=== PATIENT | female | born 1940 | race Caucasian/White ===

== ENCOUNTER 2017-04-27 10:13 | Inpatient (IN) ==
[2017-04-27] MEDS ORDERED: Ondansetron 4 MG/2 ML VIAL IVP ONE (10:27)
--- NOTE | 2017-04-27 10:28 | Emergency Department Note ---
Disposition Clinical Impression: Chest pain Qualifiers: Chest pain type: unspecified Qualified Code(s): R07.9 - Chest pain, unspecified Disposition: Admitted As Inpatient Condition: Fair General Adult HPI - General Chief complaint: ED Chest Pain Stated complaint: C/P Time Seen by Provider: 04/27/17 10:15 Source: patient, family Limitations: no limitations Nursing Notes Reviewed: Yes Vital Signs Reviewed: Yes - History of Present Illness Pain Scale: 10 - Related Data Home Medications Medication Instructions Recorded Confirmed Amitriptyline HCl [Amitriptyline 75 mg PO DAILY 04/27/17 04/27/17 HCl] Losartan Potassium [Cozaar] 50 mg PO DAILY 04/27/17 04/27/17 Omeprazole [PriLOSEC] 20 mg PO DAILY 04/27/17 04/27/17 Oxazepam [Serax] 10 mg PO QID 04/27/17 04/27/17 Oxycodone HCl/Acetaminophen 1 tab PO TID PRN 04/27/17 04/27/17 [Endocet 5-325 Tablet] Polyethylene Glycol 3350 [MiraLAX 17 gm PO DAILY PRN 04/27/17 04/27/17 bowel prep] Allergies Allergy/AdvReac Type Severity Reaction Status Date / Time Sulfa (Sulfonamide AdvReac Weakness Verified 04/27/17 13:38 Antibiotics) Past Medical History - Past Medical History Medical history: Reports: hyperlipidemia, hypertension, renal disease, other Surgical history: Reports: cholecystectomy, hysterectomy Psychiatric history: Reports: anxiety - Social History Smoking Status: Unknown if ever smoked Alcohol use: Reports: none Drug use: Reports: none Physical Exam - General Limitations: no limitations General appearance: alert, in distress Course Vital Signs Temperature 98 F 04/27/17 10:17 Pulse Rate 113 04/27/17 10:17 Respiratory Rate 20 04/27/17 10:17 Blood Pressure 173/99 04/27/17 10:17 O2 Sat by Pulse Oximetry 99 04/27/17 10:17 Temperature 98 F 04/27/17 10:17 Pulse Rate 92 04/27/17 12:42 Respiratory Rate 18 04/27/17 12:49 Blood Pressure 154/99 04/27/17 12:49 O2 Sat by Pulse Oximetry 98 04/27/17 12:42 Oxygen Delivery Oxygen Delivery Room Air Medical Decision Making - [facility] Narrative Medical decision making narrative: I examined this patient and my medical decision-making was reviewed with the Resident Physician. I agree with the documented findings, disposition and treatment plan as described except to the extent set forth below. Patient seen and evaluated by Dr. Cedillo and myself, I agree with his evaluation and management plan, supervised care the patient's stay. Patient presents today with epigastric and left upper quadrant abdominal pain and this could be chest pain she seems to think it is more abdominal pain. She has had some jaundice or last couple days also. She has a history of myelodysplastic syndrome. Low platelets also certain hold off any aspirin she is to get labs CT her abdomen EKG and reassess. She is in agreement with this plan. As his family. Chest X-Ray 04/27/17 10:17 IMPRESSION: No acute cardiopulmonary disease. D/ / Cladue Collins MD / Claude Collins MD Interpreting Provider: Claude Collins MD Abdomen/Pelvis CT 04/27/17 10:42 IMPRESSION: 1. No acute abnormalities are seen in the abdomen or pelvis. 2. No evidence for appendicitis. 3. No urinary tract stones. D/ / 04/27/2017 11:27:13 Eligio Renae MD / ricci Interpreting Provider: Eligio Renae MD 1144 hrs.: Patient's labs are returning. Her bilirubin is elevated. CT shows no acute abnormalities read by radiology. Waiting on rest her labs come back reassess her then determine whether she needs admission here or transferred. At this time I do not believe that we have gastroenterology coverage. 1205 hours: We do have GI coverage here and they have agreed to keep the patient here will admit the Hospital system counseling. I have also updated that Hem-Onc service so they can consult on the patient if needed. Patient's family is in agreement with her staying here. - Lab Data Result diagrams: 04/27/17 10:39 04/27/17 10:39 Lab Results 04/27/17 04/27/17 04/27/17 Range/Units 10:39 10:39 10:39 WBC (4.3-11.1) K/mcL RBC (3.82-4.97) M/mcL Hgb (11.5-15.4) g/dL Hct (35.3-44.9) % MCV (83.0-100.0) fL MCH (28.0-33.3) pg MCHC (31.6-35.5) g/dL RDW (11.5-14.5) % Plt Count (140-400) K/mcL MPV (9.4-12.4) fL Immature Gran % (0-4) % Seg Neutrophils % % Lymphocytes % % Monocytes % % Eosinophils % % Basophils % % Neutrophils # (1.6-8.9) K/mcL Lymphocytes # (0.6-4.6) K/mcL Monocytes # (0.0-1.3) K/mcL Eosinophils # (0.0-0.6) K/mcL Basophils # (0.0-0.2) K/mcL PT 12.3 H (9.4-12.1) Seconds INR 1.1 APTT 29.7 (26.0-36.0) Seconds Sodium 139 (136-145) mEq/L Potassium 4.0 (3.5-4.5) mEq/L Chloride 105 (98-109) mEq/L Carbon Dioxide 25 (19-29) mEq/L BUN 15 (7-20) mg/dL Creatinine 0.84 (0.57-1.11) mg/dL Est GFR ( Amer) > 60 (> 60) Est GFR (Non-Af Amer) > 60 (> 60) BUN/Creatinine Ratio 18 (6-26) Glucose 165 H (70-99) mg/dL Calculated Osmolality 293 (280-300) Calcium 9.6 (8.6-10.8) mg/dL Total Bilirubin 7.8 H (0.2-1.2) mg/dL Direct Bilirubin 5.7 H (0.0-0.5) mg/dL Indirect Bilirubin 2.1 H (0.0-1.2) mg/dL AST 330 H (5-34) Units/L ALT 359 H (0-55) Units/L Alkaline Phosphatase 1019 H (38-126) Units/L Troponin I (0-0.03) ng/mL B-Natriuretic Peptide 27 (0-100) pg/mL Serum Total Protein 8.5 H (6.0-8.3) g/dL Albumin 3.8 (3.5-5.0) g/dL Globulin 4.7 H (2.4-3.5) g/dL Albumin/Globulin Ratio 0.8 L (1.1-2.2) Lipase 13 (8-78) Units/L Urine Color (Yellow) Urine Clarity (Clear) Urine pH (5.0-8.0) pH Units Ur Specific [place] (1.010-1.025) Urine Protein (Neg-Trace) mg/dL Urine Glucose (UA) (Normal) mg/dL Urine Ketones (Negative) mg/dL Urine Blood (Negative) Urine Nitrite (Negative) Urine Bilirubin (Negative) Urine Urobilinogen (Normal) mg/dL Ur Leukocyte Esterase (Negative) Urine Microscopic RBC (0-3) per hpf Urine Microscopic WBC (0-3) per hpf Ur Squamous Epith Cells (None-Few) per lpf Urine Bacteria (None-Few) per hpf Hyaline Casts (None-Few) per lpf Ur Culture Indicated? (NO) 04/27/17 04/27/17 04/27/17 Range/Units 10:39 10:39 12:10 WBC 3.8 L (4.3-11.1) K/mcL RBC 3.16 L (3.82-4.97) M/mcL Hgb 10.2 L (11.5-15.4) g/dL Hct 33.6 L (35.3-44.9) % MCV 106.3 H (83.0-100.0) fL MCH 32.3 (28.0-33.3) pg MCHC 30.4 L (31.6-35.5) g/dL RDW 16.4 H (11.5-14.5) % Plt Count 71 L (140-400) K/mcL MPV 13.6 H (9.4-12.4) fL Immature Gran % 3.7 (0-4) % Seg Neutrophils % 66.2 % Lymphocytes % 15.8 % Monocytes % 10.8 % Eosinophils % 2.4 % Basophils % 1.1 % Neutrophils # 2.5 (1.6-8.9) K/mcL Lymphocytes # 0.6 (0.6-4.6) K/mcL Monocytes # 0.4 (0.0-1.3) K/mcL Eosinophils # 0.1 (0.0-0.6) K/mcL Basophils # 0.0 (0.0-0.2) K/mcL PT (9.4-12.1) Seconds INR APTT (26.0-36.0) Seconds Sodium (136-145) mEq/L Potassium (3.5-4.5) mEq/L Chloride (98-109) mEq/L Carbon Dioxide (19-29) mEq/L BUN (7-20) mg/dL Creatinine (0.57-1.11) mg/dL Est GFR ( Amer) (> 60) Est GFR (Non-Af Amer) (> 60) BUN/Creatinine Ratio (6-26) Glucose (70-99) mg/dL Calculated Osmolality (280-300) Calcium (8.6-10.8) mg/dL Total Bilirubin (0.2-1.2) mg/dL Direct Bilirubin (0.0-0.5) mg/dL Indirect Bilirubin (0.0-1.2) mg/dL AST (5-34) Units/L ALT (0-55) Units/L Alkaline Phosphatase (38-126) Units/L Troponin I 0.00 (0-0.03) ng/mL B-Natriuretic Peptide (0-100) pg/mL Serum Total Protein (6.0-8.3) g/dL Albumin (3.5-5.0) g/dL Globulin (2.4-3.5) g/dL Albumin/Globulin Ratio (1.1-2.2) Lipase (8-78) Units/L Urine Color Dark Yellow (Yellow) Urine Clarity Slightly Hazy (Clear) Urine pH 6.0 (5.0-8.0) pH Units Ur Specific [place] 1.016 (1.010-1.025) Urine Protein Negative (Neg-Trace) mg/dL Urine Glucose (UA) Normal (Normal) mg/dL Urine Ketones Negative (Negative) mg/dL Urine Blood Negative (Negative) Urine Nitrite Negative (Negative) Urine Bilirubin Moderate H (Negative) Urine Urobilinogen 4.0 H (Normal) mg/dL Ur Leukocyte Esterase Moderate H (Negative) Urine Microscopic RBC 0-3 (0-3) per hpf Urine Microscopic WBC 0-3 (0-3) per hpf Ur Squamous Epith Cells Many H (None-Few) per lpf Urine Bacteria None Seen (None-Few) per hpf Hyaline Casts None Seen (None-Few) per lpf Ur Culture Indicated? YES A (NO)
[2017-04-27] MEDS ORDERED: *HR* HYDROmorphone (PF) 1 MG/ML SYRINGE IVP ONE ×2 (10:29→12:21)
--- NOTE | 2017-04-27 10:32 | Emergency Department Note ---
Disposition Clinical Impression: Elevated liver enzymes, Elevated bilirubin Chest pain Qualifiers: Chest pain type: unspecified Qualified Code(s): R07.9 - Chest pain, unspecified Abdominal pain Qualifiers: Abdominal location: right upper quadrant Qualified Code(s): R10.11 - Right upper quadrant pain Disposition: Admitted As Inpatient Condition: Fair Chest Pain HPI - General Chief Complaint: ED Chest Pain Stated Complaint: C/P Time Seen by Provider: 04/27/17 10:15 Source: patient, family Limitations: no limitations Vital Signs Reviewed: Yes Nursing Notes Reviewed: Yes - History of Present Illness HPI Narrative: Patient here for evaluation of chest pain. Patient has a history of myelodysplastic syndrome and received a shot to increase her blood counts on Sunday. Patient is had chest pain that she describes as a epigastric substernal pain that radiates around her sides and into her back. Patient states that the pain came on last night where she initially refused to come to the hospital for evaluation but has had continued symptoms without relief. Patient has had similar episodes in the past that have self resolved. Patient states she was seen and told her heart enzymes were elevated but never had a previous cardiac workup. Patient states that she has got no heart problems and no lung problems. No history of diabetes. Patient does have a history of stage III kidney disease but has not required dialysis in the past. Patient had a cyst evaluated on her left side approximately [address] Moya. Patient states that she has got left upper and lower quadrant tenderness time. Patient's had a 40 pound weight loss over the last 6 months. Severity scale (1-10): 10 - Related Data Home Medications Medication Instructions Recorded Confirmed Amitriptyline HCl [Amitriptyline 75 mg PO DAILY 04/27/17 04/27/17 HCl] Losartan Potassium [Cozaar] 50 mg PO DAILY 04/27/17 04/27/17 Omeprazole [PriLOSEC] 20 mg PO DAILY 04/27/17 04/27/17 Oxazepam [Serax] 10 mg PO QID 04/27/17 04/27/17 Oxycodone HCl/Acetaminophen 1 tab PO TID PRN 04/27/17 04/27/17 [Endocet 5-325 Tablet] Polyethylene Glycol 3350 [MiraLAX 17 gm PO DAILY PRN 04/27/17 04/27/17 bowel prep] Allergies Allergy/AdvReac Type Severity Reaction Status Date / Time Sulfa (Sulfonamide AdvReac Weakness Verified 04/27/17 13:38 Antibiotics) Review of Systems: CONSTITUTIONAL: Weight loss 40 pounds over the last 6 months, weakness, fatigue. No fever, chills. HEENT: Eyes: No visual changes. Ears, Nose, Throat: No hearing loss, difficulty talking or unable to swallow. SKIN: No rash or itching. CARDIOVASCULAR: Chest pain . No palpitations or edema. RESPIRATORY: No shortness of breath, cough or sputum. GASTROINTESTINAL: Abdominal pain. No anorexia, nausea, vomiting or diarrhea. No abdominal pain or blood. GENITOURINARY: No burning on urination or hematuria. NEUROLOGICAL: No headache, dizziness, syncope, paralysis, ataxia, numbness or tingling in the extremities. No change in bowel or bladder control. MUSCULOSKELETAL: No muscle pain, back pain, joint pain or stiffness. Chest Pain PMH - Past Medical History Medical history: Reports: hyperlipidemia, hypertension, renal disease, other Surgical history: Reports: cholecystectomy, hysterectomy Psychiatric history: Reports: anxiety - Social History Smoking Status: Unknown if ever smoked Alcohol use: Reports: none Drug use: Reports: none Physical Exam General appearance: NAD, conversant Eyes:moist conjunctivae; PERRL HENT: Atraumatic; oropharynx clear with moist mucous membranes and no mucosal ulcerations Neck: Normal inspection; Trachea midline; FROM, supple Lungs: CTA, with normal respiratory effort and no intercostal retractions CV: RRR, no MRGs Abdomen: Soft, mild tenderness with rebound in the left upper lower quadrant. psoas negative Extremities: No peripheral edema or extremity lymphadenopathy Skin: Mild jaundice noted skin Normal temperature; no rash, ulcers or lesions Psych: Appropriate mood and affect Neuro: alert and oriented to person, place and time - General Limitations: no limitations General appearance: alert, in distress Course Course Narrative: Chest pain with no significant EKG changes in the setting of low platelets and abdominal pain- Aspirin was not given - Consultations Consultation #1: Discussed with [facility] to let them know about the patient being in the hospital. Consultation #2: Discussed with Dr. Lazar, gastroenterology, who recommends admission to this hospital for MRI/MRCP to rule out mass and common bile duct stricture. Patient may need an ERCP which he would be able to perform on Sunday if necessary. Consultation #3: Discussed with Hospitalist, pt accepted. Vital Signs Temperature 98 F 04/27/17 10:17 Pulse Rate 113 04/27/17 10:17 Respiratory Rate 20 04/27/17 10:17 Blood Pressure 173/99 04/27/17 10:17 O2 Sat by Pulse Oximetry 99 04/27/17 10:17 Temperature 98.5 F 04/27/17 14:42 Pulse Rate 100 04/27/17 14:42 Respiratory Rate 16 04/27/17 14:42 Blood Pressure 145/84 04/27/17 14:42 O2 Sat by Pulse Oximetry 98 04/27/17 14:42 Oxygen Delivery Oxygen Delivery Room Air Chest Pain - Medical Records Medical records reviewed: Yes I reviewed the patient's medical records. - Lab Data Lab results reviewed: Yes I reviewed the patient's lab results. Result diagrams: 04/27/17 10:39 04/27/17 10:39 Lab Results 04/27/17 04/27/17 04/27/17 Range/Units 10:39 10:39 10:39 WBC (4.3-11.1) K/mcL RBC (3.82-4.97) M/mcL Hgb (11.5-15.4) g/dL Hct (35.3-44.9) % MCV (83.0-100.0) fL MCH (28.0-33.3) pg MCHC (31.6-35.5) g/dL RDW (11.5-14.5) % Plt Count (140-400) K/mcL MPV (9.4-12.4) fL Immature Gran % (0-4) % Seg Neutrophils % % Lymphocytes % % Monocytes % % Eosinophils % % Basophils % % Neutrophils # (1.6-8.9) K/mcL Lymphocytes # (0.6-4.6) K/mcL Monocytes # (0.0-1.3) K/mcL Eosinophils # (0.0-0.6) K/mcL Basophils # (0.0-0.2) K/mcL PT 12.3 H (9.4-12.1) Seconds INR 1.1 APTT 29.7 (26.0-36.0) Seconds Sodium 139 (136-145) mEq/L Potassium 4.0 (3.5-4.5) mEq/L Chloride 105 (98-109) mEq/L Carbon Dioxide 25 (19-29) mEq/L BUN 15 (7-20) mg/dL Creatinine 0.84 (0.57-1.11) mg/dL Est GFR ( Amer) > 60 (> 60) Est GFR (Non-Af Amer) > 60 (> 60) BUN/Creatinine Ratio 18 (6-26) Glucose 165 H (70-99) mg/dL Calculated Osmolality 293 (280-300) Calcium 9.6 (8.6-10.8) mg/dL Total Bilirubin 7.8 H (0.2-1.2) mg/dL Direct Bilirubin 5.7 H (0.0-0.5) mg/dL Indirect Bilirubin 2.1 H (0.0-1.2) mg/dL AST 330 H (5-34) Units/L ALT 359 H (0-55) Units/L Alkaline Phosphatase 1019 H (38-126) Units/L Troponin I (0-0.03) ng/mL B-Natriuretic Peptide 27 (0-100) pg/mL Serum Total Protein 8.5 H (6.0-8.3) g/dL Albumin 3.8 (3.5-5.0) g/dL Globulin 4.7 H (2.4-3.5) g/dL Albumin/Globulin Ratio 0.8 L (1.1-2.2) Lipase 13 (8-78) Units/L Urine Color (Yellow) Urine Clarity (Clear) Urine pH (5.0-8.0) pH Units Ur Specific [place] (1.010-1.025) Urine Protein (Neg-Trace) mg/dL Urine Glucose (UA) (Normal) mg/dL Urine Ketones (Negative) mg/dL Urine Blood (Negative) Urine Nitrite (Negative) Urine Bilirubin (Negative) Urine Urobilinogen (Normal) mg/dL Ur Leukocyte Esterase (Negative) Urine Microscopic RBC (0-3) per hpf Urine Microscopic WBC (0-3) per hpf Ur Squamous Epith Cells (None-Few) per lpf Urine Bacteria (None-Few) per hpf Hyaline Casts (None-Few) per lpf Ur Culture Indicated? (NO) 04/27/17 04/27/17 04/27/17 Range/Units 10:39 10:39 12:10 WBC 3.8 L (4.3-11.1) K/mcL RBC 3.16 L (3.82-4.97) M/mcL Hgb 10.2 L (11.5-15.4) g/dL Hct 33.6 L (35.3-44.9) % MCV 106.3 H (83.0-100.0) fL MCH 32.3 (28.0-33.3) pg MCHC 30.4 L (31.6-35.5) g/dL RDW 16.4 H (11.5-14.5) % Plt Count 71 L (140-400) K/mcL MPV 13.6 H (9.4-12.4) fL Immature Gran % 3.7 (0-4) % Seg Neutrophils % 66.2 % Lymphocytes % 15.8 % Monocytes % 10.8 % Eosinophils % 2.4 % Basophils % 1.1 % Neutrophils # 2.5 (1.6-8.9) K/mcL Lymphocytes # 0.6 (0.6-4.6) K/mcL Monocytes # 0.4 (0.0-1.3) K/mcL Eosinophils # 0.1 (0.0-0.6) K/mcL Basophils # 0.0 (0.0-0.2) K/mcL PT (9.4-12.1) Seconds INR APTT (26.0-36.0) Seconds Sodium (136-145) mEq/L Potassium (3.5-4.5) mEq/L Chloride (98-109) mEq/L Carbon Dioxide (19-29) mEq/L BUN (7-20) mg/dL Creatinine (0.57-1.11) mg/dL Est GFR ( Amer) (> 60) Est GFR (Non-Af Amer) (> 60) BUN/Creatinine Ratio (6-26) Glucose (70-99) mg/dL Calculated Osmolality (280-300) Calcium (8.6-10.8) mg/dL Total Bilirubin (0.2-1.2) mg/dL Direct Bilirubin (0.0-0.5) mg/dL Indirect Bilirubin (0.0-1.2) mg/dL AST (5-34) Units/L ALT (0-55) Units/L Alkaline Phosphatase (38-126) Units/L Troponin I 0.00 (0-0.03) ng/mL B-Natriuretic Peptide (0-100) pg/mL Serum Total Protein (6.0-8.3) g/dL Albumin (3.5-5.0) g/dL Globulin (2.4-3.5) g/dL Albumin/Globulin Ratio (1.1-2.2) Lipase (8-78) Units/L Urine Color Dark Yellow (Yellow) Urine Clarity Slightly Hazy (Clear) Urine pH 6.0 (5.0-8.0) pH Units Ur Specific [place] 1.016 (1.010-1.025) Urine Protein Negative (Neg-Trace) mg/dL Urine Glucose (UA) Normal (Normal) mg/dL Urine Ketones Negative (Negative) mg/dL Urine Blood Negative (Negative) Urine Nitrite Negative (Negative) Urine Bilirubin Moderate H (Negative) Urine Urobilinogen 4.0 H (Normal) mg/dL Ur Leukocyte Esterase Moderate H (Negative) Urine Microscopic RBC 0-3 (0-3) per hpf Urine Microscopic WBC 0-3 (0-3) per hpf Ur Squamous Epith Cells Many H (None-Few) per lpf Urine Bacteria None Seen (None-Few) per hpf Hyaline Casts None Seen (None-Few) per lpf Ur Culture Indicated? YES A (NO) - Radiology Data Radiology results reviewed: Yes I reviewed the patient's radiology results. - EKG Data EKG attestation: Yes I reviewed and interpreted this EKG. EKG results narrative: EKG shows sinus rhythm with ventricular rate of 109. NM 167. QRS 98. QTC 392. Patient has no significant ST elevations or depressions. Patient has nonspecific T-wave changes to the inferior leads that are mildly flatter than previous EKG of 01/26/13.
[2017-04-27 10:51] LABS: Basophils % 1.1 %; Eosinophils # 0.1 K/mcL (0.0-0.6); Eosinophils % 2.4 %; Hematocrit 33.6 % (35.3-44.9); Hemoglobin 10.2 g/dL (11.5-15.4); Immature Granulocytes % 3.7 % (0-4); Lymphocytes # 0.6 K/mcL (0.6-4.6); Lymphocytes % 15.8 %; Mean Corpuscular HGB Conc 30.4 g/dL (31.6-35.5); Mean Corpuscular Hemoglobin 32.3 pg (28.0-33.3); Mean Corpuscular Volume 106.3 fL (83.0-100.0); Mean Platelet Volume 13.6 fL (9.4-12.4); Monocytes # 0.4 K/mcL (0.0-1.3); Monocytes % 10.8 %; Neutrophils # 2.5 K/mcL (1.6-8.9); Red Blood Count 3.16 M/mcL (3.82-4.97); Red Cell Distribution Width 16.4 % (11.5-14.5); Segmented Neutrophils % 66.2 %
[2017-04-27 10:52] LABS: Platelet Count 71 K/mcL (140-400)
[2017-04-27 10:56] LABS: INR 1.1; Prothrombin Time 12.3 Seconds (9.4-12.1)
[2017-04-27 10:58] LABS: Activated Partial Thrombo Time 29.7 Seconds (26.0-36.0)
[2017-04-27 11:09] LABS: Alanine Aminotransferase 359 Units/L (0-55); Albumin 3.8 g/dL (3.5-5.0); Albumin/Globulin Ratio 0.8 (1.1-2.2); Alkaline Phosphatase 1019 Units/L (38-126); Aspartate Amino Transferase 330 Units/L (5-34); BUN/Creatinine Ratio 18 (6-26); Bilirubin,Direct 5.7 mg/dL (0.0-0.5); Bilirubin,Indirect 2.1 mg/dL (0.0-1.2); Bilirubin,Total 7.8 mg/dL (0.2-1.2); Blood Urea Nitrogen 15 mg/dL (7-20); Calcium 9.6 mg/dL (8.6-10.8); Carbon Dioxide 25 mEq/L (19-29); Chloride 105 mEq/L (98-109); Globulin 4.7 g/dL (2.4-3.5); Glucose 165 mg/dL (70-99); Lipase 13 Units/L (8-78); Osmolality,Calculated 293 (280-300); Total Protein 8.5 g/dL (6.0-8.3); eGFR For African Americans > 60 (> 60); eGFR For Non-African Americans > 60 (> 60)
[2017-04-27 11:12] LABS: Sodium 139 mEq/L (136-145)
[2017-04-27 12:32] LABS: Bilirubin,Urine Moderate (Negative); Blood,Urine Negative (Negative); Color,Urine Dark Yellow (Yellow); Glucose,Urine (UA) Normal (Normal); Ketones,Urine Negative (Negative); Leukocyte Esterase,Urine Moderate (Negative); Nitrite,Urine Negative (Negative); Protein,Urine Negative (Neg-Trace); Specific Gravity,Urine 1.016 (1.010-1.025)
[2017-04-27 12:34] LABS: Bacteria,Urine None Seen per hpf (None-Few); Hyaline Casts,Urine None Seen per lpf (None-Few); RBC,Urine 0-3 per hpf (0-3); Squamous Epithelial Cell,Urine Many per lpf (None-Few); WBC,Urine 0-3 per hpf (0-3)
[2017-04-27 12:36] LABS: Clarity,Urine Slightly Hazy (Clear)
[2017-04-27] MEDS ORDERED: Naloxone 0.4 MG/ML INJ IVP PRN (13:09)
[2017-04-27] MEDS ORDERED: Ondansetron 4 MG/2 ML VIAL IVP PRN (13:10)
--- NOTE | 2017-04-27 13:42 | Internal Med History&Physical ---
<Gissel Warren - Last Filed: 04/27/17 14:07> Date of Encounter: 04/27/17 Time of Encounter: 13:00 Assessment and Plan (1) Obstructive jaundice Current visit: Yes Status: Acute 1 concern for cholangiocarcinoma - patient has been experiencing epigastric pain radiating to back- 40 lb weight loss in 6 mos and jaundice . Lab work AST 330 ALT [address] of ABD negative, will obtain MRCP 2 GI consulted - may perform ERCP Sunday depending on results of MRCP 3 will give IVF 4 dilaudid for pain / zofran for nausea 5 clear liquids advance as tolerated (2) Hypertension Current visit: No Status: Chronic stable- will continue with home medications Qualifiers: Hypertension type: essential hypertension Qualified Code(s): I10 - Essential (primary) hypertension (3) Myelodysplastic syndrome Current visit: No Status: Chronic 1 patient is being followed by Oncology- receiving Arnesp every 3 weeks as outpatient 2 Hemonc has been consulted (4) Pancytopenia Current visit: No Status: Chronic this appears to be chronic- - from MDS we will monitor CBC and s/sx of bleeding - transfuse as needed Hemoncology consulted (5) DVT prophylaxis Current visit: Yes Status: Acute SCD- platelets are low Internal Medicine - H&P: HPI Chief complaint: CP Admitted From: Emergency Dept Plans for Post Hospital Care: Home History of present illness: Ms. Brady is a 77 year old female past medical history of CK D stage III, DJD hypertension pancytopenia low-grade myelodysplastic syndrome. She receives Aranesp injections every 3 weeks she did receive one on Sunday. Last night the patient did experience chest pain originating in epigastric area radiating to her bilateral sides into her back there were no aggravating factors the pain was constant she states it was relieved somewhat with her Percocet. The pain continued until today and she was encouraged by family to come to the hospital for evaluation. She denies any past cardiac problems or workup. She denies any fevers chills nausea vomiting diarrhea however she has had anorexia and has lost approximately 40 pounds over the past 6 months. She also has noted that she has become jaundice over the past week. Denies any changes in stool frequency or color no hematemesis, hematochezia or melena. According to ER records lab work did reveal PSA. WBC 3.8U Maya and 10 platelets were 71 PT was 12.3 INR 1.1 PTT 29.7. Total bili 7.8 AST was 3:30 ALT was 359 alkaline phosphatase 1019 troponin was [address] of abdomen was negative chest x-ray with no acute processes. ER physician did consult GI doctor Mary who will see patient requesting MRCP. Oncology has also been consulted. She has been admitted for further workup evaluation. Presently patient does not appear to be in any respiratory distress she appears very frail and weak. She does have 8 out of 10 epigastric pain which she states is easing since she received pain medication. Her lung sounds are clear heart sounds are regular S1 -S2 with no rubs clicks gallops murmurs noted abdomen slightly distended soft nontender to palpation no pedal edema patient is jaundiced. Sclera anicteric. She is hemodynamically stable at this time Reveiwed case with Dr Grimes who agrees with plan Past Med Surg Social Fam HX - Past Medical History Medical history: hyperlipidemia, hypertension, renal disease, other Psychiatric history: anxiety - Past Surgical History Surgical History: cholecystectomy, hysterectomy - Social History Smoking Status: Unknown if ever smoked Alcohol use: none Drug use: none - Family History Mother Living Status: Cause of : Cancer Internal Medicine - H&P: Meds Amitriptyline HCl [Amitriptyline HCl] 75 mg PO DAILY 04/27/17 [History] Losartan Potassium [Cozaar] 50 mg PO DAILY 04/27/17 [History] Omeprazole [PriLOSEC] 20 mg PO DAILY 04/27/17 [History] Oxazepam [Serax] 10 mg PO QID 04/27/17 [History] Oxycodone HCl/Acetaminophen [Endocet 5-325 Tablet] 1 tab PO TID PRN 04/27/17 [ History] Polyethylene Glycol 3350 [MiraLAX bowel prep] 17 gm PO DAILY PRN 04/27/17 [ History] Allergies Sulfa (Sulfonamide Antibiotics) Adverse Reaction (Verified 04/27/17 13:38) Weakness All Systems PM: A 10-system review of systems was performed and is negative for pertinent findings except as documented above in the HPI. - Constitutional Constitutional: anorexia, fatigue, weakness, weight loss - EENT Eyes: no change in vision, no discharge, no pain, no photophobia Nose, mouth and throat: no dysphagia, no nasal discharge, no neck pain, no sore throat - Cardiovascular Cardiovascular ROS IM: chest pain - Respiratory Respiratory: no cough, no dyspnea, no wheezing, no excessive phlegm production - Gastrointestinal Gastrointestinal: bloating, nausea - Genitourinary Genitourinary: no change in urinary stream, no dysuria, no flank pain, no hematuria - Musculoskeletal Musculoskeletal ROS IM: no numbness, no tingling - Integumentary Integumentary IM: unusual bruising, jaundice - Neurological Neurological ROS: no confusion, no convulsions, no focal weakness, no numbness, no tingling, no tremor(s) - Hematologic/Lymphatic Hematologic/Lymphatic: easy bruising - Constitutional Vitals: Temp Pulse Resp BP Pulse Ox 98 F 92 18 154/99 98 04/27/17 10:17 04/27/17 12:42 04/27/17 12:49 04/27/17 12:49 04/27/17 12:42 General appearance: Present: A&O X 3, underweight, answers questions appropriately - Head Head exam: Present: atraumatic, normocephalic - Eye Eye exam: Present: PERRL, conjuntiva pink, sclera anicteric Pupils: Present: PERRL - Neck Neck exam general surgery: Present: supple, trachea midline. Absent: lymphadenopathy - Respiratory Respiratory exam: Present: CTAB. Absent: accessory muscle use, rales, rhonchi, wheezes - Cardiovascular Cardiovascular exam: Present: RRR, +S1, +S2. Absent: diastolic murmur, gallop, rubs, systolic murmur - GI/Abdominal GI/Abdominal exam: Present: distended, normal bowel sounds, soft, no peritoneal signs. Absent: tenderness - Extremities Exam Extremities exam: Present: warm, radial pulses palpable and symetrical. Absent : calf tenderness, cyanotic, pedal edema - Neurological Exam Neurological exam: Present: CN II-XII intact, oriented X3, no focal deficits. Absent: pronater drift, facial droop, speech deficit - Skin Skin exam: Present: dry, intact Internal Med - H&P Results - Labs CBC & Chem 7: 04/27/17 10:39 04/27/17 10:39 - EKG Data EKG shows normal: sinus rhythm Rate: tachycardia - EKG Data Prior EKG available for review: yes When compared to previous EKG: there is no significant change - Diagnostic Studies Other Images Additional comments: Chest X-Ray 04/27/17 10:17 IMPRESSION: No acute cardiopulmonary disease. D/ / Claude Collins MD / Claude Collins MD Interpreting Provider: Claude Collins MD Abdomen/Pelvis CT 04/27/17 10:42 IMPRESSION: 1. No acute abnormalities are seen in the abdomen or pelvis. 2. No evidence for appendicitis. 3. No urinary tract stones. D/ / 04/27/2017 11:27:13 Eligio Renae MD / ricci Interpreting Provider: Eligio Renae MD <Ritesh Grimes - Last Filed: 04/28/17 08:18> Date of Encounter: 04/28/17 Internal Medicine - H&P: HPI History of present illness: Ms. Brady is a 77 year old female All Systems PM: A 10-system review of systems was performed and is negative for pertinent findings except as documented above in the HPI. - Constitutional Vitals: Temp Pulse Resp BP Pulse Ox 98.2 F 95 16 159/82 95 04/28/17 07:24 04/28/17 07:24 04/28/17 07:24 04/28/17 07:24 04/28/17 07:24 Internal Med - H&P Results - Labs CBC & Chem 7: 04/28/17 03:15 04/28/17 03:15 Labs: Short CBC 04/28/17 Range/Units 03:15 WBC 4.2 L (4.3-11.1) K/mcL Hgb 10.6 L (11.5-15.4) g/dL Hct 34.3 L (35.3-44.9) % Plt Count 92 L (140-400) K/mcL Neutrophils # 3.1 (1.6-8.9) K/mcL BMP 04/28/17 03:15 Sodium 138 Potassium 3.9 Chloride 104 Carbon Dioxide 26 BUN 11 Creatinine 0.88 Glucose 144 H Calcium 9.1 Cardiac Enzymes 04/27/17 04/27/17 Range/Units 16:42 22:33 Troponin I 0.00 0.00 (0-0.03) ng/mL - Attending Attestation I have personally performed a face to face evaluation on this patient and I discussed the assessment and plan with the nurse practitioner. I have reviewed and agree with the documented care plan. History and Exam by me shows: Ms. Brady is a 77 year old female past medical history of CK D stage III, DJD hypertension pancytopenia low-grade myelodysplastic syndrome. She receives Aranesp injections every 3 weeks she did receive one on Sunday. Last night the patient did experience chest pain originating in epigastric area radiating to her bilateral sides into her back there were no aggravating factors the pain was constant she states it was relieved somewhat with her Percocet. Patient had a father work up in the emergency room which showed total bili 7.8 AST was 3 :30 ALT was 359 alkaline phosphatase 1019 troponin was [address] of abdomen was negative chest x-ray with no acute processes. Gen: A, A, O x3 Skin: Icteric and pale ABd: mildly distended, mild tender in epigatsric region, no guarding / rigidity a/p 1. Acute obstructive Jaundice 2. Acute pancreatic head mass Reviewed pt's labs and CT of abd results Reviewed MRCP results too Talked to pt's family at bed side and explained to them about MRCP results waiting on GI and Heme Onc eval cont symptomatic and supportive care
[2017-04-27] MEDS: 0.9 % Sodium Chloride 1,000 ML IVC SCH (15:35)
[2017-04-27] MEDS: *HR* HYDROmorphone (PF) 1 MG/ML SYRINGE IVP PRN ×2 (16:31→19:42)
[2017-04-28] MEDS: *HR* HYDROmorphone (PF) 1 MG/ML SYRINGE IVP PRN ×3 (00:32→13:28)
[2017-04-28 03:23] LABS: Hematocrit 34.3 % (35.3-44.9); Hemoglobin 10.6 g/dL (11.5-15.4); Immature Platelets 26.8 % (1.1-6.1); Mean Corpuscular HGB Conc 30.9 g/dL (31.6-35.5); Mean Corpuscular Hemoglobin 32.9 pg (28.0-33.3); Mean Corpuscular Volume 106.5 fL (83.0-100.0); Mean Platelet Volume 12.9 fL (9.4-12.4); Monocytes # 0.3 K/mcL (0.0-1.3); Neutrophils # 3.1 K/mcL (1.6-8.9); Red Blood Count 3.22 M/mcL (3.82-4.97); Red Cell Distribution Width 17.2 % (11.5-14.5)
[2017-04-28 03:26] LABS: Platelet Count 92 K/mcL (140-400)
[2017-04-28 03:38] LABS: BUN/Creatinine Ratio 13 (6-26); Blood Urea Nitrogen 11 mg/dL (7-20); Calcium 9.1 mg/dL (8.6-10.8); Carbon Dioxide 26 mEq/L (19-29); Chloride 104 mEq/L (98-109); Glucose 144 mg/dL (70-99); Osmolality,Calculated 288 (280-300); Potassium 3.9 mEq/L (3.5-4.5); Sodium 138 mEq/L (136-145); eGFR For African Americans > 60 (> 60); eGFR For Non-African Americans > 60 (> 60)
[2017-04-28 04:03] LABS: Anisocytosis 1+ (Not Present); Eosinophils # 0.1 K/mcL (0.0-0.6); Hypochromasia Present (Not Present); Large Platelets Present (Not Present); Lymphocytes # 0.8 K/mcL (0.6-4.6); Platelet Estimate Decreased (Normal)
[2017-04-28 04:04] LABS: Burr Cells 3+ (Not Present)
[2017-04-28] MEDS: 0.9 % Sodium Chloride 1,000 ML IVC SCH (04:36)
--- NOTE | 2017-04-28 06:45 | Oncology Inp Consult Note ---
Date of Encounter: 04/28/17 Time of Encounter: 06:43 - Data of Consult Patient: known to practice within the last 3 years Consult date: 04/28/17 Requesting Physician: Mariposa Patterson Primary Care Provider: Sukumar Wilkins Jr, MD - Consult Narrative Reason for consult: Obstructive jaundice, pancreatic mass. History of present illness: Ms. Brady is a 77 year old woman who is established with la over at the cancer center for ongoing management of ow-grade MDS. I have summarized patient's heme/onc background below based on most recent office report from 04/19/17. Oncology history: She initially presented with progressive pancytopenia which was first noted in January 2011 and was referred to hematology for further evaluation. 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 Cytogenetics was that of a normal female karyotype. She was started on treatment with hypomethylating agent (Vidaza) but have to be stopped due to severe allergic reaction. She was transitioned to decitabine intravenously but had to stop up to 1 cycle due to treatment related cytopenia resulting in hospitalization for infectious complication including C. difficile associated diarrhea and encephalopathy. Due to intolerance of low intensity therapy, decision was made regarding supportive on the management and she has been followed for the last several years and managed supportively. She has maintained relatively stable counts with noncritical thrombocytopenia over last several years but more recently has been noted with declining counts with her CBC from 07/04/16 showing a WBC of 4.2, hemoglobin 9.6, platelet count 51,000 indicating worsening of her underlying anemia and interval development of neutropenia. Fortunately, she has not had any associated symptoms or recent transfusion requirement. Upon establishing with la, we decided to reevaluate the status of her bone marrow abnormality given declining counts and completed on extensive workup on including: Repeat CBC showing persistent pancytopenia with WBC 4.2, hemoglobin 8.7, platelet count 67,000. Reticulocyte was elevated indicating bone marrow response to her cytopenias. Metabolic panel did not show any significant liver, kidney, thyroid abnormality. No hematinic deficiency. Epo level elevated (56) likely reacted to be his anemia. SPEP negative for monoclonal paraproteinemia but showed a polyclonal increase in gamma region. Rheumatoid panel negative. No antinuclear antibodies. Abdominal ultrasound negative for hepatomegaly to suggest underlying primary hematologic disorder. Spleen was not evaluated for whatever reason given that we requested liver spleen ultrasound. Bone marrow biopsy 01/12/17 showed a hypercellular marrow with more than 90% cellularity with left shifted erythroid predominance and megakaryocytic hyperplasia with dyspoietic features. There is some mild myelofibrosis but not severe enough to suggest pathologic bone marrow. No evidence of iron deficiency. Cytogenetics was normal female karyotype. She likely has a low-grade MDS based on cytopenias with a hypercellular bone marrow. Treatment summary: 12/02-02/10: Subcu azacitidine. Stopped due to allergic injection site reaction. 12/09-: Decitabine IV. Steps due to intolerance with profound pancytopenia resulting in prolonged hospitalization and infectious complication. 01/26/17: Started Aranesp every 3 weeks for anemia due to MDS. Ongoing Chronic problems: Chronic kidney disease: Established with nephrology and managed by Dr. Whitfield. DJD: Status post bilateral hip arthroplasty. Hypertension: Controlled on the current management by Dr. Wilkins. Patient is currently hospitalized for acute obstructive jaundice after presenting with several days onset of upper abdominal pain and generalized pruritus associated with skin icterus. Laboratory and admission showed significant jump in her bilirubin to 7.8 from previous of 1.3 and 03/21/17. Direct bilirubin is 5.7 with markedly elevated alkaline phosphatase suggesting a cholestatic liver picture. Abdomen CT on admission was negative for acute abnormalities in the abdomen or pelvis. No evidence of appendicitis. No urinary tract stones. He was a noncontrast study. MRCP same day confirmed a 2.5 cm pancreatic head mass with obstruction of the common bile pancreatic duct sign and moderate intrahepatic biliary dilatation. Concerning for pancreatic neoplasm. Patient's case has been discussed with Dr. Hall GI was recommended an ERCP tentatively planned for 05/31/17. She is being managed supportively in the interim. Oncology is consulted re: her current presentation with obstructive jaundice and pancreatic head mass suspicious for primary pancreatic malignancy as proven otherwise. Patient seen and examined at bedside. Family members present at the time of evaluation. Chart review for details of ongoing care by hospital team which is much appreciated. She reports that her pain is controlled with current measures (Dilaudid and oxycodone.) Pruritus is also controlled somewhat. Understandably, she has some anxiety due to diagnostic considerations are current presentation. Anxiety is control with Elavil and oxazepam. She is not having any acute symptoms at time of my evaluation. Rest of past medical, surgical, family, social history detailed below and verified with patient today. Review of systems: 12 point review of systems performed with patient and positive findings noted in history of present illness. All other systems are negative: Physical exam: Vital Signs Temp 98.4 F 04/28/17 03:40 Pulse 92 04/28/17 03:40 Resp 15 04/28/17 03:40 BP 157/94 04/28/17 03:40 Pulse Ox 95 04/28/17 03:40 Intake & Output 04/27/17 04/28/17 04/28/17 12:59 00:59 12:59 Intake Total 1437 / 1437 Output Total 0 / 0 Balance 1437 / 1437 Weight 55.6 kg 56.359 kg 56.245 kg Intake: IV Fluids 1000 / 1000 0.9 % Sodium Chloride 1, 1000 / 1000 000 ML @ 75 mls/hr IVC . [id number] DEREJE Rx#: [id number] Oral 437 / 437 Output: Urine 0 / 0 Other: Percent of Meal Consumed 0% # Voids 1 GENERAL: Alert and oriented, comfortable appearing. Mental Status: Affect appropriate for circumstances HEENT: Sclerae icteric. No mucositis or thrush. No other oral or pharyngeal lesions or erythema. Skin: No rashes or petechiae. Skin is icteric. No evidence of skin malignancy Lymph nodes: No cervical, supraclavicular, axillary, or inguinal adenopathy. Lungs: Clear to auscultation bilaterally. Clear to percussion bilaterally. Cardiovascular: Regular rate and rhythm. No gallops, murmurs, or rubs. Abdomen: Soft, nontender; No organomegaly or masses palpable. Extremities: No edema. No calf swelling or tenderness. No joint deformity. Neurologic: Alert, normal gait; no focal weakness or sensory abnormalities. Results: Laboratory Last Values WBC 4.2 K/mcL (4.3-11.1) L 04/28/17 03:15 RBC 3.22 M/mcL (3.82-4.97) L 04/28/17 03:15 Hgb 10.6 g/dL (11.5-15.4) L 04/28/17 03:15 Hct 34.3 % (35.3-44.9) L 04/28/17 03:15 MCV 106.5 fL (83.0-100.0) H 04/28/17 03:15 MCH 32.9 pg (28.0-33.3) 04/28/17 03:15 MCHC 30.9 g/dL (31.6-35.5) L 04/28/17 03:15 RDW 17.2 % (11.5-14.5) H 04/28/17 03:15 Plt Count 92 K/mcL (140-400) L 04/28/17 03:15 MPV 12.9 fL (9.4-12.4) H 04/28/17 03:15 Immature Gran % 3.7 % (0-4) 04/27/17 10:39 Seg Neutrophils % 74.0 % 04/28/17 03:15 Lymphocytes % 18.0 % 04/28/17 03:15 Monocytes % 6.0 % 04/28/17 03:15 Eosinophils % 2.0 % 04/28/17 03:15 Basophils % 1.1 % 04/27/17 10:39 Neutrophils # 3.1 K/mcL (1.6-8.9) 04/28/17 03:15 Lymphocytes # 0.8 K/mcL (0.6-4.6) 04/28/17 03:15 Monocytes # 0.3 K/mcL (0.0-1.3) 04/28/17 03:15 Eosinophils # 0.1 K/mcL (0.0-0.6) 04/28/17 03:15 Basophils # 0.0 K/mcL (0.0-0.2) 04/27/17 10:39 Platelet Estimate Decreased (Normal) L 04/28/17 03:15 Large Platelets Present (Not Present) A 04/28/17 03:15 Immature Plt Fraction 26.8 % (1.1-6.1) H 04/28/17 03:15 Hypochromasia Present (Not Present) A 04/28/17 03:15 Anisocytosis 1+ (Not Present) A 04/28/17 03:15 [employer] Cells 3+ (Not Present) A 04/28/17 03:15 PT 12.3 Seconds (9.4-12.1) H 04/27/17 10:39 INR 1.1 04/27/17 10:39 APTT 29.7 Seconds (26.0-36.0) 04/27/17 10:39 Sodium 138 mEq/L (136-145) 04/28/17 03:15 Potassium 3.9 mEq/L (3.5-4.5) 04/28/17 03:15 Chloride 104 mEq/L (98-109) 04/28/17 03:15 Carbon Dioxide 26 mEq/L (19-29) 04/28/17 03:15 BUN 11 mg/dL (7-20) 04/28/17 03:15 Creatinine 0.88 mg/dL (0.57-1.11) 04/28/17 03:15 Est GFR ( Amer) > 60 (> 60) 04/28/17 03:15 Est GFR (Non-Af Amer) > 60 (> 60) 04/28/17 03:15 BUN/Creatinine Ratio 13 (6-26) 04/28/17 03:15 Glucose 144 mg/dL (70-99) H 04/28/17 03:15 Calculated Osmolality 288 (280-300) 04/28/17 03:15 Calcium 9.1 mg/dL (8.6-10.8) 04/28/17 03:15 Total Bilirubin 7.8 mg/dL (0.2-1.2) H 04/27/17 10:39 Direct Bilirubin 5.7 mg/dL (0.0-0.5) H 04/27/17 10:39 Indirect Bilirubin 2.1 mg/dL (0.0-1.2) H 04/27/17 10:39 AST 330 Units/L (5-34) H 04/27/17 10:39 ALT 359 Units/L (0-55) H 04/27/17 10:39 Alkaline Phosphatase 1019 Units/L (38-126) H 04/27/17 10:39 Troponin I 0.00 ng/mL (0-0.03) 04/27/17 22:33 B-Natriuretic Peptide 27 pg/mL (0-100) 04/27/17 10:39 Serum Total Protein 8.5 g/dL (6.0-8.3) H 04/27/17 10:39 Albumin 3.8 g/dL (3.5-5.0) 04/27/17 10:39 Globulin 4.7 g/dL (2.4-3.5) H 04/27/17 10:39 Albumin/Globulin Ratio 0.8 (1.1-2.2) L 04/27/17 10:39 Lipase 13 Units/L (8-78) 04/27/17 10:39 Urine Color Dark Yellow (Yellow) 04/27/17 12:10 Urine Clarity Slightly Hazy (Clear) 04/27/17 12:10 Urine pH 6.0 pH Units (5.0-8.0) 04/27/17 12:10 Ur Specific [place] 1.016 (1.010-1.025) 04/27/17 12:10 Urine Protein Negative mg/dL (Neg-Trace) 04/27/17 12:10 Urine Glucose (UA) Normal mg/dL (Normal) 04/27/17 12:10 Urine Ketones Negative mg/dL (Negative) 04/27/17 12:10 Urine Blood Negative (Negative) 04/27/17 12:10 Urine Nitrite Negative (Negative) 04/27/17 12:10 Urine Bilirubin Moderate (Negative) H 04/27/17 12:10 Urine Urobilinogen 4.0 mg/dL (Normal) H 04/27/17 12:10 Ur Leukocyte Esterase Moderate (Negative) H 04/27/17 12:10 Urine Microscopic RBC 0-3 per hpf (0-3) 04/27/17 12:10 Urine Microscopic WBC 0-3 per hpf (0-3) 04/27/17 12:10 Ur Squamous Epith Cells Many per lpf (None-Few) H 04/27/17 12:10 Urine Bacteria None Seen per hpf (None-Few) 04/27/17 12:10 Hyaline Casts None Seen per lpf (None-Few) 04/27/17 12:10 Ur Culture Indicated? YES (NO) A 04/27/17 12:10 Radiographic studies: I personally reviewed and interpreted patient's most recent imaging studies dated 04/27/17. I discussed the findings with the patient today. Chest X-Ray 04/27/17 10:17 IMPRESSION: No acute cardiopulmonary disease. D/ / Claude Collins MD / Claude Collins MD Interpreting Provider: Claude Collins MD Abdomen/Pelvis CT 04/27/17 10:42 IMPRESSION: 1. No acute abnormalities are seen in the abdomen or pelvis. 2. No evidence for appendicitis. 3. No urinary tract stones. D/ / 04/27/2017 11:27:13 Eligio Renae MD / ricci Interpreting Provider: Eligio Renae MD Abdomen MRI 04/27/17 12:57 IMPRESSION: 2.3 x 1.8 x 2.5 cm mass centered within the pancreatic head obstructing the common bowel duct and pancreatic duct. Moderate intrahepatic biliary dilatation. Findings concerning for pancreatic neoplasm such as adenocarcinoma. Recommend further evaluation with EUS and biopsy. D/ / Purvi Silva MD / Purvi Silva MD Interpreting Provider: Purvi Silva MD Impression/recommendations: New pancreatic head mass: I had a detailed discussion with patient and family members present today regarding diagnostic considerations for her current presentation. Her pancreatic head mass is compatible with primary pancreatic malignancy until proven otherwise. Diagnostic considerations include pancreatic adenocarcinoma versus neuroendocrine tumor each of which has very different prognostic and management implications. It appears that she has a fairly localized lesion and if malignancy is confirmed , she is be an appropriate candidate for potentially curative resection and adjuvant therapy. She understands that additional imaging may be needed for verification pending biopsy. I agree with recommendation for ERCP/EUS which is planned for a 30/10/[address] Hernandez. I look forward to his input. Further recommendations be based on tissue diagnosis. We will review her case in our most of his prior tumor board in the interim. Obstructive jaundice: Pruritus is improving. If pruritus is problematic, antihistamines like Benadryl or bilateral axillary seems like cholestyramine/colestipol may be helpful for symptom control. She appears to be doing fairly well at this time. Upper abdominal pain: Controlled with current measures. Given concern about pancreatic cancer, she may need a more aggressive approach to her pain medication by escalating her opioid regimen if pain becomes an issue. We'll follow the patient peripherally with you during this hospitalization. Please call with interval questions. Thank you for your excellent ongoing care for allowing us to see her while in- house. This report was created using voice recognition software and may contain errors. It was signed but not edited to expedite communication. Corrections will be made in a separate addendum as needed. Past Med Surg Social Fam HX - Past Medical History Medical history: hyperlipidemia, hypertension, renal disease, other Psychiatric history: anxiety - Past Surgical History Surgical History: cholecystectomy, hysterectomy - Social History Smoking Status: Unknown if ever smoked Alcohol use: none Drug use: none - Family History Mother Living Status: Cause of : Cancer Medications and Allergies Amitriptyline HCl [Amitriptyline HCl] 75 mg PO DAILY 04/27/17 [History] Losartan Potassium [Cozaar] 50 mg PO DAILY 04/27/17 [History] Omeprazole [PriLOSEC] 20 mg PO DAILY 04/27/17 [History] Oxazepam [Serax] 10 mg PO QID 04/27/17 [History] Oxycodone HCl/Acetaminophen [Endocet 5-325 Tablet] 1 tab PO TID PRN 04/27/17 [ History] Polyethylene Glycol 3350 [MiraLAX bowel prep] 17 gm PO DAILY PRN 04/27/17 [ History] Allergies Sulfa (Sulfonamide Antibiotics) Adverse Reaction (Verified 04/27/17 13:38) Weakness Oncology - Exam - Constitutional Vitals: Temp Pulse Resp BP Pulse Ox 98.4 F 92 15 157/94 95 04/28/17 03:40 04/28/17 03:40 04/28/17 03:40 04/28/17 03:40 04/28/17 03:40 Oncology - Results - Labs Labs: Short CBC 04/28/17 Range/Units 03:15 WBC 4.2 L (4.3-11.1) K/mcL Hgb 10.6 L (11.5-15.4) g/dL Hct 34.3 L (35.3-44.9) % Plt Count 92 L (140-400) K/mcL Neutrophils # 3.1 (1.6-8.9) K/mcL BMP 04/28/17 03:15 Sodium 138 Potassium 3.9 Chloride 104 Carbon Dioxide 26 BUN 11 Creatinine 0.88 Glucose 144 H Calcium 9.1 Cardiac Enzymes 04/27/17 04/27/17 Range/Units 16:42 22:33 Troponin I 0.00 0.00 (0-0.03) ng/mL Consult Discharge Plan - Plan Referrals: Sukumar Wilkins Jr, MD [Primary Care Provider] -
[2017-04-28] MEDS: *HR* OxyCODONE/APAP 5/325 TABLET PO PRN ×2 (08:40→16:35)
--- NOTE | 2017-04-28 17:47 | Internal Med Progress Note ---
Date of Encounter: 04/28/17 Time of Encounter: 09:30 - Assessment and plan (1) Abdominal pain Current Visit: Yes Status: Acute Assessment and plan: Patient stating her pain is currently controlled and she is endorsing nausea she has been medicated for both. She is tolerating clears. Oncology and GI are on board. Abdominal CT unremarkable. MRCP however revealing pancreatic head mass. Marked transaminase noted. We will continue to address her pain and nausea and await oncology and GI recommendations. Of note, daughter is at the bedside and is requesting a biopsy for Sunday if possible. ITS Impressions Chest X-Ray 04/27/17 10:17 IMPRESSION: No acute cardiopulmonary disease. D/ / Claude Collins MD / Claude Collins MD Interpreting Provider: Claude Collins MD Abdomen/Pelvis CT 04/27/17 10:42 IMPRESSION: 1. No acute abnormalities are seen in the abdomen or pelvis. 2. No evidence for appendicitis. 3. No urinary tract stones. D/ / 04/27/2017 11:27:13 Eligio Renae MD / ricci Interpreting Provider: Eligio Renae MD Abdomen MRI 04/27/17 12:57 IMPRESSION: 2.3 x 1.8 x 2.5 cm mass centered within the pancreatic head obstructing the common bowel duct and pancreatic duct. Moderate intrahepatic biliary dilatation. Findings concerning for pancreatic neoplasm such as adenocarcinoma. Recommend further evaluation with EUS and biopsy. D/ / Purvi Silva MD / Purvi Silva MD Interpreting Provider: Purvi Silva MD (2) Obstructive jaundice Current Visit: Yes Status: Acute (3) Pruritus Current Visit: Yes Status: Acute Assessment and plan: Will initiate antihistamines and if ineffective, we will consider adding cholestyramine at the discretion of oncology. (4) Myelodysplastic syndrome Current Visit: No Status: Chronic Assessment and plan: Oncology on board (5) Abnormal urinalysis Current Visit: Yes Status: Ruled-out Assessment and plan: patient denies dysuria, urine culture negative (6) Hypertension Current Visit: No Status: Chronic Assessment and plan: Uncontrolled. At home, patient is on losartan 50 mg, will increase dose. Hydralazine as needed IV Qualifiers: Hypertension type: essential hypertension Qualified Code(s): I10 - Essential (primary) hypertension (7) Pancytopenia Current Visit: No Status: Chronic Assessment and plan: Chronic, stable, oncology on board (8) Elevated liver enzymes Current Visit: Yes Status: Acute (9) Elevated bilirubin Current Visit: Yes Status: Acute (10) DVT prophylaxis Current Visit: Yes Status: Acute Assessment and plan: IPCs ordered, pharmacological prophylaxis contraindicated secondary to anemia - Subjective Interval history: Patient seen and examined. On examination, patient sitting upright in bed conversing with her and her daughter. Patient complains of nausea but states she was just medicated for pain and nausea and denies need for additional medication at this time. She denies further concerns. She states she is tolerating clears well. - Constitutional Vitals: Temp Pulse Resp BP Pulse Ox 98.5 F 89 18 175/104 96 04/28/17 16:32 04/28/17 16:32 04/28/17 16:32 04/28/17 16:32 04/28/17 16:32 General appearance: Present: A&O X 3, pleasant, no acute distress, underweight, answers questions appropriately - Head Head exam: Present: atraumatic, normocephalic - Eye Eye exam: Present: PERRL, conjuntiva pink, sclera anicteric Pupils: Present: PERRL - Neck Neck exam general surgery: Present: supple, trachea midline. Absent: lymphadenopathy - Respiratory Respiratory exam: Present: CTAB. Absent: accessory muscle use, rales, respiratory distress, rhonchi, wheezes - Cardiovascular Cardiovascular exam: Present: RRR, +S1, +S2. Absent: diastolic murmur, gallop, rubs, systolic murmur - GI/Abdominal GI/Abdominal exam: Present: distended, normal bowel sounds, soft, tenderness, no peritoneal signs - Extremities Exam Extremities exam: Present: warm, radial pulses palpable and symetrical. Absent : calf tenderness, cyanotic, pedal edema - Neurological Exam Neurological exam: Present: alert, CN II-XII intact, oriented X3, no focal deficits, strengths equal and symetr throughout. Absent: pronater drift, facial droop, speech deficit - Skin Skin exam: Present: dry, intact, pallor (jaudiced) Internal Medicine: Result - Labs CBC & Chem 7: 04/28/17 03:15 04/28/17 03:15 Labs: Short CBC 04/28/17 Range/Units 03:15 WBC 4.2 L (4.3-11.1) K/mcL Hgb 10.6 L (11.5-15.4) g/dL Hct 34.3 L (35.3-44.9) % Plt Count 92 L (140-400) K/mcL Neutrophils # 3.1 (1.6-8.9) K/mcL BMP 04/28/17 03:15 Sodium 138 Potassium 3.9 Chloride 104 Carbon Dioxide 26 BUN 11 Creatinine 0.88 Glucose 144 H Calcium 9.1 Cardiac Enzymes 04/27/17 Range/Units 22:33 Troponin I 0.00 (0-0.03) ng/mL - ABG Interpretation ABG results: PT/INR, D-dimer PT 12.3 Seconds (9.4-12.1) H 04/27/17 10:39 - VTE Documentation of Mechanical Device: Venous foot pump, device Consult Discharge Plan - Plan Referrals: Sukumar Wilkins Jr, MD [Primary Care Provider] -
[2017-04-28] MEDS ORDERED: *HR* Promethazine 25 MG/ML VIAL IVP PRN (17:54)
[2017-04-28] MEDS ORDERED: Ondansetron 4 MG/2 ML VIAL IVP PRN (17:56)
[2017-04-28] MEDS: *HR* HYDROcodone/Acet 5/325 mg TABLET PO PRN (20:26)
[2017-04-29] MEDS: *HR* HYDROmorphone (PF) 1 MG/ML SYRINGE IVP PRN ×4 (02:24→18:03)
[2017-04-29] MEDS: *HR* OxyCODONE/APAP 5/325 TABLET PO PRN ×2 (05:17→20:30)
[2017-04-29 05:37] LABS: Basophils % 0.8 %; Eosinophils # 0.1 K/mcL (0.0-0.6); Eosinophils % 1.3 %; Hematocrit 33.8 % (35.3-44.9); Hemoglobin 10.5 g/dL (11.5-15.4); Immature Granulocytes % 4.6 % (0-4); Lymphocytes # 0.5 K/mcL (0.6-4.6); Lymphocytes % 10.1 %; Mean Corpuscular HGB Conc 31.1 g/dL (31.6-35.5); Mean Corpuscular Hemoglobin 32.7 pg (28.0-33.3); Mean Corpuscular Volume 105.3 fL (83.0-100.0); Mean Platelet Volume 14.1 fL (9.4-12.4); Monocytes # 0.5 K/mcL (0.0-1.3); Monocytes % 10.3 %; Neutrophils # 3.8 K/mcL (1.6-8.9); Red Blood Count 3.21 M/mcL (3.82-4.97); Red Cell Distribution Width 17.6 % (11.5-14.5); Segmented Neutrophils % 72.9 %
[2017-04-29 05:39] LABS: Platelet Count 64 K/mcL (140-400)
[2017-04-29 05:53] LABS: Alanine Aminotransferase 344 Units/L (0-55); Albumin 3.3 g/dL (3.5-5.0); Albumin/Globulin Ratio 0.8 (1.1-2.2); Alkaline Phosphatase 1105 Units/L (38-126); Aspartate Amino Transferase 323 Units/L (5-34); BUN/Creatinine Ratio 10 (6-26); Bilirubin,Indirect 3.4 mg/dL (0.0-1.2); Blood Urea Nitrogen 8 mg/dL (7-20); Carbon Dioxide 24 mEq/L (19-29); Chloride 105 mEq/L (98-109); Globulin 4.1 g/dL (2.4-3.5); Glucose 193 mg/dL (70-99); Osmolality,Calculated 286 (280-300); Potassium 3.8 mEq/L (3.5-4.5); Sodium 136 mEq/L (136-145); Total Protein 7.4 g/dL (6.0-8.3); eGFR For African Americans > 60 (> 60); eGFR For Non-African Americans > 60 (> 60)
[2017-04-29 05:54] LABS: Bilirubin,Direct 10.2 mg/dL (0.0-0.5); Bilirubin,Total 13.6 mg/dL (0.2-1.2)
--- NOTE | 2017-04-29 10:53 | Internal Med Progress Note ---
Date of Encounter: 04/29/17 Time of Encounter: 09:15 - Assessment and plan (1) Abdominal pain Current Visit: Yes Status: Acute Assessment and plan: Patient stating her pain is not currently controlled so her Dilaudid has been increased in dose and frequency-we will schedule her daily MiraLAX. She is stating that her nausea is better but not absent. She remains tolerant of clears. Oncology and GI are on board. Abdominal CT unremarkable. MRCP however revealing pancreatic head mass. Marked transaminase noted and is trending up along with bilirubin levels. We will continue to address her pain and nausea and await oncology and GI recommendations. Of note, daughter is at the bedside and is requesting a biopsy for Sunday if possible. Also of note, the patient and her have continually asked why her pancreatic mass was not caught 2 months ago. Patient is under the impression that she had a biopsy of her liver and her spleen 2 months ago. I cannot find this in her chart, I see a bone marrow biopsy but no other procedures. We will defer to oncology regarding explaining to the patient and the this concern that they share. ITS Impressions Chest X-Ray 04/27/17 10:17 IMPRESSION: No acute cardiopulmonary disease. D/ / Claude Collins MD / Claude Collins MD Interpreting Provider: Claude Collins MD Abdomen/Pelvis CT 04/27/17 10:42 IMPRESSION: 1. No acute abnormalities are seen in the abdomen or pelvis. 2. No evidence for appendicitis. 3. No urinary tract stones. D/ / 04/27/2017 11:27:13 Eligio Renae MD / ricci Interpreting Provider: Eligio Renae MD Abdomen MRI 04/27/17 12:57 IMPRESSION: 2.3 x 1.8 x 2.5 cm mass centered within the pancreatic head obstructing the common bowel duct and pancreatic duct. Moderate intrahepatic biliary dilatation. Findings concerning for pancreatic neoplasm such as adenocarcinoma. Recommend further evaluation with EUS and biopsy. D/ / Purvi Silva MD / Purvi Silva MD Interpreting Provider: Purvi Silva MD (2) Obstructive jaundice Current Visit: Yes Status: Acute (3) Pruritus Current Visit: Yes Status: Acute Assessment and plan: Will initiate antihistamines and if ineffective, we will consider adding cholestyramine if indicated (4) Myelodysplastic syndrome Current Visit: No Status: Chronic Assessment and plan: Oncology on board (5) Abnormal urinalysis Current Visit: Yes Status: Ruled-out Assessment and plan: patient denies dysuria, urine culture negative (6) Hypertension Current Visit: No Status: Chronic Assessment and plan: Slightly better controlled today with increase in losartan. Her pain may also be playing a role- pain medication increased. We will continue to trend and adjust medications as indicated. Hydralazine as needed IV Qualifiers: Hypertension type: essential hypertension Qualified Code(s): I10 - Essential (primary) hypertension (7) Pancytopenia Current Visit: No Status: Chronic Assessment and plan: Chronic, stable, oncology on board (8) Elevated liver enzymes Current Visit: Yes Status: Acute Assessment and plan: trending up. GI and Oncology both onboard. (9) Elevated bilirubin Current Visit: Yes Status: Acute Assessment and plan: trending up (10) DVT prophylaxis Current Visit: Yes Status: Acute Assessment and plan: IPCs ordered, pharmacological prophylaxis contraindicated secondary to anemia - Subjective Interval history: Patient seen and examined. On examination, patient sitting upright in bed watching television. Patient stating her pain is not currently controlled and is requesting an increase. Patient stating her last bowel movement was yesterday. Patient stating her nausea is better but still present. As she did yesterday, patient is still very concerned. She states that her cancer doctor took a liver biopsy just 2 months ago and she is continually questioning "why didn't they find it then." - Constitutional Vitals: Temp Pulse Resp BP Pulse Ox 98.6 F 66 16 162/95 97 04/29/17 08:14 04/29/17 08:14 04/29/17 08:14 04/29/17 08:14 04/29/17 08:14 General appearance: Present: A&O X 3, pleasant, no acute distress, underweight, answers questions appropriately - Head Head exam: Present: atraumatic, normocephalic - Eye Eye exam: Present: PERRL, conjuntiva pink, sclera anicteric Pupils: Present: PERRL - Neck Neck exam general surgery: Present: supple, trachea midline. Absent: lymphadenopathy - Respiratory Respiratory exam: Present: decreased breath sounds. Absent: accessory muscle use, rales, respiratory distress, rhonchi, wheezes - Cardiovascular Cardiovascular exam: Present: RRR, +S1, +S2. Absent: diastolic murmur, gallop, rubs, systolic murmur - GI/Abdominal GI/Abdominal exam: Present: distended, hypoactive bowel sounds, soft, tenderness , no peritoneal signs - Extremities Exam Extremities exam: Present: warm, radial pulses palpable and symetrical. Absent : calf tenderness, cyanotic, pedal edema - Neurological Exam Neurological exam: Present: alert, CN II-XII intact, oriented X3, no focal deficits, strengths equal and symetr throughout. Absent: pronater drift, facial droop, speech deficit - Skin Skin exam: Present: dry, intact, pallor (jaundiced), warm Internal Medicine: Result - Labs CBC & Chem 7: 04/29/17 05:13 04/29/17 05:13 Labs: Short CBC 04/29/17 Range/Units 05:13 WBC 5.2 (4.3-11.1) K/mcL Hgb 10.5 L (11.5-15.4) g/dL Hct 33.8 L (35.3-44.9) % Plt Count 64 L (140-400) K/mcL Neutrophils # 3.8 (1.6-8.9) K/mcL BMP 04/29/17 05:13 Sodium 136 Potassium 3.8 Chloride 105 Carbon Dioxide 24 BUN 8 Creatinine 0.79 Glucose 193 H Calcium 9.0 Liver Function 04/29/17 Range/Units 05:13 Total Bilirubin 13.6 H D (0.2-1.2) mg/dL Direct Bilirubin 10.2 H (0.0-0.5) mg/dL AST 323 H (5-34) Units/L ALT 344 H (0-55) Units/L Alkaline Phosphatase 1105 H (38-126) Units/L Albumin 3.3 L (3.5-5.0) g/dL - ABG Interpretation ABG results: PT/INR, D-dimer PT 12.3 Seconds (9.4-12.1) H 04/27/17 10:39 - VTE Documentation of Mechanical Device: Venous foot pump, device Consult Discharge Plan - Plan Referrals: Sukumar Wilkins Jr, MD [Primary Care Provider] -
[2017-04-29] MEDS: Cholestyramine 4 GM POWD.PACK PO SCH ×2 (13:22→17:20)
[2017-04-29] MEDS ORDERED: DiphenhydraMINE CREAM 28.4 GM TUBE TP PRN (15:11)
[2017-04-29] MEDS: *HR* HYDROcodone/Acet 5/325 mg TABLET PO PRN (16:09)
[2017-04-30 01:26] LABS: Eosinophils % 1.5 %; Hematocrit 33.6 % (35.3-44.9); Hemoglobin 10.5 g/dL (11.5-15.4); Immature Granulocytes % 2.5 % (0-4); Lymphocytes % 10.5 %; Mean Corpuscular HGB Conc 31.3 g/dL (31.6-35.5); Mean Corpuscular Hemoglobin 32.1 pg (28.0-33.3); Mean Corpuscular Volume 102.8 fL (83.0-100.0); Mean Platelet Volume 13.2 fL (9.4-12.4); Monocytes % 10.2 %; Red Blood Count 3.27 M/mcL (3.82-4.97); Red Cell Distribution Width 18.2 % (11.5-14.5); Segmented Neutrophils % 74.8 %
[2017-04-30 01:27] LABS: Basophils % 0.5 %; Eosinophils # 0.1 K/mcL (0.0-0.6); Lymphocytes # 0.6 K/mcL (0.6-4.6); Monocytes # 0.6 K/mcL (0.0-1.3); Neutrophils # 4.5 K/mcL (1.6-8.9); Platelet Count 49 K/mcL (140-400)
[2017-04-30 01:48] LABS: Hypochromasia Present (Not Present); Platelet Estimate Decreased (Normal)
[2017-04-30 02:06] LABS: Alanine Aminotransferase 333 Units/L (0-55); Albumin 3.2 g/dL (3.5-5.0); Albumin/Globulin Ratio 0.8 (1.1-2.2); Alkaline Phosphatase 1147 Units/L (38-126); Aspartate Amino Transferase 309 Units/L (5-34); BUN/Creatinine Ratio 9 (6-26); Bilirubin,Indirect 3.8 mg/dL (0.0-1.2); Bilirubin,Total 15.5 mg/dL (0.2-1.2); Blood Urea Nitrogen 7 mg/dL (7-20); Calcium 9.1 mg/dL (8.6-10.8); Carbon Dioxide 27 mEq/L (19-29); Chloride 105 mEq/L (98-109); Glucose 118 mg/dL (70-99); Osmolality,Calculated 285 (280-300); Potassium 3.7 mEq/L (3.5-4.5); Sodium 138 mEq/L (136-145); Total Protein 7.2 g/dL (6.0-8.3); eGFR For African Americans > 60 (> 60); eGFR For Non-African Americans > 60 (> 60)
[2017-04-30 02:08] LABS: Bilirubin,Direct 11.7 mg/dL (0.0-0.5)
[2017-04-30] MEDS: *HR* HYDROmorphone (PF) 1 MG/ML SYRINGE IVP PRN ×3 (04:35→10:48)
--- NOTE | 2017-04-30 06:11 | Electrocardiograph Report ---
[facility] Test Date: 2017-04-27 Pat Name: Aroldo Brady Department: [id number] Room: 3B13 Gender: F [employer] Director: DIRK : 1940 Requested By: Jeovany Cedillo Order Number: [id number] Reading MD: Bharat Barroso DO Measurements Intervals [place] Rate: 109 P: 40 [place]: 167 QRS: -19 QRSD: 98 T: 2 QT: 328 QTc: 392 Interpretive Statements SINUS TACHYCARDIA ABNORMAL RHYTHM ECG Electronically Signed On 04-30-2017 6:09:59 EDT by Bharat Barroso DO
[2017-04-30] MEDS: Cholestyramine 4 GM POWD.PACK PO SCH ×2 (06:34→17:28)
--- NOTE | 2017-04-30 11:15 | Gastroenterology Consult Note ---
<Ama Su - Last Filed: 04/30/17 14:01> Date of Encounter: 04/30/17 Time of Encounter: 12:18 - Assessment and plan (1) Obstructive jaundice Status: Acute Assessment and plan: ERCP today - Time Spent With Patient Total time spent is greater than 50% in coordination of care (as documented) at patient's floor/unit and/or counseling patient: less than 15 minutes GI History of Present Illness - Data of Consult Patient: new to practice Consult date: 04/30/17 Requesting Physician: Mariposa Patterson - Consult Narrative Reason for consult: pancreatic mass, obstructive jaundice History of present illness: Ms. Brady is a 77 year old female past medical history of CK D stage III, DJD hypertension pancytopenia low-grade myelodysplastic syndrome. She receives Aranesp injections every 3 weeks she did receive one on Sunday.The patient experienced chest pain originating in epigastric area radiating to her bilateral sides into her back there were no aggravating factors the pain was constant she states it was relieved somewhat with her Percocet. The pain continued until Sunday prompting her ED evaluation. She denies any fevers chills nausea vomiting diarrhea however she has had anorexia and has lost approximately 40 pounds over the past 6 months. She also has noted that she has become jaundice over the past week. Denies any changes in stool frequency or color no hematemesis, hematochezia or melena. Consult GI for obstructive jaundice, appearance of pancreatic head mass on imaging (MRCP). Oncology has also been consulted. Patient states appetite has been 'off' for several months. BM 1-2 x daily, no blood or black stools. Denies family hx of CC. She noted the jaundice starting about 1 week ago, followed by intense itching over the last 3- 4 days. Last colonoscopy was 'years ago' per the patient and her . Colonoscopy: many years ago per patient EGD: None noted Past Med Surg Social Fam HX - Past Medical History Medical history: hyperlipidemia, hypertension, renal disease, other Psychiatric history: anxiety - Past Surgical History Surgical History: cholecystectomy, hysterectomy - Social History Smoking Status: Unknown if ever smoked Alcohol use: none Drug use: none - Family History Mother Living Status: Cause of : Cancer - Gastrointestinal NSAID use: None noted Anticoagulation Use: None noted Number of BM Per Day: 1-2 Gastrointestinal: Present: abdominal pain - Constitutional Constitutional: anorexia, fatigue, weight loss - EENT Eyes: Yellow Discoloration Ears: Present: as per HPI Nose, mouth and throat: Present: as per HPI - Cardiovascular Cardiovascular ROS: Present: as per HPI - Respiratory Respiratory IM: Present: as per HPI - Neurological ROS Neurological GI: Present: as per HPI - Hematologic/Lymphatic Hematologic/Lymphatic pediatric: Present: as per HPI - Musculoskeletal Musculoskeletal ROS GI: Present: as per HPI - Integumentary Integumentary GI: Present: jaundice - Psychiatric ROS Psychiatric GI: Present: as per HPI - Endocrine Endocrine IM: Present: as per HPI - Constitutional Vitals: Temp Pulse Resp BP Pulse Ox 97.4 F L 94 16 148/79 97 04/30/17 08:02 04/30/17 08:02 04/30/17 08:02 04/30/17 08:02 04/30/17 08:02 General appearance: Present: cooperative, A&O X 3, no acute distress, answers questions appropriately - Head Head exam: Present: atraumatic, normocephalic - Eye Eye exam: Present: scleral icterus - ENT ENT exam: Present: mucous membranes moist - Neck Neck exam general surgery: Present: normal inspection, trachea midline - Respiratory Respiratory exam: Present: CTAB - Cardiovascular Cardiovascular exam: Present: RRR, +S1, +S2 - GI/Abdominal GI/Abdominal exam: Present: normal bowel sounds, soft, no peritoneal signs - Rectal Rectal exam: Present: deferred - Extremities Exam Extremities exam: Present: warm - Neurological Exam Neurological exam: Present: no focal deficits - Psychiatric Psychiatric exam: Present: normal affect, normal mood - Skin Additional comments: jaundice Results - Labs CBC & Chem 7: 04/30/17 01:15 04/30/17 01:42 Labs: Last Result Calcium 9.1 mg/dL (8.6-10.8) 04/30/17 01:42 Troponin I 0.00 ng/mL (0-0.03) 04/27/17 22:33 Entire Visit Hgb 10.5 g/dL (11.5-15.4) L 04/30/17 01:15 Hct 33.6 % (35.3-44.9) L 04/30/17 01:15 PT 12.3 Seconds (9.4-12.1) H 04/27/17 10:39 Total Bilirubin 15.5 mg/dL (0.2-1.2) H 04/30/17 01:42 AST 309 Units/L (5-34) H 04/30/17 01:42 ALT 333 Units/L (0-55) H 04/30/17 01:42 Lipase 13 Units/L (8-78) 04/27/17 10:39 - ABG ABG results: PT/INR, D-dimer PT 12.3 Seconds (9.4-12.1) H 04/27/17 10:39 Consult Discharge Plan - Plan Additional Instructions: f/u with Heme Onc on Sunday Referrals: Iasbel Vázquez CNP [Advanced Practice Nurse] - 05/07/17 10:00 am Josef Estrada MD [Partnered Physician] - 05/04/17 3:00 pm Prescriptions: OxyCODONE Immed Rel [Roxicodone 5 MG] 5 mg PO Q8HR PRN #15 tablet PRN Reason: Pain <Gul,Ge - Last Filed: 05/07/17 11:56> Date of Encounter: 04/30/17 - Time Spent With Patient Total time spent is greater than 50% in coordination of care (as documented) at patient's floor/unit and/or counseling patient: GI History of Present Illness - Data of Consult Requesting Physician: Mariposa Patterson - Consult Narrative History of present illness: Ms. Brady is a 77 year old female - Constitutional Vitals: Temp Pulse Resp BP Pulse Ox 97.9 F 69 15 125/81 98 05/02/17 11:21 05/02/17 11:21 05/02/17 11:21 05/02/17 11:21 05/02/17 11:21 Results - Labs CBC & Chem 7: 05/02/17 02:53 05/02/17 02:53 Labs: Last Result Calcium 8.7 mg/dL (8.6-10.8) 05/02/17 02:53 Troponin I 0.00 ng/mL (0-0.03) 04/27/17 22:33 Entire Visit Hgb 8.6 g/dL (11.5-15.4) L 05/02/17 02:53 Hct 29.1 % (35.3-44.9) L 05/02/17 02:53 PT 12.3 Seconds (9.4-12.1) H 04/27/17 10:39 Total Bilirubin 4.1 mg/dL (0.2-1.2) H 05/02/17 02:53 AST 96 Units/L (5-34) H 05/02/17 02:53 ALT 166 Units/L (0-55) H 05/02/17 02:53 Lipase 13 Units/L (8-78) 04/27/17 10:39 Carcinoembryonic Ag 2.2 ng/mL (0-5.0) 04/30/17 01:42 - ABG ABG results: PT/INR, D-dimer PT 12.3 Seconds (9.4-12.1) H 04/27/17 10:39 - Attending Attestation I examined this patient and my medical decision-making was reviewed with the Resident Physician. I agree with the documented findings, disposition and treatment plan as described except to the extent set forth below.
--- NOTE | 2017-04-30 12:37 | Oncology Inp Progress Note ---
Date of Encounter: 04/30/17 Time of Encounter: 12:35 (1) Obstructive jaundice Current Visit: Yes Status: Acute Assessment and plan: - Imaging reveals pancreatic mass, suggestive of pancreatic malignancy. Awaiting for ERCP to be completed today. -Still with persistent itching. I would expect significant improvement, hopefully after stent is placed with improvement of biliary obstruction. - Patient aware of imaging results and concerns for pancreatic cancer. Daughter and other family members at the bedside during the conversation. - Patient and family aware that it may take at least 3-4 days to obtain the results of pathology. - So far abdominal/pelvic imaging does not show results consistent with metastatic disease, but will need CT chest for staging purposes. - Once diagnosis is confirmed, will need to request inpatient consult with surgical oncology to determine resectability. (2) Myelodysplastic syndrome Current Visit: No Status: Chronic Assessment and plan: - Stable cell counts. - Patient did not tolerate hypomethilating drugs in the past. - Resume aranesp every 3 weeks after discharge. Supportive management with transfusion of blood products if Hemoglobin levels < 7 g/dl, or platelet count less than 30K. - For invasive procedures, keep platelet count above 50K. Oncology: Subj Interval history: Patient reports no significant overnight events. Other than persistent itching, not other complaints. Denies abdominal pain, nausea, vomiting. Awaiting for ERCP to be performed today. - Constitutional Vitals: Vital Signs Temp Pulse Resp BP Pulse Ox 04/30/17 11:28 97.2 F L 97 17 133/85 95 04/30/17 08:02 97.4 F L 94 16 148/79 97 04/30/17 06:59 98.4 F 99 17 135/80 95 04/30/17 05:00 98.5 F 101 14 134/88 04/30/17 04:45 98.2 F 107 14 165/91 97 04/30/17 04:28 98.2 F 107 14 165/91 96 04/29/17 23:04 98.9 F 109 16 130/87 95 04/29/17 18:24 99.3 F 100 15 128/79 94 04/29/17 14:54 99.1 F 101 17 167/103 90 Intake and Output 04/29/17 04/30/17 04/30/17 23:59 07:59 15:59 Intake Total 0 / 0 450 / 450 Balance 0 / 0 450 / 450 Intake: Blood Product 0 / 0 450 / 450 Platelet Pheresis Lp Irr 0 / 0 450 / 450 1st Unit [id number] Other: # Voids 2 Weight 56.501 kg Patient Weight 04/30/17 23:59 Weight 56.501 kg General appearance: no acute distress - Head Head exam: Present: normal inspection - ENT ENT exam: Present: normal exam - Neck Neck exam: Present: normal inspection - Respiratory Respiratory exam: Present: CTAB - Cardiovascular Cardiovascular exam: Present: RRR - GI/Abdominal GI/Abdominal exam: Present: normal bowel sounds - Extremities Exam Extremities exam: Present: normal inspection - Neurological Exam Neurological exam: Present: oriented X3 - Psychiatric Psychiatric exam: Present: normal affect Oncology: Obj Data - Labs CBC & Chem 7: 04/30/17 01:15 04/30/17 01:42 Labs: Laboratory Results - last 24 hr 04/30/17 04/30/17 04/30/17 01:15 01:15 01:42 WBC 6.0 RBC 3.27 L Hgb 10.5 L Hct 33.6 L MCV 102.8 H MCH 32.1 MCHC 31.3 L RDW 18.2 H Plt Count 49 L MPV 13.2 H Immature Gran % 2.5 Seg Neutrophils % 74.8 Lymphocytes % 10.5 Monocytes % 10.2 Eosinophils % 1.5 Basophils % 0.5 Neutrophils # 4.5 Lymphocytes # 0.6 Monocytes # 0.6 Eosinophils # 0.1 Basophils # 0.0 Platelet Estimate Decreased L Hypochromasia Present A Sodium 138 Potassium 3.7 Chloride 105 Carbon Dioxide 27 BUN 7 Creatinine 0.80 Est GFR ( Amer) > 60 Est GFR (Non-Af Amer) > 60 BUN/Creatinine Ratio 9 Glucose 118 H Calculated Osmolality 285 Calcium 9.1 Total Bilirubin 15.5 H Direct Bilirubin 11.7 H D Indirect Bilirubin 3.8 H AST 309 H ALT 333 H Alkaline Phosphatase 1147 H Serum Total Protein 7.2 Albumin 3.2 L Globulin 4.0 H Albumin/Globulin Ratio 0.8 L Blood Type O POSITIVE Antibody Screen NEGATIVE - ABG Interpretation ABG results: PT/INR, D-dimer PT 12.3 Seconds (9.4-12.1) H 04/27/17 10:39 Consult Discharge Plan - Plan Referrals: Sukumar Wilkins Jr, MD [Primary Care Provider] -
[2017-04-30] MEDS ORDERED: *HR* FentaNYL (PF) 100 MCG/2 ML VIAL ONE (13:06)
[2017-04-30] MEDS ORDERED: Indomethacin 50 MG SUPP.RECT RC ONE (13:07)
--- NOTE | 2017-04-30 13:08 | Anesthesia Evaluation PreOp ---
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 HX Other Medical History: Hepatic (elevated LFT's due to obstructive biliary process), Other (obstructive jaundice - pos cholangiocarcinoma, myelodysplastic syndrome, thrombocytopenia (plt 49 this AM - received platelets this AM), pancytopenia) Anesthesia History: No Prior Anesthetic Complications, Past Anesthesia ( cholecystectomy, hysterectomy) Alcohol Use: none Drug use: none Medications and Allergies Amitriptyline HCl [Amitriptyline HCl] 75 mg PO DAILY 04/27/17 [History] Losartan Potassium [Cozaar] 50 mg PO DAILY 04/27/17 [History] Omeprazole [PriLOSEC] 20 mg PO DAILY 04/27/17 [History] Oxazepam [Serax] 10 mg PO QID 04/27/17 [History] Oxycodone HCl/Acetaminophen [Endocet 5-325 Tablet] 1 tab PO TID PRN 04/27/17 [ History] Polyethylene Glycol 3350 [MiraLAX bowel prep] 17 gm PO DAILY PRN 04/27/17 [ History] Allergies Sulfa (Sulfonamide Antibiotics) Adverse Reaction (Verified 04/27/17 13:38) Weakness - Meds/Allergy Pre-op Review Medications Reviewed: Yes Allergies Reviewed: Yes Beta Blockers on Current Med List: No Anesthesia Results - Labs 04/30/17 01:15 04/30/17 01:42 - Imaging EKG: report reviewed, image reviewed (SINUS TACHYCARDIA ABNORMAL RHYTHM ECG) Anesthesia Exam Last Vital Signs Temp 97.2 F L 04/30/17 12:56 Pulse 97 04/30/17 12:56 Resp 17 04/30/17 12:56 BP 133/85 04/30/17 12:56 Pulse Ox 95 04/30/17 12:56 Weight: 57 kg NPO (# of Hours): >> 8 hrs - HEENT Pupil (Motor): Pupils equal, EOMI Mallampati: III Teeth: Edentulous Oral Opening: Greater than 3 - SLITTER AND REWINDER MACHINE OPERATOR LOC: Oriented SLITTER AND REWINDER MACHINE OPERATOR Motor: Normal RUE, Normal LUE, Normal RLE, Normal LLE, Normal Face - Cardiac Rhythm: Regular Murmur: None - Pulmonary Breath Sounds: bilateral Clear Respiratory Effort: Symmetrical Anesthesia Assess/Plan ASA Score: 3 Modified [place] Scale for Level of Consciousness: Cooperative, oriented, and tranquil Anesthetic Plan: General Monitoring Plan: Standard Monitors Recovery Plan: PACU
[2017-04-30] MEDS: Ringers Solution, Lactated 1,000 ML IVC SCH (13:13)
--- NOTE | 2017-04-30 15:36 | Anesthesia Evaluation Post Op ---
Date of Encounter: 04/30/17 Time of Encounter: 15:30 - Vital Signs Vital Signs: Vital Signs/O2 Sat/Glucose, Most Current Temp Pulse Resp BP Pulse Ox 04/30/17 15:30 97.8 F 94 16 143/92 98 04/30/17 15:20 96 16 146/82 98 04/30/17 15:10 93 16 143/71 96 04/30/17 15:00 97.1 F L 98 14 127/68 100 04/30/17 12:56 97.2 F L 97 17 133/85 95 - Lungs Lungs: Clear Ascult./Percussion - Airway Airway: Non-obstructed - Cardiovascular Regular Rate - Mental Status Mental Status: Alert & Oriented, Answers Appropriately - Pain Pain Scale: 0 - Nausea Vomiting Nausea Vomiting: Not Present - Hydration Hydration: Tolerates oral liquids - Discharge PostOp Status: Transfer Patient to floor
--- NOTE | 2017-04-30 18:15 | Internal Med Progress Note ---
Date of Encounter: 04/30/17 Time of Encounter: 17:30 - Assessment and plan (1) Abdominal pain Current Visit: Yes Status: Acute Assessment and plan: Patient seen and examined after her procedure. She currently denies abdominal pain and is tolerating liquids well. Official report unavailable but per oral report, patient's ERCP consisted of a biopsy, sphincterotomy, and a biliary stent. Plan is for a PET scan ideally this week. Patient has been placed on clear liquid diet. We will trend. Her itching is currently controlled. Oncology and GI both on board. 04/29/17 Patient stating her pain is not currently controlled so her Dilaudid has been increased in dose and frequency-we will schedule her daily MiraLAX. She is stating that her nausea is better but not absent. She remains tolerant of clears. Oncology and GI are on board. Abdominal CT unremarkable. MRCP however revealing pancreatic head mass. Marked transaminase noted and is trending up along with bilirubin levels. We will continue to address her pain and nausea and await oncology and GI recommendations. Of note, daughter is at the bedside and is requesting a biopsy for Sunday if possible. Also of note, the patient and her have continually asked why her pancreatic mass was not caught 2 months ago. Patient is under the impression that she had a biopsy of her liver and her spleen 2 months ago. I cannot find this in her chart, I see a bone marrow biopsy but no other procedures. We will defer to oncology regarding explaining to the patient and the this concern that they share. ITS Impressions Chest X-Ray 04/27/17 10:17 IMPRESSION: No acute cardiopulmonary disease. D/ / Claude Collins MD / Claude Collins MD Interpreting Provider: Claude Collins MD Abdomen/Pelvis CT 04/27/17 10:42 IMPRESSION: 1. No acute abnormalities are seen in the abdomen or pelvis. 2. No evidence for appendicitis. 3. No urinary tract stones. D/ / 04/27/2017 11:27:13 Eligio Renae MD / ricci Interpreting Provider: Eligio Renae MD Abdomen MRI 04/27/17 12:57 IMPRESSION: 2.3 x 1.8 x 2.5 cm mass centered within the pancreatic head obstructing the common bowel duct and pancreatic duct. Moderate intrahepatic biliary dilatation. Findings concerning for pancreatic neoplasm such as adenocarcinoma. Recommend further evaluation with EUS and biopsy. D/ / Purvi Silva MD / Purvi Silva MD Interpreting Provider: Purvi Silva MD (2) Obstructive jaundice Current Visit: Yes Status: Acute (3) Pruritus Current Visit: Yes Status: Acute Assessment and plan: Currently controlled; continue antihistamine IV and topically as well as cholestyramine (4) Myelodysplastic syndrome Current Visit: No Status: Chronic Assessment and plan: Oncology on board-plan is to continue Aranesp every 3 weeks after discharge. Oncology recommends hemoglobin levels greater than 7, platelet greater than 30K and platelet levels above 50K for invasive procedures. (5) Abnormal urinalysis Current Visit: Yes Status: Ruled-out Assessment and plan: patient denies dysuria, urine culture negative (6) Hypertension Current Visit: No Status: Chronic Assessment and plan: Better controlled today. Losartan dosage has been increased and her pain is now controlled. We will continue to trend and adjust medications as indicated. Hydralazine as needed IV Qualifiers: Hypertension type: essential hypertension Qualified Code(s): I10 - Essential (primary) hypertension (7) Pancytopenia Current Visit: No Status: Chronic Assessment and plan: Chronic, stable, oncology on board (8) Elevated liver enzymes Current Visit: Yes Status: Acute Assessment and plan: trending up-we will continue to trend now that biliary stent is in place. GI and Oncology both onboard. (9) Elevated bilirubin Current Visit: Yes Status: Acute Assessment and plan: trending up-we will trend his now that biliary stent is in place (10) DVT prophylaxis Current Visit: Yes Status: Acute Assessment and plan: IPCs ordered, pharmacological prophylaxis contraindicated secondary to anemia - Subjective Interval history: Patient seen and examined. On examination, patient sitting upright in eating an icee. She currently denies pain. She states that her itching is controlled. - Constitutional Vitals: Temp Pulse Resp BP Pulse Ox 97.6 F 71 16 158/80 92 04/30/17 17:15 04/30/17 17:15 04/30/17 17:15 04/30/17 17:15 04/30/17 17:15 General appearance: Present: A&O X 3, pleasant, no acute distress, underweight, answers questions appropriately - Head Head exam: Present: atraumatic, normocephalic - Eye Eye exam: Present: PERRL, conjuntiva pink, sclera anicteric Pupils: Present: PERRL - Neck Neck exam general surgery: Present: supple, trachea midline. Absent: lymphadenopathy - Respiratory Respiratory exam: Present: decreased breath sounds. Absent: accessory muscle use, rales, respiratory distress, rhonchi, wheezes - Cardiovascular Cardiovascular exam: Present: RRR, +S1, +S2. Absent: diastolic murmur, gallop, rubs, systolic murmur - GI/Abdominal GI/Abdominal exam: Present: distended, hypoactive bowel sounds, soft, tenderness , no peritoneal signs - Extremities Exam Extremities exam: Present: warm, radial pulses palpable and symetrical. Absent : calf tenderness, cyanotic, pedal edema - Neurological Exam Neurological exam: Present: alert, CN II-XII intact, oriented X3, no focal deficits, strengths equal and symetr throughout. Absent: pronater drift, facial droop, speech deficit - Skin Skin exam: Present: dry, intact, pallor (jaundiced), warm Internal Medicine: Result - Labs CBC & Chem 7: 04/30/17 01:15 04/30/17 01:42 Labs: Short CBC 04/30/17 Range/Units 01:15 WBC 6.0 (4.3-11.1) K/mcL Hgb 10.5 L (11.5-15.4) g/dL Hct 33.6 L (35.3-44.9) % Plt Count 49 L (140-400) K/mcL Neutrophils # 4.5 (1.6-8.9) K/mcL BMP 04/30/17 01:42 Sodium 138 Potassium 3.7 Chloride 105 Carbon Dioxide 27 BUN 7 Creatinine 0.80 Glucose 118 H Calcium 9.1 Liver Function 04/30/17 Range/Units 01:42 Total Bilirubin 15.5 H (0.2-1.2) mg/dL Direct Bilirubin 11.7 H D (0.0-0.5) mg/dL AST 309 H (5-34) Units/L ALT 333 H (0-55) Units/L Alkaline Phosphatase 1147 H (38-126) Units/L Albumin 3.2 L (3.5-5.0) g/dL - ABG Interpretation ABG results: PT/INR, D-dimer PT 12.3 Seconds (9.4-12.1) H 04/27/17 10:39 - Impressions Impressions Cath/Invasive Procedure 04/30/17 14:17 IMPRESSION: Dilated common bile duct and intrahepatic biliary ductal system. Please refer to the procedure report for further details. D/ / Ebenezer Johnson / Ebenezer Johnson Interpreting Provider: Ebenezer Johnson - VTE Documentation of Mechanical Device: Venous foot pump, device Consult Discharge Plan - Plan Referrals: Sukumar Wilkins Jr, MD [Primary Care Provider] -
[2017-05-01 04:26] LABS: Basophils % 0.5 %; Immature Granulocytes % 1.1 % (0-4)
[2017-05-01 04:28] LABS: Eosinophils # 0.1 K/mcL (0.0-0.6); Eosinophils % 1.3 %; Hematocrit 29.5 % (35.3-44.9); Immature Platelets 20.1 % (1.1-6.1); Lymphocytes # 0.5 K/mcL (0.6-4.6); Lymphocytes % 14.2 %; Mean Corpuscular HGB Conc 30.5 g/dL (31.6-35.5); Mean Corpuscular Hemoglobin 31.5 pg (28.0-33.3); Mean Corpuscular Volume 103.1 fL (83.0-100.0); Mean Platelet Volume 11.6 fL (9.4-12.4); Monocytes # 0.5 K/mcL (0.0-1.3); Neutrophils # 2.6 K/mcL (1.6-8.9); Red Blood Count 2.86 M/mcL (3.82-4.97); Segmented Neutrophils % 68.9 %
[2017-05-01 04:34] LABS: Platelet Count 59 K/mcL (140-400)
[2017-05-01 04:42] LABS: Alanine Aminotransferase 227 Units/L (0-55); Albumin 2.9 g/dL (3.5-5.0); Albumin/Globulin Ratio 0.7 (1.1-2.2); Alkaline Phosphatase 921 Units/L (38-126); BUN/Creatinine Ratio 12 (6-26); Bilirubin,Indirect 2.6 mg/dL (0.0-1.2); Blood Urea Nitrogen 10 mg/dL (7-20); Calcium 8.8 mg/dL (8.6-10.8); Carbon Dioxide 24 mEq/L (19-29); Chloride 109 mEq/L (98-109); Glucose 113 mg/dL (70-99); Osmolality,Calculated 290 (280-300); Sodium 140 mEq/L (136-145); Total Protein 6.9 g/dL (6.0-8.3); eGFR For African Americans > 60 (> 60); eGFR For Non-African Americans > 60 (> 60)
[2017-05-01 04:46] LABS: Aspartate Amino Transferase 181 Units/L (5-34); Bilirubin,Direct 4.1 mg/dL (0.0-0.5)
[2017-05-01 04:47] LABS: Bilirubin,Total 6.7 mg/dL (0.2-1.2); Potassium 4.6 mEq/L (3.5-4.5)
[2017-05-01] MEDS: Cholestyramine 4 GM POWD.PACK PO SCH ×2 (06:37→16:57)
[2017-05-01] MEDS: Ringers Solution, Lactated 1,000 ML IVC SCH (07:48)
--- NOTE | 2017-05-01 10:37 | Oncology Inp Progress Note ---
Date of Encounter: 05/01/17 Time of Encounter: 10:28 (1) Obstructive jaundice Current Visit: Yes Status: Acute Assessment and plan: -She underwent ERCP yesterday, biopsy sample taken. Pathology results pending. Stent placed. - Her pruritus has resolved. Serum bilirrubin dropping as expected. - Awaiting for pathology results. Will discuss the results and further management at the bedside once available. - Please order CT chest for staging purposes. - Once diagnosis of pancreatic cancer is confirmed, will need to request inpatient consult with surgical oncology to determine resectability. (2) Myelodysplastic syndrome Current Visit: No Status: Chronic Assessment and plan: - Blood cell counts remain sable. - Patient did not tolerate hypomethilating drugs in the past. - Resume aranesp every 3 weeks after discharge. Supportive management with transfusion of blood products if Hemoglobin levels < 7 g/dl, or platelet count less than 30K. - For invasive procedures, keep platelet count above 50K. Oncology: Subj Interval history: Aroldo underwent ERCP yesterday, well tolerated. She feels much better today, feels that itching has resolved. - Constitutional Vitals: Vital Signs Temp Pulse Resp BP Pulse Ox 05/01/17 07:28 98.1 F 79 16 130/79 96 05/01/17 02:59 97.6 F 82 16 112/68 96 04/30/17 22:46 98.2 F 101 12 126/78 94 04/30/17 18:56 98.0 F 70 16 117/63 97 04/30/17 18:37 97.6 F 82 16 138/78 92 04/30/17 17:45 97.6 F 92 16 145/78 94 04/30/17 17:15 97.6 F 71 16 158/80 92 04/30/17 16:45 97.8 F 92 16 124/78 88 04/30/17 16:30 97.8 F 93 16 132/76 94 04/30/17 16:15 97.9 F 95 16 155/75 97 04/30/17 15:56 97.6 F 92 16 121/78 91 04/30/17 15:30 97.8 F 94 16 143/92 98 04/30/17 15:20 96 16 146/82 98 04/30/17 15:10 93 16 143/71 96 04/30/17 15:00 97.1 F L 98 14 127/68 100 04/30/17 12:56 97.2 F L 97 17 133/85 95 04/30/17 11:28 97.2 F L 97 17 133/85 95 Intake and Output 04/30/17 05/01/17 05/01/17 23:59 07:59 15:59 Intake Total 400 / 400 120 / 120 Balance 400 / 400 120 / 120 Intake: Oral 400 / 400 120 / 120 Other: Meal Breakfast Percent of Meal Consumed 100% # Voids 1 Weight 57.379 kg Patient Weight 05/01/17 23:59 Weight 57.379 kg - Head Head exam: Present: normal inspection - Neck Neck exam: Present: normal inspection - Respiratory Respiratory exam: Present: CTAB - Cardiovascular Cardiovascular exam: Present: RRR - GI/Abdominal GI/Abdominal exam: Present: normal bowel sounds - Neurological Exam Neurological exam: Present: oriented X3 Oncology: Obj Data - Labs CBC & Chem 7: 05/01/17 04:05 05/01/17 04:05 Labs: Laboratory Results - last 24 hr 04/30/17 05/01/17 05/01/17 01:42 04:05 04:05 WBC 3.8 L RBC 2.86 L Hgb 9.0 L D Hct 29.5 L MCV 103.1 H MCH 31.5 MCHC 30.5 L RDW 18.0 H Plt Count 59 L MPV 11.6 Immature Gran % 1.1 Seg Neutrophils % 68.9 Lymphocytes % 14.2 Monocytes % 14.0 Eosinophils % 1.3 Basophils % 0.5 Neutrophils # 2.6 Lymphocytes # 0.5 L Monocytes # 0.5 Eosinophils # 0.1 Basophils # 0.0 Immature Plt Fraction 20.1 H Sodium 140 Potassium 4.6 H Chloride 109 Carbon Dioxide 24 BUN 10 Creatinine 0.85 Est GFR ( Amer) > 60 Est GFR (Non-Af Amer) > 60 BUN/Creatinine Ratio 12 Glucose 113 H Calculated Osmolality 290 Calcium 8.8 Total Bilirubin 6.7 H D Direct Bilirubin 4.1 H Indirect Bilirubin 2.6 H AST 181 H ALT 227 H Alkaline Phosphatase 921 H Serum Total Protein 6.9 Albumin 2.9 L Globulin 4.0 H Albumin/Globulin Ratio 0.7 L Carcinoembryonic Ag 2.2 - Impressions Impressions Cath/Invasive Procedure 04/30/17 14:17 IMPRESSION: Dilated common bile duct and intrahepatic biliary ductal system. Please refer to the procedure report for further details. D/ / Ebenezer Johnson / Ebenezer Johnson Interpreting Provider: Ebenezer Johnson - ABG Interpretation ABG results: PT/INR, D-dimer PT 12.3 Seconds (9.4-12.1) H 04/27/17 10:39 Consult Discharge Plan - Plan Referrals: Sukumar Wilkins Jr, MD [Primary Care Provider] -
[2017-05-01] MEDS: *HR* OxyCODONE/APAP 5/325 TABLET PO PRN ×2 (12:17→19:55)
--- NOTE | 2017-05-01 15:38 | Internal Med Progress Note ---
Date of Encounter: 05/01/17 Time of Encounter: 12:00 - Assessment and plan (1) Obstructive jaundice Current Visit: Yes Status: Acute Assessment and plan: Due to pancreatic head tumor s/p ERCP with biopsy, sphincterotomy, and a biliary stent Her LFT 's started trending down cont close monitoring Path report still pending GI / Heme onc on board (2) Pancreatic tumor Current Visit: Yes Status: Acute Assessment and plan: s/p ERCP with biopsy, sphincterotomy, and a biliary stent will f/u on Path results (3) Myelodysplastic syndrome Current Visit: No Status: Chronic Assessment and plan: Oncology on board-plan is to continue Aranesp every 3 weeks after discharge. Oncology recommends hemoglobin levels greater than 7, platelet greater than 30K and platelet levels above 50K for invasive procedures. (4) Hypertension Current Visit: No Status: Chronic Assessment and plan: Stable and well controlled with current med Losartan d/c hydralazine Qualifiers: Hypertension type: essential hypertension Qualified Code(s): I10 - Essential (primary) hypertension (5) Pancytopenia Current Visit: No Status: Chronic Assessment and plan: Due to Myelodysplastic syndrome Chronic, stable, oncology on board no need of neupogen (6) DVT prophylaxis Current Visit: Yes Status: Acute Assessment and plan: on SCD's pharmacological prophylaxis contraindicated secondary to anemia - Subjective Interval history: Ms. Brady is a 77 year old female past medical history of CK D stage III, DJD hypertension pancytopenia low-grade myelodysplastic syndrome. She receives Aranesp injections every 3 weeks she did receive one on Sunday. She was admitted in the hospital with obstructive jaundice. MRCP showed Pancreatic head tumor. Pt did go for ERCP y/d. Now she is resting comfortably. Denied any abdominal pain, Tolerating PO intake well.. - Constitutional Vitals: Temp Pulse Resp BP Pulse Ox 98.1 F 85 17 119/76 96 05/01/17 15:29 05/01/17 15:29 05/01/17 15:29 05/01/17 15:29 05/01/17 15:29 General appearance: Present: A&O X 3, pleasant, no acute distress, underweight, answers questions appropriately - Head Head exam: Present: atraumatic, normal inspection - Eye Eye exam: Present: scleral icterus - Neck Neck exam general surgery: Present: supple. Absent: lymphadenopathy - Respiratory Respiratory exam: Present: decreased breath sounds. Absent: respiratory distress, rhonchi, stridor, wheezes - Cardiovascular Cardiovascular exam: Present: RRR, +S1, +S2. Absent: systolic murmur - GI/Abdominal GI/Abdominal exam: Present: distended, normal bowel sounds, soft. Absent: rebound, rigid - Extremities Exam Extremities exam: Absent: calf tenderness, pedal edema, tenderness - Neurological Exam Neurological exam: Present: alert, oriented X3 - Psychiatric Psychiatric exam: Present: normal affect, normal mood - Skin Skin exam: Present: intact Additional comments: icteric Internal Medicine: Result - Labs CBC & Chem 7: 05/01/17 04:05 05/01/17 04:05 Labs: Short CBC 05/01/17 Range/Units 04:05 WBC 3.8 L (4.3-11.1) K/mcL Hgb 9.0 L D (11.5-15.4) g/dL Hct 29.5 L (35.3-44.9) % Plt Count 59 L (140-400) K/mcL Neutrophils # 2.6 (1.6-8.9) K/mcL BMP 05/01/17 04:05 Sodium 140 Potassium 4.6 H Chloride 109 Carbon Dioxide 24 BUN 10 Creatinine 0.85 Glucose 113 H Calcium 8.8 Liver Function 05/01/17 Range/Units 04:05 Total Bilirubin 6.7 H D (0.2-1.2) mg/dL Direct Bilirubin 4.1 H (0.0-0.5) mg/dL AST 181 H (5-34) Units/L ALT 227 H (0-55) Units/L Alkaline Phosphatase 921 H (38-126) Units/L Albumin 2.9 L (3.5-5.0) g/dL - ABG Interpretation ABG results: PT/INR, D-dimer PT 12.3 Seconds (9.4-12.1) H 04/27/17 10:39 - Impressions Impressions Cath/Invasive Procedure 04/30/17 14:17 IMPRESSION: Dilated common bile duct and intrahepatic biliary ductal system. Please refer to the procedure report for further details. D/ / Ebenezer Johnson / Ebenezer Johnson Interpreting Provider: Ebenezer Johnson - VTE Documentation of Mechanical Device: Venous foot pump, device Consult Discharge Plan - Plan Referrals: Sukumar Wilkins Jr, MD [Primary Care Provider] - Isabel Vázquez CNP [Advanced Practice Nurse] - 05/07/17 10:00 am
[2017-05-02 04:22] LABS: Basophils % 0.8 %
[2017-05-02 04:24] LABS: Eosinophils # 0.1 K/mcL (0.0-0.6); Eosinophils % 3.2 %; Hematocrit 29.1 % (35.3-44.9); Hemoglobin 8.6 g/dL (11.5-15.4); Immature Granulocytes % 0.8 % (0-4); Immature Platelets 24.7 % (1.1-6.1); Lymphocytes # 0.8 K/mcL (0.6-4.6); Lymphocytes % 30.2 %; Mean Corpuscular HGB Conc 29.6 g/dL (31.6-35.5); Mean Corpuscular Hemoglobin 30.8 pg (28.0-33.3); Mean Corpuscular Volume 104.3 fL (83.0-100.0); Mean Platelet Volume 12.3 fL (9.4-12.4); Monocytes # 0.4 K/mcL (0.0-1.3); Monocytes % 15.1 %; Neutrophils # 1.3 K/mcL (1.6-8.9); Red Blood Count 2.79 M/mcL (3.82-4.97); Red Cell Distribution Width 17.8 % (11.5-14.5); Segmented Neutrophils % 49.9 %
[2017-05-02 04:29] LABS: Platelet Count 54 K/mcL (140-400)
[2017-05-02 04:36] LABS: Alanine Aminotransferase 166 Units/L (0-55); Albumin 2.8 g/dL (3.5-5.0); Albumin/Globulin Ratio 0.7 (1.1-2.2); Alkaline Phosphatase 794 Units/L (38-126); Aspartate Amino Transferase 96 Units/L (5-34); BUN/Creatinine Ratio 18 (6-26); Blood Urea Nitrogen 14 mg/dL (7-20); Calcium 8.7 mg/dL (8.6-10.8); Carbon Dioxide 25 mEq/L (19-29); Chloride 111 mEq/L (98-109); Globulin 3.8 g/dL (2.4-3.5); Glucose 99 mg/dL (70-99); Magnesium 1.7 mg/dL (1.6-2.6); Osmolality,Calculated 293 (280-300); Potassium 3.8 mEq/L (3.5-4.5); Sodium 141 mEq/L (136-145); Total Protein 6.6 g/dL (6.0-8.3); eGFR For African Americans > 60 (> 60); eGFR For Non-African Americans > 60 (> 60)
[2017-05-02 04:37] LABS: Bilirubin,Total 4.1 mg/dL (0.2-1.2)
[2017-05-02 04:55] LABS: Platelet Estimate Decreased (Normal)
[2017-05-02] MEDS: Ringers Solution, Lactated 1,000 ML IVC SCH (05:50)
[2017-05-02] MEDS: Cholestyramine 4 GM POWD.PACK PO SCH (06:18)
[2017-05-02] MEDS: *HR* OxyCODONE/APAP 5/325 TABLET PO PRN (06:23)
--- NOTE | 2017-05-02 08:30 | Internal Med Progress Note ---
Date of Encounter: 05/02/17 Time of Encounter: 08:27 - Assessment and plan (1) Obstructive jaundice Current Visit: Yes Status: Acute Assessment and plan: Due to pancreatic head tumor s/p ERCP with biopsy, sphincterotomy, and a biliary stent Her LFT 's started trending down- today @ 4.1 TB cont close monitoring Path report still pending GI / Heme onc on board (2) Pancreatic tumor Current Visit: Yes Status: Acute Assessment and plan: s/p ERCP with biopsy, sphincterotomy, and a biliary stent will f/u on Path results Heme Onc requested for CT of chest for staging.. (3) Myelodysplastic syndrome Current Visit: No Status: Chronic Assessment and plan: Oncology on board-plan is to continue Aranesp every 3 weeks after discharge. Oncology recommends hemoglobin levels greater than 7, platelet greater than 30K and platelet levels above 50K for invasive procedures so fat stable HB-8.6 and Platelets - 55 cont close monitoring (4) Hypertension Current Visit: No Status: Chronic Assessment and plan: Stable and well controlled with current med Losartan Qualifiers: Hypertension type: essential hypertension Qualified Code(s): I10 - Essential (primary) hypertension (5) Pancytopenia Current Visit: No Status: Chronic Assessment and plan: Due to Myelodysplastic syndrome Chronic, stable, oncology on board no need of neupogen (6) DVT prophylaxis Current Visit: Yes Status: Acute Assessment and plan: on SCD's pharmacological prophylaxis contraindicated secondary to anemia - Subjective Interval history: Ms. Brady is a 77 year old female past medical history of CK D stage III, DJD hypertension pancytopenia low-grade myelodysplastic syndrome. She receives Aranesp injections every 3 weeks she did receive one on last Sunday. She was admitted in the hospital with obstructive jaundice. MRCP showed Pancreatic head tumor. Pt did go for ERCP on 04/30/2017. Now she is resting comfortably. Denied any abdominal pain, Tolerating PO intake well. Did c/o sore throat - Constitutional Vitals: Temp Pulse Resp BP Pulse Ox 97.8 F 79 15 145/87 96 05/02/17 06:48 05/02/17 06:48 05/02/17 06:48 05/02/17 06:48 05/02/17 06:48 General appearance: Present: A&O X 3, pleasant, no acute distress, underweight, answers questions appropriately - Head Head exam: Present: atraumatic, normal inspection - Eye Eye exam: Present: scleral icterus - Neck Neck exam general surgery: Present: supple. Absent: lymphadenopathy, thyromegaly - Respiratory Respiratory exam: Present: CTAB. Absent: accessory muscle use, rales, rhonchi, wheezes - Cardiovascular Cardiovascular exam: Present: RRR, +S1, +S2. Absent: diastolic murmur, gallop, rubs, systolic murmur - GI/Abdominal GI/Abdominal exam: Present: distended (mildly), soft. Absent: firm, rebound, rigid, tenderness - Extremities Exam Extremities exam: Absent: calf tenderness, pedal edema, tenderness - Neurological Exam Neurological exam: Present: alert, oriented X3 - Psychiatric Psychiatric exam: Present: normal affect, normal mood Internal Medicine: Result - Labs CBC & Chem 7: 05/02/17 02:53 05/02/17 02:53 Labs: Short CBC 05/02/17 Range/Units 02:53 WBC 2.5 L (4.3-11.1) K/mcL Hgb 8.6 L (11.5-15.4) g/dL Hct 29.1 L (35.3-44.9) % Plt Count 54 L (140-400) K/mcL Neutrophils # 1.3 L (1.6-8.9) K/mcL BMP 05/02/17 02:53 Sodium 141 Potassium 3.8 Chloride 111 H Carbon Dioxide 25 BUN 14 Creatinine 0.80 Glucose 99 Calcium 8.7 Liver Function 05/02/17 Range/Units 02:53 Total Bilirubin 4.1 H (0.2-1.2) mg/dL AST 96 H (5-34) Units/L ALT 166 H (0-55) Units/L Alkaline Phosphatase 794 H (38-126) Units/L Albumin 2.8 L (3.5-5.0) g/dL - ABG Interpretation ABG results: PT/INR, D-dimer PT 12.3 Seconds (9.4-12.1) H 04/27/17 10:39 - VTE Documentation of Mechanical Device: Venous foot pump, device Consult Discharge Plan - Plan Referrals: Sukumar Wilkins Jr, MD [Primary Care Provider] - Isabel Vázquez CNP [Advanced Practice Nurse] - 05/07/17 10:00 am
--- NOTE | 2017-05-02 10:12 | Oncology Inp Progress Note ---
Date of Encounter: 05/02/17 Time of Encounter: 10:09 (1) Obstructive jaundice Current Visit: Yes Status: Acute Assessment and plan: -Bilirrubin levels coming down to 4 mg /dl post ERCP, stent placement. - From the oncology point of view, she can be discharged home today. Follow up with medical oncology Dr. Estrada on Sunday or early this coming week to review path results and discuss options of management. Planning to review her case on Sunday's tumor board. - Plan for outpatient PET scan. (2) Myelodysplastic syndrome Current Visit: No Status: Chronic Assessment and plan: - Stable cell counts. - Resume aranesp every 3 weeks after discharge. Oncology: Subj Interval history: Patient not present in her room during the visit. Chart reviewed, bilirrubin levels coming down to 4 mg/dl post ERCP. No significant overnight events documented. - Constitutional Vitals: Vital Signs Temp Pulse Resp BP Pulse Ox 05/02/17 06:48 97.8 F 79 15 145/87 96 05/02/17 02:57 97.7 F 79 18 130/80 96 05/01/17 22:43 97.8 F 88 16 118/73 94 05/01/17 18:55 98.6 F 90 18 145/82 98 05/01/17 15:29 98.1 F 85 17 119/76 96 05/01/17 11:15 98.5 F 77 16 122/76 96 Intake and Output 05/01/17 05/02/17 05/02/17 23:59 07:59 15:59 Intake Total 100 / 100 480 / 480 Balance 100 / 100 480 / 480 Intake: Oral 100 / 100 480 / 480 Other: Meal Breakfast Percent of Meal Consumed 100% # Voids 1 Weight 56.79 kg Patient Weight 05/02/17 23:59 Weight 56.79 kg Oncology: Obj Data - Labs CBC & Chem 7: 05/02/17 02:53 05/02/17 02:53 Labs: Laboratory Results - last 24 hr 05/02/17 05/02/17 02:53 02:53 WBC 2.5 L RBC 2.79 L Hgb 8.6 L Hct 29.1 L MCV 104.3 H MCH 30.8 MCHC 29.6 L RDW 17.8 H Plt Count 54 L MPV 12.3 Immature Gran % 0.8 Seg Neutrophils % 49.9 Lymphocytes % 30.2 Monocytes % 15.1 Eosinophils % 3.2 Basophils % 0.8 Neutrophils # 1.3 L Lymphocytes # 0.8 Monocytes # 0.4 Eosinophils # 0.1 Basophils # 0.0 Platelet Estimate Decreased L Immature Plt Fraction 24.7 H Sodium 141 Potassium 3.8 Chloride 111 H Carbon Dioxide 25 BUN 14 Creatinine 0.80 Est GFR ( Amer) > 60 Est GFR (Non-Af Amer) > 60 BUN/Creatinine Ratio 18 Glucose 99 Calculated Osmolality 293 Calcium 8.7 Magnesium 1.7 Total Bilirubin 4.1 H AST 96 H ALT 166 H Alkaline Phosphatase 794 H Serum Total Protein 6.6 Albumin 2.8 L Globulin 3.8 H Albumin/Globulin Ratio 0.7 L - ABG Interpretation ABG results: PT/INR, D-dimer PT 12.3 Seconds (9.4-12.1) H 04/27/17 10:39 Consult Discharge Plan - Plan Referrals: Sukumar Wilkins Jr, MD [Primary Care Provider] - Isabel Vázquez CNP [Advanced Practice Nurse] - 05/07/17 10:00 am
[2017-05-02 11:22] VITALS: BP 125/81
--- NOTE | 2017-05-02 13:02 | Discharge Summary ---
Date of Encounter: 05/02/17 Time of Encounter: 12:57 - Discharge Diagnosis (1) Obstructive jaundice Priority: Primary Status: Acute (2) Pancreatic tumor Priority: Primary Status: Acute (3) Myelodysplastic syndrome Priority: Secondary Status: Chronic (4) Hypertension Priority: Secondary Status: Chronic Qualifiers: Hypertension type: essential hypertension Qualified Code(s): I10 - Essential (primary) hypertension (5) Pancytopenia Priority: Secondary Status: Chronic - Discharge Medications Prescriptions: OxyCODONE Immed Rel [Roxicodone 5 MG] 5 mg PO Q8HR PRN #15 tablet PRN Reason: Pain Home Medications: Amitriptyline HCl [Amitriptyline HCl] 75 mg PO DAILY 04/27/17 [History] Losartan Potassium [Cozaar] 50 mg PO DAILY 04/27/17 [History] Omeprazole [PriLOSEC] 20 mg PO DAILY 04/27/17 [History] Oxazepam [Serax] 10 mg PO QID 04/27/17 [History] Polyethylene Glycol 3350 [MiraLAX bowel prep] 17 gm PO DAILY PRN 04/27/17 [ History] OxyCODONE Immed Rel [Roxicodone 5 MG] 5 mg PO Q8HR PRN #15 tablet 05/02/17 [Rx] Allergies/Adverse Reactions: Allergies Sulfa (Sulfonamide Antibiotics) Adverse Reaction (Verified 04/27/17 13:38) Weakness Procedures/tests Complete & Pending: Procedures Performed prior 72 hours Category Date Time Status CT chest w con [CT] Routine Cat Scan 05/02/17 09:30 Completed Date of admission: 04/27/17 13:17 Primary care physician: Sukumar Wilkins Jr, MD - Patient Status Disposition: Home, Self-Care Condition: Fair - Discharge Instructions Follow Up With: Isabel Vázquez CNP [Advanced Practice Nurse] - 05/07/17 10:00 am Additional Instructions: f/u with Heme Onc on Sunday - Diet and Activity Activity: increase activity as tolerated Diet: advance to your usual diet Hospital course: Ms. Brady is a 77 year old female past medical history of CK D stage III, DJD hypertension pancytopenia low-grade myelodysplastic syndrome. She receives Aranesp injections every 3 weeks she did receive one on last Sunday. She was admitted in the hospital with obstructive jaundice.Pt was admitted in the hospital and started her symptomatic and supportive care. GI and Heme Onc consulted. Her MRCP showed Pancreatic head tumor. Pt did go for ERCP on 2016 with biopsy, sphincterotomy, and a biliary stent placed. Since then her LFT 's started trending down. Now she is resting comfortably. Denied any abdominal pain, Tolerating PO intake well. We did CT of chest for staging, which did not show any lesions. Her biopsy results are still pending. At this Heme Onc recommend to d/c her home today and f/u with them on Sunday as an out pt for possible PET scan and discuss biopsy results. Pt and her family agree with above care plan. So will d/c her home today in stable condition. For physical examination findings please review my progress notes from today - Time Spent with Patient Total time spent providing and/or coordinating discharge services: - Constitutional Vitals: Temp Pulse Resp BP Pulse Ox 97.9 F 69 15 125/81 98 05/02/17 11:21 05/02/17 11:21 05/02/17 11:21 05/02/17 11:21 05/02/17 11:21 General appearance: Present: A&O X 3, pleasant, no acute distress, underweight, answers questions appropriately - VTE Documentation of Mechanical Device: Venous foot pump, device
[2017-05-02] MEDS ORDERED: Ondansetron 4 MG/2 ML VIAL IVP ONE (13:20)
[2017-05-02] MEDS ORDERED: *HR* Propofol 200 MG/20 ML VIAL IVP ONE (13:20)
[2017-05-02] MEDS ORDERED: *HR* Succinylcholine 200 MG/10 ML VIAL IVP ONE (13:20)
[2017-05-02] MEDS ORDERED: Lidocaine -MPF 4% 5 ML AMPUL INFILT ONE (13:20)
[2017-05-02] MEDS ORDERED: Lidocaine -MPF 2% 5 ML VIAL INFILT ONE (13:20)
== END 2017-05-02 13:21 | disposition home or self-care (01) | DRG 435 ==
LOC: EMEROO 10:13 → 3BNU 10:13
PROVIDERS: ADMIT Family Medicine; ATTEND Nurse Practitioner Family

== ENCOUNTER 2018-04-29 13:18 | Inpatient (IN) ==
[2018-04-29 14:02] LABS: Basophils % 0.5 %; Eosinophils % 0.2 %; Hematocrit 20.4 % (35.3-44.9); Immature Granulocytes % 2.3 % (0-4); Lymphocytes # 0.7 K/mcL (0.6-4.6); Lymphocytes % 15.8 %; Mean Corpuscular HGB Conc 29.4 g/dL (31.6-35.5); Mean Corpuscular Hemoglobin 33.3 pg (28.0-33.3); Mean Corpuscular Volume 113.3 fL (83.0-100.0); Mean Platelet Volume 12.8 fL (9.4-12.4); Monocytes # 0.6 K/mcL (0.0-1.3); Monocytes % 13.3 %; Nucleated Red Blood Cells 0.7 /100 WBC (0); Platelet Count 134 K/mcL (140-400); Red Cell Distribution Width 19.9 % (11.5-14.5); Segmented Neutrophils % 67.9 %
[2018-04-29 14:10] LABS: INR 1.1; Prothrombin Time 12.9 Seconds (9.4-12.1)
[2018-04-29 14:13] LABS: Activated Partial Thrombo Time 26.9 Seconds (26.0-36.0)
[2018-04-29 14:26] LABS: Troponin I < 0.03 ng/mL (< 0.04)
[2018-04-29] MEDS ORDERED: Isovue-370 500 ML INFUS..BTL IV ONE (14:29)
[2018-04-29] MEDS ORDERED: Pantoprazole 40 MG VIAL IVP ONE (14:31)
[2018-04-29] MEDS ORDERED: Ondansetron 4 MG/2 ML VIAL IVP ONE (14:31)
[2018-04-29 14:40] LABS: Alanine Aminotransferase 13 Units/L (7-52); Albumin 3.1 g/dL (3.5-5.7); Alkaline Phosphatase 116 Units/L (34-104); Aspartate Amino Transferase 21 Units/L (13-39); BUN/Creatinine Ratio 18 (6-26); Bilirubin,Direct 0.2 mg/dL (0.0-0.2); Bilirubin,Indirect 0.6 mg/dL (0.0-1.2); Bilirubin,Total 0.8 mg/dL (0.3-1.0); Blood Urea Nitrogen 14 mg/dL (8-23); Calcium 8.5 mg/dL (8.6-10.3); Carbon Dioxide 18 mEq/L (23-29); Chloride 113 mEq/L (98-107); Globulin 3.2 g/dL (2.4-3.5); Glucose 148 mg/dL (70-105); Osmolality,Calculated 291 (280-300); Potassium 4.2 mEq/L (3.5-5.1); Sodium 139 mEq/L (136-145); Total Protein 6.3 g/dL (6.4-8.9); eGFR For Non-African Americans > 60 (> 60)
[2018-04-29] MEDS ORDERED: 0.9 % Sodium Chloride 1,000 ML ONE (15:05)
[2018-04-29 15:07] LABS: Anisocytosis 1+ (Not Present); Large Platelets Present (Not Present); Macrocytosis Present (Not Present); Platelet Estimate Normal (Normal); Polychromasia 1+ (Not Present)
--- NOTE | 2018-04-29 15:29 | Emergency Department Note ---
Disposition Clinical Impression: Anemia Qualifiers: Anemia type: unspecified type Qualified Code(s): D64.9 - Anemia, unspecified Disposition: Admitted As Inpatient Referrals: Sukumar Wilkins Jr, MD [Primary Care Provider] - General Adult HPI - General Chief complaint: ED Shortness of Breath/Dyspnea Stated complaint: SOB/Dizziness Time Seen by Provider: 04/29/18 13:52 Source: patient Limitations: no limitations - History of Present Illness Pain Scale: 0 - Related Data Home Medications Medication Instructions Recorded Confirmed Oxazepam [Serax] 10 mg PO QID 04/27/17 04/29/18 Oxycodone HCl/Acetaminophen 1 tab PO Q8H PRN 05/22/17 04/29/18 [Endocet 5-325 Tablet] Amitriptyline HCl 75 mg PO DAILY 06/07/17 04/29/18 Lipase/Protease/Amylase [Creon Dr 1 cap PO QID 04/29/18 04/29/18 12,000 Units Capsule] Previous Rx's Medication Instructions Recorded Ondansetron ODT [Zofran ODT] 4 mg PO Q4H PRN #120 tab.rapdis 07/13/17 Prochlorperazine Maleate 10 mg PO Q6HR PRN #120 tablet 07/13/17 [Compazine] Lidocaine/Prilocaine [Emla] 1 appl TP AD PRN #30 gm 08/03/17 Cholecalciferol (Vitamin D3) 400 unit PO DAILY #30 capsule 02/14/18 [Vitamin D] Docusate [Colace] 100 mg PO BID #60 capsule 03/27/18 Allergies Allergy/AdvReac Type Severity Reaction Status Date / Time lorazepam [From Ativan] AdvReac Intermediate Confusion Verified 02/14/18 14:45 Sulfa (Sulfonamide AdvReac Mild Weakness Verified 02/14/18 14:45 Antibiotics) Zolpidem [From Ambien] AdvReac Confusion Verified 04/29/18 14:44 Past Medical History - Past Medical History Medical history: Reports: cancer, hyperlipidemia, hypertension, renal disease, other Surgical history: Reports: cholecystectomy, hip replacement, hysterectomy, other (Whipple procedure, biliary stent) Psychiatric history: Reports: anxiety - Social History Smoking Status: Former smoker Smokeless Tobacco Status: No Alcohol use: Reports: none Drug use: Reports: none Physical Exam - General Limitations: no limitations General appearance: alert, in no apparent distress Course Vital Signs Temperature 98.2 F 04/29/18 13:29 Pulse Rate 122 04/29/18 13:29 Respiratory Rate 22 04/29/18 13:29 Blood Pressure 127/83 04/29/18 13:29 O2 Sat by Pulse Oximetry 98 04/29/18 13:29 Temperature 98.7 F 04/29/18 15:12 Pulse Rate 111 04/29/18 15:12 Respiratory Rate 14 04/29/18 15:12 Blood Pressure 121/72 04/29/18 15:12 O2 Sat by Pulse Oximetry 97 04/29/18 14:29 Oxygen Delivery Oxygen Delivery Room Air Medical Decision Making - Lab Data Result diagrams: 04/29/18 13:48 04/29/18 13:48 Lab Results 04/29/18 04/29/18 04/29/18 Range/Units 13:48 13:48 13:48 WBC 4.4 D (4.3-11.1) K/mcL RBC 1.80 L (3.82-4.97) M/mcL Hgb 6.0 L* D (11.5-15.4) g/dL Hct 20.4 L (35.3-44.9) % MCV 113.3 H D (83.0-100.0) fL MCH 33.3 (28.0-33.3) pg MCHC 29.4 L (31.6-35.5) g/dL RDW 19.9 H (11.5-14.5) % Plt Count 134 L D (140-400) K/mcL MPV 12.8 H (9.4-12.4) fL Immature Gran % 2.3 (0-4) % Seg Neutrophils % 67.9 % Lymphocytes % 15.8 % Monocytes % 13.3 % Eosinophils % 0.2 % Basophils % 0.5 % Neutrophils # 3.0 (1.6-8.9) K/mcL Lymphocytes # 0.7 (0.6-4.6) K/mcL Monocytes # 0.6 (0.0-1.3) K/mcL Eosinophils # 0.0 (0.0-0.6) K/mcL Basophils # 0.0 (0.0-0.2) K/mcL Nucleated RBCs/100 WBC 0.7 H (0) /100 WBC Platelet Estimate Normal (Normal) Large Platelets Present A (Not Present) Polychromasia 1+ A (Not Present) Anisocytosis 1+ A (Not Present) Macrocytosis Present A (Not Present) PT 12.9 H (9.4-12.1) Seconds INR 1.1 APTT 26.9 (26.0-36.0) Seconds Sodium (136-145) mEq/L Potassium (3.5-5.1) mEq/L Chloride (98-107) mEq/L Carbon Dioxide (23-29) mEq/L BUN (8-23) mg/dL Creatinine (0.60-1.20) mg/dL Est GFR ( Amer) (> 60) Est GFR (Non-Af Amer) (> 60) BUN/Creatinine Ratio (6-26) Glucose (70-105) mg/dL Calculated Osmolality (280-300) Lactic Acid (0.5-2.2) mmol/L Calcium (8.6-10.3) mg/dL Total Bilirubin (0.3-1.0) mg/dL Direct Bilirubin (0.0-0.2) mg/dL Indirect Bilirubin (0.0-1.2) mg/dL AST (13-39) Units/L ALT (7-52) Units/L Alkaline Phosphatase (34-104) Units/L Troponin I (< 0.04) ng/mL B-Natriuretic Peptide (Less than 100) pg/mL Serum Total Protein (6.4-8.9) g/dL Albumin (3.5-5.7) g/dL Globulin (2.4-3.5) g/dL Albumin/Globulin Ratio (1.1-2.2) Blood Type O POSITIVE Antibody Screen NEGATIVE Crossmatch See Detail 04/29/18 04/29/18 04/29/18 Range/Units 13:48 13:48 13:48 WBC (4.3-11.1) K/mcL RBC (3.82-4.97) M/mcL Hgb (11.5-15.4) g/dL Hct (35.3-44.9) % MCV (83.0-100.0) fL MCH (28.0-33.3) pg MCHC (31.6-35.5) g/dL RDW (11.5-14.5) % Plt Count (140-400) K/mcL MPV (9.4-12.4) fL Immature Gran % (0-4) % Seg Neutrophils % % Lymphocytes % % Monocytes % % Eosinophils % % Basophils % % Neutrophils # (1.6-8.9) K/mcL Lymphocytes # (0.6-4.6) K/mcL Monocytes # (0.0-1.3) K/mcL Eosinophils # (0.0-0.6) K/mcL Basophils # (0.0-0.2) K/mcL Nucleated RBCs/100 WBC (0) /100 WBC Platelet Estimate (Normal) Large Platelets (Not Present) Polychromasia (Not Present) Anisocytosis (Not Present) Macrocytosis (Not Present) PT (9.4-12.1) Seconds INR APTT (26.0-36.0) Seconds Sodium 139 (136-145) mEq/L Potassium 4.2 (3.5-5.1) mEq/L Chloride 113 H (98-107) mEq/L Carbon Dioxide 18 L (23-29) mEq/L BUN 14 (8-23) mg/dL Creatinine 0.80 (0.60-1.20) mg/dL Est GFR ( Amer) > 60 (> 60) Est GFR (Non-Af Amer) > 60 (> 60) BUN/Creatinine Ratio 18 (6-26) Glucose 148 H (70-105) mg/dL Calculated Osmolality 291 (280-300) Lactic Acid 2.6 H (0.5-2.2) mmol/L Calcium 8.5 L (8.6-10.3) mg/dL Total Bilirubin 0.8 (0.3-1.0) mg/dL Direct Bilirubin 0.2 (0.0-0.2) mg/dL Indirect Bilirubin 0.6 (0.0-1.2) mg/dL AST 21 (13-39) Units/L ALT 13 (7-52) Units/L Alkaline Phosphatase 116 H (34-104) Units/L Troponin I < 0.03 (< 0.04) ng/mL B-Natriuretic Peptide 24 (Less than 100) pg/mL Serum Total Protein 6.3 L (6.4-8.9) g/dL Albumin 3.1 L (3.5-5.7) g/dL Globulin 3.2 (2.4-3.5) g/dL Albumin/Globulin Ratio 1.0 L (1.1-2.2) Blood Type Antibody Screen Crossmatch Attestation Statement - Attestation Attestation: I examined this patient and my medical decision-making was reviewed with the Resident Physician. I agree with the documented findings, disposition and treatment plan as described except to the extent set forth below. 78 tomer old female presents to the ED with complaints of weakness and dizziness and states that she has needed trasnfusionsin the past and this the first time she has noticed black sstools. Jeremy states that she follows with Dr. Torrez and that she has had a whipple procedure in the past and since hen has been requiring transfusions Today her hgb is 6.0 which a few days go was 8. We will tarsnfuse jeremy and then admit ot medicne for GI bleed workup.
--- NOTE | 2018-04-29 15:32 | Emergency Department Note ---
Disposition Clinical Impression: Acute blood loss anemia Anemia Qualifiers: Anemia type: unspecified type Qualified Code(s): D64.9 - Anemia, unspecified GI bleed Qualifiers: GI bleed type/associated pathology: melena Qualified Code(s): K92.1 - Melena Disposition: Admitted As Inpatient Condition: Fair Referrals: Sukumar Wilkins Jr, MD [Primary Care Provider] - Forms: ED Satisfaction Letter Time of Disposition: 19:36 General Adult HPI - General Chief complaint: ED Shortness of Breath/Dyspnea Stated complaint: SOB/Dizziness Time Seen by Provider: 04/29/18 13:52 Source: patient Limitations: no limitations - History of Present Illness HPI Narrative: 78 y/o female with PMH of pancreatic head cancer s/p whipple who follows with the [facility] presents to the ED with complaints of worsening SOB, abdominal distention, abd pain and dark tarry stool. She states that she has had 3 units of blood transfused in the last 3 weeks at the [facility] for low hgb. She states that yesterday she felt more weak, sob with sp on ambulation. She noticed dark black stool yesterday and today. She had a whipple procedure last fall for pancreatic head cancer and has been undergoing chemo and radiation at the cancer center, her last radiation was in March. She became pancytopenic after chemo and it was stopped. She states that she has been getting a shot that makes her not bleed. She has a port in place in right anterior chest, denies any signs of erythema or infection. Pain Scale: 0 - Related Data Home Medications Medication Instructions Recorded Confirmed Oxazepam [Serax] 10 mg PO QID 04/27/17 04/29/18 Oxycodone HCl/Acetaminophen 1 tab PO Q8H PRN 05/22/17 04/29/18 [Endocet 5-325 Tablet] Amitriptyline HCl 75 mg PO DAILY 06/07/17 04/29/18 Lipase/Protease/Amylase [Celena Dr 1 cap PO QID 04/29/18 04/29/18 12,000 Units Capsule] Previous Rx's Medication Instructions Recorded Ondansetron ODT [Zofran ODT] 4 mg PO Q4H PRN #120 tab.rapdis 07/13/17 Prochlorperazine Maleate 10 mg PO Q6HR PRN #120 tablet 07/13/17 [Compazine] Lidocaine/Prilocaine [Emla] 1 appl TP AD PRN #30 gm 08/03/17 Cholecalciferol (Vitamin D3) 400 unit PO DAILY #30 capsule 02/14/18 [Vitamin D] Docusate [Colace] 100 mg PO BID #60 capsule 03/27/18 Allergies Allergy/AdvReac Type Severity Reaction Status Date / Time lorazepam [From Ativan] AdvReac Intermediate Confusion Verified 02/14/18 14:45 Sulfa (Sulfonamide AdvReac Mild Weakness Verified 02/14/18 14:45 Antibiotics) Zolpidem [From Ambien] AdvReac Confusion Verified 04/29/18 14:44 All systems ED: reviewed and negative except as stated. Past Medical History - Past Medical History Attestation: Yes The following information was validated with the patient. Source: patient Medical history: Reports: cancer, hyperlipidemia, hypertension, renal disease, other Surgical history: Reports: cholecystectomy, hip replacement, hysterectomy, other (Whipple procedure, biliary stent) Psychiatric history: Reports: anxiety LMP comments: post menopausal - Social History Smoking Status: Former smoker Smokeless Tobacco Status: No Alcohol use: Reports: none Drug use: Reports: none Physical Exam - General Limitations: no limitations General appearance: alert, in no apparent distress, lethargic (appears pale) - Head Head exam: atraumatic, normocephalic, normal inspection - Eye Eye exam: Present: PERRL, EOMI, other (pale conjunctiva) - ENT ENT exam: mucous membranes dry, other (pale mucous membranes) - Neck Neck exam: Present: normal inspection, full ROM, trachea midline - Chest Chest inspection: Present: other (port in place right chest, c/d/i) - Respiratory Respiratory exam: Present: normal lung sounds bilaterally, wheezes (inspiratory , diffuse). Absent: respiratory distress, stridor, accessory muscle use - Cardiovascular Cardiovascular exam: Present: normal rhythm, tachycardia, +S1, +S2 - Abdominal Exam Abdominal exam: Present: soft, tenderness, distention, normal bowel sounds, scar. Absent: guarding, rebound, rigidity, ascites Abdominal tenderness: Present: RUQ, epigastrium - Rectal Exam Photogrammetric Technician present during exam: Yes Rectal exam: Present: normal inspection, normal rectal tone, heme (+) stool, black stool. Absent: hemorrhoids - Extremities Exam Extremities exam: Present: normal inspection, full ROM. Absent: tenderness, pedal edema - Back Exam Back exam: Present: normal inspection, full ROM. Absent: tenderness - Neurological Exam Neurological exam: Present: alert - Psychiatric Psychiatric exam: Present: normal affect, normal mood - Skin Skin exam: Present: warm, dry, intact, pallor Course - Consultations Consultation #1: Discussed the case with Dr. Tomas with Hospitalist Service who has accepted the patient for admission. Time: 19:37 Vital Signs Temperature 98.2 F 04/29/18 13:29 Pulse Rate 122 04/29/18 13:29 Respiratory Rate 22 04/29/18 13:29 Blood Pressure 127/83 04/29/18 13:29 O2 Sat by Pulse Oximetry 98 04/29/18 13:29 Temperature 98.4 F 04/29/18 18:52 Pulse Rate 106 04/29/18 18:52 Respiratory Rate 16 04/29/18 18:52 Blood Pressure 144/86 04/29/18 18:52 O2 Sat by Pulse Oximetry 99 04/29/18 18:51 Oxygen Delivery Oxygen Delivery Room Air Medical Decision Making - [facility] Narrative Medical decision making narrative: 78 y/o female presents with weakness, fatigue, sob. Pt has hx of pancytopenia after chemo/radiation for pancreatic head cancer. Pt s/p whipple last fall. Pt had EGD at that time. Pt has not had colonoscopy. Pt has been anemic, receiving 3 units of blood in the last 2 weeks. Pt has not had colonoscopy to evaluate. Pt has worsening sx of sob, fatigue, weakness. Yesterday she had an episode of black, tarry stool. She normally has white colored stool. She had another episode this morning Hgb 6. FOB +. Patient tachycardic, but VS otherwise stable. Pt transfused 2 units PRBC, given protonix IV. CT abdomen negative. Will admit for further workup/evaluation of acute GI bleed. Discussed case with hospitalist who has accepted the pt for admission. - Medical Records Medical records reviewed: Yes I reviewed the patient's medical records. - Lab Data Lab results reviewed: Yes I reviewed the patient's lab results. Result diagrams: 04/29/18 13:48 04/29/18 13:48 Lab Results 07/30/18 07/30/18 07/30/18 Range/Units 13:48 13:48 13:48 WBC 4.4 D (4.3-11.1) K/mcL RBC 1.80 L (3.82-4.97) M/mcL Hgb 6.0 L* D (11.5-15.4) g/dL Hct 20.4 L (35.3-44.9) % MCV 113.3 H D (83.0-100.0) fL MCH 33.3 (28.0-33.3) pg MCHC 29.4 L (31.6-35.5) g/dL RDW 19.9 H (11.5-14.5) % Plt Count 134 L D (140-400) K/mcL MPV 12.8 H (9.4-12.4) fL Immature Gran % 2.3 (0-4) % Seg Neutrophils % 67.9 % Lymphocytes % 15.8 % Monocytes % 13.3 % Eosinophils % 0.2 % Basophils % 0.5 % Neutrophils # 3.0 (1.6-8.9) K/mcL Lymphocytes # 0.7 (0.6-4.6) K/mcL Monocytes # 0.6 (0.0-1.3) K/mcL Eosinophils # 0.0 (0.0-0.6) K/mcL Basophils # 0.0 (0.0-0.2) K/mcL Nucleated RBCs/100 WBC 0.7 H (0) /100 WBC Platelet Estimate Normal (Normal) Large Platelets Present A (Not Present) Polychromasia 1+ A (Not Present) Anisocytosis 1+ A (Not Present) Macrocytosis Present A (Not Present) PT 12.9 H (9.4-12.1) Seconds INR 1.1 APTT 26.9 (26.0-36.0) Seconds Sodium (136-145) mEq/L Potassium (3.5-5.1) mEq/L Chloride (98-107) mEq/L Carbon Dioxide (23-29) mEq/L BUN (8-23) mg/dL Creatinine (0.60-1.20) mg/dL Est GFR ( Amer) (> 60) Est GFR (Non-Af Amer) (> 60) BUN/Creatinine Ratio (6-26) Glucose (70-105) mg/dL Calculated Osmolality (280-300) Lactic Acid (0.5-2.2) mmol/L Calcium (8.6-10.3) mg/dL Total Bilirubin (0.3-1.0) mg/dL Direct Bilirubin (0.0-0.2) mg/dL Indirect Bilirubin (0.0-1.2) mg/dL AST (13-39) Units/L ALT (7-52) Units/L Alkaline Phosphatase (34-104) Units/L Troponin I (< 0.04) ng/mL B-Natriuretic Peptide (Less than 100) pg/mL Serum Total Protein (6.4-8.9) g/dL Albumin (3.5-5.7) g/dL Globulin (2.4-3.5) g/dL Albumin/Globulin Ratio (1.1-2.2) Stool Occult Bld Scrn (Negative) Blood Type O POSITIVE Antibody Screen NEGATIVE Crossmatch See Detail 04/29/18 04/29/18 04/29/18 Range/Units 13:48 13:48 13:48 WBC (4.3-11.1) K/mcL RBC (3.82-4.97) M/mcL Hgb (11.5-15.4) g/dL Hct (35.3-44.9) % MCV (83.0-100.0) fL MCH (28.0-33.3) pg MCHC (31.6-35.5) g/dL RDW (11.5-14.5) % Plt Count (140-400) K/mcL MPV (9.4-12.4) fL Immature Gran % (0-4) % Seg Neutrophils % % Lymphocytes % % Monocytes % % Eosinophils % % Basophils % % Neutrophils # (1.6-8.9) K/mcL Lymphocytes # (0.6-4.6) K/mcL Monocytes # (0.0-1.3) K/mcL Eosinophils # (0.0-0.6) K/mcL Basophils # (0.0-0.2) K/mcL Nucleated RBCs/100 WBC (0) /100 WBC Platelet Estimate (Normal) Large Platelets (Not Present) Polychromasia (Not Present) Anisocytosis (Not Present) Macrocytosis (Not Present) PT (9.4-12.1) Seconds INR APTT (26.0-36.0) Seconds Sodium 139 (136-145) mEq/L Potassium 4.2 (3.5-5.1) mEq/L Chloride 113 H (98-107) mEq/L Carbon Dioxide 18 L (23-29) mEq/L BUN 14 (8-23) mg/dL Creatinine 0.80 (0.60-1.20) mg/dL Est GFR ( Amer) > 60 (> 60) Est GFR (Non-Af Amer) > 60 (> 60) BUN/Creatinine Ratio 18 (6-26) Glucose 148 H (70-105) mg/dL Calculated Osmolality 291 (280-300) Lactic Acid 2.6 H (0.5-2.2) mmol/L Calcium 8.5 L (8.6-10.3) mg/dL Total Bilirubin 0.8 (0.3-1.0) mg/dL Direct Bilirubin 0.2 (0.0-0.2) mg/dL Indirect Bilirubin 0.6 (0.0-1.2) mg/dL AST 21 (13-39) Units/L ALT 13 (7-52) Units/L Alkaline Phosphatase 116 H (34-104) Units/L Troponin I < 0.03 (< 0.04) ng/mL B-Natriuretic Peptide 24 (Less than 100) pg/mL Serum Total Protein 6.3 L (6.4-8.9) g/dL Albumin 3.1 L (3.5-5.7) g/dL Globulin 3.2 (2.4-3.5) g/dL Albumin/Globulin Ratio 1.0 L (1.1-2.2) Stool Occult Bld Scrn (Negative) Blood Type Antibody Screen Crossmatch 04/29/18 04/29/18 Range/Units 15:03 15:55 WBC (4.3-11.1) K/mcL RBC (3.82-4.97) M/mcL Hgb (11.5-15.4) g/dL Hct (35.3-44.9) % MCV (83.0-100.0) fL MCH (28.0-33.3) pg MCHC (31.6-35.5) g/dL RDW (11.5-14.5) % Plt Count (140-400) K/mcL MPV (9.4-12.4) fL Immature Gran % (0-4) % Seg Neutrophils % % Lymphocytes % % Monocytes % % Eosinophils % % Basophils % % Neutrophils # (1.6-8.9) K/mcL Lymphocytes # (0.6-4.6) K/mcL Monocytes # (0.0-1.3) K/mcL Eosinophils # (0.0-0.6) K/mcL Basophils # (0.0-0.2) K/mcL Nucleated RBCs/100 WBC (0) /100 WBC Platelet Estimate (Normal) Large Platelets (Not Present) Polychromasia (Not Present) Anisocytosis (Not Present) Macrocytosis (Not Present) PT (9.4-12.1) Seconds INR APTT (26.0-36.0) Seconds Sodium (136-145) mEq/L Potassium (3.5-5.1) mEq/L Chloride (98-107) mEq/L Carbon Dioxide (23-29) mEq/L BUN (8-23) mg/dL Creatinine (0.60-1.20) mg/dL Est GFR ( Amer) (> 60) Est GFR (Non-Af Amer) (> 60) BUN/Creatinine Ratio (6-26) Glucose (70-105) mg/dL Calculated Osmolality (280-300) Lactic Acid 1.6 (0.5-2.2) mmol/L Calcium (8.6-10.3) mg/dL Total Bilirubin (0.3-1.0) mg/dL Direct Bilirubin (0.0-0.2) mg/dL Indirect Bilirubin (0.0-1.2) mg/dL AST (13-39) Units/L ALT (7-52) Units/L Alkaline Phosphatase (34-104) Units/L Troponin I (< 0.04) ng/mL B-Natriuretic Peptide (Less than 100) pg/mL Serum Total Protein (6.4-8.9) g/dL Albumin (3.5-5.7) g/dL Globulin (2.4-3.5) g/dL Albumin/Globulin Ratio (1.1-2.2) Stool Occult Bld Scrn Positive A (Negative) Blood Type Antibody Screen Crossmatch - Radiology Data Radiology results reviewed: Yes I reviewed the patient's radiology results. Chest X-Ray 04/29/18 13:33 IMPRESSION: No acute abnormality. D/ / 04/29/2018 14:52:59 Dheeraj Reardon MD / blas Interpreting Provider: Dheeraj Reardon MD Abdomen/Pelvis CT 04/29/18 14:29 IMPRESSION: 1. No acute process identified. 2. Postsurgical changes from prior Whipple procedure. The appearance is similar to the prior exam. D/ / 04/29/2018 17:07:36 Jeovany Cha MD / blas Interpreting Provider: Jeovany Cha MD
[2018-04-29] MEDS ORDERED: Sucralfate 1 GM TABLET PO SCH (20:52)
[2018-04-29] MEDS ORDERED: *HR* OxyCODONE/APAP 5/325 TABLET PO PRN (21:02)
[2018-04-29] MEDS ORDERED: *HR* HYDROcodone/Acet 5/325 mg TABLET PO PRN (21:06)
[2018-04-29] MEDS ORDERED: OXYCODONE Oral CONC 10 MG/0.5 ML ORAL.SYG SL PRN (21:06)
[2018-04-29] MEDS ORDERED: Naloxone 0.4 MG/ML INJ IVP PRN (21:06)
[2018-04-29] MEDS ORDERED: Acetaminophen 325 MG TABLET PO PRN (21:06)
--- NOTE | 2018-04-29 21:18 | Internal Med History&Physical ---
Date of Encounter: 04/29/18 Time of Encounter: 21:18 Internal Medicine - H&P: HPI Chief complaint: "Black stool and low blood count" Admitted From: Emergency Dept Plans for Post Hospital Care: Home History of present illness: Ms. Brady is a 78 year old female with PMH of pancreatic cancer s/p whipple and chronic pancytopenia who presented to ED at the request of her oncologist Dr. Duque. She states that she was at oncology appointment today when physician told her to come to ED for anemia. She states that she has had multiple transfusions for her anemia since her whipple procedure 1 year ago, and has required an increased amount of transfusions over the last 3-4 weeks. She is not currently undergoing any chemotherapy. She had some weakness and dizziness today that is improved after getting 1+ units of PRBC in the ED. She had a single episodes of chest tightness last night that has since resolved. She has had dark, tarry stool since yesterday. She has some generalized abdominal pain , but states that this is not uncommon since her whipple procedure. In the ED, hemoglobin was 6.0, WBC was 4.4, and platelets were 134. Stool hemoccult was positive. Troponin was WNL. Lactic acid was initially elevated at 2.6, but came down to 1.6. CXR and CT abdomen/pelvis showed no acute abnormalities. She received 2 units PRBC, IV protonix, and IV zofran in the ED. At the time of my examination, patient denies fever, chills, chest pain, SOB, nausea, vomiting, changes in bladder, or changes in bowels. She is in no acute distress and resting comfortably in bed. She states that she feels "much better " after getting some blood. She has no other complaints at this time. Past Med Surg Social Fam HX - Past Medical History Attestation: Yes The following information was validated with the patient. Source: patient Medical history: cancer (Pancreatic), hyperlipidemia, hypertension, renal disease, other Additional medical history: pancreatic cancer Psychiatric history: anxiety - Past Surgical History Surgical History: cholecystectomy, hip replacement, hysterectomy, other ( Whipple procedure, biliary stent) Additional surgical history: Whipple surgery 05/2017 - Social History Smoking Status: Former smoker Smokeless Tobacco Status: No Alcohol use: none Drug use: none - Family History Mother Adopted: No Living Status: Hx Family Cardiac Disorders: Yes Hx Family Respiratory Disorders: No Hx Family Cancer: Yes Hx Family GI Disorders: No Hx Family Endocrine Disorder: No Hx Family Neuromuscular Disorders: No Hx Family Neurologic Disorders: No Hx Family HEENT Disorders: No Hx Family Autoimmune Disorders: No - Additional Family History Additional family history: Family history verified with patient. Internal Medicine - H&P: Meds Oxazepam [Serax] 10 mg PO QID 04/27/17 [History] Oxycodone HCl/Acetaminophen [Endocet 5-325 Tablet] 1 tab PO Q8H PRN 05/22/17 [ History] Amitriptyline HCl 75 mg PO DAILY 06/07/17 [History] Ondansetron ODT [Zofran ODT] 4 mg PO Q4H PRN #120 tab.rapdis 07/13/17 [Rx] Prochlorperazine Maleate [Compazine] 10 mg PO Q6HR PRN #120 tablet 07/13/17 [Rx] Lidocaine/Prilocaine [Emla] 1 appl TP AD PRN #30 gm 08/03/17 [Rx] Cholecalciferol (Vitamin D3) [Vitamin D] 400 unit PO DAILY #30 capsule 02/14/18 [Rx] Docusate [Colace] 100 mg PO BID #60 capsule 03/27/18 [Rx] Lipase/Protease/Amylase [Creon Dr 12,000 Units Capsule] 1 cap PO QID 04/29/18 [ History] 3 Allergy/AdvReac Type Severity Reaction Status Date / Time lorazepam [From Ativan] AdvReac Intermediate Confusion Verified 02/14/18 14:45 Sulfa (Sulfonamide AdvReac Mild Weakness Verified 02/14/18 14:45 Antibiotics) Zolpidem [From Ambien] AdvReac Confusion Verified 04/29/18 14:44 All Systems PM: A 10-system review of systems was performed and is negative for pertinent findings except as documented above in the HPI. - Constitutional Vitals: Temp Pulse Resp BP Pulse Ox 98.4 F 102 16 142/92 97 04/29/18 18:52 04/29/18 20:56 04/29/18 20:56 04/29/18 20:56 04/29/18 20:56 General appearance: Present: cooperative, A&O X 3, pleasant, no acute distress, underweight, answers questions appropriately - Head Head exam: Present: atraumatic, normocephalic - Eye Eye exam: Present: EOMI, PERRL. Absent: conjunctival injection, nystagmus, scleral icterus - ENT ENT exam: Present: mucous membranes moist, normal external ear exam, normal oropharynx - Neck Neck exam general surgery: Present: supple, trachea midline. Absent: lymphadenopathy, tenderness, thyromegaly - Respiratory Respiratory exam: Present: CTAB. Absent: accessory muscle use, rales, rhonchi, wheezes Additional comments: Normal WOB - Cardiovascular Cardiovascular exam: Present: RRR, +S1, +S2. Absent: diastolic murmur, gallop, rubs, systolic murmur Additional comments: No BLE edema - GI/Abdominal GI/Abdominal exam: Present: normal bowel sounds, soft, tenderness (Generalized TTP diffusely across abdomen). Absent: distended, guarding, hepatomegaly, mass , rebound, splenomegaly - Neurological Exam Neurological exam: Present: alert, CN II-XII intact, oriented X3, no focal deficits, strengths equal and symetr throughout. Absent: motor sensory deficit , facial droop, speech deficit - Psychiatric Psychiatric exam: Present: normal affect, normal mood. Absent: agitated, anxious, depressed - Skin Skin exam: Present: dry, intact, pallor, warm. Absent: cyanosis, rash Internal Med - H&P Results - Labs CBC & Chem 7: 04/29/18 13:48 04/29/18 13:48 - VTE Reasons for not Prescribing Prophylaxis: Medical contraindication (Acute GI Bleed, Anemia Requiring Transfusions) Documentation of Mechanical Device: Intermittent pneumatic compression device - Assessment and plan (1) GI bleed Current Visit: Yes Status: Acute Assessment and plan: Received 2 units PRBC in ED. Admit inpatient with telemetry. Obtain 2-hour post-transfusion H/H, then Q6H H/H x 3. Obtain CBC in AM. NPO. IV NS at 75 ml /hr. Consult GI in AM. Start protonix IV BID and carafate PO QID. Start zofran IV PRN nausea/vomiting. Obtain repeat labwork in AM. Qualifiers: GI bleed type/associated pathology: melena Qualified Code(s): K92.1 - Melena (2) Acute blood loss anemia Current Visit: Yes Status: Acute Assessment and plan: Acute on chronic anemia. Management as per above. (3) Pancytopenia Current Visit: Yes Status: Chronic Assessment and plan: This has been a chronic issue that her oncologist Dr. Duque is working up. Management of acute anemia as per above. Will consult heme/onc in AM. Recheck CBC in AM and monitor. (4) Pancreatic cancer Current Visit: Yes Status: Chronic Assessment and plan: S/P whipple in remission. Continue home medications. Will consult heme/onc in AM. Qualifiers: Pancreatic malignancy location: head of pancreas Qualified Code(s): C25.0 - Malignant neoplasm of head of pancreas (5) Hypertension Current Visit: Yes Status: Chronic Assessment and plan: Continue home medications. Qualifiers: Hypertension type: essential hypertension Qualified Code(s): I10 - Essential (primary) hypertension (6) DVT prophylaxis Current Visit: Yes Status: Acute Assessment and plan: Start SCDs. Will defer anticoagulation due to acute GI bleed. - Time Spent With Patient Total time spent is greater than 50% in coordination of care (as documented) at patient's floor/unit and/or counseling patient: less than 15 minutes
--- NOTE | 2018-04-29 22:06 | Electrocardiograph Report ---
[employer] [facility] Test Date: 2018-04-29 Pat Name: Aroldo Brady Department: 104 Room: 3A31 Gender: F Tavern Operator: TENZIN : 1940 Requested By: Aime Medina Order Number: [id number] Reading MD: Carlos Manuel Montaño Measurements Intervals [place] Rate: 125 P: 56 CA: 157 QRS: -12 QRSD: 81 T: 54 QT: 409 QTc: 483 Interpretive Statements SINUS TACHYCARDIA NONSPECIFIC T-WAVE ABNORMALITY ABNORMAL RHYTHM ECG Electronically Signed On 04-29-2018 22:04:40 EDT by Carlos Manuel Montaño
[2018-04-29] MEDS: Sucralfate 1 GM TABLET PO SCH (22:08)
[2018-04-29] MEDS: 0.9 % Sodium Chloride 1,000 ML IVC SCH (22:10)
[2018-04-30 03:27] LABS: INR 1.2; Prothrombin Time 13.5 Seconds (9.4-12.1)
[2018-04-30 03:34] LABS: Alanine Aminotransferase 11 Units/L (7-52); Albumin 2.5 g/dL (3.5-5.7); Alkaline Phosphatase 94 Units/L (34-104); Aspartate Amino Transferase 17 Units/L (13-39); BUN/Creatinine Ratio 18 (6-26); Blood Urea Nitrogen 13 mg/dL (8-23); Calcium 7.4 mg/dL (8.6-10.3); Carbon Dioxide 19 mEq/L (23-29); Chloride 113 mEq/L (98-107); Globulin 2.5 g/dL (2.4-3.5); Glucose 99 mg/dL (70-105); Magnesium 1.6 mg/dL (1.6-2.6); Osmolality,Calculated 290 (280-300); Phosphorous 3.2 mg/dL (2.7-4.5); Potassium 3.3 mEq/L (3.5-5.1); Sodium 140 mEq/L (136-145); eGFR For Non-African Americans > 60 (> 60)
[2018-04-30 04:04] LABS: Basophils % 0.8 %; Eosinophils % 0.8 %; Hematocrit 25.8 % (35.3-44.9); Hemoglobin 8.2 g/dL (11.5-15.4); Immature Granulocytes % 2.1 % (0-4); Immature Platelets 13.9 % (1.1-6.1); Lymphocytes # 0.9 K/mcL (0.6-4.6); Mean Corpuscular HGB Conc 31.8 g/dL (31.6-35.5); Mean Corpuscular Hemoglobin 31.8 pg (28.0-33.3); Mean Platelet Volume 12.6 fL (9.4-12.4); Monocytes # 0.5 K/mcL (0.0-1.3); Monocytes % 14.1 %; Neutrophils # 2.2 K/mcL (1.6-8.9); Platelet Count 108 K/mcL (140-400); Red Blood Count 2.58 M/mcL (3.82-4.97); Red Cell Distribution Width 21.2 % (11.5-14.5); Segmented Neutrophils % 58.2 %
[2018-04-30] MEDS: Pantoprazole 40 MG VIAL IVP SCH ×2 (06:32→16:09)
[2018-04-30] MEDS: Sucralfate 1 GM TABLET PO SCH ×4 (06:33→21:06)
--- NOTE | 2018-04-30 08:49 | Gastroenterology Consult Note ---
<Maddi Lane - Last Filed: 04/30/18 08:44> Date of Encounter: 04/30/18 Time of Encounter: 08:10 - Assessment and plan (1) Anemia Current Visit: Yes Status: Chronic Assessment and plan: 78 year old female with pmhx of pancreatic cancer s/p whipple procedure. She presents with increased weakness, anemia and black stools. She has been transfused and is feeling better. She will need EGD, likely colonoscopy, will discuss with Dr Hernandez. Continue PPI, monitor H&H. Qualifiers: Anemia type: unspecified type Qualified Code(s): D64.9 - Anemia, unspecified - Time Spent With Patient Total time spent is greater than 50% in coordination of care (as documented) at patient's floor/unit and/or counseling patient: GI History of Present Illness - Data of Consult Patient: known to practice within the last 3 years Consult date: 04/30/18 Requesting Physician: Celia Martinez MD - Consult Narrative Reason for consult: anemia/melena History of present illness: Ms. Brady is a 78 year old female with PMH of pancreatic cancer s/p whipple and chronic pancytopenia who presented to ED at the request of her oncologist Dr. Duque. She states that she was at oncology appointment today when physician told her to come to ED for anemia. She states that she has had multiple transfusions for her anemia since her whipple procedure 1 year ago, and has had 5 transfusions in the past 3-4 weeks. She finished radiation 2-3 months ago and chemotherapy before that. She admits to one episode of black stools 2 days ago. She also reports near-syncope, weakness, dizziness, and an episode of chest tightness last night that has since resolved. She has had dark, tarry stool since yesterday. She has some generalized abdominal pain, but states that this is not uncommon since her whipple procedure. In the ED, hemoglobin was 6.0, WBC was 4.4, and platelets were 134. Stool hemoccult was positive. Troponin was WNL. Lactic acid was initially elevated at 2.6, but came down to 1.6. CXR and CT abdomen/pelvis showed no acute abnormalities. She received 2 units PRBC, IV protonix, and IV zofran in the ED. She has unchanged abdominal tenderness, denies nausea/vomiting or diarrhea. She has been afebrile. She states that she feels "much better" after getting some blood. She has no other complaints at this time. NSAIDS: toradol ERCP 04/16 pancreatic mass, stent placed colonoscopy: denies Past Med Surg Social Fam HX - Past Medical History Medical history: cancer, hyperlipidemia, hypertension, renal disease, other Additional medical history: pancreatic cancer Psychiatric history: anxiety - Past Surgical History Surgical History: cholecystectomy, hip replacement, hysterectomy, other Additional surgical history: Whipple surgery 05/2017 - Social History Smoking Status: Former smoker Smokeless Tobacco Status: No Alcohol use: none Drug use: none - Family History Mother Adopted: No Living Status: Hx Family Cardiac Disorders: Yes Hx Family Respiratory Disorders: No Hx Family Cancer: Yes Hx Family GI Disorders: No Hx Family Endocrine Disorder: No Hx Family Neuromuscular Disorders: No Hx Family Neurologic Disorders: No Hx Family HEENT Disorders: No Hx Family Autoimmune Disorders: No Review of Systems: GI: as per [place] GENERAL: denies fever, or chills EYES: denies yellow discoloration ENT: denies pain with swallowing or difficulty swallowing CARDIO: see HPI RESP: Shortness of breath with exertion : denies change in color of urine NEURO: weakness HEME: Denies any bruising MS: denies joint pain, joint swelling or back pain. DERM: denies rash or itching PSYCH: Denies history of anxiety or depression - Constitutional Vitals: Temp Pulse Resp BP Pulse Ox 97.9 F 96 18 113/75 98 04/30/18 07:34 04/30/18 07:34 04/30/18 07:34 04/30/18 07:34 04/30/18 07:34 Exam: CONSTITUTIONAL:~alert, no acute distress.~HEAD:~normocephalic.~EYES:~no jaundice.~NECK:~no obvious swelling.~HEART:~regular rate and rhythm, no murmurs. ~LUNGS:~bilateral good air entry.~ABDOMEN:~softly distended, diffusely tender, no masses palpable, no organomegaly.~RECTAL EXAM:~Deferred.~EXTREMITIES:~no clubbing, cyanosis or edema.~SKIN:~pallor noted, no stigmata of chronic liver disease.~NEUROLOGIC:~no obvious focal defect.~~~~ Results - Labs CBC & Chem 7: 04/30/18 04:01 04/30/18 03:05 Labs: Last Result Calcium 7.4 mg/dL (8.6-10.3) L 04/30/18 03:05 Troponin I < 0.03 ng/mL (< 0.04) 04/29/18 13:48 Entire Visit Hgb 8.2 g/dL (11.5-15.4) L D 04/30/18 04:01 Hct 25.8 % (35.3-44.9) L 04/30/18 04:01 PT 13.5 Seconds (9.4-12.1) H 04/30/18 03:05 Total Bilirubin 1.0 mg/dL (0.3-1.0) 04/30/18 03:05 AST 17 Units/L (13-39) 04/30/18 03:05 ALT 11 Units/L (7-52) 04/30/18 03:05 - ABG ABG results: PT/INR, D-dimer PT 13.5 Seconds (9.4-12.1) H 04/30/18 03:05 Consult Discharge Plan - Plan Referrals: Sukumar Wilkins Jr, MD [Primary Care Provider] - <MaryJordenGe - Last Filed: 04/30/18 14:46> Date of Encounter: 04/30/18 Time of Encounter: 14:00 - Time Spent With Patient Total time spent is greater than 50% in coordination of care (as documented) at patient's floor/unit and/or counseling patient: GI History of Present Illness - Data of Consult Requesting Physician: Celia Martinez MD - Consult Narrative History of present illness: Ms. Brady is a 78 year old female - Constitutional Vitals: Temp Pulse Resp BP Pulse Ox 98.3 F 99 15 113/74 98 04/30/18 10:20 04/30/18 10:20 04/30/18 10:20 04/30/18 10:20 04/30/18 10:20 Results - Labs CBC & Chem 7: 04/30/18 04:01 04/30/18 03:05 Labs: Last Result Calcium 7.4 mg/dL (8.6-10.3) L 04/30/18 03:05 Troponin I < 0.03 ng/mL (< 0.04) 04/29/18 13:48 Entire Visit Hgb 8.2 g/dL (11.5-15.4) L D 04/30/18 04:01 Hct 25.8 % (35.3-44.9) L 04/30/18 04:01 PT 13.5 Seconds (9.4-12.1) H 04/30/18 03:05 Total Bilirubin 1.0 mg/dL (0.3-1.0) 04/30/18 03:05 AST 17 Units/L (13-39) 04/30/18 03:05 ALT 11 Units/L (7-52) 04/30/18 03:05 - ABG ABG results: PT/INR, D-dimer PT 13.5 Seconds (9.4-12.1) H 04/30/18 03:05 - Attending Attestation I have personally performed a face to face evaluation on this patient. I have reviewed and agree with the care plan. History and Exam by me shows: Patient seen denies any abdominal pain. Denies any black stool. Patient with underlying history of pancreatic cancer status post Whipple. In remission. On examination abdomen is mildly distended but benign. Assessment: Patient with anemia rule out GI causes Recommendation: EGD and colonoscopy in the morning
[2018-04-30] MEDS: Cholecalciferol (D-3) 1,000 UNIT TABLET PO SCH (09:13)
--- NOTE | 2018-04-30 11:40 | Oncology Inp Consult Note ---
<Milton Baeza - Last Filed: 04/30/18 13:47> Date of Encounter: 04/30/18 Time of Encounter: 11:36 Assessment and Plan (1) Anemia Status: Chronic Assessment and plan: patients etiology of anemia is multifactorial she has hx of MDS and recently started having black bowel movements she has required 5 PBRC transfusions outpatient She received 2 units PBRC since admission GI on board and plan on EGD/Colonoscopy transfuse patient as needed Patients platelets are elevated compared to previous likely reaction to GI bleed. Qualifiers: Anemia type: iron deficiency Iron deficiency anemia type: chronic blood loss Qualified Code(s): D50.0 - Iron deficiency anemia secondary to blood loss (chronic) (2) GI bleed Status: Acute Assessment and plan: plan as above Qualifiers: GI bleed type/associated pathology: melena Qualified Code(s): K92.1 - Melena (3) Myelodysplastic syndrome Status: Chronic Assessment and plan: plan as above follow up with Oncology outpatient. - Data of Consult Patient: known to practice within the last 3 years Consult date: 04/30/18 Requesting Physician: Celia Martinez MD Primary Care Provider: Sukumar Wilkins Jr, MD - Consult Narrative Reason for consult: Anemia History of present illness: Ms. Brady is a 78 year old female with history of pancreatic adenocarcinoma and MDS presented which chief complaint of anemia. Patient was sent by Dr. dowling , oncology after being found to have a hemoglobin of 6.0. Patient reports she has been having black bowel movements for the past 2 days along with dizziness, weakness, fatigue, and near syncopal episodes. In the emergency department she received 2 units of packed red blood cells and thereafter reported that she felt much better. In the past 3-4 weeks patient has required multiple blood transfusions. Patient had a bone marrow biopsy on 01/12/17 when she was diagnosed with MDS and thereafter she was treated with Vidaza and decitabine however she developed adverse reactions to these treatments and they were stopped. Furthermore on patient presented to the hospital with abdominal pain and was found to have pancreatic head tumor and underwent Whipple's procedure on May 17. Thereafter she was started on chemotherapy. Since then patient has been following up for repeated CT imaging which has showed no recurrence of the cancer. Past Med Surg Social Fam HX - Past Medical History Medical history: cancer, hyperlipidemia, hypertension, renal disease, other Additional medical history: pancreatic cancer Psychiatric history: anxiety - Past Surgical History Surgical History: cholecystectomy, hip replacement, hysterectomy, other Additional surgical history: Whipple surgery 05/2017 - Social History Smoking Status: Former smoker Smokeless Tobacco Status: No Alcohol use: none Drug use: none - Family History Mother Adopted: No Living Status: Hx Family Cardiac Disorders: Yes Hx Family Respiratory Disorders: No Hx Family Cancer: Yes Hx Family GI Disorders: No Hx Family Endocrine Disorder: No Hx Family Neuromuscular Disorders: No Hx Family Neurologic Disorders: No Hx Family HEENT Disorders: No Hx Family Autoimmune Disorders: No Medications and Allergies Oxazepam [Serax] 10 mg PO QID 04/27/17 [History] Oxycodone HCl/Acetaminophen [Endocet 5-325 Tablet] 1 tab PO Q8H PRN 05/22/17 [ History] Amitriptyline HCl 75 mg PO DAILY 06/07/17 [History] Ondansetron ODT [Zofran ODT] 4 mg PO Q4H PRN #120 tab.rapdis 07/13/17 [Rx] Prochlorperazine Maleate [Compazine] 10 mg PO Q6HR PRN #120 tablet 07/13/17 [Rx] Lidocaine/Prilocaine [Emla] 1 appl TP AD PRN #30 gm 08/03/17 [Rx] Cholecalciferol (Vitamin D3) [Vitamin D] 400 unit PO DAILY #30 capsule 02/14/18 [Rx] Docusate [Colace] 100 mg PO BID #60 capsule 03/27/18 [Rx] Lipase/Protease/Amylase [Creon Dr 12,000 Units Capsule] 1 cap PO QID 04/29/18 [ History] 3 Allergy/AdvReac Type Severity Reaction Status Date / Time lorazepam [From Ativan] AdvReac Intermediate Confusion Verified 02/14/18 14:45 Sulfa (Sulfonamide AdvReac Mild Weakness Verified 02/14/18 14:45 Antibiotics) Zolpidem [From Ambien] AdvReac Confusion Verified 04/29/18 14:44 Review of systems: Constitutional: Denies fever, chills. Reports fatigue HEENT: Denies headache, vision changes, neck pain, sore throat, rhinorrhea Heart: Denies chest pain palpitations Lungs: Denies shortness of breath cough Abdomen: Denies abdominal pain nausea vomiting diarrhea. Reports black stools Back: Denies back pain Kidney: Denies dysuria, hematuria Skin: Denies rash, lesions Extremities: Denies swelling, pain Neuro: Denies numbness and tingling. Reports dizziness, presyncopal episode Oncology - Exam - Constitutional Vitals: Temp Pulse Resp BP Pulse Ox 98.3 F 99 15 113/74 98 04/30/18 10:20 04/30/18 10:20 04/30/18 10:20 04/30/18 10:20 04/30/18 10:20 - Additional findings Additional findings: General: Pleasant without distress, thin HEENT: Head atraumatic, normocephalic, EOMI, PERRL, neck nontender to palpation , absent lymphadenopathy, Moist Mucous Membranes, Heart: Regular rate and rhythm with no murmur Lungs: Clear to auscultation bilaterally Abdomen: Soft nontender, nondistended positive bowel sounds Skin: warm and dry, absent rash Extremities: Absent pedal edema, Neuro: Cranial nerves II through XII intact, UE and LE sensation equal bilaterally, UE and LEstrength 5/5, alert oriented 3, Vascular: Pedal and radial pulses 2 out of 4 Oncology - Results Labs: 3 04/30/18 04/30/18 04/30/18 05:35 04:01 03:32 WBC 3.8 L RBC 2.58 L Hgb 8.2 L D Hct 25.8 L MCV 100.0 D MCH 31.8 MCHC 31.8 RDW 21.2 H Plt Count 108 L MPV 12.6 H Immature Gran % 2.1 Seg Neutrophils % 58.2 Lymphocytes % 24.0 Monocytes % 14.1 Eosinophils % 0.8 Basophils % 0.8 Neutrophils # 2.2 Lymphocytes # 0.9 Monocytes # 0.5 Eosinophils # 0.0 Basophils # 0.0 Nucleated RBCs/100 WBC 1.0 H Immature Plt Fraction 13.9 H PT INR Sodium Potassium Chloride Carbon Dioxide BUN Creatinine Est GFR ( Amer) Est GFR (Non-Af Amer) BUN/Creatinine Ratio Glucose POC Glucose 101 H Calculated Osmolality Calcium Phosphorus Magnesium Total Bilirubin AST ALT Alkaline Phosphatase Serum Total Protein Albumin Globulin Albumin/Globulin Ratio Specimen Rejected MCV Delta 3 04/30/18 04/30/18 04/30/18 03:05 03:05 03:05 WBC RBC Hgb Hct MCV MCH MCHC RDW Plt Count MPV Immature Gran % Seg Neutrophils % Lymphocytes % Monocytes % Eosinophils % Basophils % Neutrophils # Lymphocytes # Monocytes # Eosinophils # Basophils # Nucleated RBCs/100 WBC Immature Plt Fraction PT 13.5 H INR 1.2 Sodium 140 Potassium 3.3 L Chloride 113 H Carbon Dioxide 19 L BUN 13 Creatinine 0.72 Est GFR ( Amer) > 60 Est GFR (Non-Af Amer) > 60 BUN/Creatinine Ratio 18 Glucose 99 POC Glucose Calculated Osmolality 290 Calcium 7.4 L Phosphorus 3.2 Magnesium 1.6 Total Bilirubin 1.0 AST 17 ALT 11 Alkaline Phosphatase 94 Serum Total Protein 5.0 L Albumin 2.5 L Globulin 2.5 Albumin/Globulin Ratio 1.0 L Specimen Rejected 3 04/29/18 23:54 WBC RBC Hgb Hct MCV MCH MCHC RDW Plt Count MPV Immature Gran % Seg Neutrophils % Lymphocytes % Monocytes % Eosinophils % Basophils % Neutrophils # Lymphocytes # Monocytes # Eosinophils # Basophils # Nucleated RBCs/100 WBC Immature Plt Fraction PT INR Sodium Potassium Chloride Carbon Dioxide BUN Creatinine Est GFR ( Amer) Est GFR (Non-Af Amer) BUN/Creatinine Ratio Glucose POC Glucose 118 H Calculated Osmolality Calcium Phosphorus Magnesium Total Bilirubin AST ALT Alkaline Phosphatase Serum Total Protein Albumin Globulin Albumin/Globulin Ratio Specimen Rejected Consult Discharge Plan - Plan Referrals: Sukumar Wilkins Jr, MD [Primary Care Provider] - <[email or web address] - Last Filed: 05/01/18 08:54> Date of Encounter: 05/01/18 - Data of Consult Requesting Physician: Celia Martinez MD Primary Care Provider: Sukumar Wilkins Jr, MD - Consult Narrative History of present illness: Ms. Brady is a 78 year old female hospitalized with the worsening anemia, history of myelodysplastic syndrome, with dark stools and dizziness. She is being scheduled for colonoscopy procedure and endoscopy to rule out GI bleeding. If bleeding is ruled out, we will pursue a bone marrow aspiration biopsy, due to history of MDS. Patient has already had bone marrow biopsies times twice. Ferritin seems to be adequate 04/22/18, will repeat. She is s/p aranesp. I examined this patient and my medical decision-making was reviewed with Dr Aryan, [facility] Pankajkuma. I agree with the documented findings, disposition and treatment plan as described except to the extent set forth below. Oncology - Exam - Constitutional Vitals: Temp Pulse Resp BP Pulse Ox 97.4 F L 94 14 110/65 98 05/01/18 07:40 05/01/18 07:40 05/01/18 07:40 05/01/18 07:40 05/01/18 07:40 Oncology - Results Labs: 3 05/01/18 05/01/18 05/01/18 05:29 05:29 00:30 WBC 2.6 L 3.2 L RBC 2.49 L 2.54 L Hgb 8.0 L 8.1 L Hct 25.5 L 25.8 L MCV 102.4 H 101.6 H MCH 32.1 31.9 MCHC 31.4 L 31.4 L RDW 22.0 H 21.9 H Plt Count 97 L 95 L MPV 12.5 H 12.3 Immature Gran % 4.2 H 3.1 Seg Neutrophils % 62.3 58.6 Lymphocytes % 16.5 20.9 Monocytes % 15.0 15.9 Eosinophils % 1.2 0.9 Basophils % 0.8 0.6 Neutrophils # 1.6 1.9 Lymphocytes # 0.4 L 0.7 Monocytes # 0.4 0.5 Eosinophils # 0.0 0.0 Basophils # 0.0 0.0 Nucleated RBCs/100 WBC 0.8 H 1.2 H Immature Plt Fraction 14.1 H 14.2 H PT INR Sodium 140 Potassium 3.5 Chloride 118 H Carbon Dioxide 19 L BUN 7 L Creatinine 0.61 Est GFR ( Amer) > 60 Est GFR (Non-Af Amer) > 60 BUN/Creatinine Ratio 11 Glucose 100 POC Glucose Calculated Osmolality 288 Calcium 7.2 L Phosphorus Magnesium Total Bilirubin 1.0 AST 18 ALT 10 Alkaline Phosphatase 94 Serum Total Protein 4.8 L Albumin 2.4 L Globulin 2.4 Albumin/Globulin Ratio 1.0 L Specimen Rejected 3 04/30/18 04/30/18 04/30/18 21:19 12:43 05:35 WBC 3.8 L RBC 2.94 L Hgb 9.1 L Hct 29.8 L MCV 101.4 H MCH 31.0 MCHC 30.5 L RDW 22.3 H Plt Count 116 L MPV 12.7 H Immature Gran % 2.4 Seg Neutrophils % 60.7 Lymphocytes % 21.2 Monocytes % 13.8 Eosinophils % 0.8 Basophils % 1.1 Neutrophils # 2.3 Lymphocytes # 0.8 Monocytes # 0.5 Eosinophils # 0.0 Basophils # 0.0 Nucleated RBCs/100 WBC 1.6 H Immature Plt Fraction PT INR Sodium Potassium Chloride Carbon Dioxide BUN Creatinine Est GFR ( Amer) Est GFR (Non-Af Amer) BUN/Creatinine Ratio Glucose POC Glucose 113 H 101 H Calculated Osmolality Calcium Phosphorus Magnesium Total Bilirubin AST ALT Alkaline Phosphatase Serum Total Protein Albumin Globulin Albumin/Globulin Ratio Specimen Rejected 3 04/30/18 04/30/18 04/30/18 04:01 03:32 03:05 WBC 3.8 L RBC 2.58 L Hgb 8.2 L D Hct 25.8 L MCV 100.0 D MCH 31.8 MCHC 31.8 RDW 21.2 H Plt Count 108 L MPV 12.6 H Immature Gran % 2.1 Seg Neutrophils % 58.2 Lymphocytes % 24.0 Monocytes % 14.1 Eosinophils % 0.8 Basophils % 0.8 Neutrophils # 2.2 Lymphocytes # 0.9 Monocytes # 0.5 Eosinophils # 0.0 Basophils # 0.0 Nucleated RBCs/100 WBC 1.0 H Immature Plt Fraction 13.9 H PT INR Sodium Potassium Chloride Carbon Dioxide BUN Creatinine Est GFR ( Amer) Est GFR (Non-Af Amer) BUN/Creatinine Ratio Glucose POC Glucose Calculated Osmolality Calcium Phosphorus 3.2 Magnesium 1.6 Total Bilirubin AST ALT Alkaline Phosphatase Serum Total Protein Albumin Globulin Albumin/Globulin Ratio Specimen Rejected MCV Delta 3 04/30/18 04/30/18 04/29/18 03:05 03:05 23:54 WBC RBC Hgb Hct MCV MCH MCHC RDW Plt Count MPV Immature Gran % Seg Neutrophils % Lymphocytes % Monocytes % Eosinophils % Basophils % Neutrophils # Lymphocytes # Monocytes # Eosinophils # Basophils # Nucleated RBCs/100 WBC Immature Plt Fraction PT 13.5 H INR 1.2 Sodium 140 Potassium 3.3 L Chloride 113 H Carbon Dioxide 19 L BUN 13 Creatinine 0.72 Est GFR ( Amer) > 60 Est GFR (Non-Af Amer) > 60 BUN/Creatinine Ratio 18 Glucose 99 POC Glucose 118 H Calculated Osmolality 290 Calcium 7.4 L Phosphorus Magnesium Total Bilirubin 1.0 AST 17 ALT 11 Alkaline Phosphatase 94 Serum Total Protein 5.0 L Albumin 2.5 L Globulin 2.5 Albumin/Globulin Ratio 1.0 L Specimen Rejected
[2018-04-30] MEDS ORDERED: Polyethylene Glycol 3350 255 GM POWDER PO ONE (16:00)
--- NOTE | 2018-04-30 18:05 | Internal Med Progress Note ---
Hospitalist Progress Note - Encounter Date of Encounter: 04/30/18 Time of Encounter: 11:00 - Subjective Interval History: Ms. Brady is a 78 year old female with history of pancreatic adenocarcinoma and MDS requiring multiple transfusions with in the past 1 month presented which chief complaint of anemia. Patient was sent by Dr. Duque, oncology after being found to have a hemoglobin of 6.0. Patient reports she has been having black bowel movements for the past 2 days along with dizziness, weakness, fatigue, and near syncopal episodes. In the emergency department she received 2 units of packed red blood cells and thereafter reported that she felt much better. currently denies any abdominal pain, denies black stools since admission. No nasuea , vomiting or diarrhea. sh reports her dizziness has improved. denies chest pain, SOB, palpitations. dysuria, hematuria, abdominal pain. - Exam Vitals: Temp Pulse Resp BP Pulse Ox 98.5 F 101 15 131/79 94 04/30/18 15:02 04/30/18 15:02 04/30/18 15:02 04/30/18 15:02 04/30/18 15:02 Exam: General: Pleasant without distress, thin HEENT: Head atraumatic, normocephalic, EOMI, PERRL,bsent lymphadenopathy, Moist Mucous Membranes, Heart: Regular rate and rhythm with no murmur Lungs: Clear to auscultation bilaterally Abdomen: Soft nontender, nondistended, BS +ve Skin: warm and dry, absent rash Extremities: moving all extremities. - Assessment and Plan (1) GI bleed Current Visit: Yes Status: Acute Assessment and Plan: Denies any black stool since admission Received 2 units PRBC in ED. Gi onboard for EGD and colonoscopy will continue IV protonix NPO for procedure (2) Myelodysplastic syndrome Current Visit: No Status: Chronic Assessment and Plan: bone marrow biopsy on 01/12/17 when she was diagnosed with MDS and thereafter she was treated with Vidaza and decitabine however she developed adverse reactions to these treatments and they were stopped. oncology on board S/P 2 PRBC on admission continue to monitor H/H and transfuse patient as needed (3) Anemia Current Visit: Yes Status: Chronic Assessment and Plan: patients etiology of anemia is multifactorial she has hx of MDS and recently started having black bowel movements she has required 5 PBRC transfusions outpatient She received 2 units PBRC since admission GI on board and plan on EGD/Colonoscopy transfuse patient as needed (4) Pancreatic cancer Current Visit: Yes Status: Chronic Assessment and Plan: 04/16 patient presented to the hospital with abdominal pain and was found to have pancreatic head tumor and underwent Whipple's procedure on May 17. Thereafter she was started on chemotherapy. Since then patient has been following up for repeated CT imaging which has showed no recurrence of the cancer will hold pancreatic lipase as she is NPO . DVT Prophylaxis: SCDs in light of GIB - Time Spent with Patient Total time spent is greater than 50% in coordination of care (as documented) at patient's floor/unit and/or counseling patient: Plan of Care Discussed with: nurse Internal Medicine: Result - Labs CBC & Chem 7: 04/30/18 04:01 04/30/18 03:05 Labs: Short CBC 04/30/18 Range/Units 04:01 WBC 3.8 L (4.3-11.1) K/mcL Hgb 8.2 L D (11.5-15.4) g/dL Hct 25.8 L (35.3-44.9) % Plt Count 108 L (140-400) K/mcL Neutrophils # 2.2 (1.6-8.9) K/mcL BMP 04/30/18 03:05 Sodium 140 Potassium 3.3 L Chloride 113 H Carbon Dioxide 19 L BUN 13 Creatinine 0.72 Glucose 99 Calcium 7.4 L Liver Function 04/30/18 Range/Units 03:05 Total Bilirubin 1.0 (0.3-1.0) mg/dL AST 17 (13-39) Units/L ALT 11 (7-52) Units/L Alkaline Phosphatase 94 (34-104) Units/L Albumin 2.5 L (3.5-5.7) g/dL - ABG Interpretation ABG results: PT/INR, D-dimer PT 13.5 Seconds (9.4-12.1) H 04/30/18 03:05 - VTE Reasons for not Prescribing Prophylaxis: Medical contraindication (Acute GI Bleed, Anemia Requiring Transfusions) Documentation of Mechanical Device: Intermittent pneumatic compression device Consult Discharge Plan - Plan Referrals: Sukumar Wilkins Jr, MD [Primary Care Provider] - (1) GI bleed Qualifiers: GI bleed type/associated pathology: melena Qualified Code(s): K92.1 - Melena (3) Anemia Qualifiers: Anemia type: iron deficiency Iron deficiency anemia type: chronic blood loss Qualified Code(s): D50.0 - Iron deficiency anemia secondary to blood loss ( chronic) (4) Pancreatic cancer Qualifiers: Pancreatic malignancy location: head of pancreas Qualified Code(s): C25.0 - Malignant neoplasm of head of pancreas
[2018-04-30] MEDS: 0.9 % Sodium Chloride 1,000 ML IVC SCH (18:30)
[2018-04-30 22:22] LABS: Basophils % 1.1 %; Eosinophils % 0.8 %; Hematocrit 29.8 % (35.3-44.9); Hemoglobin 9.1 g/dL (11.5-15.4); Immature Granulocytes % 2.4 % (0-4); Lymphocytes # 0.8 K/mcL (0.6-4.6); Lymphocytes % 21.2 %; Mean Corpuscular HGB Conc 30.5 g/dL (31.6-35.5); Mean Corpuscular Volume 101.4 fL (83.0-100.0); Mean Platelet Volume 12.7 fL (9.4-12.4); Monocytes # 0.5 K/mcL (0.0-1.3); Monocytes % 13.8 %; Neutrophils # 2.3 K/mcL (1.6-8.9); Nucleated Red Blood Cells 1.6 /100 WBC (0); Platelet Count 116 K/mcL (140-400); Red Blood Count 2.94 M/mcL (3.82-4.97); Red Cell Distribution Width 22.3 % (11.5-14.5); Segmented Neutrophils % 60.7 %
[2018-05-01 00:43] LABS: Basophils % 0.6 %; Eosinophils % 0.9 %; Mean Corpuscular HGB Conc 31.4 g/dL (31.6-35.5); Mean Corpuscular Hemoglobin 31.9 pg (28.0-33.3); Mean Corpuscular Volume 101.6 fL (83.0-100.0)
[2018-05-01 00:45] LABS: Hematocrit 25.8 % (35.3-44.9); Hemoglobin 8.1 g/dL (11.5-15.4); Immature Granulocytes % 3.1 % (0-4); Immature Platelets 14.2 % (1.1-6.1); Lymphocytes # 0.7 K/mcL (0.6-4.6); Lymphocytes % 20.9 %; Mean Platelet Volume 12.3 fL (9.4-12.4); Monocytes # 0.5 K/mcL (0.0-1.3); Monocytes % 15.9 %; Neutrophils # 1.9 K/mcL (1.6-8.9); Nucleated Red Blood Cells 1.2 /100 WBC (0); Red Blood Count 2.54 M/mcL (3.82-4.97); Red Cell Distribution Width 21.9 % (11.5-14.5); Segmented Neutrophils % 58.6 %
[2018-05-01 00:48] LABS: Platelet Count 95 K/mcL (140-400)
[2018-05-01] MEDS: Pantoprazole 40 MG VIAL IVP SCH ×2 (05:22→17:39)
[2018-05-01 05:49] LABS: Basophils % 0.8 %
[2018-05-01 05:51] LABS: Eosinophils % 1.2 %; Hematocrit 25.5 % (35.3-44.9); Immature Granulocytes % 4.2 % (0-4); Immature Platelets 14.1 % (1.1-6.1); Lymphocytes # 0.4 K/mcL (0.6-4.6); Lymphocytes % 16.5 %; Mean Corpuscular HGB Conc 31.4 g/dL (31.6-35.5); Mean Corpuscular Hemoglobin 32.1 pg (28.0-33.3); Mean Corpuscular Volume 102.4 fL (83.0-100.0); Mean Platelet Volume 12.5 fL (9.4-12.4); Monocytes # 0.4 K/mcL (0.0-1.3); Neutrophils # 1.6 K/mcL (1.6-8.9); Nucleated Red Blood Cells 0.8 /100 WBC (0); Red Blood Count 2.49 M/mcL (3.82-4.97); Segmented Neutrophils % 62.3 %
[2018-05-01 06:05] LABS: Alanine Aminotransferase 10 Units/L (7-52); Albumin 2.4 g/dL (3.5-5.7); Alkaline Phosphatase 94 Units/L (34-104); Aspartate Amino Transferase 18 Units/L (13-39); BUN/Creatinine Ratio 11 (6-26); Blood Urea Nitrogen 7 mg/dL (8-23); Calcium 7.2 mg/dL (8.6-10.3); Carbon Dioxide 19 mEq/L (23-29); Chloride 118 mEq/L (98-107); Globulin 2.4 g/dL (2.4-3.5); Glucose 100 mg/dL (70-105); Osmolality,Calculated 288 (280-300); Potassium 3.5 mEq/L (3.5-5.1); Sodium 140 mEq/L (136-145); Total Protein 4.8 g/dL (6.4-8.9); eGFR For Non-African Americans > 60 (> 60)
[2018-05-01 06:54] LABS: Platelet Count 97 K/mcL (140-400)
[2018-05-01] MEDS: 0.9 % Sodium Chloride 1,000 ML IVC SCH (08:38)
[2018-05-01] MEDS: Cholecalciferol (D-3) 1,000 UNIT TABLET PO SCH (08:39)
[2018-05-01] MEDS: Sucralfate 1 GM TABLET PO SCH ×4 (08:39→20:41)
[2018-05-01] MEDS ORDERED: Propofol 500 MG/50 ML INFUS..BTL ONE (11:46)
[2018-05-01] MEDS ORDERED: *HR* Succinylcholine 200 MG/10 ML VIAL IVP ONE (11:52)
--- NOTE | 2018-05-01 13:03 | Anesthesia Evaluation PreOp ---
Date of Encounter: 05/01/18 Time of Encounter: 13:04 - Past History Planned Operation: EGD/Colon Cardiac History: HTN, Hyperlipidemia Pulmonary History: Former smoker (quit in 1959) ONLINE MERCHANT History: Denies Any Significant HX Other Medical History: Renal (CRI), Other (Pancreatic Ca s/p whipple 2017. Chronic pancytopenia) Anesthesia History: No Prior Anesthetic Complications, Past Anesthesia (Whipple , Yue, Hip replacmeent, Hyster, Whipple/biliary stent) Alcohol Use: none Drug use: none Medications and Allergies Oxazepam [Serax] 10 mg PO QID 04/27/17 [History] Oxycodone HCl/Acetaminophen [Endocet 5-325 Tablet] 1 tab PO Q8H PRN 05/22/17 [ History] Amitriptyline HCl 75 mg PO DAILY 06/07/17 [History] Ondansetron ODT [Zofran ODT] 4 mg PO Q4H PRN #120 tab.rapdis 07/13/17 [Rx] Prochlorperazine Maleate [Compazine] 10 mg PO Q6HR PRN #120 tablet 07/13/17 [Rx] Lidocaine/Prilocaine [Emla] 1 appl TP AD PRN #30 gm 08/03/17 [Rx] Cholecalciferol (Vitamin D3) [Vitamin D] 400 unit PO DAILY #30 capsule 02/14/18 [Rx] Docusate [Colace] 100 mg PO BID #60 capsule 03/27/18 [Rx] Lipase/Protease/Amylase [Creon Dr 12,000 Units Capsule] 1 cap PO QID 04/29/18 [ History] 3 Allergy/AdvReac Type Severity Reaction Status Date / Time lorazepam [From Ativan] AdvReac Intermediate Confusion Verified 02/14/18 14:45 Sulfa (Sulfonamide AdvReac Mild Weakness Verified 02/14/18 14:45 Antibiotics) Zolpidem [From Ambien] AdvReac Confusion Verified 04/29/18 14:44 - Meds/Allergy Pre-op Review Medications Reviewed: Yes Allergies Reviewed: Yes Beta Blockers on Current Med List: No Anesthesia Results - Labs 05/01/18 05:29 05/01/18 05:29 Laboratory Tests 11/28/17 04/29/18 04/29/18 07:56 13:48 15:55 Hgb Hct Plt Count PT INR APTT 26.9 Sodium Potassium Chloride Carbon Dioxide BUN Creatinine Whole Bld Creatinine 0.6 Est GFR (Non-Af Amer) Glucose Calcium Stool Occult Bld Scrn Positive A 04/30/18 05/01/18 05/01/18 03:05 05:29 05:29 Hgb 8.0 L Hct 25.5 L Plt Count 97 L PT 13.5 H INR 1.2 APTT Sodium 140 Potassium 3.5 Chloride 118 H Carbon Dioxide 19 L BUN 7 L Creatinine 0.61 Whole Bld Creatinine Est GFR (Non-Af Amer) > 60 Glucose 100 Calcium 7.2 L Stool Occult Bld Scrn Anesthesia Exam O2 Sat O2 Sat by Pulse Oximetry 96 O2 Sat by Pulse Oximetry 99 O2 Sat by Pulse Oximetry 98 O2 Sat by Pulse Oximetry 95 O2 Sat by Pulse Oximetry 94 O2 Sat by Pulse Oximetry 94 Vital Signs Temp Pulse Resp BP Pulse Ox 98.2 F 122 22 127/83 98 04/29/18 13:29 04/29/18 13:29 04/29/18 13:29 04/29/18 13:29 04/29/18 13:29 Height: 5'2" Weight: 114# BMI = 21 NPO (# of Hours): MNoc Pain Scale Used: Numeric (1 - 10) - HEENT Pupil (Motor): Pupils equal, EOMI Mallampati: II Teeth: Edentulous Oral Opening: Greater than 3 - ONLINE MERCHANT LOC: Oriented ONLINE MERCHANT Motor: Normal RUE, Normal LUE, Normal RLE, Normal LLE, Normal Face ONLINE MERCHANT Sensory: Normal: RUE, LUE, RLE, LLE, Face - Cardiac Rhythm: Regular Murmur: None - Pulmonary Breath Sounds: bilateral Clear Respiratory Effort: Symmetrical Anesthesia Assess/Plan ASA Score: 4 (Metatstatic Pancreatic Ca, Pancytopenia, GIB/Anemia) Anesthetic Plan: MAC Monitoring Plan: Standard Monitors Recovery Plan: PACU Anes Supervising Prov Stmt: Pt seen/evaluated, R&B Discussed, questions answered and consent obtained. Garrick Morin MD
--- NOTE | 2018-05-01 13:27 | Oncology Inp Progress Note ---
Date of Encounter: 05/01/18 Time of Encounter: 13:25 (1) Anemia Current Visit: Yes Status: Chronic Assessment and plan: patients etiology of anemia is multifactorial she has hx of MDS and recently started having black bowel movements she has required 5 PBRC transfusions outpatient She received 2 units PBRC since admission and hemoglobin is 8 currently Patient will have EGD colonoscopy today Qualifiers: Anemia type: iron deficiency Iron deficiency anemia type: chronic blood loss Qualified Code(s): D50.0 - Iron deficiency anemia secondary to blood loss (chronic) (2) GI bleed Current Visit: Yes Status: Acute Assessment and plan: plan as above Qualifiers: GI bleed type/associated pathology: melena Qualified Code(s): K92.1 - Melena (3) Myelodysplastic syndrome Current Visit: Yes Status: Chronic Assessment and plan: plan as above follow up with Oncology outpatient. Oncology: Subj Interval history: No acute events overnight. Patient denies headache, blurry vision, chest pain, shortness of breath, abdominal pain, nausea, vomiting, lower extremity pain. - Constitutional Vitals: Vital Signs Temp Pulse Resp BP Pulse Ox 05/01/18 12:43 98.0 F 90 16 137/75 96 05/01/18 10:51 97.6 F 94 15 110/72 99 05/01/18 07:40 97.4 F L 94 14 110/65 98 04/30/18 20:00 98.2 F 74 16 109/80 95 04/30/18 19:30 94 04/30/18 15:02 98.5 F 101 15 131/79 94 Intake and Output 04/30/18 05/01/18 05/01/18 23:59 07:59 15:59 Intake Total 240 / 240 1000 / 1000 0 / 0 Output Total 0 / 0 0 / 0 Balance 240 / 240 1000 / 1000 0 / 0 Intake: IV Fluids 1000 / 1000 0.9 % Sodium Chloride 1,000 ML 1000 / 1000 @ 75 mls/hr IVC .[id number] [id number] Rx #:[id number] Oral 240 / 240 0 / 0 0 / 0 Output: Urine 0 / 0 0 / 0 Other: Meal Clears NPO Percent of Meal Consumed 0% Stool Size Moderate Small Stool Consistency liquid loose liquid Stool Color Brown Dark Red Blood # Bowel Movements 3 1 Blood Glucose* 85 - Additional findings Additional findings: General: Pleasant without distress Heart: Regular rate and rhythm with no murmur Lungs: Clear to auscultation bilaterally Abdomen: Soft nontender, nondistended positive bowel sounds Skin: warm and dry, absent rash Extremities: Absent pedal edema, Neuro: Alert oriented 3 Vascular: Pedal and radial pulses 2 out of 4 Oncology: Obj Data - Labs CBC & Chem 7: 05/01/18 05:29 05/01/18 05:29 Labs: Laboratory Results - last 24 hr 04/30/18 05/01/18 05/01/18 21:19 00:30 05:29 WBC 3.8 L 3.2 L RBC 2.94 L 2.54 L Hgb 9.1 L 8.1 L Hct 29.8 L 25.8 L MCV 101.4 H 101.6 H MCH 31.0 31.9 MCHC 30.5 L 31.4 L RDW 22.3 H 21.9 H Plt Count 116 L 95 L MPV 12.7 H 12.3 Immature Gran % 2.4 3.1 Seg Neutrophils % 60.7 58.6 Lymphocytes % 21.2 20.9 Monocytes % 13.8 15.9 Eosinophils % 0.8 0.9 Basophils % 1.1 0.6 Neutrophils # 2.3 1.9 Lymphocytes # 0.8 0.7 Monocytes # 0.5 0.5 Eosinophils # 0.0 0.0 Basophils # 0.0 0.0 Nucleated RBCs/100 WBC 1.6 H 1.2 H Immature Plt Fraction 14.2 H Sodium 140 Potassium 3.5 Chloride 118 H Carbon Dioxide 19 L BUN 7 L Creatinine 0.61 Est GFR ( Amer) > 60 Est GFR (Non-Af Amer) > 60 BUN/Creatinine Ratio 11 Glucose 100 POC Glucose Calculated Osmolality 288 Calcium 7.2 L Total Bilirubin 1.0 AST 18 ALT 10 Alkaline Phosphatase 94 Serum Total Protein 4.8 L Albumin 2.4 L Globulin 2.4 Albumin/Globulin Ratio 1.0 L 05/01/18 05/01/18 05:29 11:35 WBC 2.6 L RBC 2.49 L Hgb 8.0 L Hct 25.5 L MCV 102.4 H MCH 32.1 MCHC 31.4 L RDW 22.0 H Plt Count 97 L MPV 12.5 H Immature Gran % 4.2 H Seg Neutrophils % 62.3 Lymphocytes % 16.5 Monocytes % 15.0 Eosinophils % 1.2 Basophils % 0.8 Neutrophils # 1.6 Lymphocytes # 0.4 L Monocytes # 0.4 Eosinophils # 0.0 Basophils # 0.0 Nucleated RBCs/100 WBC 0.8 H Immature Plt Fraction 14.1 H Sodium Potassium Chloride Carbon Dioxide BUN Creatinine Est GFR ( Amer) Est GFR (Non-Af Amer) BUN/Creatinine Ratio Glucose POC Glucose 85 Calculated Osmolality Calcium Total Bilirubin AST ALT Alkaline Phosphatase Serum Total Protein Albumin Globulin Albumin/Globulin Ratio - ABG Interpretation ABG results: PT/INR, D-dimer PT 13.5 Seconds (9.4-12.1) H 04/30/18 03:05 Consult Discharge Plan - Plan Referrals: Sukumar Wilkins Jr, MD [Primary Care Provider] -
[2018-05-01] MEDS ORDERED: Ondansetron 4 MG/2 ML VIAL ONE (13:36)
--- NOTE | 2018-05-01 16:03 | Internal Med Progress Note ---
Hospitalist Progress Note - Encounter Date of Encounter: 05/01/18 Time of Encounter: 13:00 - Subjective Interval History: currently denies any abdominal pain, denies black stools since admission. No nasuea , vomiting or diarrhea. she reports her dizziness has resolved denies chest pain, SOB, palpitations. dysuria, hematuria, abdominal pain. she is NPO for endoscopy and colonoscopy and is hoping to have diet after she is done with procedure. she deniesfever, chills, abdominal pain, headache, SOB, hematochezia, melena, hematemesis. - Exam Vitals: Temp Pulse Resp BP Pulse Ox 97.4 F L 98 16 142/96 98 05/01/18 15:13 05/01/18 15:13 05/01/18 15:13 05/01/18 15:13 05/01/18 15:13 - Assessment and Plan (1) GI bleed Current Visit: Yes Status: Acute Assessment and Plan: Denies any black stool since admission Received 2 units PRBC in ED. Gi onboard for EGD and colonoscopy on 05/01/18- multiple small questionable bleeding angioectasias were found in the gastric body. Status post hemostasis Multiple small and large mouth diverticula were found in the sigmoid colon, there was blood in the entire examined colon. will continue IV protonix leny tor daily H/H - transfuse as needed clear liquid diet. (2) Myelodysplastic syndrome Current Visit: Yes Status: Chronic Assessment and Plan: bone marrow biopsy on 01/12/17 when she was diagnosed with MDS and thereafter she was treated with Vidaza and decitabine however she developed adverse reactions to these treatments and they were stopped. oncology on board S/P 2 PRBC on admission continue to monitor H/H and transfuse patient as needed (3) Anemia Current Visit: Yes Status: Chronic Assessment and Plan: patients etiology of anemia is multifactorial she has hx of MDS and recently started having black bowel movements she has required 5 PBRC transfusions outpatient She received 2 units PBRC since admission GI on board S/P EGD/Colonoscopy transfuse patient as needed (4) Pancreatic cancer Current Visit: Yes Status: Chronic Assessment and Plan: 04/16 patient presented to the hospital with abdominal pain and was found to have pancreatic head tumor and underwent Whipple's procedure on May 17. Thereafter she was started on chemotherapy. Since then patient has been following up for repeated CT imaging which has showed no recurrence of the cancer will restart pancreatic lipases as she is on clear liquid diet DVT Prophylaxis: SCDS - Time Spent with Patient Total time spent is greater than 50% in coordination of care (as documented) at patient's floor/unit and/or counseling patient: Plan of Care Discussed with: patient Internal Medicine: Result - Labs CBC & Chem 7: 05/01/18 05:29 05/01/18 05:29 Labs: Short CBC 04/30/18 05/01/18 05/01/18 Range/Units 21:19 00:30 05:29 WBC 3.8 L 3.2 L 2.6 L (4.3-11.1) K/mcL Hgb 9.1 L 8.1 L 8.0 L (11.5-15.4) g/dL Hct 29.8 L 25.8 L 25.5 L (35.3-44.9) % Plt Count 116 L 95 L 97 L (140-400) K/mcL Neutrophils # 2.3 1.9 1.6 (1.6-8.9) K/mcL BMP 05/01/18 05:29 Sodium 140 Potassium 3.5 Chloride 118 H Carbon Dioxide 19 L BUN 7 L Creatinine 0.61 Glucose 100 Calcium 7.2 L Liver Function 05/01/18 Range/Units 05:29 Total Bilirubin 1.0 (0.3-1.0) mg/dL AST 18 (13-39) Units/L ALT 10 (7-52) Units/L Alkaline Phosphatase 94 (34-104) Units/L Albumin 2.4 L (3.5-5.7) g/dL - ABG Interpretation ABG results: PT/INR, D-dimer PT 13.5 Seconds (9.4-12.1) H 04/30/18 03:05 - VTE Reasons for not Prescribing Prophylaxis: Medical contraindication (Acute GI Bleed, Anemia Requiring Transfusions) Documentation of Mechanical Device: Intermittent pneumatic compression device Consult Discharge Plan - Plan Referrals: Sukumar Wilkins Jr, MD [Primary Care Provider] - (1) GI bleed Qualifiers: GI bleed type/associated pathology: melena Qualified Code(s): K92.1 - Melena (3) Anemia Qualifiers: Anemia type: iron deficiency Iron deficiency anemia type: chronic blood loss Qualified Code(s): D50.0 - Iron deficiency anemia secondary to blood loss ( chronic) (4) Pancreatic cancer Qualifiers: Pancreatic malignancy location: head of pancreas Qualified Code(s): C25.0 - Malignant neoplasm of head of pancreas
[2018-05-01] MEDS: Ondansetron 4 MG/2 ML VIAL IVP PRN (20:43)
[2018-05-02 04:17] LABS: Hematocrit 28.8 % (35.3-44.9); Immature Platelets 13.4 % (1.1-6.1); Mean Corpuscular HGB Conc 31.3 g/dL (31.6-35.5); Mean Corpuscular Hemoglobin 31.8 pg (28.0-33.3); Mean Corpuscular Volume 101.8 fL (83.0-100.0); Mean Platelet Volume 12.6 fL (9.4-12.4); Red Blood Count 2.83 M/mcL (3.82-4.97); Red Cell Distribution Width 21.5 % (11.5-14.5)
[2018-05-02] MEDS: Pantoprazole 40 MG VIAL IVP SCH (04:30)
[2018-05-02 04:33] LABS: BUN/Creatinine Ratio 5 (6-26); Blood Urea Nitrogen 3 mg/dL (8-23); Calcium 7.4 mg/dL (8.6-10.3); Carbon Dioxide 20 mEq/L (23-29); Chloride 114 mEq/L (98-107); Glucose 115 mg/dL (70-105); Osmolality,Calculated 289 (280-300); Potassium 3.2 mEq/L (3.5-5.1); Sodium 141 mEq/L (136-145); eGFR For Non-African Americans > 60 (> 60)
[2018-05-02] MEDS: Sucralfate 1 GM TABLET PO SCH ×2 (07:24→11:27)
[2018-05-02] MEDS: Cholecalciferol (D-3) 1,000 UNIT TABLET PO SCH (07:25)
[2018-05-02] MEDS ORDERED: Cyanocobalamin (B-12) 1,000 MCG TABLET PO SCH (09:00)
[2018-05-02] MEDS ORDERED: Folic Acid 1 MG TABLET PO SCH (09:00)
[2018-05-02 10:32] VITALS: BP 141/84
--- NOTE | 2018-05-02 11:10 | Discharge Summary ---
- NOTES TO OUTPATIENT PROVIDER Notes to Outpatient Provider: monitor H/H. monitor bmp was hypokalemic whic was replaced. needs to follow up with oncology and GI Orders not resulted at time of discharge: Pending orders 04/30/18 12:26 Complete Blood Count [HEME] Q6H 05/03/18 04:00 BMP [Basic Metabolic Panel] AM 0400 CBC no Diff [Complete Blood Count w/o Diff] [HEME] AM 0400 05/04/18 04:00 BMP [Basic Metabolic Panel] AM 0400 CBC no Diff [Complete Blood Count w/o Diff] [HEME] AM 0400 Date of Encounter: 05/02/18 Time of Encounter: 11:10 - Discharge Diagnosis (1) GI bleed Priority: Primary Status: Acute Qualifiers: GI bleed type/associated pathology: melena Qualified Code(s): K92.1 - Melena (2) Myelodysplastic syndrome Priority: Secondary Status: Chronic (3) Anemia Priority: Secondary Status: Chronic Qualifiers: Anemia type: iron deficiency Iron deficiency anemia type: chronic blood loss Qualified Code(s): D50.0 - Iron deficiency anemia secondary to blood loss (chronic) (4) Pancreatic cancer Priority: Secondary Status: Chronic Qualifiers: Pancreatic malignancy location: head of pancreas Qualified Code(s): C25.0 - Malignant neoplasm of head of pancreas Hospital course: Ms. Brady is a 78 year old female with PMH of pancreatic cancer s/p whipple and chronic pancytopenia, MDS who presented to ED at the request of her oncologist Dr. Neto chu after being found to have a hemoglobin of 6.0. On admission she complained of having black bowel movements for 2 days prior to presentation to the emergency department. She also complained of dizziness weakness and fatigue. In the ED she was given 2 units of PRBC and her symptoms improved. She was started on IV fluids, vitals were stable, did not have any black bowel movements while in the hospital. GI was consulted endoscopy and colonoscopy was performed on May 01 which showed multiple small questionable bleeding angioectasias were found in the gastric body. Status post hemostasis. Multiple small and large mouth diverticula were found in the sigmoid colon, there was blood in the entire examined colon. She was started on liquid diet which she tolerated without any difficulties. electrolytes replaced . Oncology was consulted, bone marrow biopsy on 01/12/17 when she was diagnosed with MDS and thereafter she was treated with Vidaza and decitabine however she developed adverse reactions to these treatments and they were stopped. His per oncology she had required multiple transfusions as outpatient. GI and ocology onboard and in agreement with discharge. She is to follow-up with GI and oncology as outpatient for the diagnosis of above.- PIR was notified to provide appointments she is to follow up with her PCP and have repeated labs for electrolyte monitoring was told to refrain from antiplatelets and NSAIDs - Time Spent with Patient Total time spent providing and/or coordinating discharge services: Less than 30 minutes - Discharge Medications Prescriptions: Cyanocobalamin (B-12) [Vitamin B12] 1,000 mcg PO DAILY #15 tablet Folic Acid 1 mg PO DAILY 15 Days #15 tablet Omeprazole [PriLOSEC] 40 mg PO DAILY@0630 30 Days #30 capsule. Sucralfate [Carafate] 1 gm PO BID 30 Days #60 tablet Home Medications: Oxazepam [Serax] 10 mg PO QID 04/27/17 [History] Oxycodone HCl/Acetaminophen [Endocet 5-325 Tablet] 1 tab PO Q8H PRN 05/22/17 [ History] Amitriptyline HCl 75 mg PO DAILY 06/07/17 [History] Ondansetron ODT [Zofran ODT] 4 mg PO Q4H PRN #120 tab.rapdis 07/13/17 [Rx] Prochlorperazine Maleate [Compazine] 10 mg PO Q6HR PRN #120 tablet 07/13/17 [Rx] Lidocaine/Prilocaine [Emla] 1 appl TP AD PRN #30 gm 08/03/17 [Rx] Cholecalciferol (Vitamin D3) [Vitamin D3] 400 unit PO DAILY #30 capsule [Rx] Docusate [Colace] 100 mg PO BID #60 capsule 03/27/18 [Rx] Lipase/Protease/Amylase [Celena Singh 12,000 Units Capsule] 1 cap PO QID 04/29/18 [ History] Cyanocobalamin (B-12) [Vitamin B12] 1,000 mcg PO DAILY #15 tablet 05/02/18 [Rx] Folic Acid 1 mg PO DAILY 15 Days #15 tablet 05/02/18 [Rx] Omeprazole [PriLOSEC] 40 mg PO DAILY@0630 30 Days #30 capsule. 05/02/18 [Rx] Sucralfate [Carafate] 1 gm PO BID 30 Days #60 tablet 05/02/18 [Rx] Allergies/Adverse Reactions: 3 Allergy/AdvReac Type Severity Reaction Status Date / Time lorazepam [From Ativan] AdvReac Intermediate Confusion Verified 02/14/18 14:45 Sulfa (Sulfonamide AdvReac Mild Weakness Verified 02/14/18 14:45 Antibiotics) Zolpidem [From Ambien] AdvReac Confusion Verified 04/29/18 14:44 Date of admission: 04/29/18 21:11 Primary care physician: Sukumar Wilkins Jr, MD Consults: 04/29/18 21:21 Consult to Nutrition [CONS] Routine Comment: Consulting Provider: NUTRITION Reason for Dietary Consult: Diet Education PO Supplementation - Constitutional Vitals: Temp Pulse Resp BP Pulse Ox 98.5 F 110 14 141/84 98 05/02/18 10:31 05/02/18 10:31 05/02/18 10:31 05/02/18 10:31 05/02/18 10:31 General appearance: Present: cooperative, A&O X 3, pleasant, no acute distress, underweight, answers questions appropriately Exam: General: Pleasant without distress, thin HEENT: Head atraumatic, normocephalic, EOMI, PERRL,bsent lymphadenopathy, Moist Mucous Membranes, Heart: Regular rate and rhythm with no murmur Lungs: Clear to auscultation bilaterally Abdomen: Soft nontender, nondistended, BS +ve Skin: warm and dry, absent rash Extremities: moving all extremities., no edema neurological: axox3, not aphasic CN2-12 intact - Patient Status Disposition: Home, Self-Care Condition: Fair Functional capacity at discharge: independent ambulation - Discharge Instructions Instructions: Anemia (GEN) Follow Up With: Sukumar Wilkins Jr, MD [Primary Care Provider] - John Levin MD [Partnered Physician] - Ge Hernandez MD [Partnered Physician] - (Web request entered. Office will call patient with date and time of appointment. Thank you) - Diet and Activity Activity: increase activity as tolerated Diet: advance to your usual diet - VTE Reasons for not Prescribing Prophylaxis: Medical contraindication (Acute GI Bleed, Anemia Requiring Transfusions) Documentation of Mechanical Device: Intermittent pneumatic compression device
[2018-05-02] MEDS: Ondansetron 4 MG/2 ML VIAL IVP PRN (11:29)
== END 2018-05-02 12:58 | disposition home or self-care (01) | DRG 379 ==
LOC: EMEROO 13:18 → 3ANU 13:18 → SUATTDRO 21:11 → 3ANU 21:26
PROVIDERS: ADMIT Family Medicine; ATTEND Internal Medicine

== ENCOUNTER 2018-06-09 11:42 | Observation (INO) ==
--- NOTE | 2018-06-09 12:12 | Emergency Department Note ---
Disposition Clinical Impression: Hip pain, left, Skin tear, Pancytopenia Syncope Qualifiers: Syncope type: unspecified Qualified Code(s): R55 - Syncope and collapse Disposition: Admitted As Inpatient Condition: Fair Referrals: Sukumar Wilkins Jr, MD [Primary Care Provider] - Forms: ED Satisfaction Letter Time of Disposition: 13:37 Syncope HPI - General Chief Complaint: ED Fall Stated Complaint: Fall / Hip Knee Back Pain Time Seen by Provider: 06/09/18 11:59 Source: patient, family Mode of arrival: wheelchair Limitations: no limitations Nursing Notes Reviewed: Yes Vital Signs Reviewed: Yes - History of Present Illness HPI Narrative: Patient fell several times. The first occurred when she was taking out the trash. She felt dizzy and had a syncopal event. She complains of a skin tear to her left elbow and left hip pain. She is chronically anemic and thrombocytopenic due to MDS. She receives Aranesp injections and the daughter subjectively thinks this may be causative. The patient was dyspneic walking through the parking lot just prior to arrival. She denies head injury or neck pain. Her baseline hemoglobin is 8+ Pt Subjective Complaint: loss of consciousness, collapsed Onset (ago): hour(s) Prodromal Symptoms: lightheaded Injuries Sustained Associated with Event: ROCHELLE GRACIA Current Symptoms: back to baseline History: previous syncopal episode Associated trauma secondary to event: Yes - Related Data Home Medications Medication Instructions Recorded Confirmed Oxazepam [Serax] 10 mg PO QID 04/27/17 05/10/18 Oxycodone HCl/Acetaminophen 1 tab PO Q8H PRN 05/22/17 05/10/18 [Endocet 5-325 Tablet] Amitriptyline HCl 75 mg PO DAILY 06/07/17 05/10/18 Lipase/Protease/Amylase [Creon Dr 1 cap PO QID 04/29/18 05/10/18 12,000 Units Capsule] Previous Rx's Medication Instructions Recorded Ondansetron ODT [Zofran ODT] 4 mg PO Q4H PRN #120 tab.rapdis 07/13/17 Prochlorperazine Maleate 10 mg PO Q6HR PRN #120 tablet 07/13/17 [Compazine] Lidocaine/Prilocaine [Emla] 1 appl TP AD PRN #30 gm 08/03/17 Cholecalciferol (Vitamin D3) 400 unit PO DAILY #30 capsule 02/14/18 [Vitamin D3] Docusate [Colace] 100 mg PO BID #60 capsule 03/27/18 Cyanocobalamin (B-12) [Vitamin B12] 1,000 mcg PO DAILY #15 tablet 05/02/18 Folic Acid 1 mg PO DAILY 15 Days #15 tablet 05/02/18 Omeprazole [PriLOSEC] 40 mg PO DAILY@0630 30 Days #30 05/02/18 capsule. Sucralfate [Carafate] 1 gm PO BID 30 Days #60 tablet 05/02/18 Sucralfate [Carafate] 1 gm PO TID #200 oral.susp 05/10/18 Allergies Allergy/AdvReac Type Severity Reaction Status Date / Time lorazepam [From Ativan] AdvReac Intermediate Confusion Verified 05/10/18 10:09 Sulfa (Sulfonamide AdvReac Mild Weakness Verified 05/10/18 10:09 Antibiotics) Zolpidem [From Ambien] AdvReac Confusion Verified 05/10/18 10:09 All systems ED: reviewed and negative except as stated. Constitutional: Reports: weakness Eyes: Reports: as per HPI ENT ED: Reports: as per HPI Cardiovascular: Reports: dyspnea on exertion, syncope Respiratory: Reports: dyspnea Gastrointestinal: Reports: as per HPI Genitourinary: Reports: as per HPI Musculoskeletal: Reports: as per HPI Integumentary: Reports: other (Skin tear left elbow. Increased pallor) Neurological: Reports: weakness Psychiatric: Reports: as per HPI Endocrine: Reports: as per HPI Hematological/Lymphatic: Reports: as per HPI Allergic/Immunologic: Reports: as per HPI Past Medical History - Past Medical History Source: patient Medical history: Reports: cancer, hyperlipidemia, hypertension, renal disease, other Surgical history: Reports: cholecystectomy, hip replacement, hysterectomy, other (Whipple procedure) Psychiatric history: Reports: anxiety - Social History Smoking Status: Former smoker Smokeless Tobacco Status: No Alcohol use: Reports: none Drug use: Reports: none Physical Exam - General Limitations: no limitations General appearance: alert - Head Head exam: atraumatic - Eye Eye exam: Present: PERRL, other (Subconjunctival pallor) - ENT ENT exam: normal exam - Neck Neck exam: Present: normal inspection, full ROM - Chest Chest inspection: Present: normal inspection, symmetric chest wall rise, other ( Right-sided Medi port) - Cardiovascular Cardiovascular exam: Present: tachycardia, normal heart sounds - Rectal Exam Rectal exam: Present: deferred - Extremities Exam Extremities exam: Present: other (Preserved range of motion with flexion and extension at the left elbow. Preserved range of motion at the left hip but with some discomfort. No leg length discrepancies) - Expanded Lower Extremity Exam Hip/Pelvis exam: Present: normal inspection - Neurological Exam Neurological exam: Present: alert, oriented X3, CN II-XII intact - Psychiatric Psychiatric exam: Present: normal affect - Skin Skin exam: Present: pallor, other (Superficial skin tear left elbow) Course Course Narrative: Patient presents to the emergency department after a syncopal episode. She has a history of pancreatic cancer, chronic anemia, thrombocytopenia, MDS. She is tachycardic but appears in no acute distress upon arrival. She has pain involving her left hip with range of motion so an x-ray was ordered. I will also check labs with attention to hemoglobin and compared to previous values. ECG ordered. She was offered analgesics but declined - Reevaluation(s) Reevaluation #1: Case discussed with Dr. Powers, hematology on-call. Lab values discussed. He states if the patient has any acute elevation of her creatinine we could give her IV fluids. Otherwise transfusion not indicated at this time and the patient can follow-up as an outpatient with her primary oncologist This was discussed with the patient and her daughter. The daughter states she is unable to care for the patient because she has to work and she is also dealing with the patient's being on hospice. The patient and daughter requested to be admitted. Shared decision-making was undertaken. - Consultations Consultation #1: call placed to hematology aviation operations specialist Vital Signs Temperature 97.3 F L 06/09/18 11:55 Pulse Rate 128 06/09/18 11:55 Respiratory Rate 18 06/09/18 11:55 Blood Pressure 126/86 06/09/18 11:55 O2 Sat by Pulse Oximetry 100 06/09/18 11:55 Temperature 97.3 F L 06/09/18 13:13 Pulse Rate 128 06/09/18 13:13 Respiratory Rate 18 06/09/18 13:13 Blood Pressure 126/86 06/09/18 13:13 O2 Sat by Pulse Oximetry 100 06/09/18 13:13 Oxygen Delivery Oxygen Delivery Room Air Syncope - Medical Records Medical records reviewed: Yes I reviewed the patient's medical records. - Lab Data Lab results reviewed: Yes I reviewed the patient's lab results. Result diagrams: 06/09/18 12:52 06/09/18 12:52 Lab Results 06/09/18 06/09/18 06/09/18 Range/Units 12:52 12:52 12:52 WBC 1.2 L (4.3-11.1) K/mcL RBC 2.66 L (3.82-4.97) M/mcL Hgb 8.2 L (11.5-15.4) g/dL Hct 29.1 L (35.3-44.9) % MCV 109.4 H (83.0-100.0) fL MCH 30.8 (28.0-33.3) pg MCHC 28.2 L (31.6-35.5) g/dL RDW 18.1 H (11.5-14.5) % Plt Count 59 L (140-400) K/mcL MPV 13.7 H (9.4-12.4) fL Sodium 138 (136-145) mEq/L Potassium 3.4 L (3.5-5.1) mEq/L Chloride 105 (98-107) mEq/L Carbon Dioxide 25 (23-29) mEq/L BUN 15 (8-23) mg/dL Creatinine 0.68 (0.60-1.20) mg/dL Est GFR ( Amer) > 60 (> 60) Est GFR (Non-Af Amer) > 60 (> 60) BUN/Creatinine Ratio 22 (6-26) Glucose 163 H (70-105) mg/dL Calculated Osmolality 290 (280-300) Calcium 8.9 (8.6-10.3) mg/dL Magnesium 1.4 L (1.6-2.6) mg/dL Total Bilirubin 1.6 H (0.3-1.0) mg/dL AST 131 H (13-39) Units/L ALT 92 H (7-52) Units/L Alkaline Phosphatase 353 H (34-104) Units/L Serum Total Protein 7.0 (6.4-8.9) g/dL Albumin 3.0 L (3.5-5.7) g/dL Globulin 4.0 H (2.4-3.5) g/dL Albumin/Globulin Ratio 0.8 L (1.1-2.2) Blood Type O POSITIVE - Radiology Data Radiology results reviewed: Yes I reviewed the patient's radiology results. - EKG Data EKG attestation: Yes I reviewed and interpreted this EKG. EKG results narrative: Sinus tachycardia rate 122 MO 145 QRS 103 QT/QTc is 339/483. Study compared to previous dated 04/29/18
[2018-06-09 13:07] LABS: Mean Platelet Volume 13.7 fL (9.4-12.4)
[2018-06-09 13:08] LABS: Basophils % 1.7 %; Hematocrit 29.1 % (35.3-44.9); Hemoglobin 8.2 g/dL (11.5-15.4); Immature Granulocytes % 0.9 % (0-4); Lymphocytes # 0.3 K/mcL (0.6-4.6); Lymphocytes % 27.8 %; Mean Corpuscular HGB Conc 28.2 g/dL (31.6-35.5); Mean Corpuscular Hemoglobin 30.8 pg (28.0-33.3); Mean Corpuscular Volume 109.4 fL (83.0-100.0); Monocytes # 0.3 K/mcL (0.0-1.3); Monocytes % 24.3 %; Neutrophils # 0.5 K/mcL (1.6-8.9); Red Blood Count 2.66 M/mcL (3.82-4.97); Red Cell Distribution Width 18.1 % (11.5-14.5); Segmented Neutrophils % 45.3 %
[2018-06-09 13:09] LABS: Platelet Count 59 K/mcL (140-400)
[2018-06-09 13:24] LABS: Alanine Aminotransferase 92 Units/L (7-52); Albumin/Globulin Ratio 0.8 (1.1-2.2); Alkaline Phosphatase 353 Units/L (34-104); Aspartate Amino Transferase 131 Units/L (13-39); BUN/Creatinine Ratio 22 (6-26); Bilirubin,Total 1.6 mg/dL (0.3-1.0); Blood Urea Nitrogen 15 mg/dL (8-23); Calcium 8.9 mg/dL (8.6-10.3); Carbon Dioxide 25 mEq/L (23-29); Chloride 105 mEq/L (98-107); Glucose 163 mg/dL (70-105); Magnesium 1.4 mg/dL (1.6-2.6); Osmolality,Calculated 290 (280-300); Potassium 3.4 mEq/L (3.5-5.1); Sodium 138 mEq/L (136-145); eGFR For Non-African Americans > 60 (> 60)
[2018-06-09 13:38] LABS: Anisocytosis 2+ (Not Present); Macrocytosis Present (Not Present); Platelet Estimate Decreased (Normal)
[2018-06-09 14:08] LABS: Troponin I < 0.03 ng/mL (< 0.04)
[2018-06-09] MEDS ORDERED: Naloxone 0.4 MG/ML INJ IVP PRN (14:26)
--- NOTE | 2018-06-09 14:49 | Internal Med History&Physical ---
<Carmen Olivares - Last Filed: 06/09/18 15:36> Date of Encounter: 06/09/18 Time of Encounter: 14:40 Internal Medicine - H&P: HPI Chief complaint: Syncopal event Admitted From: Home Plans for Post Hospital Care: Home History of present illness: Ms. Brady is a 78 year old female with history of HTN, CA, anemia. The patient indicated that she was cancer free and could not recall when her last chemo treatment was. The patient indicated that she has been falling due to dizziness that she has been experiencing for the past 2-3 weeks. She indicated that it has been worse in the past 2-3 days. She fell at home today and in the parking lot on arrival. CT of head is pending. trop was less than 0.03. Echo and bilat carotid duplex ordered. Todays hgb was 8.2, the patient baseline was 8.5-9.0. Will get hgb and hct q 6 hours x 3. Dtr and the patient indicated that she had gastric ulcers in the past caused by radiation treatments, that had to be cauterized by GI. The patient denies any coughing up of blood and none in stools. Will get a hemoccult of her stool. Right mediport to right chest, not accessed. WBC is 1.2 , patient with chronic thrombocytopenia, consider reverse isolation if continues to drop. Past Med Surg Social Fam HX - Past Medical History Medical history: cancer, hyperlipidemia, hypertension, renal disease, other Additional medical history: pancreatic cancer Psychiatric history: anxiety - Past Surgical History Surgical History: cholecystectomy, hip replacement, hysterectomy, other ( Whipple procedure) Additional surgical history: Whipple surgery 05/2017 - Social History Smoking Status: Former smoker Smokeless Tobacco Status: No Alcohol use: none Drug use: none - Family History Mother Adopted: No Living Status: Hx Family Cardiac Disorders: Yes Hx Family Respiratory Disorders: No Hx Family Cancer: Yes Hx Family GI Disorders: No Hx Family Endocrine Disorder: No Hx Family Neuromuscular Disorders: No Hx Family Neurologic Disorders: No Hx Family HEENT Disorders: No Hx Family Autoimmune Disorders: No Internal Medicine - H&P: Meds Oxazepam [Serax] 10 mg PO QID 04/27/17 [History] Oxycodone HCl/Acetaminophen [Endocet 5-325 Tablet] 1 tab PO Q8H PRN 05/22/17 [ History] Amitriptyline HCl 75 mg PO DAILY 06/07/17 [History] Ondansetron ODT [Zofran ODT] 4 mg PO Q4H PRN #120 tab.rapdis 07/13/17 [Rx] Prochlorperazine Maleate [Compazine] 10 mg PO Q6HR PRN #120 tablet 07/13/17 [Rx] Lidocaine/Prilocaine [Emla] 1 appl TP AD PRN #30 gm 08/03/17 [Rx] Cholecalciferol (Vitamin D3) [Vitamin D3] 400 unit PO DAILY #30 capsule [Rx] Docusate [Colace] 100 mg PO BID #60 capsule 03/27/18 [Rx] Lipase/Protease/Amylase [Celena Singh 12,000 Units Capsule] 1 cap PO QID 04/29/18 [ History] Cyanocobalamin (B-12) [Vitamin B12] 1,000 mcg PO DAILY #15 tablet 05/02/18 [Rx] Folic Acid 1 mg PO DAILY 15 Days #15 tablet 05/02/18 [Rx] Omeprazole [PriLOSEC] 40 mg PO DAILY@0630 30 Days #30 capsule. 05/02/18 [Rx] Sucralfate [Carafate] 1 gm PO BID 30 Days #60 tablet 05/02/18 [Rx] Sucralfate [Carafate] 1 gm PO TID #200 oral.susp 05/10/18 [Rx] 3 Allergy/AdvReac Type Severity Reaction Status Date / Time lorazepam [From Ativan] AdvReac Intermediate Confusion Verified 05/10/18 10:09 Sulfa (Sulfonamide AdvReac Mild Weakness Verified 05/10/18 10:09 Antibiotics) Zolpidem [From Ambien] AdvReac Confusion Verified 05/10/18 10:09 All Systems PM: A 10-system review of systems was performed and is negative for pertinent findings except as documented above in the HPI. - Constitutional Constitutional: weakness, no chills, no fever(s), no night sweats - EENT Eyes: no change in vision, no discharge, no pain, no photophobia Ears: no ear discharge, no ear pain, no tinnitus Nose, mouth and throat: no dysphagia, no nasal discharge, no neck pain, no sore throat - Cardiovascular Cardiovascular ROS IM: lightheadedness, syncope, no chest pain, no diaphoresis, no dyspnea, no palpitations - Respiratory Respiratory: dyspnea, no cough, no wheezing, no excessive phlegm production - Gastrointestinal Gastrointestinal: no abdominal pain, no diarrhea, no hematemesis, no hematochezia, no melena, no nausea, no vomiting - Genitourinary Genitourinary: no change in urinary stream, no dysuria, no flank pain, no hematuria - Musculoskeletal Musculoskeletal ROS IM: no numbness, no tingling - Integumentary Integumentary IM: no rash, no unusual bruising - Neurological Neurological ROS: no confusion, no convulsions, no focal weakness, no numbness, no tingling, no tremor(s) - Hematologic/Lymphatic Hematologic/Lymphatic: no easy bruising - Constitutional Vitals: Temp Pulse Resp BP Pulse Ox 97.3 F L 128 18 126/86 100 06/09/18 13:13 06/09/18 13:13 06/09/18 13:13 06/09/18 13:13 06/09/18 13:13 General appearance: Present: A&O X 3 Exam: 10 point exam completed - Head Head exam: Present: atraumatic, normocephalic - Eye Eye exam: Present: PERRL, conjuntiva pink, sclera anicteric Pupils: Present: PERRL - Neck Neck exam general surgery: Present: supple, trachea midline. Absent: lymphadenopathy - Respiratory Respiratory exam: Present: CTAB. Absent: accessory muscle use, rales, rhonchi, wheezes - Cardiovascular Cardiovascular exam: Present: RRR, +S1, +S2, tachycardia. Absent: diastolic murmur, gallop, rubs, systolic murmur - GI/Abdominal GI/Abdominal exam: Present: normal bowel sounds, soft, no peritoneal signs. Absent: distended, tenderness - Extremities Exam Extremities exam: Present: warm, radial pulses palpable and symmetrical. Absent : calf tenderness, cyanotic, pedal edema - Neurological Exam Neurological exam: Present: CN II-XII intact, oriented X3, no focal deficits. Absent: pronater drift, facial droop, speech deficit - Skin Skin exam: Present: dry, intact Internal Med - H&P Results - Labs CBC & Chem 7: 06/09/18 12:52 06/09/18 12:52 - Assessment and plan (1) Syncope Current Visit: Yes Status: Acute Assessment and plan: Patient syncope possibly related to her anemia. The dtr expressed concerns of syncope since she began taking the injections. Cardiac monitoring Orthostatic bp's CT of head pending Echo carotid duplex Qualifiers: Syncope type: unspecified Qualified Code(s): R55 - Syncope and collapse (2) Pancytopenia Current Visit: Yes Status: Chronic Assessment and plan: The patient has history of cancer with radiation and chemotherapy. Monitor daily labs Consider reverse isolation if wbc continues to decline (3) Hip pain, left Current Visit: Yes Status: Acute Assessment and plan: Negative for fracture Continue home oxycodone dosing, will change schedule to every 6hr when necessary PT/OT evaluations requested (4) Hypertension Current Visit: No Status: Chronic Assessment and plan: bp is 126/86-controlled No home anti-hypertensives on home medication list Qualifiers: Hypertension type: essential hypertension Qualified Code(s): I10 - Essential (primary) hypertension - Time Spent With Patient Total time spent is greater than 50% in coordination of care (as documented) at patient's floor/unit and/or counseling patient: 25 - 35 minutes <James Cortez - Last Filed: 06/10/18 07:40> Date of Encounter: 06/10/18 Internal Medicine - H&P: HPI History of present illness: Ms. Brady is a 78 year old female All Systems PM: A 10-system review of systems was performed and is negative for pertinent findings except as documented above in the HPI. - Constitutional Vitals: Temp Pulse Resp BP Pulse Ox 98.5 F 93 18 117/77 98 06/10/18 06:09 06/10/18 06:09 06/10/18 06:09 06/10/18 06:09 06/10/18 06:09 Internal Med - H&P Results - Labs CBC & Chem 7: 06/09/18 18:10 06/09/18 12:52 Labs: Short CBC 06/09/18 Range/Units 18:10 Hgb 7.1 L (11.5-15.4) g/dL Hct 24.1 L (35.3-44.9) % - Time Spent With Patient Total time spent is greater than 50% in coordination of care (as documented) at patient's floor/unit and/or counseling patient: - Attending Attestation Patient was seen in the ER with daughter and AUGUSTO Olivares at the bedside Plan of care is as documented in the [facility]
[2018-06-09] MEDS: 0.9 % Sodium Chloride 1,000 ML IVC SCH (17:23)
[2018-06-09 18:38] LABS: Hematocrit 24.1 % (35.3-44.9); Hemoglobin 7.1 g/dL (11.5-15.4)
[2018-06-09] MEDS ORDERED: Ondansetron ODT 4 MG TAB.RAPDIS PO PRN (18:41)
[2018-06-09] MEDS ORDERED: 0.9 % Sodium Chloride 250 ML ONE (22:39)
[2018-06-10] MEDS ORDERED: 0.9 % Sodium Chloride 250 ML ONE (02:58)
[2018-06-10] MEDS: Cyanocobalamin (B-12) 1,000 MCG TABLET PO SCH (08:17)
[2018-06-10] MEDS: Cholecalciferol (D-3) 1,000 UNIT TABLET PO SCH (08:17)
[2018-06-10] MEDS: Folic Acid 1 MG TABLET PO SCH (08:17)
[2018-06-10 08:53] LABS: Basophils % 1.9 %; Eosinophils % 0.6 %; Hematocrit 33.6 % (35.3-44.9); Hemoglobin 10.5 g/dL (11.5-15.4); Immature Granulocytes % 2.5 % (0-4); Lymphocytes # 0.5 K/mcL (0.6-4.6); Lymphocytes % 29.8 %; Mean Corpuscular HGB Conc 31.3 g/dL (31.6-35.5); Mean Corpuscular Hemoglobin 29.7 pg (28.0-33.3); Mean Corpuscular Volume 95.2 fL (83.0-100.0); Mean Platelet Volume 13.3 fL (9.4-12.4); Monocytes # 0.5 K/mcL (0.0-1.3); Monocytes % 29.8 %; Neutrophils # 0.6 K/mcL (1.6-8.9); Red Blood Count 3.53 M/mcL (3.82-4.97); Red Cell Distribution Width 23.1 % (11.5-14.5); Segmented Neutrophils % 35.4 %
--- NOTE | 2018-06-10 09:01 | Internal Med Progress Note ---
<Anju Mas - Last Filed: 06/10/18 11:55> Hospitalist Progress Note - Encounter Date of Encounter: 06/10/18 - Exam Vitals: Temp Pulse Resp BP Pulse Ox 98.0 F 99 14 125/68 90 06/10/18 10:48 06/10/18 10:48 06/10/18 10:48 06/10/18 10:48 06/10/18 10:48 - Time Spent with Patient Total time spent is greater than 50% in coordination of care (as documented) at patient's floor/unit and/or counseling patient: Internal Medicine: Result - Labs CBC & Chem 7: 06/10/18 08:15 06/10/18 08:15 Labs: Short CBC 06/09/18 06/10/18 Range/Units 18:10 08:15 WBC 1.6 L (4.3-11.1) K/mcL Hgb 7.1 L 10.5 L D (11.5-15.4) g/dL Hct 24.1 L 33.6 L (35.3-44.9) % Plt Count 53 L (140-400) K/mcL Neutrophils # 0.6 L (1.6-8.9) K/mcL BMP 06/10/18 08:15 Sodium 137 Potassium 3.1 L Chloride 108 H Carbon Dioxide 26 BUN 13 Creatinine 0.65 Glucose 127 H Calcium 7.6 L Consult Discharge Plan - Plan Referrals: Sukumar Wilkins Jr, MD [Primary Care Provider] - Ge Hernandez MD [Partnered Physician] - - Attending Attestation I saw evaluated and examined this patient and my medical decision-making was reviewed with the Resident Physician< Geronimo Machado. I agree with the documented findings, disposition and treatment plan as described except to any changes set forth below. We independently had [id number] contact with the patient. Patient with history of MDS, pancreatic cancer, presented to the ER with syncopal episode. Suspected to be due to acute on chronic anemia and dehydration. Continues to report dizziness with standing up. On exam, patient is awake and alert. Pallor is present. Abdomen is soft, nontender. No lower extremity edema. Heart sounds are normal. Breath sounds are normal. Syncope: Most likely related to anemia. Check orthostatics. Received 2 units PRBC and hemoglobin levels have improved. Continue workup with carotid Dopplers and echocardiogram. Anemia: Acute on chronic. Due to underlying MDS. Patient also has positive occult blood in stools. Had upper GI endoscopy and colonoscopy last month which showed recent bleeding angiectasia in the stomach which were treated with APC. She also had multiple small and large mouth diverticula in the sigmoid colon. With no active bleeding in the colon. She has been on Carafate and PPI. Monitor hemoglobin levels. If persistently decreasing, will consult GI again. Pancytopenia: Due to MDS. Will monitor blood counts. Essential hypertension: Well controlled. <Geronimo Machado - Last Filed: 06/10/18 17:13> Hospitalist Progress Note - Encounter Date of Encounter: 06/10/18 Time of Encounter: 09:45 - Subjective Interval History: Interval history: Ms. Brady is a 78 year old female who presented to the ED 06/09 for multiple falls; 1st episode was after taking the trash out that day, she felt a pro- drome of dizziness. Past medical history is significant for Myeodysplastic Syndrome; she follows [facility] and is currently on Aranesp. She recently was seen inpatient for GI bleed, GI performed an EGD/colonoscopy 05/01/18 showing angioectasias treated with argon plasma coag, colonoscopy showed coffee-brown material with no acute bleed. She was discharged with PPI+carafate, with f/u appt with GI for 06/12/18. In the interval since admission, patient has had a negative CT Head, echo/ carotid dopplers are pending, she has had a positive stool guiac, s/p transfusion 7.1 raised to 10.5, (and 10.7 4 hours later). At time of my evaluation, patient feels subjectively less fatigued than on first admission, she states sudden position changes to standing do make her dizzy. She denies chest pain, n/v/d, or abdominal pain, she denies chills, myalgias, or mouth sores. No acute events overnight. - Exam Vitals: Temp Pulse Resp BP Pulse Ox 98.5 F 93 18 117/77 98 06/10/18 06:09 06/10/18 06:09 06/10/18 06:09 06/10/18 06:09 06/10/18 06:09 Exam: Head exam: Present: atraumatic, normocephalic Eye exam: Present: PERRL, conjuntiva pink, sclera anicteric, EOMI Neck exam general surgery: Present: supple, trachea midline. Absent: lymphadenopathy Respiratory exam: Present: CTAB, normal chest wall excursion. Absent: accessory muscle use, rales, rhonchi, wheezes Cardiovascular exam: Present: RRR, +S1, +S2, tachycardia. Absent: diastolic murmur, gallop, rubs, systolic murmur GI/Abdominal exam: Present: normal bowel sounds, soft, no peritoneal signs. Absent: distended, tenderness Extremities exam: Present: warm, radial pulses palpable and symmetrical. Absent : calf tenderness, cyanotic, pedal edema Neurological exam: Present: CN II-XII intact, oriented X3, no focal deficits. Absent: facial droop, speech deficit Skin exam: Present: dry, intact, presence of mediport R chest - Assessment and Plan (1) Syncope Current Visit: Yes Status: Acute Assessment and Plan: CT head negative for bleed Echo shows LVEF of 55-60%; no significant valvular dysfunction. +stool occult blood status-post transfusion overnight; 7.1 to 10.5, 10.7 4 hours later 05/01 EGD showed bleeding angioectasias treated with argon plasma coag; suspect acute blood loss anemia Plan: AM labs, if drop in Hgb will consult GI for possible re-eval Continue PPI, Carafate NPO after midnight (2) Myelodysplastic syndrome Current Visit: No Status: Chronic Assessment and Plan: Last seen by Dr. Duque 05/10 Recent trial Aranesp [id number] This admission: s/p transfusion 2U pRBC overnight; 7.1 ->10.5; rechecked 4h later 10.7 P: Iron studies - show 134 wnl; b12/folate unremarkable Management as above for possible GI bleed (3) Pancytopenia Current Visit: Yes Status: Chronic Assessment and Plan: History of cancer with radiation and chemotherapy Today Wt ct 1.6 (1.2) Pt denies productive cough, abdominal pain, n/v, myalgias, night sweats, or sores. (4) Hip pain, left Current Visit: Yes Status: Acute Assessment and Plan: Negative imaging for fracture Neurovascularly intact on exam DVT Prophylaxis: Pt receiving intermittent pneumatic compression - Time Spent with Patient Total time spent is greater than 50% in coordination of care (as documented) at patient's floor/unit and/or counseling patient: Greater than 35 minutes Plan of Care Discussed with: patient Internal Medicine: Result - Labs CBC & Chem 7: 06/10/18 11:57 06/10/18 08:15 Labs: Short CBC 06/09/18 Range/Units 18:10 Hgb 7.1 L (11.5-15.4) g/dL Hct 24.1 L (35.3-44.9) % - VTE Documentation of Mechanical Device: Intermittent pneumatic compression device <Geronimo Machado - Last Filed: 06/10/18 17:13> (1) Syncope Qualifiers: Syncope type: unspecified Qualified Code(s): R55 - Syncope and collapse
[2018-06-10 09:07] LABS: BUN/Creatinine Ratio 20 (6-26); Blood Urea Nitrogen 13 mg/dL (8-23); Calcium 7.6 mg/dL (8.6-10.3); Carbon Dioxide 26 mEq/L (23-29); Chloride 108 mEq/L (98-107); Chol/HDL Ratio 4.5 (0-4.9); Cholesterol 49 mg/dL (< 200); Glucose 127 mg/dL (70-105); HDL Cholesterol 11 mg/dL (40-59); LDL Cholesterol,Calculated 25 mg/dL (0-99); Osmolality,Calculated 286 (280-300); Potassium 3.1 mEq/L (3.5-5.1); Sodium 137 mEq/L (136-145); Triglycerides 66 mg/dL (< 150); eGFR For Non-African Americans > 60 (> 60)
[2018-06-10 09:09] LABS: Platelet Count 53 K/mcL (140-400)
[2018-06-10 09:45] LABS: Anisocytosis 3+ (Not Present); Platelet Estimate Decreased (Normal); Poikilocytosis 1+ (Not Present)
[2018-06-10 12:16] LABS: Hematocrit 33.9 % (35.3-44.9); Hemoglobin 10.7 g/dL (11.5-15.4)
[2018-06-10 12:47] LABS: % Iron Saturation 67 % (15-50); Iron 137 mcg/dL (50-170); Transferrin 146 mg/dL (203-362)
[2018-06-10 13:01] LABS: Folate 20.6 ng/mL (3.0-16.0)
[2018-06-10 13:10] LABS: Vitamin B12 > 1500 pg/mL (250-1100)
[2018-06-10] MEDS: 0.9 % Sodium Chloride 1,000 ML IVC SCH (14:22)
[2018-06-10] MEDS: *HR* OxyCODONE/APAP 5/325 TABLET PO PRN ×2 (15:34→21:15)
[2018-06-10] MEDS ORDERED: Acetaminophen 325 MG TABLET PO PRN (16:29)
[2018-06-11 03:45] LABS: Red Cell Distribution Width 23.3 % (11.5-14.5)
[2018-06-11 03:46] LABS: Hematocrit 33.2 % (35.3-44.9); Hemoglobin 10.5 g/dL (11.5-15.4); Mean Corpuscular HGB Conc 31.6 g/dL (31.6-35.5); Mean Corpuscular Hemoglobin 30.6 pg (28.0-33.3); Mean Corpuscular Volume 96.8 fL (83.0-100.0); Mean Platelet Volume 12.8 fL (9.4-12.4); Red Blood Count 3.43 M/mcL (3.82-4.97)
[2018-06-11 03:51] LABS: Platelet Count 66 K/mcL (140-400)
[2018-06-11 04:03] LABS: BUN/Creatinine Ratio 20 (6-26); Blood Urea Nitrogen 11 mg/dL (8-23); Calcium 7.4 mg/dL (8.6-10.3); Carbon Dioxide 21 mEq/L (23-29); Chloride 111 mEq/L (98-107); Glucose 143 mg/dL (70-105); Osmolality,Calculated 288 (280-300); Potassium 3.4 mEq/L (3.5-5.1); Sodium 138 mEq/L (136-145); eGFR For Non-African Americans > 60 (> 60)
--- NOTE | 2018-06-11 07:58 | Discharge Summary ---
<Geronimo Machado - Last Filed: 06/11/18 15:09> - NOTES TO OUTPATIENT PROVIDER Notes to Outpatient Provider: folate/b12/iron studies appropriate, stable hgb on discharge 10.5/10.7/10.5, plan for h&h 1 day from discharge prior to appointment with Dr. Hernandez 06/12 for follow-up EGD/Colonoscopy with gastric ulcer cautery/ppi/carafate in May Date of Encounter: 06/11/18 Time of Encounter: 09:50 - Discharge Diagnosis (1) Syncope Priority: Primary Status: Acute Qualifiers: Syncope type: unspecified Qualified Code(s): R55 - Syncope and collapse (2) Myelodysplastic syndrome Priority: Secondary Status: Chronic (3) Pancytopenia Priority: Secondary Status: Chronic (4) Hip pain, left Priority: Secondary Status: Acute Hospital course: Ms. Brady is a 78 year old female who presented to the ED 06/09 for multiple falls; 1st episode was after taking the trash out that day, she felt a pro- drome of dizziness. Past medical history is significant for Myeodysplastic Syndrome; she follows [facility] and is currently on Aranesp. She recently was seen inpatient for GI bleed, GI performed an EGD/colonoscopy 05/01/18 showing angioectasias treated with argon plasma coag, colonoscopy showed coffee-brown material with no acute bleed. She was discharged with PPI+carafate, with f/u appt with GI for 06/12/18. Patient had a negative CT Head, echo/carotid dopplers wnl (EF 55-60%, nonstenotic plaque bilaterally, she did have a positive stool guiac, s/p transfusion 7.1 raised to 10.5, (and 10.7 4 hours later). Repeat H&H in the AM showed Hgb of 10.5. Plan is to discharge the patient today with follow-up with GI as scheduled outpatient on June 12. She was encouraged to obtain ordered labs for an H&H ideally the morning before her appointment. She agrees to continue her carafate, PPI regimen, as well as continue Aranesp injections. Her iron studies were rechecked, showing serum iron of 134 (50-170) and ample stores of folate and B12. - Time Spent with Patient Total time spent providing and/or coordinating discharge services: Greater than 30 minutes - Discharge Medications Home Medications: Oxazepam [Serax] 10 mg PO QID 04/27/17 [History] Oxycodone HCl/Acetaminophen [Endocet 5-325 Tablet] 1 tab PO Q8H PRN 05/22/17 [ History] Amitriptyline HCl 75 mg PO DAILY 06/07/17 [History] Ondansetron ODT [Zofran ODT] 4 mg PO Q4H PRN #120 tab.rapdis 07/13/17 [Rx] Prochlorperazine Maleate [Compazine] 10 mg PO Q6HR PRN #120 tablet 07/13/17 [Rx] Lidocaine/Prilocaine [Emla] 1 appl TP AD PRN #30 gm 08/03/17 [Rx] Cholecalciferol (Vitamin D3) [Vitamin D3] 400 unit PO DAILY #30 capsule [Rx] Docusate [Colace] 100 mg PO BID #60 capsule 03/27/18 [Rx] Lipase/Protease/Amylase [Celena Singh 12,000 Units Capsule] 1 cap PO QID 04/29/18 [ History] Cyanocobalamin (B-12) [Vitamin B12] 1,000 mcg PO DAILY #15 tablet 05/02/18 [Rx] Folic Acid 1 mg PO DAILY 15 Days #15 tablet 05/02/18 [Rx] Omeprazole [PriLOSEC] 40 mg PO DAILY@0630 30 Days #30 capsule.dr 05/02/18 [Rx] Sucralfate [Carafate] 1 gm PO TID #200 oral.susp 05/10/18 [Rx] Allergies/Adverse Reactions: 3 Allergy/AdvReac Type Severity Reaction Status Date / Time lorazepam [From Ativan] AdvReac Intermediate Confusion Verified 05/10/18 10:09 Sulfa (Sulfonamide AdvReac Mild Weakness Verified 05/10/18 10:09 Antibiotics) Zolpidem [From Ambien] AdvReac Confusion Verified 05/10/18 10:09 Date of admission: 06/09/18 14:33 Primary care physician: Sukumar Wilkins Jr, MD Consults: 06/09/18 15:23 PT [Consult to Physical Therapy] [CONS] Routine Comment: Evaluate, develop and implement POC Reason for Consult: Frequent falls with injuries. Patient with weakness Does patient have active BEDREST order?: No Is patient medically & hemodynamically stable?: Yes Patient assessed for mobility or mobilized this visit?: No 06/09/18 15:25 Consult to Occupational Therapy [CONS] Routine Comment: Evaluate, develop and implement POC Reason for Consult: Frequent falls with minor injuires. Weakness Does patient have active BEDREST order?: No Is patient medically & hemodynamically stable?: Yes Patient assessed for mobility or mobilized this visit?: Yes 06/10/18 15:37 Consult to Scrap Sorter [CONS] Routine Reason for SW Consult: POA designation - Constitutional Vitals: Temp Pulse Resp BP Pulse Ox 98.2 F 100 16 147/89 99 06/11/18 05:18 06/11/18 05:18 06/11/18 05:18 06/11/18 05:18 06/11/18 05:18 General appearance: Present: A&O X 3 Exam: Head exam: Present: atraumatic, normocephalic Eye exam: Present: PERRL, conjuntiva pink, sclera anicteric, EOMI Neck exam general surgery: Present: supple, trachea midline. Absent: lymphadenopathy Respiratory exam: Present: CTAB, normal chest wall excursion. Absent: accessory muscle use, rales, rhonchi, wheezes Cardiovascular exam: Present: RRR, +S1, +S2, tachycardia. Absent: diastolic murmur, gallop, rubs, systolic murmur GI/Abdominal exam: Present: normal bowel sounds, soft, no peritoneal signs. Absent: distended, tenderness Extremities exam: Present: bandaged left elbow, no crepitus, no effusion. warm, radial pulses palpable and symmetrical. Absent: calf tenderness, cyanotic, pedal edema Neurological exam: Present: CN II-XII intact, oriented X3, no focal deficits. Absent: facial droop, speech deficit Skin exam: Present: dry, intact, presence of mediport R chest - Patient Status Disposition: Home, Self-Care Condition: Fair Functional capacity at discharge: independent ambulation Overall status at discharge: patient is progressing back to baseline - Discharge Instructions Follow Up With: Isabel Vázquez CNP [Advanced Practice Nurse] - 06/13/18 1:00 pm Ge Hernandez MD [Partnered Physician] - 06/12/18 3:50 pm Additional Instructions: Please obtain blood work (hemoglobin and hematocrit) prior your appointment tomorrow with Dr. Hernandez. - Diet and Activity Activity: increase activity as tolerated Diet: advance to your usual diet - VTE Documentation of Mechanical Device: Intermittent pneumatic compression device <Aidan Lazar - Last Filed: 06/11/18 17:46> Date of Encounter: 06/11/18 - Discharge Diagnosis (1) Anemia Priority: Primary Status: Chronic Qualifiers: Anemia type: iron deficiency Iron deficiency anemia type: chronic blood loss Qualified Code(s): D50.0 - Iron deficiency anemia secondary to blood loss (chronic) (2) Pancreatic cancer Priority: Secondary Status: Chronic Qualifiers: Pancreatic malignancy location: head of pancreas Qualified Code(s): C25.0 - Malignant neoplasm of head of pancreas (3) Myelodysplastic syndrome Status: Chronic (4) Hypertension Priority: Secondary Status: Chronic Qualifiers: Hypertension type: essential hypertension Qualified Code(s): I10 - Essential (primary) hypertension (5) Hypokalemia Priority: Secondary Status: Resolved Hospital course: Ms. Brady is a 78 year old female - Time Spent with Patient Total time spent providing and/or coordinating discharge services: Date of admission: 06/09/18 14:33 Primary care physician: Sukumar Wilkins Jr, MD Consults: 06/09/18 15:25 Consult to Occupational Therapy [CONS] Routine Comment: Evaluate, develop and implement POC Reason for Consult: Frequent falls with minor injuires. Weakness Does patient have active BEDREST order?: No Is patient medically & hemodynamically stable?: Yes Patient assessed for mobility or mobilized this visit?: Yes 06/10/18 15:37 Consult to Scrap Sorter [CONS] Routine Reason for SW Consult: POA designation - Constitutional Vitals: Temp Pulse Resp BP Pulse Ox 98.2 F 107 16 141/90 94 06/11/18 11:05 06/11/18 11:05 06/11/18 11:05 06/11/18 11:05 06/11/18 11:05 - Attending Attestation I examined this patient and my medical decision-making was reviewed with the Resident Physician on 06/11/18. I agree with the documented findings, disposition and treatment plan as described except to the extent set forth below. Ms Brady has been in observation for anemia and prior GI bleed. She also has hx of MDS. She has been transfused and H/H stable this AM. She is now afebrile and ready for discharge home. Exam alert Comfortable Mucus membranes dry Heart reg No wheeze Abd soft No edema Plan D/C today H/H tomorrow prior to appt with Dr. Hernandez in afternoon.
[2018-06-11] MEDS: Cholecalciferol (D-3) 1,000 UNIT TABLET PO SCH (09:02)
[2018-06-11] MEDS: Cyanocobalamin (B-12) 1,000 MCG TABLET PO SCH (09:02)
[2018-06-11] MEDS: Folic Acid 1 MG TABLET PO SCH (09:02)
[2018-06-11 11:06] VITALS: BP 141/90
--- NOTE | 2018-06-13 17:40 | Electrocardiograph Report ---
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
== END 2018-06-11 12:08 | disposition home or self-care (01) ==
LOC: 3ANU 11:42 → EMEROOARM 11:42 → SUATTDRO 14:33 → 3ANU 15:43
PROVIDERS: ADMIT Internal Medicine; ATTEND Internal Medicine

== ENCOUNTER 2018-07-01 22:30 | Observation (INO) ==
[2018-07-01] MEDS ORDERED: 0.9 % Sodium Chloride 1,000 ML IVC ONE (23:02)
[2018-07-01] MEDS ORDERED: Isovue-370 500 ML INFUS..BTL IV ONE (23:02)
--- NOTE | 2018-07-01 23:07 | Emergency Department Note ---
Disposition Clinical Impression: Acute blood loss anemia, GI bleed, Pancytopenia Disposition: Admitted As Inpatient Condition: Serious Referrals: Sukumar Wilkins Jr, MD [Primary Care Provider] - Forms: ED Satisfaction Letter Time of Disposition: 00:42 General Adult HPI - General Chief complaint: ED Syncope Stated complaint: Syncope Time Seen by Provider: 07/01/18 22:50 Source: patient Limitations: no limitations Nursing Notes Reviewed: Yes Vital Signs Reviewed: Yes - History of Present Illness HPI Narrative: Patient presents to the ED with syncope. Patient had an episode of syncope last night. She has had several over the past week. She was seen for the same thing and admitted recently. She is now pale. Her feet are swelling. She has dyspnea on exertion. Patient has a history of a Whipple procedure about 1 year ago. Patient states she is nauseated. She cannot eat and when she does she vomits. Pain Scale: 0 - Related Data Home Medications Medication Instructions Recorded Confirmed Oxazepam [Serax] 10 mg PO QID 04/27/17 06/10/18 Oxycodone HCl/Acetaminophen 1 tab PO Q8H PRN 05/22/17 06/10/18 [Endocet 5-325 Tablet] Amitriptyline HCl 75 mg PO DAILY 06/07/17 06/10/18 Lipase/Protease/Amylase [Celena Singh 1 cap PO QID 04/29/18 06/10/18 12,000 Units Capsule] Previous Rx's Medication Instructions Recorded Prochlorperazine Maleate 10 mg PO Q6HR PRN #120 tablet 07/13/17 [Compazine] Lidocaine/Prilocaine [Emla] 1 appl TP AD PRN #30 gm 08/03/17 Cholecalciferol (Vitamin D3) 400 unit PO DAILY #30 capsule 02/14/18 [Vitamin D3] Docusate [Colace] 100 mg PO BID #60 capsule 03/27/18 Cyanocobalamin (B-12) [Vitamin B12] 1,000 mcg PO DAILY #15 tablet 05/02/18 Folic Acid 1 mg PO DAILY 15 Days #15 tablet 05/02/18 Omeprazole [PriLOSEC] 40 mg PO DAILY@0630 30 Days #30 05/02/18 capsule. Sucralfate [Carafate] 1 gm PO TID #200 oral.susp 05/10/18 Ondansetron ODT [Zofran ODT] 4 mg PO Q4H PRN #120 tab.rapdis 06/18/18 Metoclopramide [Reglan] 10 mg PO TID PRN #90 tablet 06/21/18 Allergies Allergy/AdvReac Type Severity Reaction Status Date / Time lorazepam [From Ativan] AdvReac Intermediate Confusion Verified 05/10/18 10:09 Sulfa (Sulfonamide AdvReac Mild Weakness Verified 05/10/18 10:09 Antibiotics) Zolpidem [From Ambien] AdvReac Confusion Verified 05/10/18 10:09 All systems ED: reviewed and negative except as stated. Constitutional: Denies: fever Respiratory: Reports: dyspnea Gastrointestinal: Reports: abdominal pain, nausea, vomiting, melena. Denies: diarrhea, hematemesis, hematochezia Genitourinary: Denies: urgency Musculoskeletal: Denies: back pain Past Medical History - Past Medical History Attestation: Yes The following information was validated with the patient. Source: patient, obtained from family Medical history: Reports: cancer, hyperlipidemia, hypertension, renal disease, other Surgical history: Reports: cholecystectomy, hip replacement, hysterectomy, other Psychiatric history: Reports: anxiety - Social History Smoking Status: Former smoker Smokeless Tobacco Status: No Alcohol use: Reports: none Drug use: Reports: none Physical Exam Patient pale. Conjunctiva pale. Diffuse abdominal tenderness. 2-3+ pitting edema bilateral lower extremities. - General Limitations: no limitations General appearance: alert, in no apparent distress - Head Head exam: atraumatic, normocephalic - Eye Eye exam: Present: other (Conjunctiva pale) - ENT ENT exam: normal exam - Neck Neck exam: Present: normal inspection - Chest Chest inspection: Present: normal inspection - Respiratory Respiratory exam: Present: normal lung sounds bilaterally - Cardiovascular Cardiovascular exam: Present: normal rhythm, tachycardia - Abdominal Exam Abdominal exam: Present: soft, tenderness (Moderate diffuse without guarding) - Rectal Exam Barrel Endshake Adjuster present during exam: Yes (Dark brown stool) - Neurological Exam Neurological exam: Present: alert, oriented X3, CN II-XII intact - Psychiatric Psychiatric exam: Present: normal affect, normal mood - Skin Skin exam: Present: warm, dry Course - Reevaluation(s) Reevaluation #1: Patient pale with syncope. Appears anemic. We will send type and cross. EKG sinus tach. We will check CT abdomen pelvis as well. Time: 23:51 Reevaluation #2: Patient signed out to Dr. Boone pending CT abdomen and admission. Potassium magnesium been replaced. She has received a dose of IV Protonix. Transfusion ordered. Patient is agreeable to blood transfusion. Time: 00:41 Vital Signs Temperature 100.1 F H 07/01/18 22:35 Pulse Rate 125 07/01/18 22:35 Respiratory Rate 18 07/01/18 22:35 Blood Pressure 116/76 07/01/18 22:35 O2 Sat by Pulse Oximetry 99 07/01/18 22:35 Temperature 100.1 F H 07/01/18 22:44 Pulse Rate 108 07/01/18 23:52 Respiratory Rate 16 07/01/18 23:52 Blood Pressure 128/76 07/01/18 23:52 O2 Sat by Pulse Oximetry 100 07/01/18 23:52 Oxygen Delivery Oxygen Delivery Room Air Medical Decision Making - Medical Records Medical records reviewed: Yes I reviewed the patient's medical records. - Lab Data Lab results reviewed: Yes I reviewed the patient's lab results. Result diagrams: 07/01/18 23:17 07/01/18 23:17 Lab Results 07/01/18 07/01/18 07/01/18 Range/Units 23:10 23:17 23:17 WBC 1.7 L (4.3-11.1) K/mcL RBC 2.05 L (3.82-4.97) M/mcL Hgb 6.4 L (11.5-15.4) g/dL Hct 21.6 L (35.3-44.9) % MCV 105.4 H (83.0-100.0) fL MCH 31.2 (28.0-33.3) pg MCHC 29.6 L (31.6-35.5) g/dL RDW 22.3 H (11.5-14.5) % Plt Count 63 L (140-400) K/mcL MPV EQUITIES TRADER PT 15.3 H (9.4-12.1) Seconds INR 1.4 APTT 30.3 (26.0-36.0) Seconds Sodium (136-145) mEq/L Potassium (3.5-5.1) mEq/L Chloride (98-107) mEq/L Carbon Dioxide (23-29) mEq/L BUN (8-23) mg/dL Creatinine (0.60-1.20) mg/dL Est GFR ( Amer) (> 60) Est GFR (Non-Af Amer) (> 60) BUN/Creatinine Ratio (6-26) Glucose (70-105) mg/dL Calculated Osmolality (280-300) Lactic Acid (0.5-2.2) mmol/L Calcium (8.6-10.3) mg/dL Magnesium (1.6-2.6) mg/dL Total Bilirubin (0.3-1.0) mg/dL AST (13-39) Units/L ALT (7-52) Units/L Alkaline Phosphatase (34-104) Units/L Troponin I (< 0.04) ng/mL B-Natriuretic Peptide (Less than 100) pg/mL Serum Total Protein (6.4-8.9) g/dL Albumin (3.5-5.7) g/dL Globulin (2.4-3.5) g/dL Albumin/Globulin Ratio (1.1-2.2) Lipase (11-82) Units/L Urine Color (Yellow) Urine Clarity (Clear) Urine pH (5.0-8.0) pH Units Ur Specific Snyder (1.010-1.025) Urine Protein (Neg-Trace) mg/dL Urine Glucose (UA) (Normal) mg/dL Urine Ketones (Negative) mg/dL Urine Blood (Negative) Urine Nitrite (Negative) Urine Bilirubin (Negative) Urine Urobilinogen (Normal) mg/dL Ur Leukocyte Esterase (Negative) Ur Culture Indicated? (NO) Stool Occult Bld Scrn Positive A (Negative) Blood Type Antibody Screen 07/01/18 07/01/18 07/01/18 Range/Units 23:17 23:17 23:17 WBC (4.3-11.1) K/mcL RBC (3.82-4.97) M/mcL Hgb (11.5-15.4) g/dL Hct (35.3-44.9) % MCV (83.0-100.0) fL MCH (28.0-33.3) pg MCHC (31.6-35.5) g/dL RDW (11.5-14.5) % Plt Count (140-400) K/mcL MPV PT (9.4-12.1) Seconds INR APTT (26.0-36.0) Seconds Sodium 138 (136-145) mEq/L Potassium 2.9 L (3.5-5.1) mEq/L Chloride 106 (98-107) mEq/L Carbon Dioxide 23 (23-29) mEq/L BUN 17 (8-23) mg/dL Creatinine 0.71 (0.60-1.20) mg/dL Est GFR ( Amer) > 60 (> 60) Est GFR (Non-Af Amer) > 60 (> 60) BUN/Creatinine Ratio 24 (6-26) Glucose 165 H (70-105) mg/dL Calculated Osmolality 291 (280-300) Lactic Acid 3.1 H (0.5-2.2) mmol/L Calcium 7.7 L (8.6-10.3) mg/dL Magnesium 1.3 L (1.6-2.6) mg/dL Total Bilirubin 1.5 H (0.3-1.0) mg/dL AST 89 H (13-39) Units/L ALT 65 H (7-52) Units/L Alkaline Phosphatase 280 H (34-104) Units/L Troponin I < 0.03 (< 0.04) ng/mL B-Natriuretic Peptide 21 (Less than 100) pg/mL Serum Total Protein 6.5 (6.4-8.9) g/dL Albumin 2.5 L (3.5-5.7) g/dL Globulin 4.0 H (2.4-3.5) g/dL Albumin/Globulin Ratio 0.6 L (1.1-2.2) Lipase 4 L (11-82) Units/L Urine Color (Yellow) Urine Clarity (Clear) Urine pH (5.0-8.0) pH Units Ur Specific Snyder (1.010-1.025) Urine Protein (Neg-Trace) mg/dL Urine Glucose (UA) (Normal) mg/dL Urine Ketones (Negative) mg/dL Urine Blood (Negative) Urine Nitrite (Negative) Urine Bilirubin (Negative) Urine Urobilinogen (Normal) mg/dL Ur Leukocyte Esterase (Negative) Ur Culture Indicated? (NO) Stool Occult Bld Scrn (Negative) Blood Type Antibody Screen 07/01/18 07/01/18 Range/Units 23:17 23:43 WBC (4.3-11.1) K/mcL RBC (3.82-4.97) M/mcL Hgb (11.5-15.4) g/dL Hct (35.3-44.9) % MCV (83.0-100.0) fL MCH (28.0-33.3) pg MCHC (31.6-35.5) g/dL RDW (11.5-14.5) % Plt Count (140-400) K/mcL MPV PT (9.4-12.1) Seconds INR APTT (26.0-36.0) Seconds Sodium (136-145) mEq/L Potassium (3.5-5.1) mEq/L Chloride (98-107) mEq/L Carbon Dioxide (23-29) mEq/L BUN (8-23) mg/dL Creatinine (0.60-1.20) mg/dL Est GFR ( Amer) (> 60) Est GFR (Non-Af Amer) (> 60) BUN/Creatinine Ratio (6-26) Glucose (70-105) mg/dL Calculated Osmolality (280-300) Lactic Acid (0.5-2.2) mmol/L Calcium (8.6-10.3) mg/dL Magnesium (1.6-2.6) mg/dL Total Bilirubin (0.3-1.0) mg/dL AST (13-39) Units/L ALT (7-52) Units/L Alkaline Phosphatase (34-104) Units/L Troponin I (< 0.04) ng/mL B-Natriuretic Peptide (Less than 100) pg/mL Serum Total Protein (6.4-8.9) g/dL Albumin (3.5-5.7) g/dL Globulin (2.4-3.5) g/dL Albumin/Globulin Ratio (1.1-2.2) Lipase (11-82) Units/L Urine Color Yellow (Yellow) Urine Clarity Clear (Clear) Urine pH 6.0 (5.0-8.0) pH Units Ur Specific Snyder 1.020 (1.010-1.025) Urine Protein Trace (Neg-Trace) mg/dL Urine Glucose (UA) Normal (Normal) mg/dL Urine Ketones Negative (Negative) mg/dL Urine Blood Negative (Negative) Urine Nitrite Negative (Negative) Urine Bilirubin Small H (Negative) Urine Urobilinogen 2.0 H (Normal) mg/dL Ur Leukocyte Esterase Negative (Negative) Ur Culture Indicated? NO (NO) Stool Occult Bld Scrn (Negative) Blood Type O POSITIVE Antibody Screen NEGATIVE - EKG Data EKG #1 EKG attestation: Yes I reviewed and interpreted this EKG. EKG results narrative: Sinus tach at 110. Inferior Q waves. Normal ST segments. QT 370 with a QTC 502. Left axis. Critical Care Time Critical Care Time: Yes Total Critical Care Time: 45 Attestation: Critical care performed: Time is exclusive of separately billable procedures. Time includes: direct patient care, patient reassessment, coordination of patient care, interpretation of data (laboratory data, radiology data, and respiratory data), review of patient's medical records, medical consultation and documentation of patient care. Procedures included in critical care time: Procedures excluded from critical care time:
[2018-07-01 23:51] LABS: Bilirubin,Urine Small (Negative); Blood,Urine Negative (Negative); Clarity,Urine Clear (Clear); Color,Urine Yellow (Yellow); Glucose,Urine (UA) Normal (Normal); Ketones,Urine Negative (Negative); Leukocyte Esterase,Urine Negative (Negative); Nitrite,Urine Negative (Negative); Protein,Urine Trace mg/dL (Neg-Trace)
[2018-07-01 23:52] LABS: INR 1.4; Prothrombin Time 15.3 Seconds (9.4-12.1)
[2018-07-01 23:55] LABS: Activated Partial Thrombo Time 30.3 Seconds (26.0-36.0)
[2018-07-02 00:08] LABS: Hematocrit 21.6 % (35.3-44.9); Hemoglobin 6.4 g/dL (11.5-15.4); Mean Corpuscular HGB Conc 29.6 g/dL (31.6-35.5); Mean Corpuscular Hemoglobin 31.2 pg (28.0-33.3); Mean Corpuscular Volume 105.4 fL (83.0-100.0); Monocytes # 0.5 K/mcL (0.0-1.3); Red Blood Count 2.05 M/mcL (3.82-4.97); Red Cell Distribution Width 22.3 % (11.5-14.5)
[2018-07-02 00:09] LABS: Alanine Aminotransferase 65 Units/L (7-52); Albumin 2.5 g/dL (3.5-5.7); Albumin/Globulin Ratio 0.6 (1.1-2.2); Alkaline Phosphatase 280 Units/L (34-104); Aspartate Amino Transferase 89 Units/L (13-39); BUN/Creatinine Ratio 24 (6-26); Bilirubin,Total 1.5 mg/dL (0.3-1.0); Blood Urea Nitrogen 17 mg/dL (8-23); Calcium 7.7 mg/dL (8.6-10.3); Carbon Dioxide 23 mEq/L (23-29); Chloride 106 mEq/L (98-107); Glucose 165 mg/dL (70-105); Lipase 4 Units/L (11-82); Magnesium 1.3 mg/dL (1.6-2.6); Osmolality,Calculated 291 (280-300); Potassium 2.9 mEq/L (3.5-5.1); Sodium 138 mEq/L (136-145); Total Protein 6.5 g/dL (6.4-8.9); eGFR For Non-African Americans > 60 (> 60)
[2018-07-02 00:10] LABS: Troponin I < 0.03 ng/mL (< 0.04)
[2018-07-02] MEDS ORDERED: Magnesium Oxide 400 MG TABLET PO STA (00:17)
[2018-07-02] MEDS ORDERED: Potassium Chloride 40 MEQ, Lidocaine 1% 2 ML in D5% in Water 500 ML IVPB ONE (00:17)
[2018-07-02] MEDS ORDERED: Pantoprazole 40 MG VIAL IVP ONE (00:22)
[2018-07-02 00:27] LABS: Platelet Count 63 K/mcL (140-400)
[2018-07-02 01:08] LABS: Anisocytosis 1+ (Not Present); Hypochromasia Present (Not Present); Lymphocytes # 0.3 K/mcL (0.6-4.6); Neutrophils # 0.9 K/mcL (1.6-8.9); Platelet Estimate Decreased (Normal)
[2018-07-02 01:09] LABS: Polychromasia 1+ (Not Present)
[2018-07-02] MEDS ORDERED: *HR* OxyCODONE/APAP 5/325 TABLET PO PRN (04:45)
[2018-07-02] MEDS ORDERED: Ondansetron 4 MG/2 ML VIAL IVP PRN (04:46)
[2018-07-02] MEDS ORDERED: Metoclopramide 10 MG/2 ML VIAL IVP PRN (04:46)
--- NOTE | 2018-07-02 05:12 | Internal Med History&Physical ---
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 Prior endoscopic evaluation in May 2018 showed multiple small and large mouth diverticula in the sigmoid colon with signs of bleeding, multiple small bleeding angioectasias in the gastric body that required coagulation for hemostasis using argon plasma. She was discharged from here on 06/11 after another episode of symptomatic anemia due to GI bleed manifesting as a syncopal event and was discharged with sucralfate and PPI for GI follow-up. Of note, carotid duplex and head CT were unremarkable as part of her syncopal evaluation. She presents now to the ER with an episode of syncope that occurred last night and also stating that she has had several over the past week. She feels notably more fatigued and has dyspnea on mild exertion. She also appears paler and states that her stool has been black. She is unable to eat adequately and when she does she is nauseated and vomits which appears to be a chronic issue. She was somewhat tachycardic but normotensive. Labs done were remarkable for positive occult blood in stool and a drop in her hemoglobin from 10.5 on 06/11 to 6.4 today. She was started on blood transfusions and is scheduled to get 2 units. Past Med Surg Social Fam HX - Past Medical History Medical history: cancer, hyperlipidemia, hypertension, renal disease, other Additional medical history: pancreatic cancer Psychiatric history: anxiety - Past Surgical History Surgical History: cholecystectomy, hip replacement, hysterectomy, other Additional surgical history: Whipple surgery 05/2017 - Social History Smoking Status: Former smoker Smokeless Tobacco Status: No Alcohol use: none Drug use: none - Family History Mother Adopted: No Living Status: Hx Family Cardiac Disorders: Yes Hx Family Respiratory Disorders: No Hx Family Cancer: Yes Hx Family GI Disorders: No Hx Family Endocrine Disorder: No Hx Family Neuromuscular Disorders: No Hx Family Neurologic Disorders: No Hx Family HEENT Disorders: No Hx Family Autoimmune Disorders: No Internal Medicine - H&P: Meds Oxazepam [Serax] 10 mg PO QID 04/27/17 [History] Oxycodone HCl/Acetaminophen [Endocet 5-325 Tablet] 1 tab PO Q8H PRN 05/22/17 [ History] Amitriptyline HCl 75 mg PO DAILY 06/07/17 [History] Prochlorperazine Maleate [Compazine] 10 mg PO Q6HR PRN #120 tablet 07/13/17 [Rx] Lidocaine/Prilocaine [Emla] 1 appl TP AD PRN #30 gm 08/03/17 [Rx] Cholecalciferol (Vitamin D3) [Vitamin D3] 400 unit PO DAILY #30 capsule [Rx] Docusate [Colace] 100 mg PO BID #60 capsule 03/27/18 [Rx] Lipase/Protease/Amylase [Celena Singh 12,000 Units Capsule] 1 cap PO QID 04/29/18 [ History] Cyanocobalamin (B-12) [Vitamin B12] 1,000 mcg PO DAILY #15 tablet 05/02/18 [Rx] Folic Acid 1 mg PO DAILY 15 Days #15 tablet 05/02/18 [Rx] Omeprazole [PriLOSEC] 40 mg PO DAILY@0630 30 Days #30 capsule. 05/02/18 [Rx] Sucralfate [Carafate] 1 gm PO TID #200 oral.susp 05/10/18 [Rx] Ondansetron ODT [Zofran ODT] 4 mg PO Q4H PRN #120 tab.rapdis 06/18/18 [Rx] Metoclopramide [Reglan] 10 mg PO TID PRN #90 tablet 06/21/18 [Rx] 3 Allergy/AdvReac Type Severity Reaction Status Date / Time lorazepam [From Ativan] AdvReac Intermediate Confusion Verified 05/10/18 10:09 Sulfa (Sulfonamide AdvReac Mild Weakness Verified 05/10/18 10:09 Antibiotics) Zolpidem [From Ambien] AdvReac Confusion Verified 05/10/18 10:09 All Systems PM: A 10-system review of systems was performed and is negative for pertinent findings except as documented above in the HPI. - Constitutional Vitals: Temp Pulse Resp BP Pulse Ox 98.4 F 114 16 128/78 92 07/02/18 04:27 07/02/18 04:27 07/02/18 04:27 07/02/18 04:27 07/02/18 04:27 Exam: Vitals: Reviewed General: Emaciated but pleasant and conversant. Skin: Pale but no lesions. HEENT: Dry mucous membranes. (+) conjunctivae pallor. Neck: No carotid bruits. No palpable thyroid. Chest: Normal thoracic expansion. Normal breath sounds. Clear to auscultation. Heart: Normal S1 & S2; rhythmic. Abdomen: Distended, soft and non-tender to palpation. No peritoneal reaction. Extremities: 1+ LE edema. No calf tenderness. Normal distal pulses. Neurological: Awake, alert and oriented to person, place and time. No focal deficits. Psych: Affect appropriate. Internal Med - H&P Results - Labs CBC & Chem 7: 07/01/18 23:17 07/01/18 23:17 - Impressions ITS Impressions Abdomen/Pelvis CT 07/02/18 23:02 IMPRESSION: 1. Suspected proctitis. 2. Right-sided pyelitis. 3. Status post Whipple procedure. D/ / Pedro Miller MD / Pedro Miller MD Interpreting Provider: Pedro Miller MD - Assessment and plan (1) Acute blood loss anemia Current Visit: Yes Status: Acute Assessment and plan: In the setting of ongoing GI bleed. Transfusing 2 units of blood now and will repeat H/H at 12pm once completed. For now she remains hemodynamically stable. (2) GI bleed Current Visit: Yes Status: Acute Assessment and plan: No overt hematemesis or hematochezia but does notice black stool suggestive of a more upper procedence although we know she has both upper and lower disease.Will keep NPO and reconsult GI. IV PPI BID. Hold sucralfate until seen by GI and deemed not to require scope. 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 Follows with oncology. (4) Abdominal pain Current Visit: Yes Status: Chronic Assessment and plan: Chronic issue. On oxycodone/apap prn. Qualifiers: Abdominal location: lower abdomen, unspecified Qualified Code(s): R10.30 - Lower abdominal pain, unspecified (5) DVT prophylaxis Current Visit: Yes Status: Acute Assessment and plan: AES indicated. - Time Spent With Patient Total time spent is greater than 50% in coordination of care (as documented) at patient's floor/unit and/or counseling patient: Greater than 35 minutes
[2018-07-02] MEDS ORDERED: 0.9 % Sodium Chloride 250 ML ONE (08:43)
[2018-07-02] MEDS: Pantoprazole 40 MG VIAL IVP SCH ×2 (09:01→17:05)
--- NOTE | 2018-07-02 11:20 | Gastroenterology Consult Note ---
<Eligio Ortez - Last Filed: 07/02/18 11:18> Date of Encounter: 07/02/18 Time of Encounter: 10:00 - Assessment and plan (1) Anemia Current Visit: No Status: Chronic Assessment and plan: EGD and colonoscopy completed 05/01/2018 with recently bleeding AVMs treated with APC, and cscope showed diverticulosis and blood in colon. Hgb 6.4 on admission, and 2 units PRBC ordered. Plan for push enteroscopy and flexible sigmoidoscopy tomorrow. Give 2 tap water enemas at 8 AM. Keep patient NPO at midnight. Qualifiers: Anemia type: iron deficiency Iron deficiency anemia type: chronic blood loss Qualified Code(s): D50.0 - Iron deficiency anemia secondary to blood loss (chronic) (2) Proctitis Current Visit: Yes Status: Acute Assessment and plan: Noted on CT. Plan for flexible sigmoidoscopy tomorrow. - Time Spent With Patient Total time spent is greater than 50% in coordination of care (as documented) at patient's floor/unit and/or counseling patient: GI History of Present Illness - Data of Consult Patient: known to practice within the last 3 years Consult date: 07/02/18 Requesting Physician: Madi Nobles MD - Consult Narrative Reason for consult: Recurrent GI bleed, anemia History of present illness: Ms. Brady is a 78 year old female with PMHx of pancreatic cancer s/p Whipple procedure in May 2017 with post-operative chemotherapy therapy and radiation therapy, MDS, HLD, HTN, who presented to the ED with an several episodes of syncope over the past week. She states her stools have been black. EGD and colonoscopy completed 05/01/2018 with recently bleeding AVMs treated with APC, and cscope showed diverticulosis and blood in colon. Hgb on admission was 6.4 and 2 units of PRBC have been ordered. CT A/P shows fatty liver, pneumobilia, and suspected proctitis. She has been hospitalized multiple times due to symptomatic anemia. She was discharged from here on 06/11 after another episode of symptomatic anemia due to GI bleed manifesting as a syncopal event and was discharged with sucralfate and PPI for GI follow-up. Procedures: Colonoscopy 05/01/2018 Dr. Hernandez: Diverticulosis, blood in entire examined colon. EGD 05/01/2018 Dr. Hernandez: Multiple recently bleeding angioectasias in stomach treated with APC. ERCP 04/30/2017 Dr. Hernandez: Localized biliary stricture found, biliary sphincterotomy performed, temporary stent placed in the CBD. EUS 04/30/2017 Dr. Hernandez: 2 cm x 3 cm mass in the head of the pancreas c/w adenocarcinoma, s/p FNA. NSAIDs: None Anticoagulation: None Past Med Surg Social Fam HX - Past Medical History Medical history: cancer, hyperlipidemia, hypertension, renal disease, other Additional medical history: pancreatic cancer Psychiatric history: anxiety - Past Surgical History Surgical History: cholecystectomy, hip replacement, hysterectomy, other Additional surgical history: Whipple surgery 05/2017 - Social History Smoking Status: Former smoker Smokeless Tobacco Status: No Alcohol use: none Drug use: none - Family History Mother Adopted: No Living Status: Hx Family Cardiac Disorders: Yes Hx Family Respiratory Disorders: No Hx Family Cancer: Yes Hx Family GI Disorders: No Hx Family Endocrine Disorder: No Hx Family Neuromuscular Disorders: No Hx Family Neurologic Disorders: No Hx Family HEENT Disorders: No Hx Family Autoimmune Disorders: No - Gastrointestinal Gastrointestinal: Present: as per HPI - Constitutional Constitutional: as per HPI - EENT Eyes: as per HPI Ears: Present: as per HPI Nose, mouth and throat: Present: as per HPI - Cardiovascular Cardiovascular ROS: Present: as per HPI - Respiratory Respiratory IM: Present: as per HPI - Genitourinary Genitourinary: Absent: change in color, Urinary frequency - Neurological ROS Neurological GI: Present: as per HPI - Hematologic/Lymphatic Hematologic/Lymphatic pediatric: Present: as per HPI - Musculoskeletal Musculoskeletal ROS GI: Present: as per HPI - Integumentary Integumentary GI: Present: as per HPI - Psychiatric ROS Psychiatric GI: Present: as per HPI - Endocrine Endocrine IM: Present: as per HPI - Constitutional Vitals: Temp Pulse Resp BP Pulse Ox 98 F 98 20 127/75 100 07/02/18 10:55 07/02/18 10:55 07/02/18 10:55 07/02/18 10:55 07/02/18 10:55 General appearance: Present: cooperative, A&O X 3, no acute distress, thin, answers questions appropriately - Head Head exam: Present: atraumatic, normocephalic - Eye Eye exam: Present: normal appearance, sclera anicteric - ENT ENT exam: Present: mucous membranes dry - Neck Neck exam general surgery: Present: normal inspection, trachea midline - Respiratory Respiratory exam: Present: CTAB - Cardiovascular Cardiovascular exam: Present: RRR, +S1, +S2 - GI/Abdominal GI/Abdominal exam: Present: soft, no peritoneal signs. Absent: distended, firm , guarding, tenderness - Rectal Rectal exam: Present: deferred - Extremities Exam Extremities exam: Present: warm - Neurological Exam Neurological exam: Present: no focal deficits - Psychiatric Psychiatric exam: Present: normal affect, normal mood - Skin Skin exam: Present: dry, intact, normal color, warm Results - Labs CBC & Chem 7: 07/01/18 23:17 07/01/18 23:17 Labs: Last Result Calcium 7.7 mg/dL (8.6-10.3) L 07/01/18 23:17 Troponin I < 0.03 ng/mL (< 0.04) 07/01/18 23:17 Entire Visit Hgb 6.4 g/dL (11.5-15.4) L 07/01/18 23:17 Hct 21.6 % (35.3-44.9) L 07/01/18 23:17 PT 15.3 Seconds (9.4-12.1) H 07/01/18 23:17 Total Bilirubin 1.5 mg/dL (0.3-1.0) H 07/01/18 23:17 AST 89 Units/L (13-39) H 07/01/18 23:17 ALT 65 Units/L (7-52) H 07/01/18 23:17 Lipase 4 Units/L (11-82) L 07/01/18 23:17 - ABG ABG results: PT/INR, D-dimer PT 15.3 Seconds (9.4-12.1) H 07/01/18 23:17 - Impressions Impressions Abdomen/Pelvis CT 07/02/18 23:02 IMPRESSION: 1. Suspected proctitis. 2. Right-sided pyelitis. 3. Status post Whipple procedure. D/ / Pedro Miller MD / Pedro Miller MD Interpreting Provider: Pedro Miller MD Consult Discharge Plan - Plan Referrals: Sukumar Wilkins Jr, MD [Primary Care Provider] - <Ge Hernandez - Last Filed: 07/02/18 22:03> Date of Encounter: 07/02/18 Time of Encounter: 15:20 - Time Spent With Patient Total time spent is greater than 50% in coordination of care (as documented) at patient's floor/unit and/or counseling patient: GI History of Present Illness - Data of Consult Requesting Physician: Madi Nobles MD - Consult Narrative History of present illness: Ms. Brady is a 78 year old female - Constitutional Vitals: Temp Pulse Resp BP Pulse Ox 98.5 F 98 16 135/83 98 07/02/18 19:39 07/02/18 19:39 07/02/18 19:39 07/02/18 19:39 07/02/18 21:09 Results - Labs CBC & Chem 7: 07/02/18 14:15 07/02/18 14:15 Labs: Last Result Calcium 7.3 mg/dL (8.6-10.3) L 07/02/18 14:15 Troponin I < 0.03 ng/mL (< 0.04) 07/01/18 23:17 Entire Visit Hgb 9.6 g/dL (11.5-15.4) L D 07/02/18 14:15 Hct 29.5 % (35.3-44.9) L 07/02/18 14:15 PT 15.3 Seconds (9.4-12.1) H 07/01/18 23:17 Total Bilirubin 1.5 mg/dL (0.3-1.0) H 07/01/18 23:17 AST 89 Units/L (13-39) H 07/01/18 23:17 ALT 65 Units/L (7-52) H 07/01/18 23:17 Lipase 4 Units/L (11-82) L 07/01/18 23:17 - ABG ABG results: PT/INR, D-dimer PT 15.3 Seconds (9.4-12.1) H 07/01/18 23:17 - Impressions Impressions Abdomen/Pelvis CT 07/02/18 23:02 IMPRESSION: 1. Suspected proctitis. 2. Right-sided pyelitis. 3. Status post Whipple procedure. D/ / Pedro Miller MD / Pedro Miller MD Interpreting Provider: Pedro Miller MD - Attending Attestation I have personally performed a face to face evaluation on this patient. I have reviewed and agree with the care plan. History and Exam by me shows: Pt seen. No active complaints. Denies blood in stool. O/E : abd mildly distended but soft A: Pt with MDS now with severe anemia/pancytopenia. Proctitis but most prob due to low albumin Rec: Oncology consult May consider Enteroscopy and sigmoidoscopy but only if Hb cont to drop or over bleeding
--- NOTE | 2018-07-02 11:24 | Event Note ---
Date of Encounter: 07/02/18 Time of Encounter: 11:22 Patient seen and evaluated at bedside. Reports feeling a bit stronger. Denies lightheadedness, chest pain, or shortness of breath. Continue Neutropenic precautions. being transfused 2 PRBCs GI evaluated.
[2018-07-02] MEDS: Folic Acid 1 MG TABLET PO SCH (11:26)
[2018-07-02] MEDS: Cholecalciferol (D-3) 1,000 UNIT TABLET PO SCH (11:26)
[2018-07-02] MEDS: Cyanocobalamin (B-12) 1,000 MCG TABLET PO SCH (11:26)
[2018-07-02 14:42] LABS: Basophils % 1.4 %; Eosinophils % 0.7 %; Hematocrit 29.5 % (35.3-44.9); Immature Granulocytes % 2.8 % (0-4); Lymphocytes # 0.4 K/mcL (0.6-4.6); Lymphocytes % 26.6 %; Mean Corpuscular HGB Conc 32.5 g/dL (31.6-35.5); Mean Corpuscular Hemoglobin 31.6 pg (28.0-33.3); Mean Platelet Volume 13.7 fL (9.4-12.4); Monocytes # 0.5 K/mcL (0.0-1.3); Monocytes % 32.9 %; Neutrophils # 0.5 K/mcL (1.6-8.9); Red Blood Count 3.04 M/mcL (3.82-4.97); Red Cell Distribution Width 20.1 % (11.5-14.5); Segmented Neutrophils % 35.6 %
[2018-07-02 15:05] LABS: BUN/Creatinine Ratio 24 (6-26); Blood Urea Nitrogen 13 mg/dL (8-23); Calcium 7.3 mg/dL (8.6-10.3); Carbon Dioxide 25 mEq/L (23-29); Chloride 110 mEq/L (98-107); Glucose 107 mg/dL (70-105); Osmolality,Calculated 289 (280-300); Potassium 3.1 mEq/L (3.5-5.1); Sodium 139 mEq/L (136-145); eGFR For Non-African Americans > 60 (> 60)
[2018-07-02 15:15] LABS: Platelet Count 56 K/mcL (140-400)
[2018-07-02 15:19] LABS: Hemoglobin 9.6 g/dL (11.5-15.4)
[2018-07-02 15:23] LABS: Large Platelets Present (Not Present)
[2018-07-02 15:24] LABS: Platelet Estimate Decreased (Normal)
[2018-07-02] MEDS ORDERED: Potassium Chloride Elixir 20 MEQ/15 ML UDC PO ONE (15:47)
[2018-07-03 06:00] LABS: Basophils % 0.7 %
[2018-07-03 06:02] LABS: Hematocrit 28.1 % (35.3-44.9); Hemoglobin 9.2 g/dL (11.5-15.4); Lymphocytes # 0.5 K/mcL (0.6-4.6); Lymphocytes % 35.9 %; Mean Corpuscular HGB Conc 32.7 g/dL (31.6-35.5); Mean Corpuscular Hemoglobin 31.8 pg (28.0-33.3); Mean Corpuscular Volume 97.2 fL (83.0-100.0); Mean Platelet Volume 13.8 fL (9.4-12.4); Monocytes # 0.4 K/mcL (0.0-1.3); Neutrophils # 0.5 K/mcL (1.6-8.9); Red Blood Count 2.89 M/mcL (3.82-4.97); Segmented Neutrophils % 34.4 %
[2018-07-03 06:16] LABS: BUN/Creatinine Ratio 22 (6-26); Blood Urea Nitrogen 13 mg/dL (8-23); Calcium 7.5 mg/dL (8.6-10.3); Carbon Dioxide 24 mEq/L (23-29); Chloride 110 mEq/L (98-107); Glucose 99 mg/dL (70-105); Magnesium 1.4 mg/dL (1.6-2.6); Osmolality,Calculated 284 (280-300); Phosphorous 1.7 mg/dL (2.7-4.5); Potassium 3.8 mEq/L (3.5-5.1); Sodium 137 mEq/L (136-145); eGFR For Non-African Americans > 60 (> 60)
[2018-07-03] MEDS: Pantoprazole 40 MG VIAL IVP SCH ×2 (06:35→17:55)
[2018-07-03 06:37] LABS: Platelet Count 49 K/mcL (140-400)
[2018-07-03 06:41] LABS: Large Platelets Present (Not Present); Platelet Estimate Decreased (Normal)
[2018-07-03 06:42] LABS: Anisocytosis 2+ (Not Present); Macrocytosis Present (Not Present); Polychromasia 1+ (Not Present)
[2018-07-03] MEDS ORDERED: Magnesium Oxide 400 MG TABLET PO ONE (07:30)
[2018-07-03] MEDS: Cholecalciferol (D-3) 1,000 UNIT TABLET PO SCH (08:41)
[2018-07-03] MEDS: Folic Acid 1 MG TABLET PO SCH (08:41)
[2018-07-03] MEDS: Cyanocobalamin (B-12) 1,000 MCG TABLET PO SCH (08:41)
--- NOTE | 2018-07-03 09:33 | Internal Med Progress Note ---
Hospitalist Progress Note - Encounter Date of Encounter: 07/03/18 Time of Encounter: 09:29 - Subjective Interval History: Patient seen and evaluated at bedside. Reports feeling better, denies abdominal pain, nausea or vomiting. Denies lightheadedness or dizziness, shortness of breath. - Exam Vitals: Temp Pulse Resp BP Pulse Ox 97.8 F 95 16 131/82 97 07/03/18 07:43 07/03/18 07:43 07/03/18 07:43 07/03/18 07:43 07/03/18 07:43 Exam: General: Alert and oriented x4. In no acute distress Skin:Temporal wasting. HEENT: EOM, pupils equal, round and reactive. Cardiovascular: RRR, Normal S1 & S2, no rubs, murmurs or gallops. No JVD. Lungs: Crackles in the right lower lobe, no wheezes. Abdomen: Soft, non-tender, no rigidity. Extremities: 2+ edema in the lower extr b/l. Neurological:Normal cognition and motor skills. CN II-XII intact. Rest of the physical exam is non contributory - Assessment and Plan (1) Acute blood loss anemia Current Visit: Yes Status: Acute Assessment and Plan: Possible secondary to GI bleed. Patient with a Hx of AVMs treated with APC on 05/02/18. Plan H&H Stable post 2 PRBCs transfused yesterday. Will continue to monitor Patient scheduled push enteroscopy and flexible sigmoidoscopy today as per GI note. NPO Continue PPI BID plus sulcrafate. Patient on pancreatic enzymes due to Hx of Whipple Procedure (2) GI bleed Current Visit: Yes Status: Acute Assessment and Plan: Plan of care as above. (3) Pancytopenia Current Visit: Yes Status: Chronic Assessment and Plan: Due to a Hx of MDS. Continue neutropenic precautions. Oncology called for a consult. (4) Abdominal pain Current Visit: Yes Status: Resolved Assessment and Plan: Possible due to Proctitis. CT Abd/Pelvis: IMPRESSION: 1. Suspected proctitis. 2. Right-sided pyelitis. 3. Status post Whipple procedure. Plan Pain control with percoset Scheduled for flexible sigmoidoscopy as per GI note. (5) DVT prophylaxis Current Visit: Yes Status: Acute Assessment and Plan: Mechanical DVT prophylaxis. No chemical DVT prophylaxis due to GI bleed. (6) Hypophosphatemia Current Visit: Yes Status: Acute Assessment and Plan: Electrolyte replaced. f/u AM BMP (7) Hypomagnesemia Current Visit: Yes Status: Acute Assessment and Plan: Electrolyte replaced. f/u AM BMP - Summary of Assessment and Plan Summary of Assessment and Plan: Patient to remain in the hospital scheduled for push enteroscopy and flexible sigmoidoscopy. - Time Spent with Patient Total time spent is greater than 50% in coordination of care (as documented) at patient's floor/unit and/or counseling patient: 25 - 35 minutes Plan of Care Discussed with: patient (the nurse.) Internal Medicine: Result - Labs CBC & Chem 7: 07/03/18 05:30 07/03/18 05:30 Labs: Short CBC 07/02/18 07/03/18 Range/Units 14:15 05:30 WBC 1.4 L 1.5 L (4.3-11.1) K/mcL Hgb 9.6 L D 9.2 L (11.5-15.4) g/dL Hct 29.5 L 28.1 L (35.3-44.9) % Plt Count 56 L 49 L (140-400) K/mcL Neutrophils # 0.5 L 0.5 L (1.6-8.9) K/mcL BMP 07/02/18 07/03/18 14:15 05:30 Sodium 139 137 Potassium 3.1 L 3.8 Chloride 110 H 110 H Carbon Dioxide 25 24 BUN 13 13 Creatinine 0.54 L 0.59 L Glucose 107 H 99 Calcium 7.3 L 7.5 L - ABG Interpretation ABG results: PT/INR, D-dimer PT 15.3 Seconds (9.4-12.1) H 07/01/18 23:17 Consult Discharge Plan - Plan Referrals: Sukumar Wilkins Jr, MD [Primary Care Provider] - (2) GI bleed Qualifiers: GI bleed type/associated pathology: angiodysplasia of stomach and duodenum Qualified Code(s): K31.811 - Angiodysplasia of stomach and duodenum with bleeding (4) Abdominal pain Qualifiers: Abdominal location: lower abdomen, unspecified Qualified Code(s): R10.30 - Lower abdominal pain, unspecified
[2018-07-03] MEDS: Magnesium Oxide 400 MG TABLET PO SCH ×2 (12:40→15:36)
--- NOTE | 2018-07-03 13:14 | Gastroenterology Progress Note ---
<Roxann Arriola - Last Filed: 07/03/18 13:36> Date of Encounter: 07/03/18 Time of Encounter: 13:13 - Assessment and plan (1) Pancytopenia Current Visit: Yes Status: Chronic Assessment and plan: Patient has known history of myelodysplastic syndrome for which she follows with Dr. Duque at the cancer clinic. She has history of pancreatic adenocarcinoma status post will procedure. Per oncology note she is not on chemotherapy due to myelodysplastic syndrome. -Labs today demonstrate pancytopenia. WBC 1.5 Hgb 9.2 platelets 49 -transfused 2 units PRBC -patient denies melena, hematecheza, hematemesis -no obvious active bleeding. Plan: recommend oncology consultation to evaluate for the pancytopenia (2) Anemia Current Visit: No Status: Chronic Assessment and plan: Anemia in setting of history of myelodysplastic syndrome which is most likely causing the anemia and pancytopenia. EGD and colonoscopy 05/01/2018 with recently bleeding AVMs treated with APC, and cscope showed diverticulosis and blood in colon. -Hgb 9.2 ( 6.4 on admission) baseline 8-9 -transfused 2 units PRBC -patient denies melena, hematecheza, hematemesis -patient follows with Dr. Duque at cancer clinic for aranesp infusions for treatment of anemia Plan: -no EGD at this time. She has pancytopenia with no obvious active bleeding. Recommend consulting oncology. -monitor H&H and for any signs of obvious active bleeding -ordered IV albumin 50 g daily -will reevaluate tomorrow Qualifiers: Anemia type: iron deficiency Iron deficiency anemia type: chronic blood loss Qualified Code(s): D50.0 - Iron deficiency anemia secondary to blood loss (chronic) (3) Proctitis Current Visit: Yes Status: Acute Assessment and plan: Abdominal CT demonstrated suspected proctitis - Time Spent With Patient Total time spent is greater than 50% in coordination of care (as documented) at patient's floor/unit and/or counseling patient: - Subjective Interval history: Patient seen and evaluated at bedside. She is alert and oriented times 3 with family at bedside. Denies abdominal pain, nausea, vomiting, melena, hematechezia. Denies lightheadedness, dizziness, chest pain, shortness of breath. Admits weight loss. Patient's nurse also denies seeing melena, hematechezia. - Constitutional Vitals: Temp Pulse Resp BP Pulse Ox 98.6 F 100 17 131/84 99 07/03/18 11:34 07/03/18 11:34 07/03/18 11:34 07/03/18 11:34 07/03/18 11:34 General appearance: Present: cooperative, A&O X 3, no acute distress, thin, answers questions appropriately Exam: Gen.: Vitals noted. No acute distress. AAOx3 HEENT: oropharynx clear, Normocephalic, atraumatic Cardiac: RRR, no murmur, +S1/S2 Pulmonary: CTA bilaterally, no wheezes, rales or rhonchi, equal chest expansion Abdomen: soft, nontender, Bowel sounds noted, no guarding MSK: ROM intact, no joint swelling noted Extremities: no BLE edema, nontender calf, no cyanosis or clubbing Neuro: A&Ox3, moves all extremities, no focal deficits Psych: Appropriate mood and behavior Results - Labs CBC & Chem 7: 07/03/18 05:30 07/03/18 05:30 Labs: Last Result Calcium 7.5 mg/dL (8.6-10.3) L 07/03/18 05:30 Troponin I < 0.03 ng/mL (< 0.04) 07/01/18 23:17 Entire Visit Hgb 9.2 g/dL (11.5-15.4) L 07/03/18 05:30 Hct 28.1 % (35.3-44.9) L 07/03/18 05:30 PT 15.3 Seconds (9.4-12.1) H 07/01/18 23:17 Total Bilirubin 1.5 mg/dL (0.3-1.0) H 07/01/18 23:17 AST 89 Units/L (13-39) H 07/01/18 23:17 ALT 65 Units/L (7-52) H 07/01/18 23:17 Lipase 4 Units/L (11-82) L 07/01/18 23:17 - ABG ABG results: PT/INR, D-dimer PT 15.3 Seconds (9.4-12.1) H 07/01/18 23:17 Consult Discharge Plan - Plan Referrals: Sukumar Wilkins Jr, MD [Primary Care Provider] - <Ge Hernandez - Last Filed: 07/03/18 15:11> Date of Encounter: 07/03/18 - Time Spent With Patient Total time spent is greater than 50% in coordination of care (as documented) at patient's floor/unit and/or counseling patient: - Constitutional Vitals: Temp Pulse Resp BP Pulse Ox 98.6 F 100 17 131/84 99 07/03/18 11:34 07/03/18 11:34 07/03/18 11:34 07/03/18 11:34 07/03/18 11:34 Results - Labs CBC & Chem 7: 07/03/18 05:30 07/03/18 05:30 Labs: Last Result Calcium 7.5 mg/dL (8.6-10.3) L 07/03/18 05:30 Troponin I < 0.03 ng/mL (< 0.04) 07/01/18 23:17 Entire Visit Hgb 9.2 g/dL (11.5-15.4) L 07/03/18 05:30 Hct 28.1 % (35.3-44.9) L 07/03/18 05:30 PT 15.3 Seconds (9.4-12.1) H 07/01/18 23:17 Total Bilirubin 1.5 mg/dL (0.3-1.0) H 07/01/18 23:17 AST 89 Units/L (13-39) H 07/01/18 23:17 ALT 65 Units/L (7-52) H 07/01/18 23:17 Lipase 4 Units/L (11-82) L 07/01/18 23:17 - ABG ABG results: PT/INR, D-dimer PT 15.3 Seconds (9.4-12.1) H 07/01/18 23:17 - Attending Attestation I have personally performed a face to face evaluation on this patient. I have reviewed and agree with the care plan. History and Exam by me shows: Patient seen denies any overt GI bleeding. Examination alert and awake not in acute distress. Assessment: Patient with pancytopenia due to myelodysplastic syndrome. No overt GI bleeding recommendation: Follow H&H capsule endoscopy as an outpatient. No indication for endoscopy. Oncology input for her [place] dysplastic syndrome management
[2018-07-03] MEDS: Albumin 25% 25gram/100mL 25 GM/100 ML IV.SOLN IVC SCH ×2 (15:35→18:01)
--- NOTE | 2018-07-03 17:51 | Oncology Inp Consult Note ---
<JhoanaRichie - Last Filed: 07/03/18 21:22> Date of Encounter: 07/03/18 - Data of Consult Requesting Physician: Madi Nobles MD Primary Care Provider: Sukumar Wilkins Jr, MD - Consult Narrative History of present illness: Ms. Brady is a 78 year old female Medications and Allergies Oxazepam [Serax] 10 mg PO BID 04/27/17 [History] Oxycodone HCl/Acetaminophen [Endocet 5-325 Tablet] 1 tab PO Q8H PRN 05/22/17 [ History] Amitriptyline HCl 75 mg PO HS 06/07/17 [History] Prochlorperazine Maleate [Compazine] 10 mg PO Q6HR PRN #120 tablet 07/13/17 [Rx] Lidocaine/Prilocaine [Emla] 1 appl TP AD PRN #30 gm 08/03/17 [Rx] Cholecalciferol (Vitamin D3) [Vitamin D3] 400 unit PO DAILY #30 capsule [Rx] Docusate [Colace] 100 mg PO BID #60 capsule 03/27/18 [Rx] Lipase/Protease/Amylase [Celena Singh 12,000 Units Capsule] 1 cap PO TIDWM 04/29/18 [History] Omeprazole [PriLOSEC] 40 mg PO DAILY@0630 30 Days #30 capsule. 05/02/18 [Rx] Sucralfate [Carafate] 1 gm PO TID #200 oral.susp 05/10/18 [Rx] Ondansetron ODT [Zofran ODT] 4 mg PO Q4H PRN #120 tab.rapdis 06/18/18 [Rx] Metoclopramide [Reglan] 10 mg PO TID PRN #90 tablet 06/21/18 [Rx] Furosemide [Lasix] 20 mg PO DAILY 07/02/18 [History] Lipase/Protease/Amylase [Celena Singh 12,000 Units Capsule] 1 each PO AD 07/02/18 [ History] Lipase/Protease/Amylase [Celena Singh 6,000 Units Capsule] 2 each PO AD PRN capsule. 07/04/18 [Rx] 3 Allergy/AdvReac Type Severity Reaction Status Date / Time lorazepam [From Ativan] AdvReac Intermediate Confusion Verified 05/10/18 10:09 Sulfa (Sulfonamide AdvReac Mild Weakness Verified 05/10/18 10:09 Antibiotics) Zolpidem [From Ambien] AdvReac Confusion Verified 05/10/18 10:09 Oncology - Exam - Constitutional Vitals: Temp Pulse Resp BP Pulse Ox 98.7 F 99 15 138/82 98 07/03/18 21:03 07/03/18 21:03 07/03/18 21:03 07/03/18 21:03 07/03/18 21:03 Oncology - Results Labs: 3 07/03/18 07/03/18 07/02/18 05:30 05:30 14:15 WBC 1.5 L RBC 2.89 L Hgb 9.2 L Hct 28.1 L MCV 97.2 MCH 31.8 MCHC 32.7 RDW 20.0 H Plt Count 49 L MPV 13.8 H Immature Gran % 0.0 Seg Neutrophils % 34.4 Lymphocytes % 35.9 Monocytes % 29.0 Eosinophils % 0.0 Basophils % 0.7 Neutrophils # 0.5 L Lymphocytes # 0.5 L Monocytes # 0.4 Eosinophils # 0.0 Basophils # 0.0 Platelet Estimate Decreased L Large Platelets Present A Polychromasia 1+ A Anisocytosis 2+ A Macrocytosis Present A Sodium 137 139 Potassium 3.8 3.1 L Chloride 110 H 110 H Carbon Dioxide 24 25 BUN 13 13 Creatinine 0.59 L 0.54 L Est GFR ( Amer) > 60 > 60 Est GFR (Non-Af Amer) > 60 > 60 BUN/Creatinine Ratio 22 24 Glucose 99 107 H POC Glucose Calculated Osmolality 284 289 Lactic Acid Calcium 7.5 L 7.3 L Phosphorus 1.7 L Magnesium 1.4 L Specimen Rejected 3 07/02/18 07/02/18 07/02/18 14:15 11:08 08:40 WBC 1.4 L RBC 3.04 L Hgb 9.6 L D Hct 29.5 L MCV 97.0 D MCH 31.6 MCHC 32.5 RDW 20.1 H Plt Count 56 L MPV 13.7 H Immature Gran % 2.8 Seg Neutrophils % 35.6 Lymphocytes % 26.6 Monocytes % 32.9 Eosinophils % 0.7 Basophils % 1.4 Neutrophils # 0.5 L Lymphocytes # 0.4 L Monocytes # 0.5 Eosinophils # 0.0 Basophils # 0.0 Platelet Estimate Decreased L Large Platelets Present A Polychromasia Anisocytosis Macrocytosis Sodium Potassium Chloride Carbon Dioxide BUN Creatinine Est GFR ( Amer) Est GFR (Non-Af Amer) BUN/Creatinine Ratio Glucose POC Glucose 108 H Calculated Osmolality Lactic Acid 1.8 Calcium Phosphorus Magnesium Specimen Rejected 3 07/02/18 05:51 WBC RBC Hgb Hct MCV MCH MCHC RDW Plt Count MPV Immature Gran % Seg Neutrophils % Lymphocytes % Monocytes % Eosinophils % Basophils % Neutrophils # Lymphocytes # Monocytes # Eosinophils # Basophils # Platelet Estimate Large Platelets Polychromasia Anisocytosis Macrocytosis Sodium Potassium Chloride Carbon Dioxide BUN Creatinine Est GFR ( Amer) Est GFR (Non-Af Amer) BUN/Creatinine Ratio Glucose POC Glucose Calculated Osmolality Lactic Acid Calcium Phosphorus Magnesium Specimen Rejected Container Consult Discharge Plan - Plan Referrals: Sukumar Wilkins Jr, MD [Primary Care Provider] - (called and left message, [facility] will call back for an appt.) - Attending Attestation I have seen and examined Ms. Brady and agree with Ms. Jacques's assessment. 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 Over the past year, she has had worsening cytopenias. In addition, she has had recent upper GI hemorrhage from gastric hemorrhage and AVMs. Her H/H acutely decreased from mid June to 6.4 at time of admission. She is heme positive. I am concerned she has acute gastrointestinal hemorrhage compounding her anemia. Agree with GI evaluation. Maintain hemoglobin at 8 or above given symptoms. No indication for G-CSF. We will continue to follow. Inpatient Charges Provider: Dr. Odalis Ely Consult - Inpatient Medicare Only: [id number] <Tyra Jacques L - Last Filed: 07/04/18 10:53> Date of Encounter: 07/03/18 Time of Encounter: 16:00 Assessment and Plan (1) Myelodysplastic syndrome Status: Chronic Assessment and plan: Admitted with symptomatic anemia and hgb 6.4 Pancytopenia is secondary to MDS, however, her acute hgb decrease may be secondary to concomitant GI loss given patients history of GIB Her MCV has normalized (typically macrocytic consistent with patients MDS) which may indicate GI loss She did have an occult blood stool sample that was positive on 07/01/2018 EGD and colonoscopy 05/01/2018 with recently bleeding AVMs treated with APC, and colonoscopy showed diverticulosis and blood in colon Plan: Will check iron stores with labs in AM Oncology would agree with endoscopy evaluation per GI's recommendation to evaluate for GIB given history She would benefit from close monitoring as an outpatient to evaluate need for continued transfusional support. Will continue to follow patient during inpatient stay - Data of Consult Patient: known to practice within the last 3 years Consult date: 07/03/18 Requesting Physician: Madi Nobles MD Primary Care Provider: Sukumar Wilkins Jr, MD - Consult Narrative Reason for consult: MDS, H/O pancreatic adenocarcinoma History of present illness: Ms. 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 Cytogenetics was that of a normal female karyotype. She was started on treatment with hypomethylating agent (Vidaza) but have to be stopped due to severe allergic reaction. With decitabine she developed cytopenia and C. difficile associated diarrhea and encephalopathy. Bone marrow biopsy 01/12/17 showed a hypercellular marrow with more than 90% cellularity with left shifted erythroid predominance and megakaryocytic hyperplasia with dyspoietic features. There is some mild myelofibrosis but not severe enough to suggest pathologic bone marrow. Patient was admitted to hospital in 04/16 with abdominal pain, bilirubin level greater than 7. MRCP by Dr. Hernandez was completed for a pancreatic head tumor in CT imaging. The patient's biopsy results on 05/01/17 show pancreatic adenocarcinoma. Further imaging included PET that was neg for any mets/lymphadenopathy. She underwent whipple procedure by Dr Torrez in 05/17--pT3pN1 stage IIB, uncinate margin positive for ca and 10/23 LN positive. Gemcitabine initiated 07/13/17, she had some delays in treatment secondary to febrile neutropenia. Cycle #4 completed 09/07/2017, chemoradiation to the abdomen on 12/10/17. CT imaging has been without sign of recurrence. Past Med Surg Social Fam HX - Past Medical History Medical history: cancer, hyperlipidemia, hypertension, renal disease, other Additional medical history: pancreatic cancer Psychiatric history: anxiety - Past Surgical History Surgical History: cholecystectomy, hip replacement, hysterectomy, other Additional surgical history: Whipple surgery 05/2017 - Social History Smoking Status: Former smoker Smokeless Tobacco Status: No Alcohol use: none Drug use: none - Family History Mother Adopted: No Living Status: Hx Family Cardiac Disorders: Yes Hx Family Respiratory Disorders: No Hx Family Cancer: Yes Hx Family GI Disorders: No Hx Family Endocrine Disorder: No Hx Family Neuromuscular Disorders: No Hx Family Neurologic Disorders: No Hx Family HEENT Disorders: No Hx Family Autoimmune Disorders: No Oncology - Exam - Constitutional Vitals: Temp Pulse Resp BP Pulse Ox 98.2 F 97 16 130/78 99 07/03/18 16:27 07/03/18 16:27 07/03/18 16:27 07/03/18 16:27 07/03/18 16:27 Oncology - Results Labs: 3 07/03/18 07/03/18 07/02/18 05:30 05:30 14:15 WBC 1.5 L RBC 2.89 L Hgb 9.2 L Hct 28.1 L MCV 97.2 MCH 31.8 MCHC 32.7 RDW 20.0 H Plt Count 49 L MPV 13.8 H Immature Gran % 0.0 Seg Neutrophils % 34.4 Lymphocytes % 35.9 Monocytes % 29.0 Eosinophils % 0.0 Basophils % 0.7 Neutrophils # 0.5 L Lymphocytes # 0.5 L Monocytes # 0.4 Eosinophils # 0.0 Basophils # 0.0 Platelet Estimate Decreased L Large Platelets Present A Polychromasia 1+ A Anisocytosis 2+ A Macrocytosis Present A Sodium 137 139 Potassium 3.8 3.1 L Chloride 110 H 110 H Carbon Dioxide 24 25 BUN 13 13 Creatinine 0.59 L 0.54 L Est GFR ( Amer) > 60 > 60 Est GFR (Non-Af Amer) > 60 > 60 BUN/Creatinine Ratio 22 24 Glucose 99 107 H POC Glucose Calculated Osmolality 284 289 Lactic Acid Calcium 7.5 L 7.3 L Phosphorus 1.7 L Magnesium 1.4 L Specimen Rejected 3 07/02/18 07/02/18 07/02/18 14:15 11:08 08:40 WBC 1.4 L RBC 3.04 L Hgb 9.6 L D Hct 29.5 L MCV 97.0 D MCH 31.6 MCHC 32.5 RDW 20.1 H Plt Count 56 L MPV 13.7 H Immature Gran % 2.8 Seg Neutrophils % 35.6 Lymphocytes % 26.6 Monocytes % 32.9 Eosinophils % 0.7 Basophils % 1.4 Neutrophils # 0.5 L Lymphocytes # 0.4 L Monocytes # 0.5 Eosinophils # 0.0 Basophils # 0.0 Platelet Estimate Decreased L Large Platelets Present A Polychromasia Anisocytosis Macrocytosis Sodium Potassium Chloride Carbon Dioxide BUN Creatinine Est GFR ( Amer) Est GFR (Non-Af Amer) BUN/Creatinine Ratio Glucose POC Glucose 108 H Calculated Osmolality Lactic Acid 1.8 Calcium Phosphorus Magnesium Specimen Rejected 3 07/02/18 05:51 WBC RBC Hgb Hct MCV MCH MCHC RDW Plt Count MPV Immature Gran % Seg Neutrophils % Lymphocytes % Monocytes % Eosinophils % Basophils % Neutrophils # Lymphocytes # Monocytes # Eosinophils # Basophils # Platelet Estimate Large Platelets Polychromasia Anisocytosis Macrocytosis Sodium Potassium Chloride Carbon Dioxide BUN Creatinine Est GFR ( Amer) Est GFR (Non-Af Amer) BUN/Creatinine Ratio Glucose POC Glucose Calculated Osmolality Lactic Acid Calcium Phosphorus Magnesium Specimen Rejected Container Inpatient Charges Provider: Dr. Odalis Ely
[2018-07-04 04:49] LABS: % Iron Saturation 26 % (15-50); Iron 48 mcg/dL (50-170); Transferrin 131 mg/dL (203-362)
[2018-07-04 05:05] LABS: Ferritin 207 ng/mL (10-120)
[2018-07-04] MEDS: Pantoprazole 40 MG VIAL IVP SCH (07:14)
[2018-07-04 08:29] LABS: Hemoglobin 9.8 g/dL (11.5-15.4); Mean Corpuscular HGB Conc 31.6 g/dL (31.6-35.5); Mean Corpuscular Hemoglobin 31.1 pg (28.0-33.3); Mean Corpuscular Volume 98.4 fL (83.0-100.0); Mean Platelet Volume 13.3 fL (9.4-12.4); Red Blood Count 3.15 M/mcL (3.82-4.97); Red Cell Distribution Width 19.4 % (11.5-14.5)
[2018-07-04 08:30] LABS: Platelet Count 53 K/mcL (140-400)
[2018-07-04 08:51] LABS: Magnesium 1.5 mg/dL (1.6-2.6); Phosphorous 1.9 mg/dL (2.7-4.5)
[2018-07-04] MEDS: Folic Acid 1 MG TABLET PO SCH (08:54)
[2018-07-04] MEDS: Cyanocobalamin (B-12) 1,000 MCG TABLET PO SCH (08:55)
[2018-07-04] MEDS: Cholecalciferol (D-3) 1,000 UNIT TABLET PO SCH (08:55)
--- NOTE | 2018-07-04 09:00 | Discharge Summary ---
- NOTES TO OUTPATIENT PROVIDER Notes to Outpatient Provider: Follow up with Hem&Onc within a week of hospital discharge. Follow up with GI within 1 or 2 weeks of hospital discharge. Orders not resulted at time of discharge: Pending orders 07/04/18 07:31 BMP [Basic Metabolic Panel] Routine 07/04/18 08:56 XR KUB [XR] Routine Date of Encounter: 07/04/18 Time of Encounter: 08:58 - Discharge Diagnosis (1) Acute blood loss anemia Priority: Primary Status: Acute (2) GI bleed Priority: Secondary Status: Chronic Qualifiers: GI bleed type/associated pathology: angiodysplasia of stomach and duodenum Qualified Code(s): K31.811 - Angiodysplasia of stomach and duodenum with bleeding (3) Pancytopenia Priority: Secondary Status: Chronic (4) Abdominal pain Priority: Secondary Status: Resolved Qualifiers: Abdominal location: lower abdomen, unspecified Qualified Code(s): R10.30 - Lower abdominal pain, unspecified (5) DVT prophylaxis Priority: Secondary Status: Chronic (6) Hypophosphatemia Priority: Secondary Status: Resolved (7) Hypomagnesemia Priority: Secondary Status: Resolved (8) Proctitis Priority: Secondary Status: Acute (9) Myelodysplastic syndrome Priority: Secondary Status: Chronic (10) Pancreatic cancer Priority: Secondary Status: Chronic Assessment and Plan: S/P Whipple's procedures Qualifiers: Pancreatic malignancy location: head of pancreas Qualified Code(s): C25.0 - Malignant neoplasm of head of pancreas Hospital course: Ms. Brady is a 78 year old female past medical history significant for myelodysplastic syndrome, pancytopenia, pancreatic cancer status post Whipple's procedures, hypertension and hyperlipidemia. Patient presented to the emergency room following a syncopal episode, patient also reported fatigue, abdominal pain and dark stool. Patient H&H found to be 6.4&21.6. patient transfused 2 units of PRBCs, after which H&H has remain stable. GI consulted, recommended against EGD due to pancytopenia/leukopenia and recommended Oncology consult. Oncology consulted recommended outpatient follow. CT abd/pelvis done due to Abdominal pain on presentation reported as IMPRESSION : 1. Suspected proctitis. 2. Right-sided pyelitis. 3. Status post Whipple procedure. No hematochezia, or hematemesis seen or reported during this admission. Patient acute symptoms have resolved. Hemodynamically stable to be discharged, recommended to follow up with Hem&Onc and GI within a week of hospital discharge. - Time Spent with Patient Total time spent providing and/or coordinating discharge services: Less than 30 minutes - Discharge Medications Home Medications: Oxazepam [Serax] 10 mg PO BID 04/27/17 [History] Oxycodone HCl/Acetaminophen [Endocet 5-325 Tablet] 1 tab PO Q8H PRN 05/22/17 [ History] Amitriptyline HCl 75 mg PO HS 06/07/17 [History] Prochlorperazine Maleate [Compazine] 10 mg PO Q6HR PRN #120 tablet 07/13/17 [Rx] Lidocaine/Prilocaine [Emla] 1 appl TP AD PRN #30 gm 08/03/17 [Rx] Cholecalciferol (Vitamin D3) [Vitamin D3] 400 unit PO DAILY #30 capsule [Rx] Docusate [Colace] 100 mg PO BID #60 capsule 03/27/18 [Rx] Lipase/Protease/Amylase [Celena Singh 12,000 Units Capsule] 1 cap PO TIDWM 04/29/18 [History] Omeprazole [PriLOSEC] 40 mg PO DAILY@0630 30 Days #30 capsule. 05/02/18 [Rx] Sucralfate [Carafate] 1 gm PO TID #200 oral.susp 05/10/18 [Rx] Ondansetron ODT [Zofran ODT] 4 mg PO Q4H PRN #120 tab.rapdis 06/18/18 [Rx] Metoclopramide [Reglan] 10 mg PO TID PRN #90 tablet 06/21/18 [Rx] Furosemide [Lasix] 20 mg PO DAILY 07/02/18 [History] Lipase/Protease/Amylase [Celena Singh 12,000 Units Capsule] 1 each PO AD 07/02/18 [ History] Lipase/Protease/Amylase [Celena Singh 6,000 Units Capsule] 2 each PO AD PRN capsule. 07/04/18 [Rx] Allergies/Adverse Reactions: 3 Allergy/AdvReac Type Severity Reaction Status Date / Time lorazepam [From Ativan] AdvReac Intermediate Confusion Verified 05/10/18 10:09 Sulfa (Sulfonamide AdvReac Mild Weakness Verified 05/10/18 10:09 Antibiotics) Zolpidem [From Ambien] AdvReac Confusion Verified 05/10/18 10:09 Date of admission: 07/02/18 03:57 Primary care physician: Sukumar Wilkins Jr, MD Consults: 07/02/18 05:07 Consult to Gastroenterology [CONS] Routine Consulting Provider: [facility] Reason for Consult: Patient known to service with recurring GI bleed leading to symptomatic anemia. Call Completed: No 07/03/18 09:39 Consult to Occupational Therapy [CONS] Routine Comment: Evaluate, develop and implement POC Reason for Consult: Generalized weakness Does patient have active BEDREST order?: No Is patient medically & hemodynamically stable?: Yes 07/03/18 13:19 Consult to Oncology [CONS] Routine Consulting Provider: [facility] Reason for Consult: Pancytopenia. Symptomatic anemia. Hx of MDS. Call Completed: Yes - Constitutional Vitals: Temp Pulse Resp BP Pulse Ox 98.0 F 105 17 153/99 99 07/04/18 07:38 07/04/18 07:38 07/04/18 07:38 07/04/18 07:38 07/04/18 07:49 Exam: General: Alert and oriented x4. In no acute distress Skin:Temporal wasting. Cardiovascular: RRR, Normal S1 & S2, no rubs, murmurs or gallops. No JVD. Lungs: CTA bilaterally, no wheezes, rales or crackles. Abdomen: Soft, non-tender, no rigidity. NABS in all 4 quadrants Extremities: 2+ edema in the lower extr b/l. Neurological: Normal cognition. CN II-XII intact. Rest of the physical exam is non contributory - Patient Status Disposition: Home Health Service Condition: Fair Functional capacity at discharge: independent ambulation Overall status at discharge: patient is progressing back to baseline - Discharge Instructions Follow Up With: Sukumar Wilkins Jr, MD [Primary Care Provider] - - Diet and Activity Activity: as per physical therapy Diet: advance to your usual diet
--- NOTE | 2018-07-04 09:14 | Physician Discharge Referral ---
Home Health/Hosp Referral Info Transfer to: Home Health - Diagnosis (1) Acute blood loss anemia Priority: Primary Status: Resolved (2) GI bleed Status: Resolved (3) Pancytopenia Priority: Secondary Status: Chronic (4) Abdominal pain Priority: Secondary Status: Resolved (5) DVT prophylaxis Priority: Secondary Status: Chronic (6) Hypophosphatemia Priority: Secondary Status: Resolved (7) Hypomagnesemia Priority: Secondary Status: Resolved (8) Proctitis Priority: Secondary Status: Acute (9) Myelodysplastic syndrome Priority: Secondary Status: Chronic (10) Pancreatic cancer Priority: Secondary Status: Chronic - Respiratory Orders None Smoking Cessation: Smoking cessation has been advised. For more information, call the [employer] Tobacco Quit Line at 5-145-YCXI-NOW. - Diet/Nutrition Diet/Nutrition Orders: Regular - Activity Activity Orders: Ambulate - Services Needed Following services are medically necessary services: Physical Therapy, Occupational Therapy - Transfer Medications Home Medications: Oxazepam [Serax] 10 mg PO BID 04/27/17 [History] Oxycodone HCl/Acetaminophen [Endocet 5-325 Tablet] 1 tab PO Q8H PRN 05/22/17 [ History] Amitriptyline HCl 75 mg PO HS 06/07/17 [History] Prochlorperazine Maleate [Compazine] 10 mg PO Q6HR PRN #120 tablet 07/13/17 [Rx] Lidocaine/Prilocaine [Emla] 1 appl TP AD PRN #30 gm 08/03/17 [Rx] Cholecalciferol (Vitamin D3) [Vitamin D3] 400 unit PO DAILY #30 capsule [Rx] Docusate [Colace] 100 mg PO BID #60 capsule 03/27/18 [Rx] Lipase/Protease/Amylase [Celena Singh 12,000 Units Capsule] 1 cap PO TIDWM 04/29/18 [History] Omeprazole [PriLOSEC] 40 mg PO DAILY@0630 30 Days #30 capsule. 05/02/18 [Rx] Sucralfate [Carafate] 1 gm PO TID #200 oral.susp 05/10/18 [Rx] Ondansetron ODT [Zofran ODT] 4 mg PO Q4H PRN #120 tab.rapdis 06/18/18 [Rx] Metoclopramide [Reglan] 10 mg PO TID PRN #90 tablet 06/21/18 [Rx] Furosemide [Lasix] 20 mg PO DAILY 07/02/18 [History] Lipase/Protease/Amylase [Celena Singh 12,000 Units Capsule] 1 each PO AD 07/02/18 [ History] Lipase/Protease/Amylase [Celena Singh 6,000 Units Capsule] 2 each PO AD PRN capsule. 07/04/18 [Rx] Allergies/Adverse Reactions: 3 Allergy/AdvReac Type Severity Reaction Status Date / Time lorazepam [From Ativan] AdvReac Intermediate Confusion Verified 05/10/18 10:09 Sulfa (Sulfonamide AdvReac Mild Weakness Verified 05/10/18 10:09 Antibiotics) Zolpidem [From Ambien] AdvReac Confusion Verified 05/10/18 10:09 Certification: Further, I certify that my clinical findings support that this patient is homebound (i.e. absences from home require considerable and taxing effort and are for medical reasons or orthodoxy services or infrequently or short duration when for other reasons) because: Homebound Reason: Patient requires assistance of a person or device to safely leave home Attestation: My signature below is to certify that this patient is under my care and that I, or nurse practitioner, or a physician's health assistant working with me, has a face-to -face encounter with this patient.
[2018-07-04 09:45] LABS: BUN/Creatinine Ratio 18 (6-26); Blood Urea Nitrogen 9 mg/dL (8-23); Carbon Dioxide 24 mEq/L (23-29); Chloride 106 mEq/L (98-107); Glucose 118 mg/dL (70-105); Osmolality,Calculated 284 (280-300); Potassium 3.2 mEq/L (3.5-5.1); Sodium 137 mEq/L (136-145); eGFR For Non-African Americans > 60 (> 60)
--- NOTE | 2018-07-04 11:12 | Electrocardiograph Report ---
[address] [address] Test Date: 2018-07-01 Pat Name: Aroldo Brady Department: EXAM8 Room: 2A71 Gender: F Director Of Materials: : 1940 Requested By: Kristin See Order Number: [id number] Reading MD: Tony Morris Measurements Intervals [place] Rate: 110 P: 25 [place]: 147 QRS: -15 QRSD: 71 T: 18 QT: 331 QTc: 448 Interpretive Statements Sinus tachycardia Abnormal R-wave progression, early transition Borderline T abnormalities, diffuse leads Electronically Signed On 07-04-2018 11:10:50 EDT by Tony Morris
[2018-07-04 11:38] VITALS: BP 149/91
--- NOTE | 2018-07-04 13:59 | Palliative - Consult Note ---
Date of Encounter: 07/04/18 Time of Encounter: 11:00 - Assessment and Plan (1) Goals of care, counseling/discussion Current Visit: Yes Status: Acute Assessment and plan: Met with patient, niece in the room and daughter Nyasia on the phone. Discussed current medical coditions, trajectory of illness, overall poor prognosis, goals of care and treatment options. Patient states she would like to continue seeking treatment for her condition, for as long as it is offered. Her main need at this time was to find a service that can give her blood transfusions at home so she does not have o come to the hospital. Explained to pt that blood transfusions are not ussually done as a home infusion because of the risk of transport and complications. Discused hospice care, pt has a good understanding of hospice services, as her is currently home on hospice. She understands that she is hospice candidate, however she states she is "not yet ready to " and is willing to continue all offered treatment. Discussed advanced care planning, pt wants to be DNRCCA, but would like her daughter to come in this afternoon to sign the form. Daughter to come and meet with palliative care this afternoon at 1530. Palliative-CN HPI - Data of Consult Requesting Physician: Madi Nobles MD Primary Care Provider: Sukumar Wilkins Jr, MD - Consult Narrative Palliative Care/Comfort Measures: Palliative care Reason for consult: GOC and hospice evaluation History of present illness: Ms. Brady is a 78 year old female with h/o pancytopenia and MDS with refractory cytopenia presented to the hospital with complain of dizziness and fainting. At the time of admission her Hb was 6.4, she was transfused 2 PRBC. She did have an occult blood stool sample that was positive on 07/01/2018 EGD and colonoscopy 05/01/2018 with recently bleeding AVMs treated with APC, and colonoscopy showed diverticulosis and blood in colon. GI recommended against invasive procedure due to pancytopenia, and oncology recommended outpt follow up. Palliative care consult for GOC and hospice evaluation. Pt has history of pancreatic adenocarcinoma 05/01/17, s/p whipple procedure on , s/p chemotherapy Cycle #4 completed 09/07/2017, chemoradiation to the abdomen on 12/10/17. CT imaging has been without sign of recurrence. At the time of exam, pt was AAO x 3, in no acute distress. Niece was at the bedside. She stated she is feeling much better today. She complained of reccurrent nausea and bloating if she eats a big meal. otherwise ROS was negative. CC: Madi Nobles MD - Time Spent with Patient Time: Total time spent is greater than 50% face to face with pt, in coordination of care (as documented) at patient's floor/unit and/or counseling patient: greater than 60 minutes Past Med Surg Social Fam HX - Past Medical History Medical history: cancer, hyperlipidemia, hypertension, renal disease, other Additional medical history: pancreatic cancer Psychiatric history: anxiety - Past Surgical History Surgical History: cholecystectomy, hip replacement, hysterectomy, other Additional surgical history: Whipple surgery 05/2017 - Social History Smoking Status: Former smoker Smokeless Tobacco Status: No Alcohol use: none Drug use: none - Family History Mother Adopted: No Living Status: Hx Family Cardiac Disorders: Yes Hx Family Respiratory Disorders: No Hx Family Cancer: Yes Hx Family GI Disorders: No Hx Family Endocrine Disorder: No Hx Family Neuromuscular Disorders: No Hx Family Neurologic Disorders: No Hx Family HEENT Disorders: No Hx Family Autoimmune Disorders: No Medications and Allergies Oxazepam [Serax] 10 mg PO BID 04/27/17 [History] Oxycodone HCl/Acetaminophen [Endocet 5-325 Tablet] 1 tab PO Q8H PRN 05/22/17 [ History] Amitriptyline HCl 75 mg PO HS 06/07/17 [History] Prochlorperazine Maleate [Compazine] 10 mg PO Q6HR PRN #120 tablet 07/13/17 [Rx] Lidocaine/Prilocaine [Emla] 1 appl TP AD PRN #30 gm 08/03/17 [Rx] Cholecalciferol (Vitamin D3) [Vitamin D3] 400 unit PO DAILY #30 capsule [Rx] Docusate [Colace] 100 mg PO BID #60 capsule 03/27/18 [Rx] Lipase/Protease/Amylase [Celena Singh 12,000 Units Capsule] 1 cap PO TIDWM 04/29/18 [History] Omeprazole [PriLOSEC] 40 mg PO DAILY@0630 30 Days #30 05/02/18 [Rx] Sucralfate [Carafate] 1 gm PO TID #200 oral.susp 05/10/18 [Rx] Ondansetron ODT [Zofran ODT] 4 mg PO Q4H PRN #120 tab.rapdis 06/18/18 [Rx] Metoclopramide [Reglan] 10 mg PO TID PRN #90 tablet 06/21/18 [Rx] Furosemide [Lasix] 20 mg PO DAILY 07/02/18 [History] Lipase/Protease/Amylase [Celena Singh 12,000 Units Capsule] 1 each PO AD 07/02/18 [ History] Lipase/Protease/Amylase [Celena Singh 6,000 Units Capsule] 2 each PO AD PRN capsule. 07/04/18 [Rx] 3 Allergy/AdvReac Type Severity Reaction Status Date / Time lorazepam [From Ativan] AdvReac Intermediate Confusion Verified 05/10/18 10:09 Sulfa (Sulfonamide AdvReac Mild Weakness Verified 05/10/18 10:09 Antibiotics) Zolpidem [From Ambien] AdvReac Confusion Verified 05/10/18 10:09 - Constitutional Constitutional ROS PAL: frequent falls, malaise - EENT Eyes: as per HPI - Cardiovascular Cardiovascular ROS: no chest pain - Respiratory Respiratory: no dyspnea - Gastrointestinal Gastrointestinal: abdominal pain, no diarrhea, no loose stools, no melena - Genitourinary Palliative ROS female: no dysuria, no hematuria - Musculoskeletal Musculoskeletal ROS IM: muscle weakness - Integumentary ROS Integumentary: dry skin - Neurological Neurological ROS: as per HPI Palliative Care-Exam - Constitutional Vitals: Temp Pulse Resp BP Pulse Ox 98.2 F 97 16 149/91 99 07/04/18 11:37 07/04/18 11:37 07/04/18 11:37 07/04/18 11:37 07/04/18 11:37 Exam: General: Alert and oriented x4. In no acute distress Skin:Temporal wasting. Cardiovascular: RRR, Normal S1 & S2, no rubs, murmurs or gallops. No JVD. Lungs: CTA bilaterally, no wheezes, rales or crackles. Abdomen: Soft, non-tender, no rigidity. NABS in all 4 quadrants Extremities: 2+ edema in the lower extr b/l. Neurological: Normal cognition. CN II-XII intact. Rest of the physical exam is non contributory Internal Medicine - CN: Reslt - Labs CBC & Chem 7: 07/04/18 08:00 07/04/18 08:00 Labs: Short CBC 07/04/18 Range/Units 08:00 WBC 1.9 L (4.3-11.1) K/mcL Hgb 9.8 L (11.5-15.4) g/dL Hct 31.0 L (35.3-44.9) % Plt Count 53 L (140-400) K/mcL BMP 07/04/18 08:00 Sodium 137 Potassium 3.2 L Chloride 106 Carbon Dioxide 24 BUN 9 Creatinine 0.51 L Glucose 118 H Calcium 8.0 L - ABG Interpretation ABG results: PT/INR, D-dimer PT 15.3 Seconds (9.4-12.1) H 07/01/18 23:17 - Impressions Impressions [facility] X-Ray 07/04/18 08:56 IMPRESSION: Unremarkable appearing abdomen. D/ / 07/04/2018 13:19:20 Eligio Renae MD / chidi Interpreting Provider: Eligio Renae MD Consult Discharge Plan - Plan Referrals: Sukumar Wilkins Jr, MD [Primary Care Provider] - (called and left message, [facility] will call back for an appt.) Palliative Quality Palliative Quality: Screen for Code Status: Yes, Screen for Goals of Care: Yes, Screen for Pain: Yes, If Pain Regimen Started, Initiate Bowel Regimen: NA, Screen for Nausea/Vomitting: Yes Code Status: 07/03/18 09:27 CODE [Resuscitation Status: Active] [RES] Routine Comment: Resuscitation Status: Full Code
--- NOTE | 2018-07-04 14:17 | Oncology Inp Progress Note ---
Date of Encounter: 07/04/18 Time of Encounter: 13:00 (1) Myelodysplastic syndrome Status: Chronic Assessment and plan: Admitted with symptomatic anemia and hgb 6.4 Pancytopenia is secondary to MDS, however, her acute hgb decrease may be secondary to concomitant GI loss given patients history of GIB Her MCV has normalized (typically macrocytic consistent with patients MDS) which may indicate GI loss She did have an occult blood stool sample that was positive on 07/01/2018 EGD and colonoscopy 05/01/2018 with recently bleeding AVMs treated with APC, and colonoscopy showed diverticulosis and blood in colon She receives Aranesp C7othav for MDS Iron stores adequate Plan: Oncology agrees with GI evaluation for endoscopy, however, patient has had a turn of events with the passing of her this morning and planned for discharge [facility] is planning to follow up in 1-2 weeks for outpatient endoscopy She would benefit from close monitoring as an outpatient to evaluate need for continued transfusional support. She was given an appointment for f/u with her next aranesp injection. She was encouraged to call in the meantime for any symptoms associated with anemia or for any other questions or concerns. Oncology: Subj Interval history: I noticed patient clearly distraught upon entering room, patient states that she just foound out that her earlier this morning. Family are at bedside. Nurse at bedside with discharge instructions as patient wishes to be home to be with family during this time. - Constitutional Vitals: Vital Signs Temp Pulse Resp BP Pulse Ox 07/04/18 11:37 98.2 F 97 16 149/91 99 07/04/18 07:49 99 07/04/18 07:38 98.0 F 105 17 153/99 99 07/04/18 05:02 98.8 F 103 16 143/81 98 07/04/18 01:19 98.5 F 102 15 135/81 97 07/03/18 21:03 98.7 F 99 15 138/82 98 07/03/18 20:10 99 07/03/18 16:27 98.2 F 97 16 130/78 99 Intake and Output 07/03/18 07/04/18 07/04/18 23:59 07:59 15:59 Intake Total 100 / 100 393 / 393 Output Total 300 / 300 Balance -200 / -200 393 / 393 Intake: IV Fluids 100 / 100 153 / 153 Flexbumin 25 gm In 100 ml @ 60 100 / 100 mls/hr IVC .[id number] DEREJE Rx#: [id number] Sodium Phosphate 30 MMOL In 0.9 153 / 153 % Sodium Chloride 250 ML @ 55 mls/hr IVPB ONCE ONE Rx#: [id number] Oral 240 / 240 Output: Urine 300 / 300 Other: Meal Breakfast Percent of Meal Consumed 10% Stool Size Small Moderate Stool Consistency formed formed Stool Characteristics Normal for Patient Stool Color Brown Brown # Voids 1 1 # Bowel Movements 1 1 Weight 49.3 kg Patient Weight 07/04/18 23:59 Weight 49.3 kg General appearance: cooperative, no acute distress, no febrile - Head Head exam: Present: atraumatic - Respiratory Respiratory exam: Present: CTAB. Absent: respiratory distress - Cardiovascular Cardiovascular exam: Present: RRR, +S1, +S2 - GI/Abdominal GI/Abdominal exam: Present: normal bowel sounds, soft. Absent: tenderness - Extremities Exam Extremities exam: Absent: calf tenderness - Neurological Exam Neurological exam: Present: alert, oriented X3, no focal deficits, strengths equal and symetr throughout Oncology: Obj Data - Labs CBC & Chem 7: 07/04/18 08:00 07/04/18 08:00 Labs: Laboratory Results - last 24 hr 07/04/18 07/04/18 07/04/18 04:00 08:00 08:00 WBC 1.9 L RBC 3.15 L Hgb 9.8 L Hct 31.0 L MCV 98.4 MCH 31.1 MCHC 31.6 RDW 19.4 H Plt Count 53 L MPV 13.3 H Sodium 137 Potassium 3.2 L Chloride 106 Carbon Dioxide 24 BUN 9 Creatinine 0.51 L Est GFR ( Amer) > 60 Est GFR (Non-Af Amer) > 60 BUN/Creatinine Ratio 18 Glucose 118 H Calculated Osmolality 284 Calcium 8.0 L Phosphorus 1.9 L Magnesium 1.5 L Iron 48 L % Saturation 26 Transferrin 131 L Ferritin 207 H - Impressions Impressions [facility] X-Ray 07/04/18 08:56 IMPRESSION: Unremarkable appearing abdomen. D/ / 07/04/2018 13:19:20 Eligio Renae MD / chidi Interpreting Provider: Eligio Renae MD - ABG Interpretation ABG results: PT/INR, D-dimer PT 15.3 Seconds (9.4-12.1) H 07/01/18 23:17 Consult Discharge Plan - Plan Referrals: Sukumar Wilkins Jr, MD [Primary Care Provider] - (called and left message, [facility] will call back for an appt.) Inpatient Charges Provider: Tyra Jacques CNP Follow up - Inpatient: [id number]
== END 2018-07-04 14:03 | disposition home health service (06) ==
LOC: 2ANU 22:30 → EMEROOARM 22:30 → SUATTDRO 07-02 03:57 → 2ANU 07-02 04:09
PROVIDERS: ADMIT Internal Medicine; ATTEND Internal Medicine

== ENCOUNTER 2018-07-16 18:38 | Inpatient (IN) ==
[2018-07-16 20:05] LABS: Basophils % 1.3 %; Eosinophils % 0.6 %; Hemoglobin 6.8 g/dL (11.5-15.4); Immature Granulocytes % 0.6 % (0-4); Lymphocytes # 0.6 K/mcL (0.6-4.6); Mean Corpuscular HGB Conc 30.9 g/dL (31.6-35.5); Mean Corpuscular Hemoglobin 32.1 pg (28.0-33.3); Mean Corpuscular Volume 103.8 fL (83.0-100.0); Mean Platelet Volume 13.3 fL (9.4-12.4); Monocytes # 0.6 K/mcL (0.0-1.3); Neutrophils # 0.4 K/mcL (1.6-8.9); Red Blood Count 2.12 M/mcL (3.82-4.97); Red Cell Distribution Width 21.4 % (11.5-14.5); Segmented Neutrophils % 27.5 %
[2018-07-16 20:07] LABS: Platelet Count 54 K/mcL (140-400)
[2018-07-16 20:09] LABS: INR 1.4; Prothrombin Time 15.6 Seconds (9.4-12.1)
[2018-07-16 20:11] LABS: Activated Partial Thrombo Time 30.2 Seconds (26.0-36.0)
[2018-07-16] MEDS ORDERED: Pantoprazole 40 MG VIAL IVP ONE (20:12)
[2018-07-16] MEDS ORDERED: 0.9 % Sodium Chloride 500 ML IVC ONE (20:12)
[2018-07-16 20:19] LABS: Troponin I < 0.03 ng/mL (< 0.04)
[2018-07-16 20:25] LABS: Anisocytosis 2+ (Not Present); Large Platelets Present (Not Present); Macrocytosis Present (Not Present); Platelet Estimate Marked Decrease (Normal); Reactive Lymphocytes Present (Not Present); Toxic Granulation Present (Not Present)
[2018-07-16 20:45] LABS: Alanine Aminotransferase 80 Units/L (7-52); Albumin 2.6 g/dL (3.5-5.7); Albumin/Globulin Ratio 0.6 (1.1-2.2); Alkaline Phosphatase 342 Units/L (34-104); Aspartate Amino Transferase 107 Units/L (13-39); BUN/Creatinine Ratio 28 (6-26); Bilirubin,Total 2.8 mg/dL (0.3-1.0); Blood Urea Nitrogen 18 mg/dL (8-23); Calcium 7.9 mg/dL (8.6-10.3); Carbon Dioxide 26 mEq/L (23-29); Chloride 108 mEq/L (98-107); Globulin 4.2 g/dL (2.4-3.5); Glucose 128 mg/dL (70-105); Lipase < 3 Units/L (11-82); Osmolality,Calculated 296 (280-300); Potassium 2.9 mEq/L (3.5-5.1); Sodium 141 mEq/L (136-145); Total Protein 6.8 g/dL (6.4-8.9); eGFR For Non-African Americans > 60 (> 60)
--- NOTE | 2018-07-16 20:54 | Emergency Department Note ---
Disposition Clinical Impression: Pancytopenia, Transaminitis, Elevated bilirubin, Colitis GI bleed Qualifiers: GI bleed type/associated pathology: unspecified gastrointestinal hemorrhage type Qualified Code(s): K92.2 - Gastrointestinal hemorrhage, unspecified Altered mental status Qualifiers: Altered mental status type: unspecified Qualified Code(s): R41.82 - Altered mental status, unspecified Disposition: Admitted As Inpatient Condition: Serious Referrals: Sukumar Wilkins Jr, MD [Primary Care Provider] - Forms: ED Satisfaction Letter, Work/School Release GI Bleed HPI - General Chief complaint: ED Abdominal Pain Stated complaint: ams Time Seen by Provider: 07/16/18 18:53 Source: patient Mode of arrival: private vehicle Limitations: altered mental status Nursing Notes Reviewed: Yes Vital Signs Reviewed: Yes - History of Present Illness HPI Narrative: 78-year-old female presents to the ER with complaint of generalized weakness, frequent falls and black stools. Reports she has been admitted twice within the last month for GI bleed. They were unable to scope her secondary to thrombocytopenia. Her also passed all she was in the hospital so she signed out. She has a history of myelodysplastic syndrome as well as pancreatic cancer with a Whipple performed roughly 1 year ago. She is currently not on chemotherapy. She previously received radiation. Family reports at home she has had nearly 5 falls because she gets very short of breath and has to be caught. We also state over the last few days she has had repetitive questioning. Pt Subjective Complaint: melena Onset (ago): day(s) Consistency: intermittent Improves with: nothing Worsens with: nothing Context: history of GI bleed Associated symptoms: Reports: abdominal pain, nausea, vomiting, shortness of breath Treatments Prior to Arrival: none - Related Data Home Medications Medication Instructions Recorded Confirmed Oxazepam [Serax] 10 mg PO BID 04/27/17 07/02/18 Oxycodone HCl/Acetaminophen 1 tab PO Q8H PRN 05/22/17 07/02/18 [Endocet 5-325 Tablet] Amitriptyline HCl 75 mg PO HS 06/07/17 07/02/18 Lipase/Protease/Amylase [Creon Dr 1 cap PO TIDWM 04/29/18 07/02/18 12,000 Units Capsule] Furosemide [Lasix] 20 mg PO DAILY 07/02/18 07/02/18 Lipase/Protease/Amylase [Celena Singh 1 each PO AD 07/02/18 07/02/18 12,000 Units Capsule] Previous Rx's Medication Instructions Recorded Prochlorperazine Maleate 10 mg PO Q6HR PRN #120 tablet 07/13/17 [Compazine] Lidocaine/Prilocaine [Emla] 1 appl TP AD PRN #30 gm 08/03/17 Cholecalciferol (Vitamin D3) 400 unit PO DAILY #30 capsule 02/14/18 [Vitamin D3] Docusate [Colace] 100 mg PO BID #60 capsule 03/27/18 Omeprazole [PriLOSEC] 40 mg PO DAILY@0630 30 Days #30 05/02/18 capsule. Sucralfate [Carafate] 1 gm PO TID #200 oral.susp 05/10/18 Ondansetron ODT [Zofran ODT] 4 mg PO Q4H PRN #120 tab.rapdis 06/18/18 Metoclopramide [Reglan] 10 mg PO TID PRN #90 tablet 06/21/18 Lipase/Protease/Amylase [Celena Singh 2 each PO AD PRN capsule. 07/04/18 6,000 Units Capsule] Allergies Allergy/AdvReac Type Severity Reaction Status Date / Time lorazepam [From Ativan] AdvReac Intermediate Confusion Verified 05/10/18 10:09 Sulfa (Sulfonamide AdvReac Mild Weakness Verified 05/10/18 10:09 Antibiotics) Zolpidem [From Ambien] AdvReac Confusion Verified 05/10/18 10:09 All systems ED: reviewed and negative except as stated. Constitutional: Denies: fever Cardiovascular: Reports: dyspnea on exertion. Denies: chest pain Respiratory: Reports: dyspnea Gastrointestinal: Reports: abdominal pain, nausea, vomiting, diarrhea Genitourinary: Reports: dysuria. Denies: hematuria Past Medical History - Past Medical History Attestation: Yes The following information was validated with the patient. Source: patient, old records reviewed, obtained from family Medical history: Reports: cancer, hyperlipidemia, hypertension, renal disease, other Surgical history: Reports: cholecystectomy, hip replacement, hysterectomy, other Psychiatric history: Reports: anxiety, depression - Social History Smoking Status: Former smoker Smokeless Tobacco Status: No Alcohol use: Reports: none Drug use: Reports: none Physical Exam - General Limitations: no limitations General appearance: alert, cachectic - Head Head exam: atraumatic, normocephalic, normal inspection - Eye Eye exam: Present: normal appearance - ENT ENT exam: normal exam - Neck Neck exam: Present: normal inspection - Chest Chest inspection: Present: normal inspection, symmetric chest wall rise - Respiratory Respiratory exam: Present: normal lung sounds bilaterally - Cardiovascular Cardiovascular exam: Present: normal rhythm, tachycardia, normal heart sounds - Abdominal Exam Abdominal exam: Present: soft, tenderness (Mild diffuse tenderness.). Absent: distention, guarding, rigidity - Extremities Exam Extremities exam: Present: normal inspection, full ROM - Expanded Upper Extremity Exam Shoulder exam: Present: normal inspection, full ROM Arm exam: Present: normal inspection, full ROM Elbow exam: Present: normal inspection, full ROM Forearm/Wrist exam: Present: normal inspection, full ROM Hand exam: Present: normal inspection, full ROM - Expanded Lower Extremity Exam Hip/Pelvis exam: Present: normal inspection, full ROM Upper leg exam: Present: normal inspection, full ROM Knee exam: Present: normal inspection, full ROM Lower leg exam: Present: normal inspection, full ROM Ankle exam: Present: normal inspection, full ROM Foot/toe exam: Present: normal inspection, full ROM - Neurological Exam Neurological exam: Present: alert, oriented X3, other (No focal deficits. GCS 14.) - Skin Skin exam: Present: warm, dry Course Course Narrative: Patient seen and examined. Vital signs reviewed. She appears very cachectic care and ill. Plan for EKG, chest x-ray, CT scan of her head as well as abdomen. Also we will check labs, type and screen, admission. - Reevaluation(s) Reevaluation #1: Discussed results of imaging labs with the family. Agreeable with plan. Plan to begin transfusion. - Consultations Consultation #1: This case was discussed with the on-call endoscopist Dr. Torrez. Discussed the patient's history as well as recent admissions and labs. She is noted to be anemic today in the setting of pancytopenia. Plan to begin transfusion. They will see the patient in consultation. Vital Signs Temperature 97.6 F 07/16/18 18:44 Pulse Rate 115 07/16/18 18:44 Respiratory Rate 28 07/16/18 18:44 Blood Pressure 119/79 07/16/18 18:44 O2 Sat by Pulse Oximetry 98 10/16/18 18:44 Temperature 97.4 F L 07/16/18 21:31 Pulse Rate 101 07/16/18 21:39 Respiratory Rate 22 07/16/18 21:39 Blood Pressure 142/86 07/16/18 21:39 O2 Sat by Pulse Oximetry 100 07/16/18 21:39 Oxygen Delivery Oxygen Delivery Room Air GI Bleed - MDM Narrative Medical decision making narrative: 78-year-old female presenting to the ER due to generalized weakness, dark stools and altered mental status. She has an underlying history of myelodysplastic syndrome as well as pancreatic cancer status post Whipple one year ago. She is alert and oriented 3-liver demonstrate repetitive questioning. She is hemodynamically stable although a little tachycardic. Labs demonstrate pancytopenia which is actually normal for the patient however she has a 2 g hemoglobin drop over the last week. 2 units of red blood cells ordered for transfusion. She also demonstrates transaminitis and elevated bilirubin. Her CT scan of her abdomen demonstrates acute colitis for which she received Cipro and Flagyl. This case was discussed with the on-call endoscopist who will see the patient in consultation. Will also empirically started the patient on a Protonix drip. Also begin transfusion of fresh frozen plasma and platelets at the request of the hospitalist and the patient will be admitted to the intensive care unit. I had a lengthy discussion at bedside with the patient and family present about goals of care. They state that they want everything done except for intubation. - Lab Data Lab results reviewed: Yes I reviewed the patient's lab results. Result diagrams: 07/16/18 19:31 07/16/18 19:31 Lab Results 07/16/18 07/16/18 07/16/18 Range/Units 19:31 19:31 19:31 WBC 1.6 L (4.3-11.1) K/mcL RBC 2.12 L (3.82-4.97) M/mcL Hgb 6.8 L (11.5-15.4) g/dL Hct 22.0 L (35.3-44.9) % MCV 103.8 H (83.0-100.0) fL MCH 32.1 (28.0-33.3) pg MCHC 30.9 L (31.6-35.5) g/dL RDW 21.4 H (11.5-14.5) % Plt Count 54 L (140-400) K/mcL MPV 13.3 H (9.4-12.4) fL Immature Gran % 0.6 (0-4) % Seg Neutrophils % 27.5 % Lymphocytes % 35.0 % Monocytes % 35.0 % Eosinophils % 0.6 % Basophils % 1.3 % Neutrophils # 0.4 L (1.6-8.9) K/mcL Lymphocytes # 0.6 (0.6-4.6) K/mcL Monocytes # 0.6 (0.0-1.3) K/mcL Eosinophils # 0.0 (0.0-0.6) K/mcL Basophils # 0.0 (0.0-0.2) K/mcL Reactive Lymphocytes Present A (Not Present) Toxic Granulation Present A (Not Present) Platelet Estimate Marked Decrease L (Normal) Large Platelets Present A (Not Present) Anisocytosis 2+ A (Not Present) Macrocytosis Present A (Not Present) PT 15.6 H (9.4-12.1) Seconds INR 1.4 APTT 30.2 (26.0-36.0) Seconds Sodium 141 (136-145) mEq/L Potassium 2.9 L (3.5-5.1) mEq/L Chloride 108 H (98-107) mEq/L Carbon Dioxide 26 (23-29) mEq/L BUN 18 (8-23) mg/dL Creatinine 0.64 (0.60-1.20) mg/dL Est GFR ( Amer) > 60 (> 60) Est GFR (Non-Af Amer) > 60 (> 60) BUN/Creatinine Ratio 28 H (6-26) Glucose 128 H (70-105) mg/dL Calculated Osmolality 296 (280-300) Calcium 7.9 L (8.6-10.3) mg/dL Total Bilirubin 2.8 H (0.3-1.0) mg/dL AST 107 H (13-39) Units/L ALT 80 H (7-52) Units/L Alkaline Phosphatase 342 H (34-104) Units/L Troponin I < 0.03 (< 0.04) ng/mL B-Natriuretic Peptide (Less than 100) pg/mL Serum Total Protein 6.8 (6.4-8.9) g/dL Albumin 2.6 L (3.5-5.7) g/dL Globulin 4.2 H (2.4-3.5) g/dL Albumin/Globulin Ratio 0.6 L (1.1-2.2) Lipase < 3 L (11-82) Units/L Blood Type Antibody Screen Crossmatch 07/16/18 07/16/18 Range/Units 19:32 19:45 WBC (4.3-11.1) K/mcL RBC (3.82-4.97) M/mcL Hgb (11.5-15.4) g/dL Hct (35.3-44.9) % MCV (83.0-100.0) fL MCH (28.0-33.3) pg MCHC (31.6-35.5) g/dL RDW (11.5-14.5) % Plt Count (140-400) K/mcL MPV (9.4-12.4) fL Immature Gran % (0-4) % Seg Neutrophils % % Lymphocytes % % Monocytes % % Eosinophils % % Basophils % % Neutrophils # (1.6-8.9) K/mcL Lymphocytes # (0.6-4.6) K/mcL Monocytes # (0.0-1.3) K/mcL Eosinophils # (0.0-0.6) K/mcL Basophils # (0.0-0.2) K/mcL Reactive Lymphocytes (Not Present) Toxic Granulation (Not Present) Platelet Estimate (Normal) Large Platelets (Not Present) Anisocytosis (Not Present) Macrocytosis (Not Present) PT (9.4-12.1) Seconds INR APTT (26.0-36.0) Seconds Sodium (136-145) mEq/L Potassium (3.5-5.1) mEq/L Chloride (98-107) mEq/L Carbon Dioxide (23-29) mEq/L BUN (8-23) mg/dL Creatinine (0.60-1.20) mg/dL Est GFR ( Amer) (> 60) Est GFR (Non-Af Amer) (> 60) BUN/Creatinine Ratio (6-26) Glucose (70-105) mg/dL Calculated Osmolality (280-300) Calcium (8.6-10.3) mg/dL Total Bilirubin (0.3-1.0) mg/dL AST (13-39) Units/L ALT (7-52) Units/L Alkaline Phosphatase (34-104) Units/L Troponin I (< 0.04) ng/mL B-Natriuretic Peptide 39 (Less than 100) pg/mL Serum Total Protein (6.4-8.9) g/dL Albumin (3.5-5.7) g/dL Globulin (2.4-3.5) g/dL Albumin/Globulin Ratio (1.1-2.2) Lipase (11-82) Units/L Blood Type O POSITIVE Antibody Screen NEGATIVE Crossmatch See Detail - Radiology Data Radiology results reviewed: Yes I reviewed the patient's radiology results. Chest X-Ray 07/16/18 19:32 IMPRESSION: No evidence pneumonia or pleural effusion. D/ / Phillip Niño / Phillip Niño Interpreting Provider: Phillip Niño Abdomen/Pelvis CT 07/16/18 20:08 IMPRESSION: Acute colitis of the hepatic flexure and proximal transverse segments of the colon. This may be of infectious, inflammatory, or ischemic nature. Nonspecific mass in the right hepatic lobe. Metastatic disease is not excluded. D/ / Ezra Palacio MD / Ezra Palacio MD Interpreting Provider: Ezra Palacio MD Head CT 07/16/18 20:08 IMPRESSION: No acute intracranial abnormality. D/ / Ezra Palacio MD / Ezra Palacio MD Interpreting Provider: Ezra Palacio MD - EKG Data EKG attestation: Yes I reviewed and interpreted this EKG. EKG results narrative: EKG demonstrates sinus tachycardia with a rate of 106. Left axis deviation. Normal intervals. Normal R-wave progression. No gross ST elevations or depressions. No acute ischemic findings. No significant changes from previous EKG dated 07/01/18. Critical Care Time Critical Care Time: Yes Total Critical Care Time: 35 Attestation: The high probability of a clinically significant, sudden or life threatening deterioration of the [CV] system(s) required my full and direct attention, intervention and personal management. The aggregate critical care time was [35] minutes. This time is in addition to time spent performing reported procedures but includes the following: [x] Data Review and interpretation [x] Patient assessment and monitoring of vital signs [x] Documentation [x] Medication orders and management S.Piyush - Fahad Situation: Demographics, MOA Background: Presenting Complaint, Relevant PMH, Meds, & Allergies Assessment: Vital Signs, Course and respsone to treatment, Exam Concerns, Patient/Family Expectation, Pertinant Lab Results Recommendation: Barrier(s) to disposition, Recommendation based on pending studies, treatments, or consults S.B.Armand Report Given to: Dr. Odilon Vásquez Repor Time: 21:43 (Requested also give fresh frozen plasma and platelets.) Attestation Statement - Attestation Attestation: I examined this patient and my medical decision-making was reviewed with the Resident Physician, Dr. Cullen. I agree with the documented findings, disposition and treatment plan as described except to the extent set forth below. Patient is a 70-year-old white female frail in appearance who has a history of myelodysplastic disorder and agree to cancer status post Whipple procedure. Patient has been having recurrent GI bleeding and has required multiple transfusions. Patient unable to have endoscopy during her last hospitalization due to low platelets. Patient's recently and she signed out AMA from another admission to attend a . Patient is complaining of recurrent falls due to generalized weakness and ongoing GI bleeding. I agree with patient's physical exam findings as documented, patient is tachycardic on arrival and appears just generally weak but no focal deficits. Patient had complete workup and evaluation including CT abdomen and pelvis which shows anemia she is approximately dropped 2 g from her last evaluation she is mid 6 range and will receive 2 units of packed red blood cells. Patient also received platelets and FFP. Patient's CT shows evidence of colitis likely the source for GI bleeding she received IV Protonix IV antibiotics for the colitis and is receiving patient at this time. Patient will be admitted to the hospitalist service and she has been consulate to see her for the GI bleeding.
[2018-07-16] MEDS ORDERED: MetroNIDAZOLE 500 MG/100 ML 500 MG/100 ML BAG IVPB ONE (21:10)
--- NOTE | 2018-07-16 22:06 | Internal Med History&Physical ---
Date of Encounter: 07/17/18 Time of Encounter: 00:09 Internal Medicine - H&P: HPI Chief complaint: Weakness Admitted From: Home Plans for Post Hospital Care: Home History of present illness: Ms. Brady is a 78 year old female presents to [facility] secondary to weakness. Patient has a history of MDS, pancreatic cancer status post Whipple's procedure in 2016. Patient's family reports that she had her last hemoglobin checked last Sunday and was able 8.6. She receives frequent blood transfusion the last of which was 2 weeks ago where she received 3 units. Since last Sunday she has become more dizzy, with exertional dyspnea. Patient also became progressively weak and was not able to walk on her own. She started having black tarry bowel movements. She had one episode of nausea yesterday throwing up food contents. She did not have bloody vomiting. Patient also has had worsening abdominal pain for the last few days on the right abdomen. Patient was recently admitted at the beginning of July for GI bleed and there is a plan for endoscopy however her and because of that she patient decided to undergo outpatient endoscopy. Family also reports that patient was confused and repeating the same questions over and over again to them. Past Med Surg Social Fam HX - Past Medical History Medical history: cancer, hyperlipidemia, hypertension, renal disease, other Additional medical history: pancreatic cancer Psychiatric history: anxiety, depression - Past Surgical History Surgical History: cholecystectomy, hip replacement, hysterectomy, other Additional surgical history: Whipple surgery 05/2017 - Social History Smoking Status: Former smoker Smokeless Tobacco Status: No Alcohol use: none Drug use: none - Family History Mother Adopted: No Living Status: Hx Family Cardiac Disorders: Yes Hx Family Respiratory Disorders: No Hx Family Cancer: Yes Hx Family GI Disorders: No Hx Family Endocrine Disorder: No Hx Family Neuromuscular Disorders: No Hx Family Neurologic Disorders: No Hx Family HEENT Disorders: No Hx Family Autoimmune Disorders: No Internal Medicine - H&P: Meds Oxazepam [Serax] 10 mg PO BID 04/27/17 [History] Oxycodone HCl/Acetaminophen [Endocet 5-325 Tablet] 1 tab PO Q8H PRN 05/22/17 [ History] Amitriptyline HCl 75 mg PO HS 06/07/17 [History] Prochlorperazine Maleate [Compazine] 10 mg PO Q6HR PRN #120 tablet 07/13/17 [Rx] Lidocaine/Prilocaine [Emla] 1 appl TP AD PRN #30 gm 08/03/17 [Rx] Cholecalciferol (Vitamin D3) [Vitamin D3] 400 unit PO DAILY #30 capsule [Rx] Docusate [Colace] 100 mg PO BID #60 capsule 03/27/18 [Rx] Lipase/Protease/Amylase [Celena Singh 12,000 Units Capsule] 1 cap PO TIDWM 04/29/18 [History] Omeprazole [PriLOSEC] 40 mg PO DAILY@0630 30 Days #30 capsule. 05/02/18 [Rx] Sucralfate [Carafate] 1 gm PO TID #200 oral.susp 05/10/18 [Rx] Ondansetron ODT [Zofran ODT] 4 mg PO Q4H PRN #120 tab.rapdis 06/18/18 [Rx] Metoclopramide [Reglan] 10 mg PO TID PRN #90 tablet 06/21/18 [Rx] Furosemide [Lasix] 20 mg PO DAILY 07/02/18 [History] Lipase/Protease/Amylase [Celena Singh 12,000 Units Capsule] 1 each PO AD 07/02/18 [ History] Lipase/Protease/Amylase [Celena Singh 6,000 Units Capsule] 2 each PO AD PRN capsule. 07/04/18 [Rx] 3 Allergy/AdvReac Type Severity Reaction Status Date / Time lorazepam [From Ativan] AdvReac Intermediate Confusion Verified 05/10/18 10:09 Sulfa (Sulfonamide AdvReac Mild Weakness Verified 05/10/18 10:09 Antibiotics) Zolpidem [From Ambien] AdvReac Confusion Verified 05/10/18 10:09 All Systems PM: A 10-system review of systems was performed and is negative for pertinent findings except as documented above in the HPI. Review of systems: Constitutional: Denies fever, chills. Reports weakness, fatigue HEENT: Denies headache, trauma, blurry vision, eye discharge, ear pain, ear discharge neck pain, sore throat, rhinorrhea Heart: Denies chest pain palpitations, LE edema Lungs: Reports shortness of breath, denies cough Abdomen: Reports abdominal pain, nausea, vomiting, melena. Denies diarrhea MSK: Denies back pain, falls, joint pain Kidney: Denies dysuria, hematuria Skin: Denies rash, ulcers Neuro: Denies numbness and tingling Psych: Ports depression, anxiety - Constitutional Vitals: Temp Pulse Resp BP Pulse Ox 97.4 F L 101 22 142/86 100 07/16/18 21:31 07/16/18 21:39 07/16/18 21:39 07/16/18 21:39 07/16/18 21:39 Exam: General: pleasant, mildly distressed. HEENT: Head atraumatic, normocephalic, EOMI, PERRL, absent ear discharge or trauma, Moist Mucous Membranes, uvula midline Neck: nontender to palpation, absent lymphadenopathy, Cardiovascualr: Sinus tachycardia with no murmur, absent gallops or rubs, bilateral ankle edema, radial pulses 2 out of 4 Lungs: Clear to auscultation bilaterally, not in respiratory distress Abdomen: Soft nontender, nondistended positive bowel sounds, absent hepatomegaly Skin: warm and dry, absent rash, absent open wounds and nodules MSK: absent clubbing, cyanosis, joints without swelling Neuro: Cranial nerves II through XII intact, UE and LE sensation equal bilaterally, UE and LEstrength 3/5, alert oriented 3, Psych: Anxious, depressed Internal Med - H&P Results - Labs CBC & Chem 7: 07/16/18 19:31 07/16/18 19:31 Labs: Short CBC 07/16/18 Range/Units 19:31 WBC 1.6 L (4.3-11.1) K/mcL Hgb 6.8 L (11.5-15.4) g/dL Hct 22.0 L (35.3-44.9) % Plt Count 54 L (140-400) K/mcL Neutrophils # 0.4 L (1.6-8.9) K/mcL BMP 07/16/18 19:31 Sodium 141 Potassium 2.9 L Chloride 108 H Carbon Dioxide 26 BUN 18 Creatinine 0.64 Glucose 128 H Calcium 7.9 L Cardiac Enzymes 07/16/18 Range/Units 19:31 Troponin I < 0.03 (< 0.04) ng/mL Liver Function 07/16/18 Range/Units 19:31 Total Bilirubin 2.8 H (0.3-1.0) mg/dL AST 107 H (13-39) Units/L ALT 80 H (7-52) Units/L Alkaline Phosphatase 342 H (34-104) Units/L Albumin 2.6 L (3.5-5.7) g/dL - Impressions ITS Impressions Chest X-Ray 07/16/18 19:32 IMPRESSION: No evidence pneumonia or pleural effusion. D/ / Phillip Niño / Phillip Niño Interpreting Provider: Phillip Niño Abdomen/Pelvis CT 07/16/18 20:08 IMPRESSION: Acute colitis of the hepatic flexure and proximal transverse segments of the colon. This may be of infectious, inflammatory, or ischemic nature. Nonspecific mass in the right hepatic lobe. Metastatic disease is not excluded. D/ / Ezra Palacio MD / Ezra Palacio MD Interpreting Provider: Ezra Palacio MD Head CT 07/16/18 20:08 IMPRESSION: No acute intracranial abnormality. D/ / Ezra Palacio MD / Ezra Palacio MD Interpreting Provider: Ezra Palacio MD - Assessment and plan (1) GI bleed Current Visit: Yes Status: Acute Assessment and plan: Patient's hemoglobin 6.8 on presentation. Per family patient has had tarry bowel movements. She has a history of MDS and requires recurrent blood transfusions. Her last admission was beginning of July for GI bleed where she was planned to undergo endoscopy however and patient decided to undergo outpatient endoscopy. Patient's last endoscopy was 05/01/2018 which showed bleeding AVMs treated with APC and colonoscopy showed diverticulosis and blood in the colon. Patient will be receiving 2 units total of packed red blood cells, 1 unit of FFP and [address] Torrez was consulted and was see patient tomorrow. Qualifiers: GI bleed type/associated pathology: unspecified gastrointestinal hemorrhage type Qualified Code(s): K92.2 - Gastrointestinal hemorrhage, unspecified (2) Colitis Current Visit: Yes Status: Acute Assessment and plan: CT abdomen pelvis shows acute colitis of the hepatic flexure and proximal transverse segments of the colon. Patient does not have an elevated white count, and is afebrile. Patient denies recent antibiotic use. Patient does not have diarrhea Plan: Blood culture, stool panel, Cipro IV, Flagyl IV. (3) Anemia Current Visit: Yes Status: Chronic Assessment and plan: plan as above. Qualifiers: Anemia type: iron deficiency Iron deficiency anemia type: chronic blood loss Qualified Code(s): D50.0 - Iron deficiency anemia secondary to blood loss (chronic) (4) Transaminitis Current Visit: Yes Status: Acute Assessment and plan: Patient's AST is 104 and ALT is 80 Total bilirubin is 2.8 Lipase is less than 3 CT abdomen pelvis does not show signs of obstruction, shows diffuse fatty infiltration of the liver with calcified granulomas, with focal fatty infiltration around the ori hepatis. Reviewing patient's labs in the past 2-3 months patient has had chronic transaminitis likely related to inflammation of liver from fatty infiltration. (5) Hypokalemia Current Visit: Yes Status: Acute Assessment and plan: Patient's potassium is 2.9 Likely combination of Lasix use, poor oral intake We will replace BMP in the morning. (6) Myelodysplastic syndrome Current Visit: Yes Status: Chronic Assessment and plan: She has a history of MDS She is followed by [facility] She receives frequent blood transfusions for anemia She is not on any chemotherapy or treatment at this point She receives anaresp for her anemia Currently her absolute neutrophil count is 400. We will put her on neutropenic precautions. (7) Liver mass, right lobe Current Visit: Yes Status: Acute Assessment and plan: CT abdomen pelvis shows nonspecific mass in the right hepatic lobe measuring 2.4 cm as well as a nonspecific which a density in the posterior right hepatic lobe measuring 2.4 cm. These were not present during the CT abdomen pelvis on 07/02/18. Patient has a history of pancreatic cancer status post Whipple's procedure We will consult oncology for further recommendations. (8) DVT prophylaxis Current Visit: Yes Status: Chronic Assessment and plan: epcd (9) Anxiety and depression Current Visit: Yes Status: Acute Assessment and plan: Patient had recent loss of her and since that has been very anxious and depressed according to family She is on amitriptyline at home which is held due to her nothing by mouth status. Patient started on when necessary Ativan for anxiety as well. - Time Spent With Patient Total time spent is greater than 50% in coordination of care (as documented) at patient's floor/unit and/or counseling patient:
[2018-07-16] MEDS ORDERED: Naloxone 0.4 MG/ML INJ IVP PRN (22:09)
[2018-07-16] MEDS ORDERED: Potassium Chloride 40 MEQ, Lidocaine 1% 2 ML in D5% in Water 500 ML IVPB ONE (22:30)
[2018-07-16] MEDS: Pantoprazole 40 MG in 0.9 % Sodium Chloride Mini Bag 100 ML IVC SCH (23:53)
[2018-07-17] MEDS ORDERED: Metoclopramide 10 MG/2 ML VIAL IVP PRN (00:27)
[2018-07-17] MEDS ORDERED: *HR* LORazepam 2 MG/ML VIAL IVP PRN (00:27)
[2018-07-17] MEDS: Pantoprazole 40 MG in 0.9 % Sodium Chloride Mini Bag 100 ML IVC SCH ×5 (00:57→20:23)
[2018-07-17 04:05] LABS: Basophils % 1.4 %; Hematocrit 30.8 % (35.3-44.9); Hemoglobin 10.1 g/dL (11.5-15.4); Immature Granulocytes % 2.8 % (0-4); Lymphocytes # 0.3 K/mcL (0.6-4.6); Lymphocytes % 22.5 %; Mean Corpuscular HGB Conc 32.8 g/dL (31.6-35.5); Mean Corpuscular Hemoglobin 30.9 pg (28.0-33.3); Mean Corpuscular Volume 94.2 fL (83.0-100.0); Mean Platelet Volume 12.4 fL (9.4-12.4); Monocytes # 0.5 K/mcL (0.0-1.3); Monocytes % 33.8 %; Neutrophils # 0.6 K/mcL (1.6-8.9); Red Blood Count 3.27 M/mcL (3.82-4.97); Red Cell Distribution Width 20.7 % (11.5-14.5); Segmented Neutrophils % 39.5 %
[2018-07-17 04:23] LABS: Alanine Aminotransferase 63 Units/L (7-52); Albumin 2.7 g/dL (3.5-5.7); Albumin/Globulin Ratio 0.8 (1.1-2.2); Alkaline Phosphatase 274 Units/L (34-104); Aspartate Amino Transferase 87 Units/L (13-39); BUN/Creatinine Ratio 25 (6-26); Bilirubin,Direct 1.7 mg/dL (0.0-0.2); Bilirubin,Indirect 1.6 mg/dL (0.0-1.2); Bilirubin,Total 3.3 mg/dL (0.3-1.0); Blood Urea Nitrogen 13 mg/dL (8-23); Calcium 7.9 mg/dL (8.6-10.3); Carbon Dioxide 22 mEq/L (23-29); Chloride 107 mEq/L (98-107); Globulin 3.4 g/dL (2.4-3.5); Glucose 117 mg/dL (70-105); Osmolality,Calculated 289 (280-300); Potassium 3.5 mEq/L (3.5-5.1); Sodium 139 mEq/L (136-145); Total Protein 6.1 g/dL (6.4-8.9); eGFR For Non-African Americans > 60 (> 60)
[2018-07-17 04:32] LABS: Platelet Count 57 K/mcL (140-400)
[2018-07-17 04:35] LABS: Anisocytosis 2+ (Not Present); Macrocytosis Present (Not Present); Microcytosis Present (Not Present); Platelet Estimate Decreased (Normal)
[2018-07-17] MEDS ORDERED: MetroNIDAZOLE 500 MG/100 ML 500 MG/100 ML BAG IVPB SCH (08:00)
[2018-07-17] MEDS ORDERED: *HR* OxyCODONE/APAP 5/325 TABLET PO PRN (10:24)
[2018-07-17] MEDS ORDERED: Acetaminophen 325 MG TABLET PO PRN ×2 (10:25→15:30)
[2018-07-17] MEDS ORDERED: Naloxone 0.4 MG/ML INJ IVP PRN (15:30)
--- NOTE | 2018-07-17 16:25 | Internal Med Progress Note ---
Hospitalist Progress Note - Encounter Date of Encounter: 07/17/18 Time of Encounter: 16:21 - Subjective Interval History: Pt denies fever, chills, N/V or diarrhea. She denies CP or SOB. - Exam Vitals: Temp Pulse Resp BP Pulse Ox 98.4 F 101 16 132/84 98 07/17/18 16:01 07/17/18 14:00 07/17/18 14:00 07/17/18 14:00 07/17/18 14:00 Exam: General: pleasant, mildly distressed. HEENT: Head atraumatic, normocephalic, EOMI, PERRL, absent ear discharge or trauma, Moist Mucous Membranes, uvula midline Neck: nontender to palpation, absent lymphadenopathy, Cardiovascualr: Sinus tachycardia with no murmur, absent gallops or rubs, bilateral ankle edema, radial pulses 2 out of 4 Lungs: Clear to auscultation bilaterally, not in respiratory distress Abdomen: Soft nontender, nondistended positive bowel sounds, absent hepatomegaly Skin: warm and dry, absent rash, absent open wounds and nodules MSK: absent clubbing, cyanosis, joints without swelling Neuro: Cranial nerves II through XII intact, UE and LE sensation equal bilaterally, UE and LEstrength 3/5, alert oriented 3, Psych: Anxious, depressed - Assessment and Plan (1) GI bleed Current Visit: Yes Status: Acute Assessment and Plan: Patient's hemoglobin 6.8 on presentation. Per family patient has had tarry bowel movements. She has a history of MDS and requires recurrent blood transfusions. Her last admission was beginning of July for GI bleed where she was planned to undergo endoscopy however and patient decided to undergo outpatient endoscopy. Patient's last endoscopy was 05/01/2018 which showed bleeding AVMs treated with APC and colonoscopy showed diverticulosis and blood in the colon. Patient received 2 units total of packed red blood cells, 1 unit of FFP and [address] Torrez was consulted and was see patient. (2) Acute blood loss anemia Current Visit: No Status: Resolved (3) Myelodysplastic syndrome Current Visit: Yes Status: Chronic Assessment and Plan: She has a history of MDS She is followed by [facility] She receives frequent blood transfusions for anemia She is not on any chemotherapy or treatment at this point She receives anaresp for her anemia She was put on neutropenic precautions on admission. (4) Pancreatic cancer Current Visit: No Status: Chronic Assessment and Plan: status post Whipple's procedure in 2017. Pt states she is no longer on chemo. (5) Transaminitis Current Visit: Yes Status: Acute Assessment and Plan: Patient's AST is 104 and ALT is 80 Total bilirubin is 2.8 Lipase is less than 3 CT abdomen pelvis does not show signs of obstruction, shows diffuse fatty infiltration of the liver with calcified granulomas, with focal fatty infiltration around the ori hepatis. Also noted is R hepatic lobe mass Reviewing patient's labs in the past 2-3 months patient has had chronic transaminitis likely related to inflammation of liver from fatty infiltration. CT abdomen and pelvis CT/CT abd pelvis wo no iv no oral IMPRESSION: Acute colitis of the hepatic flexure and proximal transverse segments of the colon. This may be of infectious, inflammatory, or ischemic nature. Nonspecific mass in the right hepatic lobe. Metastatic disease is not excluded. (6) Colitis Current Visit: Yes Status: Acute Assessment and Plan: CT abdomen pelvis shows acute colitis of the hepatic flexure and proximal transverse segments of the colon. Patient does not have an elevated white count, and is afebrile. Patient denies recent antibiotic use. Patient does not have diarrhea Plan: Blood culture pending, stool panel pending. On Cipro IV, Flagyl IV. (7) Liver mass, right lobe Current Visit: Yes Status: Acute Assessment and Plan: Will consult oncology to see. CT abd/pelvis CT/CT abd pelvis wo no iv no oral IMPRESSION: Acute colitis of the hepatic flexure and proximal transverse segments of the colon. This may be of infectious, inflammatory, or ischemic nature. Nonspecific mass in the right hepatic lobe. Metastatic disease is not excluded. DVT Prophylaxis: SCD - Summary of Assessment and Plan Summary of Assessment and Plan: Ms. Brady is a 78 year old female presents to [facility] secondary to weakness. Patient has a history of MDS, pancreatic cancer status post Whipple's procedure in 2017. Patient's family reports that she had her last hemoglobin checked last Sunday and was able 8.6. She receives frequent blood transfusion the last of which was 2 weeks ago where she received 3 units. Since last Sunday she has become more dizzy, with exertional dyspnea. Patient also became progressively weak and was not able to walk on her own. She started having black tarry bowel movements. She had one episode of nausea yesterday throwing up food contents. She did not have bloody vomiting. Patient also has had worsening abdominal pain for the last few days on the right abdomen. Patient was recently admitted at the beginning of July for GI bleed and there is a plan for endoscopy however her and because of that she patient decided to undergo outpatient endoscopy. Family also reports that patient was confused and repeating the same questions over and over again to them. - Time Spent with Patient Total time spent is greater than 50% in coordination of care (as documented) at patient's floor/unit and/or counseling patient: less than 15 minutes Plan of Care Discussed with: patient Internal Medicine: Result - Labs CBC & Chem 7: 07/17/18 03:50 07/17/18 03:50 - ABG Interpretation ABG results: PT/INR, D-dimer PT 15.6 Seconds (9.4-12.1) H 07/16/18 19:31 Consult Discharge Plan - Plan Referrals: Sukumar Wilkins Jr, MD [Primary Care Provider] - (1) GI bleed Qualifiers: GI bleed type/associated pathology: unspecified gastrointestinal hemorrhage type Qualified Code(s): K92.2 - Gastrointestinal hemorrhage, unspecified (4) Pancreatic cancer Qualifiers: Pancreatic malignancy location: head of pancreas Qualified Code(s): C25.0 - Malignant neoplasm of head of pancreas
[2018-07-17] MEDS: MetroNIDAZOLE 500 MG/100 ML 500 MG/100 ML BAG IVPB SCH (16:28)
--- NOTE | 2018-07-17 16:53 | General Surgery Consult Note ---
<Teresa Pozo - Last Filed: 07/17/18 16:51> Date of Encounter: 07/17/18 Time of Encounter: 16:30 Assessment and Plan (1) Colitis Current Visit: Yes Status: Acute Continue with conservative measures including: Bowel rest IV fluids IV antibiotics- Cipro and Flagyl Supportive care Serial abdominal exams Family wishes to hold off on endoscopy at this time No acute surgical intervention indicated at this time Will follow from a distance (2) Nausea & vomiting Current Visit: No Status: Acute NPO IV fluids Supportive care Antiemetics prn Will hold off on endoscopy at this time per patient and families wishes (last EGD/Colonoscopy completed approximately [address] Hernandez) Will follow from a distance Qualifiers: Vomiting type: unspecified Vomiting Intractability: unspecified Qualified Code(s): R11.2 - Nausea with vomiting, unspecified (3) Acute blood loss anemia Current Visit: No Status: Resolved Hgb- 6.8>10.1 2 units of PRBC transfused last evening (4) Thrombocytopenia Current Visit: No Status: Chronic Platelet count- 57 (5) Liver mass, right lobe Current Visit: Yes Status: Acute Oncology following and will discuss with patient and family this evening History of Present Illness Consult date: 07/16/18 Reason for consult: other (nausea/vomiting; acute blood loss aneamia; colitis) Requesting physician: Matthieu Cullen History of present illness: Aroldo Brady is a 78 year old female who is well known to the surgery practice . She has a history of pancreatic cancer and is s/p a Whipple procedure in May of [address] Torrez. The patient's daughter is present at the bedside and provides the information for the HPI. The patient reported to the ED due to ongoing diarrhea, tarry stools along with nausea/vomiting. The patient is s/p EGD/Colonoscopy 05/01/[address] Hernandez with gastroenterology. No source of GI bleeding was identified. The daughter reports that her mother has had ongoing diarrhea for the past 4 days and that she did have dark tarry stools for a couple of days prior to admission. She was noted to have a Hgb of 6.8 on admission with platelet count of 54. She has experienced multiple episodes of nausea and vomiting without hematemesis of coffee ground emesis. She has had a soft/formed brown bowel movement since admission with no obvious signs of bleeding. Her weight has steadily declined and she currently weighs 99lb. Denies any specific fevers/chills. Denies any abdominal pain. Admits to progressively worsening abdominal bloating over the past year. CT scan was complete and shows concerns for colitis and right hepatic lobe mass. We have been asked to see and evaluate for recommendations. Past Med Surg Social Fam HX - Past Medical History Medical history: cancer (pancreatic), hyperlipidemia, hypertension, renal disease, other (anemia) Additional medical history: pancreatic cancer Psychiatric history: anxiety, depression - Past Surgical History Surgical History: cholecystectomy, hip replacement (bilateral), hysterectomy, other (EGD/Colonoscopy 05/01/[address] Hernandez) Additional surgical history: Whipple surgery 05/2017 - Social History Smoking Status: Former smoker Smokeless Tobacco Status: No Alcohol use: none Drug use: none Current living situation: Home, With Family - Family History Mother Adopted: No Living Status: Hx Family Cardiac Disorders: Yes Hx Family Respiratory Disorders: No Hx Family Cancer: Yes Hx Family GI Disorders: No Hx Family Endocrine Disorder: No Hx Family Neuromuscular Disorders: No Hx Family Neurologic Disorders: No Hx Family HEENT Disorders: No Hx Family Autoimmune Disorders: No Medications and Allergies RX: Oxazepam [Serax] 10 mg PO BID 04/27/17 [History] RX: Oxycodone HCl/Acetaminophen [Endocet 5-325 Tablet] 1 tab PO Q8H PRN 05/22/17 [History] RX: Amitriptyline HCl 75 mg PO HS 06/07/17 [History] RX: Prochlorperazine Maleate [Compazine] 10 mg PO Q6HR PRN #120 tablet 07/13/17 [Rx] RX: Lidocaine/Prilocaine [Emla] 1 appl TP AD PRN #30 gm 08/03/17 [Rx] RX: Cholecalciferol (Vitamin D3) [Vitamin D3] 400 unit PO DAILY #30 capsule 02/14/18 [Rx] RX: Docusate [Colace] 100 mg PO BID #60 capsule 03/27/18 [Rx] RX: Lipase/Protease/Amylase [Celena Singh 12,000 Units Capsule] 1 cap PO TIDWM 04/29/18 [History] RX: Omeprazole [PriLOSEC] 40 mg PO DAILY@0630 30 Days #30 capsule. 05/02/18 [Rx] RX: Ondansetron ODT [Zofran ODT] 4 mg PO Q4H PRN #120 tab.rapdis 06/18/18 [Rx] RX: Metoclopramide [Reglan] 10 mg PO TID PRN #90 tablet 06/21/18 [Rx] RX: Furosemide [Lasix] 20 mg PO DAILY 07/02/18 [History] RX: Lipase/Protease/Amylase [Celena Singh 12,000 Units Capsule] 1 each PO AD 07/02/18 [History] RX: Sucralfate [Carafate] 1 gm PO BID 07/17/18 [History] Allergy/AdvReac Type Severity Reaction Status Date / Time lorazepam [From Ativan] AdvReac Intermediate Confusion Verified 05/10/18 10:09 Sulfa (Sulfonamide AdvReac Mild Weakness Verified 05/10/18 10:09 Antibiotics) Zolpidem [From Ambien] AdvReac Confusion Verified 05/10/18 10:09 Review of Systems All systems PM: reviewed and no additional remarkable complaints except as stated (in the HPI) All systems PM: The remainder of the systems were reviewed and are negative General Surgery Exam Initial Vital Signs Temp Pulse Resp BP Pulse Ox 97.6 F 115 28 119/79 98 07/16/18 18:44 07/16/18 18:44 07/16/18 18:44 07/16/18 18:44 07/16/18 18:44 - General physical appearance no distress, no pain, cachectic, chronically ill - Eyes PERRL, normal ocular movement - ENT normal mucosa, atraumatic, normocephalic - Neck trachea midline - Respiratory normal respiratory effort, clear to auscultation - Cardiovascular Cardiovascular exam: Present: tachycardia - Abdomen Abdomen general surgery: Present: bowel sounds present, soft, distended - Integumentary Integumentary general surgery: Present: warm and dry - Neurologic Present: CN 2-12 grossly intact - Musculoskeletal Present: other (deconditioning noted) - Psychiatric Psychiatric general surgery: Present: appropriate, oriented to person, oriented to place, oriented to time, speech is normal, memory intact Exam Initial Vital Signs Temp Pulse Resp BP Pulse Ox 97.6 F 115 28 119/79 98 07/16/18 18:44 07/16/18 18:44 07/16/18 18:44 07/16/18 18:44 07/16/18 18:44 Results - Labs 07/17/18 03:50 07/17/18 03:50 Abnormal lab results WBC 1.4 K/mcL (4.3-11.1) L 07/17/18 03:50 RBC 3.27 M/mcL (3.82-4.97) L 07/17/18 03:50 Hgb 10.1 g/dL (11.5-15.4) L D 07/17/18 03:50 Hct 30.8 % (35.3-44.9) L 07/17/18 03:50 RDW 20.7 % (11.5-14.5) H 07/17/18 03:50 Plt Count 57 K/mcL (140-400) L 07/17/18 03:50 Neutrophils # 0.6 K/mcL (1.6-8.9) L 07/17/18 03:50 Lymphocytes # 0.3 K/mcL (0.6-4.6) L 07/17/18 03:50 Reactive Lymphocytes Present (Not Present) A 07/16/18 19:31 Toxic Granulation Present (Not Present) A 07/16/18 19:31 Platelet Estimate Decreased (Normal) L 07/17/18 03:50 Large Platelets Present (Not Present) A 07/16/18 19:31 Anisocytosis 2+ (Not Present) A 07/17/18 03:50 Microcytosis Present (Not Present) A 07/17/18 03:50 Macrocytosis Present (Not Present) A 07/17/18 03:50 PT 15.6 Seconds (9.4-12.1) H 07/16/18 19:31 Carbon Dioxide 22 mEq/L (23-29) L 07/17/18 03:50 Creatinine 0.53 mg/dL (0.60-1.20) L 07/17/18 03:50 Glucose 117 mg/dL (70-105) H 07/17/18 03:50 Lactic Acid 2.4 mmol/L (0.5-2.2) H 07/17/18 03:50 Calcium 7.9 mg/dL (8.6-10.3) L 07/17/18 03:50 Total Bilirubin 3.3 mg/dL (0.3-1.0) H 07/17/18 03:50 Direct Bilirubin 1.7 mg/dL (0.0-0.2) H 07/17/18 03:50 Indirect Bilirubin 1.6 mg/dL (0.0-1.2) H 07/17/18 03:50 AST 87 Units/L (13-39) H 07/17/18 03:50 ALT 63 Units/L (7-52) H 07/17/18 03:50 Alkaline Phosphatase 274 Units/L (34-104) H 07/17/18 03:50 Serum Total Protein 6.1 g/dL (6.4-8.9) L 07/17/18 03:50 Albumin 2.7 g/dL (3.5-5.7) L 07/17/18 03:50 Albumin/Globulin Ratio 0.8 (1.1-2.2) L 07/17/18 03:50 Lipase < 3 Units/L (11-82) L 07/16/18 19:31 All other labs normal. - Imaging CT scan - abdomen: report reviewed CT scan - pelvis: report reviewed Additional studies: Chest X-Ray 07/16/18 19:32 IMPRESSION: No evidence pneumonia or pleural effusion. D/ / Phillip Niño / Phillip Niño Interpreting Provider: Phillip Niño Abdomen/Pelvis CT 07/16/18 20:08 IMPRESSION: Acute colitis of the hepatic flexure and proximal transverse segments of the colon. This may be of infectious, inflammatory, or ischemic nature. Nonspecific mass in the right hepatic lobe. Metastatic disease is not excluded. D/ / Ezra Palacio MD / Ezra Palacio MD Interpreting Provider: Ezra Palacio MD Head CT 07/16/18 20:08 IMPRESSION: No acute intracranial abnormality. D/ / Ezra Palacio MD / Ezra Palacio MD Interpreting Provider: Ezra Palacio MD Consult Discharge Plan - Plan Referrals: Sukumar Wilkins Jr, MD [Primary Care Provider] - - Attending Attestation For this encounter, I have reviewed the APPOINTMENT SETTER or PA documentation, treatment plan, and medical decision making; and I have had face to face time with this patient. <Adalberto Torrez T - Last Filed: 07/18/18 16:50> Assessment and Plan (1) Thrombocytopenia Current Visit: No Status: Chronic (2) Nausea & vomiting Current Visit: No Status: Acute Qualifiers: Vomiting type: unspecified Vomiting Intractability: unspecified Qualified Code(s): R11.2 - Nausea with vomiting, unspecified (3) Acute blood loss anemia Current Visit: No Status: Resolved (4) Colitis Current Visit: Yes Status: Acute (5) Liver mass, right lobe Current Visit: Yes Status: Acute Review of Systems All systems PM: The remainder of the systems were reviewed and are negative General Surgery Exam Initial Vital Signs Temp Pulse Resp BP Pulse Ox 97.6 F 115 28 119/79 98 07/16/18 18:44 07/16/18 18:44 07/16/18 18:44 07/16/18 18:44 07/16/18 18:44 Exam Initial Vital Signs Temp Pulse Resp BP Pulse Ox 97.6 F 115 28 119/79 98 07/16/18 18:44 07/16/18 18:44 07/16/18 18:44 07/16/18 18:44 07/16/18 18:44 Results - Labs 07/17/18 03:50 07/17/18 03:50 Abnormal lab results WBC 1.4 K/mcL (4.3-11.1) L 07/17/18 03:50 RBC 3.27 M/mcL (3.82-4.97) L 07/17/18 03:50 Hgb 10.1 g/dL (11.5-15.4) L D 07/17/18 03:50 Hct 30.8 % (35.3-44.9) L 07/17/18 03:50 RDW 20.7 % (11.5-14.5) H 07/17/18 03:50 Plt Count 57 K/mcL (140-400) L 07/17/18 03:50 Neutrophils # 0.6 K/mcL (1.6-8.9) L 07/17/18 03:50 Lymphocytes # 0.3 K/mcL (0.6-4.6) L 07/17/18 03:50 Reactive Lymphocytes Present (Not Present) A 07/16/18 19:31 Toxic Granulation Present (Not Present) A 07/16/18 19:31 Platelet Estimate Decreased (Normal) L 07/17/18 03:50 Large Platelets Present (Not Present) A 07/16/18 19:31 Anisocytosis 2+ (Not Present) A 07/17/18 03:50 Microcytosis Present (Not Present) A 07/17/18 03:50 Macrocytosis Present (Not Present) A 07/17/18 03:50 PT 15.6 Seconds (9.4-12.1) H 07/16/18 19:31 Carbon Dioxide 22 mEq/L (23-29) L 07/17/18 03:50 Creatinine 0.53 mg/dL (0.60-1.20) L 07/17/18 03:50 Glucose 117 mg/dL (70-105) H 07/17/18 03:50 POC Glucose 102 mg/dL (70-99) H 07/18/18 11:49 Lactic Acid 2.4 mmol/L (0.5-2.2) H 07/17/18 03:50 Calcium 7.9 mg/dL (8.6-10.3) L 07/17/18 03:50 Total Bilirubin 3.3 mg/dL (0.3-1.0) H 07/17/18 03:50 Direct Bilirubin 1.7 mg/dL (0.0-0.2) H 07/17/18 03:50 Indirect Bilirubin 1.6 mg/dL (0.0-1.2) H 07/17/18 03:50 AST 87 Units/L (13-39) H 07/17/18 03:50 ALT 63 Units/L (7-52) H 07/17/18 03:50 Alkaline Phosphatase 274 Units/L (34-104) H 07/17/18 03:50 Serum Total Protein 6.1 g/dL (6.4-8.9) L 07/17/18 03:50 Albumin 2.7 g/dL (3.5-5.7) L 07/17/18 03:50 Albumin/Globulin Ratio 0.8 (1.1-2.2) L 07/17/18 03:50 Lipase < 3 Units/L (11-82) L 07/16/18 19:31 All other labs normal. - Attending Attestation The patient is seen and evaluated with the clinical nurse practitioner. She had Whipple operation last year. She appears to have several liver nodules at this point and persistent anemia. Surgical intervention is likely not necessary. We will follow along with you. Adalberto Torrez MD FACS
--- NOTE | 2018-07-17 17:38 | Oncology Inp Consult Note ---
<Tyra Jacques L - Last Filed: 07/18/18 12:43> Date of Encounter: 07/17/18 Time of Encounter: 17:36 Assessment and Plan (1) Myelodysplastic syndrome Status: Chronic Assessment and plan: Pancytopenia with history of recurrent GIB She presented with symptomatic anemia hgb 6.8 with report of melena EGD and colonoscopy 05/01/2018 with recently bleeding AVMs treated with APC, and colonoscopy showed diverticulosis and blood in colon She receives Aranesp [id number] for MDS B12/folate/TSH normal Ferritin slightly elevated Plan: Surgery has been consulted-family wishes to hold off on endoscopy at this time Repeat SPEP and SFLC Continue monitoring and supportive management May consider use of Sandostatin given her h/o AVM/GIB, decision will ultimately be up to patients treating oncologist Dr. Duque (2) Elevated liver enzymes Status: Acute Assessment and plan: Mildly elevated liver enzymes in the last 2-3 months. ALT AST and the 60 range. Chronically elevated alkaline phosphatase around 250. We will do viral hepatitis panel which was negative in the past (3) Liver mass, right lobe Status: Acute Assessment and plan: She has extensive fatty liver worse in the last 3-4 months and hepatomegaly. Etiology unclear. CAT scan during this admission on 07/16/2018 showed new areas of density about 2.5 cm. These were visible on 06/20/2018. Could be areas of fat sparing. We will evaluate this with MRI abdomen with liver protocol (4) Primary adenocarcinoma of head of pancreas Status: Chronic Assessment and plan: History of pancreatic cancer post Whipple surgery on May 2017 followed by adjuvant chemotherapy and chemoradiation we will repeat CA 19-9 (5) Colitis Status: Acute Assessment and plan: Noted on CT abdomen/pelvis Continue with conservative measures (bowel rest, IVF, Cipro/Flagyl) GI panel stool culture order placed Again, patient/family declining endoscopy at this time - Data of Consult Patient: known to practice within the last 3 years Consult date: 07/17/18 Requesting Physician: Maxwell Donald MD Primary Care Provider: Sukumar Wilkins Jr, MD - Consult Narrative Reason for consult: MDS and pancreatic adenocarcinoma History of present illness: Ms. Brady is a 78 year old female with h/o pancytopenia and MDS and pancreatic adenocarcinoma. 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 Cytogenetics was that of a normal female karyotype. She was started on treatment with hypomethylating agent (Vidaza) but have to be stopped due to severe allergic reaction. With decitabine she developed cytopenia and C. difficile associated diarrhea and encephalopathy. Bone marrow biopsy 01/12/17 showed a hypercellular marrow with more than 90% cellularity with left shifted erythroid predominance and megakaryocytic hyperplasia with dyspoietic features. There is some mild myelofibrosis but not severe enough to suggest pathologic bone marrow. Patient was admitted to hospital in 04/16 with abdominal pain, bilirubin level greater than 7. MRCP by Dr. Hernandez was completed for a pancreatic head tumor in CT imaging. The patient's biopsy results on 05/01/17 show pancreatic adenocarcinoma. Further imaging included PET that was neg for any mets/lymphadenopathy. She underwent whipple procedure by Dr Torrez in 05/17--pT3pN1 stage IIB, uncinate margin positive for ca and 10/23 LN positive. Gemcitabine initiated 07/13/17, she had some delays in treatment secondary to febrile neutropenia. Cycle #4 completed 09/07/2017, chemoradiation to the abdomen on 12/10/17. CT imaging has been without sign of recurrence. EGD and colonoscopy 05/01/2018 with recently bleeding AVMs treated with APC, and colonoscopy showed diverticulosis and blood in colon She receives Aranesp [id number] for MDS. She was admitted with symptomatic anemia in June,however, she was discharged prior to endoscopy secondary to the passing of her while she was in the hospital. Ms. Brady presented to [facility] ED for report of dizziness, exertional dyspnea, increased weakness, abdominal pain, melena and vomiting without hematemesis. Pancyopenic with hgb 6.9 on admission. She had a CT of the abdomen/pelvis which revealed colitis and nonspecific mass of the right hepatic lobe. Past Med Surg Social Fam HX - Past Medical History Medical history: cancer (pancreatic), hyperlipidemia, hypertension, renal disease, other (anemia) Additional medical history: pancreatic cancer Psychiatric history: anxiety, depression - Past Surgical History Surgical History: cholecystectomy, hip replacement (bilateral), hysterectomy, other (EGD/Colonoscopy 05/01/[address] Hernandez) Additional surgical history: Whipple surgery 05/2017 - Social History Smoking Status: Former smoker Smokeless Tobacco Status: No Alcohol use: none Drug use: none - Family History Mother Adopted: No Living Status: Hx Family Cardiac Disorders: Yes Hx Family Respiratory Disorders: No Hx Family Cancer: Yes Hx Family GI Disorders: No Hx Family Endocrine Disorder: No Hx Family Neuromuscular Disorders: No Hx Family Neurologic Disorders: No Hx Family HEENT Disorders: No Hx Family Autoimmune Disorders: No Medications and Allergies Oxazepam [Serax] 10 mg PO BID 04/27/17 [History] Oxycodone HCl/Acetaminophen [Endocet 5-325 Tablet] 1 tab PO Q8H PRN 05/22/17 [History] Amitriptyline HCl 75 mg PO HS 06/07/17 [History] Prochlorperazine Maleate [Compazine] 10 mg PO Q6HR PRN #120 tablet 07/13/17 [Rx] Lidocaine/Prilocaine [Emla] 1 appl TP AD PRN #30 gm 08/03/17 [Rx] Cholecalciferol (Vitamin D3) [Vitamin D3] 400 unit PO DAILY #30 capsule 02/14/18 [Rx] Docusate [Colace] 100 mg PO BID #60 capsule 03/27/18 [Rx] Lipase/Protease/Amylase [Celena Singh 12,000 Units Capsule] 1 cap PO TIDWM 04/29/18 [History] Omeprazole [PriLOSEC] 40 mg PO DAILY@0630 30 Days #30 capsule. 05/02/18 [Rx] Ondansetron ODT [Zofran ODT] 4 mg PO Q4H PRN #120 tab.rapdis 06/18/18 [Rx] Metoclopramide [Reglan] 10 mg PO TID PRN #90 tablet 06/21/18 [Rx] Furosemide [Lasix] 20 mg PO DAILY 07/02/18 [History] Lipase/Protease/Amylase [Celena Singh 12,000 Units Capsule] 1 each PO AD 07/02/18 [History] Sucralfate [Carafate] 1 gm PO BID 07/17/18 [History] Allergy/AdvReac Type Severity Reaction Status Date / Time lorazepam [From Ativan] AdvReac Intermediate Confusion Verified 05/10/18 10:09 Sulfa (Sulfonamide AdvReac Mild Weakness Verified 05/10/18 10:09 Antibiotics) Zolpidem [From Ambien] AdvReac Confusion Verified 05/10/18 10:09 Constitutional: Present: anorexia, fatigue, weakness, weight loss. Absent: chills, fever(s) Eyes: Absent: change in vision Nose, mouth and throat: Absent: dysphagia Cardiovascular: Absent: chest pain, palpitations Respiratory: Present: cough, dyspnea Gastrointestinal: Present: abdominal pain, change in bowel habits, melena, nausea, vomiting. Absent: hematemesis, hematochezia Genitourinary: Absent: dysuria Musculoskeletal: Present: muscle weakness Integumentary: Absent: wounds Neurological: Present: dizziness. Absent: focal weakness Psychiatric: Present: anxiety, depression Hematologic/Lymphatic: Present: as per HPI Oncology - Exam - Constitutional Vitals: Temp Pulse Resp BP Pulse Ox 98.4 F 109 16 132/88 98 07/17/18 16:01 07/17/18 16:00 07/17/18 16:00 07/17/18 16:00 07/17/18 16:00 Provider Comments:: chronically ill appearing General appearance: cooperative, no acute distress, thin, no febrile - ENT ENT exam: Present: mucous membranes moist - Respiratory Respiratory exam: Present: CTAB. Absent: respiratory distress - Cardiovascular Cardiovascular exam: Present: RRR, +S1, +S2 - GI/Abdominal GI/Abdominal exam: Present: normal bowel sounds, soft. Absent: guarding, rebound, tenderness - Extremities Exam Extremities exam: Absent: calf tenderness - Neurological Exam Neurological exam: Present: alert, oriented X3, no focal deficits, strengths equal and symetr throughout - Psychiatric Psychiatric exam: Present: depressed Additional comments: tearful at times, talked about the recent passing of her - Skin Skin exam: Present: dry, intact, pallor, warm Oncology - Results Labs: 07/17/18 07/17/18 07/17/18 15:32 11:25 07:26 POC Glucose 98 114 H 102 H Consult Discharge Plan - Plan Referrals: Sukumar Wilkins Jr, MD [Primary Care Provider] - <Dylan Domínguez - Last Filed: 07/18/18 13:54> - Data of Consult Requesting Physician: Maxwell Donald MD Primary Care Provider: Sukumar Wilkins Jr, MD - Consult Narrative History of present illness: Ms. Brady is a 78 year old female Oncology - Exam - Constitutional Vitals: Temp Pulse Resp BP Pulse Ox 98.4 F 109 16 132/88 98 07/17/18 16:01 07/17/18 16:00 07/17/18 16:00 07/17/18 16:00 07/17/18 16:00 Oncology - Results Labs: 07/17/18 07/17/18 07/17/18 15:32 11:25 07:26 POC Glucose 98 114 H 102 H - Attending Attestation 1. History of pancreatic cancer post Whipple surgery on May 2017 followed by adjuvant chemotherapy and chemoradiation 2. He has extensive fatty liver worse in the last 3-4 months and hepatomegaly. CAT scan during this admission on 07/16/2018 showed new areas of density about 2.5 cm. I compared previous pictures and these were visible on 06/20/2018. Cou ld be normal liver with fat sparing. We will evaluate this with MRI. 3. Anemia with recurrent admissions. She had frequent blood transfusions. We will repeat anemia profile. B12 folate normal. TSH normal. Ferritin mildly elevated at 270 which is an acute phase reactant We will also repeat serum protein electrophoresis which was normal in the past and light chains. She had several EGD and colonoscopy. She had some AV malformation She may benefit from Sandostatin 20 mg LAR IM minimize the bleeding from the AVM 4. Mildly elevated liver enzymes in the last 2-3 months. ALT AST and the 60 range. Chronically elevated alkaline phosphatase around 250. We will do viral hepatitis panel which was negative in the past 5. Chronic pancytopenia from her underlying MDS fairly stable I had a long discussion with the patient and the family about the CAT scan findings. I am not sure about the etiology of her extensive fatty liver. Given the history of pancreatic cancer we want to make sure there is no metastasis as well Inpatient Charges Provider: Dr. Mary Ann Domínguez Consult - Inpatient Medicare Only: [id number]
[2018-07-17] MEDS ORDERED: Gadolinium Contrast Agent (WT Based) IV PRN (19:26)
[2018-07-18] MEDS: MetroNIDAZOLE 500 MG/100 ML 500 MG/100 ML BAG IVPB SCH ×4 (01:34→23:51)
[2018-07-18] MEDS: Pantoprazole 40 MG in 0.9 % Sodium Chloride Mini Bag 100 ML IVC SCH ×3 (12:02→12:44)
[2018-07-18] MEDS ORDERED: MetroNIDAZOLE 500 MG/100 ML BAG IVPB ONE (12:14)
[2018-07-18] MEDS ORDERED: Pantoprazole 40 MG VIAL IVC ONE (12:14)
[2018-07-18] MEDS ORDERED: Ciprofloxacin 400 MG/200 ML BAG IVPB ONE (12:14)
[2018-07-18] MEDS ORDERED: 0.9 % Sodium Chloride (Mini-Bag +) 100 ML IVBAG IVC ONE (12:14)
--- NOTE | 2018-07-18 12:25 | Internal Med Progress Note ---
Hospitalist Progress Note - Encounter Date of Encounter: 07/18/18 Time of Encounter: 11:26 - Subjective Interval History: Patient seen and examined this morning. No acute overnight events. Dizziness improved. Feeling better. Family at bedside. Denies any diarrhea, fever, chills. Denies abdominal pain, cp or sob. - Exam Vitals: Temp Pulse Resp BP Pulse Ox 98 F 104 16 138/87 100 07/18/18 11:56 07/18/18 11:56 07/18/18 11:56 07/18/18 11:56 07/18/18 11:56 Exam: General: pleasant, In no distressed. HEENT: moist Mucous Membranes, mild pale conjunctiva CVS: RRR, no MRG. S1,S2 normal. RS: AEBE, no adventitious lung sound Abdomen: Soft nontender, nondistended positive bowel sounds, absent hepatomegaly Skin: warm and dry, absent rash, absent open wounds and nodules MSK: absent clubbing, cyanosis, joints without swelling. Neuro: No focal deficits, alert oriented 3, - Assessment and Plan (1) Myelodysplastic syndrome Current Visit: Yes Status: Chronic (2) Pancreatic cancer Current Visit: No Status: Chronic (3) Acute blood loss anemia Current Visit: No Status: Resolved (4) GI bleed Current Visit: Yes Status: Acute (5) Transaminitis Current Visit: Yes Status: Acute (6) Colitis Current Visit: Yes Status: Acute (7) Liver mass, right lobe Current Visit: Yes Status: Acute - Summary of Assessment and Plan Summary of Assessment and Plan: GI bleed - Patient's hemoglobin 6.8 on presentation. 10.1 yesterday after 2 prbc 1 unit of FFP and 1 unit of platelets. - Report of tarry bowel movements. She has a history of MDS and requires recurrent blood transfusions. - endoscopy was 05/01/2018 which showed bleeding AVMs treated with APC and colonoscopy showed diverticulosis and blood in the colon. - pending labs today - No interventions per sugtaylor based on patient and family requests Myelodysplastic syndrome - Receives frequent blood transfusions for anemia - Oncology recommendation appreciated Primary adenocarcinoma of head of pancreas - s/p Whipple surgery on May 2017 followed by adjuvant chemotherapy and chemoradiation - f/u CA 19-9. Onc following. Transaminitis - Patient's AST is 104 and ALT is 80 - CT abdomen pelvis does not show signs of obstruction, diffuse fatty infiltration of the liver with calcified granulomas, with focal fatty infiltration around the ori hepatis. - Is chronic likely related to fatty infiltration. - f/u heatitis panel Colitis - CT abdomen pelvis shows acute colitis of the hepatic flexure and proximal transverse segments of the colon. - Started on Cipro and flagyl - f/u cultures - No diarrhea currently. Will finish short course of antibiotics. Liver mass, right lobe - f/u MRI abdomen. - Oncology recommendation appreciated DVT Prophylaxis: - SCD - Time Spent with Patient Total time spent is greater than 50% in coordination of care (as documented) at patient's floor/unit and/or counseling patient: Internal Medicine: Result - Labs CBC & Chem 7: 07/17/18 03:50 07/17/18 03:50 - ABG Interpretation ABG results: PT/INR, D-dimer PT 15.6 Seconds (9.4-12.1) H 07/16/18 19:31 Consult Discharge Plan - Plan Referrals: Sukumar Wilkins Jr, MD [Primary Care Provider] - (2) Pancreatic cancer Qualifiers: Pancreatic malignancy location: head of pancreas Qualified Code(s): C25.0 - Malignant neoplasm of head of pancreas (4) GI bleed Qualifiers: GI bleed type/associated pathology: unspecified gastrointestinal hemorrhage type Qualified Code(s): K92.2 - Gastrointestinal hemorrhage, unspecified
--- NOTE | 2018-07-18 14:00 | Electrocardiograph Report ---
[address] [address] Test Date: 2018-07-16 Pat Name: Aroldo Brady Department: [id number] Room: 3A21 Gender: F Supervisor [employer]: : 1940 Requested By: Matthieu Cullen Order Number: [id number] Reading MD: Polina Man Measurements Intervals [place] Rate: 106 P: 50 MD: 152 QRS: -15 QRSD: 96 T: 13 QT: 371 QTc: 493 Interpretive Statements Sinus tachycardia Borderline left axis deviation Abnormal R-wave progression, early transition Borderline T abnormalities, anterior leads Electronically Signed On 07-18-2018 13:59:08 EDT by Polina Man
[2018-07-18] MEDS ORDERED: GADOXETATE DISODIUM 2.5 MMOL/10 ML VIAL IV ONE (15:52)
[2018-07-18] MEDS: Pantoprazole 40 MG VIAL IVP SCH (17:26)
--- NOTE | 2018-07-18 18:23 | Oncology Inp Progress Note ---
<Montez Seals - Last Filed: 07/18/18 18:21> Date of Encounter: 07/18/18 Time of Encounter: 09:30 (1) Myelodysplastic syndrome Current Visit: Yes Status: Chronic Assessment and plan: Pancytopenia with history of recurrent GIB She presented with symptomatic anemia hgb 6.8 with report of melena EGD and colonoscopy 05/01/2018 with recently bleeding AVMs treated with APC, and colonoscopy showed diverticulosis and blood in colon She receives Aranesp [id number] for MDS B12/folate/TSH normal Ferritin slightly elevated Plan: Surgery consulted-family wishes to hold off on endoscopy at this time Repeat SPEP and SFLC Continue monitoring and supportive management May consider use of Sandostatin given her h/o AVM/GIB, decision will ultimately be up to patient's treating oncologist Dr. Duque (2) Elevated liver enzymes Current Visit: No Status: Acute Assessment and plan: Mildly elevated liver enzymes in the last 2-3 months with ALT&AST in the 60s. Chronically elevated alkaline phosphatase around 250. We will do viral hepatitis panel which was negative in the past-still pending (3) Liver mass, right lobe Current Visit: Yes Status: Acute Assessment and plan: She has extensive fatty liver worse in the last 3-4 months and hepatomegaly. Etiology unclear. CT scan during this admission on 07/16/2018 showed new areas of density about 2.5 cm. These were visible on 06/20/2018. Could be areas of fat sparing. Pending MRI abdomen with liver protocol- to be completed this afternoon. (4) Primary adenocarcinoma of head of pancreas Current Visit: No Status: Chronic Assessment and plan: History of pancreatic cancer post Whipple surgery on May 2017 followed by adjuvant chemotherapy and chemoradiation we will repeat CA 19-9 --pending. (5) Colitis Current Visit: Yes Status: Acute Assessment and plan: Noted on CT abdomen/pelvis Continue with conservative measures (IVF, Cipro/Flagyl) GI panel stool culture order placed- rejected as stool formed. Diet advance to regular. Oncology: Subj Interval history: Patient seen and evaluated lying in bed, states she is feeling well today, however she has stayed in bed this morning as she cannot manage to cover her backside without a robe. She denies any acute pain or discomfort currently, denies chest pain, shortness of breath. Does wonder what time she will have the MRI of her liver. - Constitutional Vitals: Vital Signs Temp Pulse Resp BP Pulse Ox 07/18/18 11:56 98 F 104 16 138/87 100 07/18/18 10:18 100 07/18/18 00:12 97.8 F 107 15 135/91 95 Intake and Output 07/18/18 07/18/18 07/18/18 07:59 15:59 23:59 Intake Total 1300 / 1300 120 / 120 Output Total 850 / 850 Balance 450 / 450 120 / 120 Intake: IV Fluids 1300 / 1300 Protonix 40 MG In 0.9 % Sodium 100 / 100 Chloride (Mini-Bag +) 100 ML @ 20 mls/hr IVC .Q5H DEREJE Rx#: [id number] Cipro Premix 400 MG/200 ML 400 200 / 200 mg In 200 ml @ 200 mls/hr IVPB Q12H DEREJE Rx#:[id number] Flagyl Premix 500 MG/100 ML 500 100 / 100 mg In 100 ml @ 100 mls/hr IVPB Q8HR DEREJE Rx#:[id number] Oral 0 / 0 120 / 120 Output: Urine 0 / 0 Catheter 850 / 850 Other: Meal Dinner Percent of Meal Consumed 25% Weight 51 kg Blood Glucose* 102 102 Patient Weight 07/18/18 23:59 Weight 51 kg Exam: General: pleasant, In no distressed, chronically ill appearing/thin. HEENT: moist Mucous Membranes, pale conjunctiva CVS: RRR, no murmurs/rub/gallops. S1,S2 normal. RS: CTAB Abdomen: Soft nontender, nondistended, positive bowel sounds Skin: warm and dry, intact MSK: absent clubbing, cyanosis, joints without swelling. Neuro: No focal deficits, alert oriented 3, Oncology: Obj Data - Labs CBC & Chem 7: 07/17/18 03:50 07/17/18 03:50 Labs: Laboratory Results - last 24 hr 07/18/18 07/18/18 07/18/18 00:05 05:23 11:49 POC Glucose 102 H 93 102 H Specimen Rejected 07/18/18 12:27 POC Glucose Specimen Rejected Not Liquid - ABG Interpretation ABG results: PT/INR, D-dimer PT 15.6 Seconds (9.4-12.1) H 10/16/18 19:31 Consult Discharge Plan - Plan Referrals: Sukumar Wilkins Jr, MD [Primary Care Provider] - 07/29/18 3:00 pm <Dylan Domínguez S - Last Filed: 07/19/18 17:30> (1) Liver mass, right lobe Current Visit: Yes Status: Acute - Constitutional Vitals: Vital Signs Temp Pulse Resp BP Pulse Ox 07/19/18 16:59 97.7 F 108 16 145/87 98 07/19/18 10:21 98.1 F 109 15 126/81 99 07/19/18 09:15 99 07/19/18 06:51 97.9 F 115 16 150/95 99 07/19/18 04:37 98.1 F 99 14 126/55 99 07/18/18 19:45 97.4 F L 106 16 145/94 95 Intake and Output 07/19/18 07/19/18 07/19/18 07:59 15:59 23:59 Intake Total 300 / 300 420 / 420 300 / 300 Output Total 250 / 250 0 / 0 Balance 50 / 50 420 / 420 300 / 300 Intake: IV Fluids 300 / 300 300 / 300 Cipro Premix 400 MG/200 ML 400 200 / 200 200 / 200 mg In 200 ml @ 200 mls/hr IVPB Q12H DEREJE Rx#:[id number] Flagyl Premix 500 MG/100 ML 500 100 / 100 100 / 100 mg In 100 ml @ 100 mls/hr IVPB Q8HR DEREJE Rx#:[id number] Oral 120 / 120 300 / 300 Output: Urine 250 / 250 0 / 0 Other: Meal Lunch Dinner Percent of Meal Consumed 5% 100% Stool Size Large Moderate Stool Consistency formed loose liquid Stool Characteristics Tarry Stool Color Brown Brown Dark Red Blood # Voids 1 # Bowel Movements 1 Weight 51.2 kg Patient Weight 07/19/18 23:59 Weight 51.2 kg Oncology: Obj Data - Labs CBC & Chem 7: 07/19/18 16:00 07/19/18 04:45 Labs: Laboratory Results - last 24 hr 07/18/18 07/18/18 07/19/18 05:02 11:00 04:45 WBC 1.1 L RBC 3.06 L Hgb 9.7 L Hct 29.4 L MCV 96.1 MCH 31.7 MCHC 33.0 RDW 20.5 H Plt Count 45 L MPV 13.2 H Immature Gran % 0.0 Seg Neutrophils % 28.2 Lymphocytes % 30.9 Monocytes % 38.2 Eosinophils % 0.9 Basophils % 1.8 Neutrophils # 0.3 L Lymphocytes # 0.3 L Monocytes # 0.4 Eosinophils # 0.0 Basophils # 0.0 Smudge Cells Present A Platelet Estimate Marked Decrease L Large Platelets Present A Polychromasia 2+ A Anisocytosis 2+ A Microcytosis Present A Macrocytosis Present A Sodium Potassium Chloride Carbon Dioxide BUN Creatinine Est GFR ( Amer) Est GFR (Non-Af Amer) BUN/Creatinine Ratio Glucose Calculated Osmolality Calcium Total Bilirubin AST ALT Alkaline Phosphatase Serum Total Protein Albumin Globulin Albumin/Globulin Ratio Stool Occult Blood Positive A Hepatitis A IgM Ab Nonreactive Hep Bs Antigen Nonreactive Hep B Core IgM Ab Nonreactive Hepatitis C Ab Screen Reactive H 07/19/18 07/19/18 04:45 16:00 WBC 1.0 L* RBC 2.91 L Hgb 9.0 L Hct 27.8 L MCV 95.5 MCH 30.9 MCHC 32.4 RDW 20.3 H Plt Count 33 L MPV 12.4 Immature Gran % 0.0 Seg Neutrophils % 28.3 Lymphocytes % 27.4 Monocytes % 43.2 Eosinophils % 0.0 Basophils % 1.1 Neutrophils # 0.3 L Lymphocytes # 0.3 L Monocytes # 0.4 Eosinophils # 0.0 Basophils # 0.0 Smudge Cells Platelet Estimate Large Platelets Polychromasia Anisocytosis Microcytosis Macrocytosis Sodium 137 Potassium 3.3 L Chloride 108 H Carbon Dioxide 24 BUN 8 Creatinine 0.56 L Est GFR ( Amer) > 60 Est GFR (Non-Af Amer) > 60 BUN/Creatinine Ratio 14 Glucose 129 H Calculated Osmolality 284 Calcium 7.8 L Total Bilirubin 3.8 H AST 93 H ALT 56 H Alkaline Phosphatase 290 H Serum Total Protein 5.9 L Albumin 2.4 L Globulin 3.5 Albumin/Globulin Ratio 0.7 L Stool Occult Blood Hepatitis A IgM Ab Hep Bs Antigen Hep B Core IgM Ab Hepatitis C Ab Screen - Impressions Impressions Abdomen MRI 07/18/18 08:00 IMPRESSION: There are 4 areas of enhancement seen within the liver, new when compared to prior, suspicious for metastatic foci until proven otherwise. D/ / Zackery Sterling MD / Zackery Sterling MD Interpreting Provider: Zackery Sterling MD - ABG Interpretation ABG results: PT/INR, D-dimer PT 15.6 Seconds (9.4-12.1) H 07/16/18 19:31 Inpatient Charges Provider: Dr. Mary Ann Domínguez Follow up - Inpatient: [id number] - Attending Attestation I examined this patient and my medical decision-making was reviewed with the Advanced Practice Nurse. I agree with the documented findings, disposition and treatment plan as described except to the extent set forth below. 1. Pancytopenia from MDS 2. Pancreatic cancer post Whipple surgery Awaiting MRI of the liver to evaluate new lesions shown up in the CT scan 3. Significant hepatomegaly with fatty liver. Hepatitis C positive 4. Recurrent anemia GI bleed 5. Colitis on Flagyl Overall prognosis poor
[2018-07-19 01:43] LABS: Hepatitis A Antibody IgM Nonreactive (Nonreactive); Hepatitis B Core IgM Nonreactive (Nonreactive); Hepatitis B Surface Antigen Nonreactive (Nonreactive)
[2018-07-19 01:50] LABS: Hepatitis C Virus Antibody Reactive (Nonreactive)
[2018-07-19 05:01] LABS: Eosinophils % 0.9 %
[2018-07-19 05:03] LABS: Basophils % 1.8 %; Hematocrit 29.4 % (35.3-44.9); Hemoglobin 9.7 g/dL (11.5-15.4); Lymphocytes # 0.3 K/mcL (0.6-4.6); Lymphocytes % 30.9 %; Mean Corpuscular Hemoglobin 31.7 pg (28.0-33.3); Mean Corpuscular Volume 96.1 fL (83.0-100.0); Mean Platelet Volume 13.2 fL (9.4-12.4); Monocytes # 0.4 K/mcL (0.0-1.3); Monocytes % 38.2 %; Neutrophils # 0.3 K/mcL (1.6-8.9); Red Blood Count 3.06 M/mcL (3.82-4.97); Red Cell Distribution Width 20.5 % (11.5-14.5); Segmented Neutrophils % 28.2 %
[2018-07-19 05:15] LABS: Platelet Count 45 K/mcL (140-400)
[2018-07-19 05:22] LABS: Alanine Aminotransferase 56 Units/L (7-52); Albumin 2.4 g/dL (3.5-5.7); Albumin/Globulin Ratio 0.7 (1.1-2.2); Alkaline Phosphatase 290 Units/L (34-104); Aspartate Amino Transferase 93 Units/L (13-39); BUN/Creatinine Ratio 14 (6-26); Bilirubin,Total 3.8 mg/dL (0.3-1.0); Blood Urea Nitrogen 8 mg/dL (8-23); Calcium 7.8 mg/dL (8.6-10.3); Carbon Dioxide 24 mEq/L (23-29); Chloride 108 mEq/L (98-107); Globulin 3.5 g/dL (2.4-3.5); Glucose 129 mg/dL (70-105); Osmolality,Calculated 284 (280-300); Potassium 3.3 mEq/L (3.5-5.1); Sodium 137 mEq/L (136-145); Total Protein 5.9 g/dL (6.4-8.9); eGFR For Non-African Americans > 60 (> 60)
[2018-07-19] MEDS: Pantoprazole 40 MG VIAL IVP SCH ×2 (05:58→17:06)
[2018-07-19 06:23] LABS: Anisocytosis 2+ (Not Present); Large Platelets Present (Not Present); Macrocytosis Present (Not Present); Microcytosis Present (Not Present); Platelet Estimate Marked Decrease (Normal); Polychromasia 2+ (Not Present); Smudge Cells Present (Not Present)
[2018-07-19] MEDS: MetroNIDAZOLE 500 MG/100 ML 500 MG/100 ML BAG IVPB SCH ×2 (09:13→16:42)
[2018-07-19] MEDS: Metoclopramide 10 MG/2 ML VIAL IVP PRN ×2 (10:20→17:07)
--- NOTE | 2018-07-19 12:22 | Event Note ---
Date of Encounter: 07/19/18 Time of Encounter: 12:21 As patient's family does not prefer EGD and colonoscopy this admission, surgery will sign off at this time. Please call us with any questions.
--- NOTE | 2018-07-19 13:21 | Internal Med Progress Note ---
Hospitalist Progress Note - Encounter Date of Encounter: 07/19/18 Time of Encounter: 13:19 - Subjective Interval History: Patient seen and examined this morning. No acute overnight events. Family at bedside. Had episode of vomiting this morning and few blood clots noted by nurse. Also had black BM per family. Denies any diarrhea, fever, chills. Denies abdominal pain, cp or sob. - Exam Vitals: Temp Pulse Resp BP Pulse Ox 98.1 F 109 15 126/81 99 07/19/18 10:21 07/19/18 10:21 07/19/18 10:21 07/19/18 10:21 07/19/18 10:21 Exam: General: pleasant, In no distressed. HEENT: moist Mucous Membranes, mild pale conjunctiva CVS: RRR, no MRG. S1,S2 normal. RS: AEBE, no adventitious lung sound Abdomen: Soft nontender, nondistended positive bowel sounds, absent hepatomegaly Skin: warm and dry, absent rash, absent open wounds and nodules MSK: absent clubbing, cyanosis, joints without swelling. Neuro: No focal deficits, alert oriented 3, - Assessment and Plan (1) Myelodysplastic syndrome Current Visit: Yes Status: Chronic (2) Pancreatic cancer Current Visit: No Status: Chronic (3) Acute blood loss anemia Current Visit: No Status: Resolved (4) GI bleed Current Visit: Yes Status: Acute (5) Transaminitis Current Visit: Yes Status: Acute (6) Colitis Current Visit: Yes Status: Acute (7) Liver mass, right lobe Current Visit: Yes Status: Acute - Summary of Assessment and Plan Summary of Assessment and Plan: GI bleed - Patient's hemoglobin 6.8 on presentation. s/p 2 prbc 1 unit of FFP and 1 unit of platelets with appropriate response. - Report of tarry bowel movements. She has a history of MDS and requires recurrent blood transfusions. - endoscopy was 05/01/2018 which showed bleeding AVMs treated with APC and colonoscopy showed diverticulosis and blood in the colon. - No interventions per surgery based on patient and family requests. - Had some blood clots in vomits this morning and tarry stool. Hb relatively stable this morning. Slightly lower platelets. - Will monitor for now. f/u H&H at 4pm. Myelodysplastic syndrome - Receives frequent blood transfusions for anemia. - Oncology recommendation appreciated. Primary adenocarcinoma of head of pancreas - s/p Whipple surgery on May 2017 followed by adjuvant chemotherapy and chemoradiation - f/u CA 19-9. Onc following. Transaminitis - Patient's AST is 104 and ALT is 80 - CT abdomen pelvis does not show signs of obstruction, diffuse fatty infiltration of the liver with calcified granulomas, with focal fatty infiltration around the ori hepatis. - Is chronic possibly related to fatty infiltration vs metastasis. - hepatitis panel with HCB ab positive. Will obtain HCV RNA. Colitis - CT abdomen pelvis shows acute colitis of the hepatic flexure and proximal transverse segments of the colon. - c/w Cipro and flagyl - f/u cultures - No diarrhea currently. Will finish short 5 day course of antibiotics. Liver mass, right lobe - MRI abdomen with 4 enhancing lesion suspicious of metastatis. - Oncology recommendation appreciated DVT Prophylaxis: - SCD - Time Spent with Patient Total time spent is greater than 50% in coordination of care (as documented) at patient's floor/unit and/or counseling patient: Internal Medicine: Result - Labs CBC & Chem 7: 07/19/18 04:45 07/19/18 04:45 Labs: Short CBC 07/19/18 Range/Units 04:45 WBC 1.1 L (4.3-11.1) K/mcL Hgb 9.7 L (11.5-15.4) g/dL Hct 29.4 L (35.3-44.9) % Plt Count 45 L (140-400) K/mcL Neutrophils # 0.3 L (1.6-8.9) K/mcL BMP 07/19/18 04:45 Sodium 137 Potassium 3.3 L Chloride 108 H Carbon Dioxide 24 BUN 8 Creatinine 0.56 L Glucose 129 H Calcium 7.8 L Liver Function 07/19/18 Range/Units 04:45 Total Bilirubin 3.8 H (0.3-1.0) mg/dL AST 93 H (13-39) Units/L ALT 56 H (7-52) Units/L Alkaline Phosphatase 290 H (34-104) Units/L Albumin 2.4 L (3.5-5.7) g/dL - ABG Interpretation ABG results: PT/INR, D-dimer PT 15.6 Seconds (9.4-12.1) H 07/16/18 19:31 - Impressions Impressions Abdomen MRI 07/18/18 08:00 IMPRESSION: There are 4 areas of enhancement seen within the liver, new when compared to prior, suspicious for metastatic foci until proven otherwise. D/ / Zackery Sterling MD / Zackery Sterling MD Interpreting Provider: Zackery Sterling MD Consult Discharge Plan - Plan Referrals: Sukumar Wilkins Jr, MD [Primary Care Provider] - 07/29/18 3:00 pm (2) Pancreatic cancer Qualifiers: Pancreatic malignancy location: head of pancreas Qualified Code(s): C25.0 - Malignant neoplasm of head of pancreas (4) GI bleed Qualifiers: GI bleed type/associated pathology: unspecified gastrointestinal hemorrhage type Qualified Code(s): K92.2 - Gastrointestinal hemorrhage, unspecified
[2018-07-19 16:26] LABS: Basophils % 1.1 %; Hematocrit 27.8 % (35.3-44.9); Lymphocytes # 0.3 K/mcL (0.6-4.6); Lymphocytes % 27.4 %; Mean Corpuscular HGB Conc 32.4 g/dL (31.6-35.5); Mean Corpuscular Hemoglobin 30.9 pg (28.0-33.3); Mean Corpuscular Volume 95.5 fL (83.0-100.0); Mean Platelet Volume 12.4 fL (9.4-12.4); Monocytes # 0.4 K/mcL (0.0-1.3); Monocytes % 43.2 %; Neutrophils # 0.3 K/mcL (1.6-8.9); Red Blood Count 2.91 M/mcL (3.82-4.97); Red Cell Distribution Width 20.3 % (11.5-14.5); Segmented Neutrophils % 28.3 %
--- NOTE | 2018-07-19 16:26 | Oncology Inp Progress Note ---
Date of Encounter: 07/19/18 Time of Encounter: 16:24 (1) Liver mass, right lobe Current Visit: Yes Status: Acute Assessment and plan: Pancreatic cancer post Whipple surgery. She could not tolerate adjuvant chemotherapy because of underlying pancytopenia. She had chemoradiation MRI abdomen with and without contrast 07/17/2018 showed 4 areas of enhancement new compared to previous exam. Last MRI March 2017. Right hepatic lobe 2 x 2.3 cm. Left hepatic lobe 1.2 x 1.1 cm. Peripheral right hepatic lobe 2.5 x 2.4 cm. And the smaller one is 8 x 11 mm. Also evidence of colitis. These suggests possible metastasis from pancreatic cancer. Patient and family not interested in biopsy which is reasonable. If they want can repeat MRI in 2 months to assess the progression 2. MDS with underlying pancytopenia neutrophil counts currently 300 on 07/19/2018 hemoglobin 9.7 platelets 45,000 3. GI bleed. She is been passing clots through rectum and vomiting blood clots. If the hemoglobin drops she may need further packed RBC transfusion 4. Enlarged liver with fatty changes. She does have hepatitis C antibody positive. Hepatitis C viral load negative ALT 56 AST 96 AFP remains low at 2 on July 2018. alpha-fetoprotein also low at 2 on July 2018 5. Sandostatin 20 mg IM 1 dose to help with GI bleeding. It may control the bleeding in the setting of the AVM 6. Discussed about long-term goals. She has multiple problems including MDS GI bleed and pancreatic cancer. Patient and family decided on hospice which is very reasonable. Discussed with Dr. Pritchett hospitalist and will arrange for hospice At home. Overall prognosis poor. Currently she is not in pain. Oncology: Subj Interval history: Activity level is improving. She has passed clots per rectum and also vomiting with some clots. More alert and oriented - Constitutional Vitals: Vital Signs Temp Pulse Resp BP Pulse Ox 07/19/18 10:21 98.1 F 109 15 126/81 99 07/19/18 09:15 99 07/19/18 06:51 97.9 F 115 16 150/95 99 07/19/18 04:37 98.1 F 99 14 126/55 99 07/18/18 19:45 97.4 F L 106 16 145/94 95 Intake and Output 07/19/18 07/19/18 07/19/18 07:59 15:59 23:59 Intake Total 300 / 300 420 / 420 Output Total 250 / 250 Balance 50 / 50 420 / 420 Intake: IV Fluids 300 / 300 300 / 300 Cipro Premix 400 MG/200 ML 400 200 / 200 200 / 200 mg In 200 ml @ 200 mls/hr IVPB Q12H DEREJE Rx#:[id number] Flagyl Premix 500 MG/100 ML 500 100 / 100 100 / 100 mg In 100 ml @ 100 mls/hr IVPB Q8HR DEREJE Rx#:[id number] Oral 120 / 120 Output: Urine 250 / 250 Other: Meal Lunch Percent of Meal Consumed 5% Stool Size Large Moderate Stool Consistency formed loose liquid Stool Characteristics Tarry Stool Color Brown Brown Dark Red Blood # Voids 1 # Bowel Movements 1 Weight 51.2 kg Patient Weight 07/19/18 23:59 Weight 51.2 kg Exam: GENERAL: Alert and oriented, well appearing. Mental Status: Affect appropriate for circumstances HEENT: Sclerae anicteric. No mucositis or thrush. No other oral or pharyngeal lesions or erythema. Skin: No rashes or petechiae. No evidence of skin malignancy Lymph nodes: No cervical, supraclavicular, axillary, or inguinal adenopathy. Lungs: Air entry normal with normal breath sounds. No rhonchi or wheezing Cardiovascular: Regular rate and rhythm. No skipped beats Abdomen: Soft, nontender; mild distention Extremities: No edema. No calf swelling or tenderness. No joint deformity. Neurologic: Alert, cranial nerves II-XII intact; normal gait; no focal weakness or sensory abnormalities Generalized deconditioning Oncology: Obj Data - Labs CBC & Chem 7: 07/22/18 04:10 07/21/18 04:20 Labs: Laboratory Results - last 24 hr 07/18/18 07/18/18 07/19/18 05:02 11:00 04:45 WBC 1.1 L RBC 3.06 L Hgb 9.7 L Hct 29.4 L MCV 96.1 MCH 31.7 MCHC 33.0 RDW 20.5 H Plt Count 45 L MPV 13.2 H Immature Gran % 0.0 Seg Neutrophils % 28.2 Lymphocytes % 30.9 Monocytes % 38.2 Eosinophils % 0.9 Basophils % 1.8 Neutrophils # 0.3 L Lymphocytes # 0.3 L Monocytes # 0.4 Eosinophils # 0.0 Basophils # 0.0 Smudge Cells Present A Platelet Estimate Marked Decrease L Large Platelets Present A Polychromasia 2+ A Anisocytosis 2+ A Microcytosis Present A Macrocytosis Present A Sodium Potassium Chloride Carbon Dioxide BUN Creatinine Est GFR ( Amer) Est GFR (Non-Af Amer) BUN/Creatinine Ratio Glucose Calculated Osmolality Calcium Total Bilirubin AST ALT Alkaline Phosphatase Serum Total Protein Albumin Globulin Albumin/Globulin Ratio Stool Occult Blood Positive A Hepatitis A IgM Ab Nonreactive Hep Bs Antigen Nonreactive Hep B Core IgM Ab Nonreactive Hepatitis C Ab Screen Reactive H 07/19/18 04:45 WBC RBC Hgb Hct MCV MCH MCHC RDW Plt Count MPV Immature Gran % Seg Neutrophils % Lymphocytes % Monocytes % Eosinophils % Basophils % Neutrophils # Lymphocytes # Monocytes # Eosinophils # Basophils # Smudge Cells Platelet Estimate Large Platelets Polychromasia Anisocytosis Microcytosis Macrocytosis Sodium 137 Potassium 3.3 L Chloride 108 H Carbon Dioxide 24 BUN 8 Creatinine 0.56 L Est GFR ( Amer) > 60 Est GFR (Non-Af Amer) > 60 BUN/Creatinine Ratio 14 Glucose 129 H Calculated Osmolality 284 Calcium 7.8 L Total Bilirubin 3.8 H AST 93 H ALT 56 H Alkaline Phosphatase 290 H Serum Total Protein 5.9 L Albumin 2.4 L Globulin 3.5 Albumin/Globulin Ratio 0.7 L Stool Occult Blood Hepatitis A IgM Ab Hep Bs Antigen Hep B Core IgM Ab Hepatitis C Ab Screen - Impressions Impressions Abdomen MRI 07/18/18 08:00 IMPRESSION: There are 4 areas of enhancement seen within the liver, new when compared to prior, suspicious for metastatic foci until proven otherwise. D/ / Zackery Sterling MD / Zackery Sterling MD Interpreting Provider: Zackery Sterling MD - ABG Interpretation ABG results: PT/INR, D-dimer PT 15.6 Seconds (9.4-12.1) H 07/16/18 19:31 Consult Discharge Plan - Plan Referrals: Sukumar Wilkins Jr, MD [Primary Care Provider] - 07/29/18 3:00 pm Inpatient Charges Provider: Dr. Mary Ann Domínguez Follow up - Inpatient: [id number]
[2018-07-19 16:34] LABS: Platelet Count 33 K/mcL (140-400)
[2018-07-20] MEDS: MetroNIDAZOLE 500 MG/100 ML 500 MG/100 ML BAG IVPB SCH ×4 (01:52→23:43)
[2018-07-20 04:45] LABS: Eosinophils % 0.9 %; Mean Corpuscular Hemoglobin 31.3 pg (28.0-33.3)
[2018-07-20 04:47] LABS: Basophils % 0.9 %; Hematocrit 25.1 % (35.3-44.9); Hemoglobin 8.2 g/dL (11.5-15.4); Lymphocytes # 0.4 K/mcL (0.6-4.6); Lymphocytes % 33.6 %; Mean Corpuscular HGB Conc 32.7 g/dL (31.6-35.5); Mean Corpuscular Volume 95.8 fL (83.0-100.0); Mean Platelet Volume 13.2 fL (9.4-12.4); Monocytes # 0.5 K/mcL (0.0-1.3); Monocytes % 43.9 %; Neutrophils # 0.2 K/mcL (1.6-8.9); Red Blood Count 2.62 M/mcL (3.82-4.97); Red Cell Distribution Width 20.8 % (11.5-14.5); Segmented Neutrophils % 20.7 %
[2018-07-20 04:55] LABS: Platelet Count 30 K/mcL (140-400)
[2018-07-20 05:07] LABS: BUN/Creatinine Ratio 19 (6-26); Blood Urea Nitrogen 10 mg/dL (8-23); Calcium 7.6 mg/dL (8.6-10.3); Carbon Dioxide 23 mEq/L (23-29); Chloride 109 mEq/L (98-107); Glucose 125 mg/dL (70-105); Osmolality,Calculated 285 (280-300); Potassium 3.4 mEq/L (3.5-5.1); Sodium 137 mEq/L (136-145); eGFR For Non-African Americans > 60 (> 60)
[2018-07-20] MEDS: Pantoprazole 40 MG VIAL IVP SCH ×2 (05:18→17:41)
[2018-07-20 05:33] LABS: Anisocytosis 1+ (Not Present); Platelet Estimate Marked Decrease (Normal)
[2018-07-20] MEDS ORDERED: Octreotide Acetate (LAR) 30 MG KIT IM ONE (08:00)
--- NOTE | 2018-07-20 12:29 | Internal Med Progress Note ---
Hospitalist Progress Note - Encounter Date of Encounter: 07/20/18 Time of Encounter: 11:23 - Subjective Interval History: Patient seen and examined this morning. No acute overnight events. No vomiting or diarrhea overnight. Denies any bloody or tarry BM. Denies cp, shortness of breath or palpiation. Wants to go home. - Exam Vitals: Temp Pulse Resp BP Pulse Ox 98.0 F 100 16 123/76 96 07/20/18 06:51 07/20/18 06:51 07/20/18 06:51 07/20/18 06:51 07/20/18 06:51 Exam: General: pleasant, In no distressed. HEENT: moist Mucous Membranes, mild pale conjunctiva CVS: RRR, no MRG. S1,S2 normal. RS: AEBE, no adventitious lung sound Abdomen: Soft nontender, nondistended positive bowel sounds, absent hepatomegaly Skin: warm and dry, absent rash, absent open wounds and nodules MSK: absent clubbing, cyanosis, joints without swelling. Neuro: No focal deficits, alert oriented 3, - Assessment and Plan (1) Myelodysplastic syndrome Current Visit: Yes Status: Chronic (2) Pancreatic cancer Current Visit: No Status: Chronic (3) Acute blood loss anemia Current Visit: No Status: Resolved (4) GI bleed Current Visit: Yes Status: Acute (5) Transaminitis Current Visit: Yes Status: Acute (6) Colitis Current Visit: Yes Status: Acute (7) Liver mass, right lobe Current Visit: Yes Status: Acute - Summary of Assessment and Plan Summary of Assessment and Plan: GI bleed - Patient's hemoglobin 6.8 on presentation. s/p 2 prbc 1 unit of FFP and 1 unit of platelets with appropriate response. - Report of tarry bowel movements. She has a history of MDS and requires recurrent blood transfusions. - endoscopy was 05/01/2018 which showed bleeding AVMs treated with APC and colonoscopy showed diverticulosis and blood in the colon. - No interventions per surgery based on patient and family requests. - Hb 8.2 - Will monitor for now. f/u H&H at 5pm. Will transfuse if 8. - Started on Sandostatin per Onc. Myelodysplastic syndrome - Receives frequent blood transfusions for anemia. - Oncology recommendation appreciated. Primary adenocarcinoma of head of pancreas - s/p Whipple surgery on May 2017 followed by adjuvant chemotherapy and chemoradiation - f/u CA 19-9. Onc following. Transaminitis - Patient's AST is 104 and ALT is 80 - CT abdomen pelvis does not show signs of obstruction, diffuse fatty infiltration of the liver with calcified granulomas, with focal fatty infiltration around the ori hepatis. - Is chronic possibly related to fatty infiltration vs metastasis. - hepatitis panel with HCB ab positive. Will obtain HCV RNA. - f/u AFP Colitis - CT abdomen pelvis shows acute colitis of the hepatic flexure and proximal transverse segments of the colon. - c/w Cipro and flagyl - f/u cultures - No diarrhea currently. Will finish short 5 day course of antibiotics. Liver mass, right lobe - MRI abdomen with 4 enhancing lesion suspicious of metastatis. - Oncology recommendation appreciated - Possible pancreatic metastasis - Poor prognosis. Patient and family agreed to hospice on discharge. DVT Prophylaxis: - SCD - Time Spent with Patient Total time spent is greater than 50% in coordination of care (as documented) at patient's floor/unit and/or counseling patient: Internal Medicine: Result - Labs CBC & Chem 7: 07/20/18 03:56 07/20/18 03:56 Labs: Short CBC 07/19/18 07/20/18 Range/Units 16:00 03:56 WBC 1.0 L* 1.1 L (4.3-11.1) K/mcL Hgb 9.0 L 8.2 L (11.5-15.4) g/dL Hct 27.8 L 25.1 L (35.3-44.9) % Plt Count 33 L 30 L* (140-400) K/mcL Neutrophils # 0.3 L 0.2 L (1.6-8.9) K/mcL BMP 07/20/18 03:56 Sodium 137 Potassium 3.4 L Chloride 109 H Carbon Dioxide 23 BUN 10 Creatinine 0.52 L Glucose 125 H Calcium 7.6 L - ABG Interpretation ABG results: PT/INR, D-dimer PT 15.6 Seconds (9.4-12.1) H 07/16/18 19:31 Consult Discharge Plan - Plan Referrals: Sukumar Wilkins Jr, MD [Primary Care Provider] - 07/29/18 3:00 pm (2) Pancreatic cancer Qualifiers: Pancreatic malignancy location: head of pancreas Qualified Code(s): C25.0 - Malignant neoplasm of head of pancreas (4) GI bleed Qualifiers: GI bleed type/associated pathology: unspecified gastrointestinal hemorrhage type Qualified Code(s): K92.2 - Gastrointestinal hemorrhage, unspecified
[2018-07-20] MEDS: Octreotide 50 MCG/ML SYRINGE SQ SCH (17:41)
[2018-07-20] MEDS: Metoclopramide 10 MG/2 ML VIAL IVP PRN (18:14)
[2018-07-20 18:48] LABS: Basophils % 1.8 %; Eosinophils % 0.9 %; Hematocrit 27.5 % (35.3-44.9); Hemoglobin 8.9 g/dL (11.5-15.4); Lymphocytes # 0.3 K/mcL (0.6-4.6); Lymphocytes % 25.9 %; Mean Corpuscular HGB Conc 32.4 g/dL (31.6-35.5); Mean Corpuscular Hemoglobin 31.2 pg (28.0-33.3); Mean Corpuscular Volume 96.5 fL (83.0-100.0); Monocytes # 0.6 K/mcL (0.0-1.3); Monocytes % 51.8 %; Neutrophils # 0.2 K/mcL (1.6-8.9); Red Blood Count 2.85 M/mcL (3.82-4.97); Red Cell Distribution Width 20.3 % (11.5-14.5); Segmented Neutrophils % 19.6 %
[2018-07-20 18:51] LABS: Platelet Count 27 K/mcL (140-400)
[2018-07-20 19:03] LABS: Platelet Estimate Marked Decrease (Normal); Reactive Lymphocytes Present (Not Present)
[2018-07-20 19:05] LABS: Anisocytosis 1+ (Not Present); Large Platelets Present (Not Present)
[2018-07-20] MEDS: *HR* OxyCODONE/APAP 5/325 TABLET PO PRN (23:22)
[2018-07-21] MEDS: Octreotide 50 MCG/ML SYRINGE SQ SCH ×2 (05:01→17:22)
[2018-07-21 05:02] LABS: Alanine Aminotransferase 43 Units/L (7-52); Albumin 2.1 g/dL (3.5-5.7); Albumin/Globulin Ratio 0.6 (1.1-2.2); Alkaline Phosphatase 235 Units/L (34-104); Aspartate Amino Transferase 70 Units/L (13-39); BUN/Creatinine Ratio 20 (6-26); Blood Urea Nitrogen 10 mg/dL (8-23); Calcium 7.4 mg/dL (8.6-10.3); Carbon Dioxide 25 mEq/L (23-29); Chloride 109 mEq/L (98-107); Globulin 3.3 g/dL (2.4-3.5); Glucose 131 mg/dL (70-105); Osmolality,Calculated 285 (280-300); Sodium 137 mEq/L (136-145); Total Protein 5.4 g/dL (6.4-8.9); eGFR For Non-African Americans > 60 (> 60)
[2018-07-21] MEDS: Pantoprazole 40 MG VIAL IVP SCH ×2 (05:02→17:22)
[2018-07-21] MEDS: Metoclopramide 10 MG/2 ML VIAL IVP PRN (05:02)
[2018-07-21 06:31] LABS: Mean Corpuscular Hemoglobin 31.3 pg (28.0-33.3)
[2018-07-21 06:33] LABS: Basophils % 1.2 %; Eosinophils % 2.3 %; Hematocrit 22.1 % (35.3-44.9); Lymphocytes # 0.3 K/mcL (0.6-4.6); Lymphocytes % 34.9 %; Mean Corpuscular HGB Conc 31.7 g/dL (31.6-35.5); Mean Corpuscular Volume 98.7 fL (83.0-100.0); Monocytes # 0.4 K/mcL (0.0-1.3); Monocytes % 40.7 %; Neutrophils # 0.2 K/mcL (1.6-8.9); Red Blood Count 2.24 M/mcL (3.82-4.97); Red Cell Distribution Width 20.5 % (11.5-14.5); Segmented Neutrophils % 20.9 %
[2018-07-21 06:40] LABS: Platelet Count 19 K/mcL (140-400)
[2018-07-21 06:50] LABS: Anisocytosis 1+ (Not Present); Platelet Estimate Decreased (Normal)
[2018-07-21] MEDS: MetroNIDAZOLE 500 MG/100 ML 500 MG/100 ML BAG IVPB SCH (08:15)
--- NOTE | 2018-07-21 10:16 | Oncology Inp Progress Note ---
Date of Encounter: 07/21/18 Time of Encounter: 10:15 (1) Myelodysplastic syndrome Current Visit: Yes Status: Chronic Assessment and plan: Patient has myelodysplasia as well as a history of occult gastrointestinal bleeding. Agree with transfusions of packed red blood cells as well as platelets to optimize indices prior to discharge. Patient does not desire to pursue further active therapy. She has progressive metastatic pancreatic cancer and is unable to pursue therapy secondary to MDS. She will be discharged home with hospice care tomorrow. I think this is the best choice for this patient to maintain the best possible quality life. (2) Pancreatic tumor Current Visit: No Status: Acute Assessment and plan: MRI liver with new enhancing lesions concerning for pancreatic cancer. Patient was intolerant of chemotherapy previously and is not a good candidate for chemotherapy moving forward given her significant MDS. As stated above, she will be going home with hospice. She is currently comfortable and has no complaints. She will be proceeding home with hospice tomorrow. We will otherwise sign off. However, do not hesitate to call with any concerns or questions. Oncology: Subj Interval history: Ms. Brady feels okay today. She is fatigued and tired. No fever, chills or symptoms of infection. She is anxious to go home tomorrow. She denies active bleeding symptoms. Transfusion of platelets as well as packed red blood cells is planned for today prior to discharge to home hospice tomorrow. - Constitutional Vitals: Vital Signs Temp Pulse Resp BP Pulse Ox 07/21/18 06:53 97.6 F 105 14 136/86 96 07/21/18 04:13 97.6 F 94 15 119/72 96 07/20/18 18:28 98.1 F 97 18 138/89 98 07/20/18 14:11 98.0 F 97 16 120/78 97 Intake and Output 07/21/18 07/21/18 07/21/18 00:59 08:59 16:59 Intake Total 300 / 300 100 / 100 100 / 100 Output Total 0 / 0 Balance 300 / 300 100 / 100 100 / 100 Intake: IV Fluids 300 / 300 100 / 100 100 / 100 Cipro Premix 400 MG/200 ML 400 200 / 200 mg In 200 ml @ 200 mls/hr IVPB Q12H [facility] Rx#:[id number] Flagyl Premix 500 MG/100 ML 500 100 / 100 100 / 100 100 / 100 mg In 100 ml @ 100 mls/hr IVPB Q8HR [facility] Rx#:[id number] Oral 0 / 0 0 / 0 0 / 0 Output: Urine 0 / 0 Other: Meal Dinner Breakfast Percent of Meal Consumed 100% 50% Weight 49.8 kg Patient Weight 07/22/18 00:59 Weight 49.8 kg General appearance: no acute distress, thin - Head Head exam: Present: atraumatic, normal inspection, normocephalic - Eye Eye exam: Present: normal appearance, conjuntiva pink, sclera anicteric - ENT ENT exam: Present: normal exam, normal oropharynx - Neck Neck exam: Present: full ROM, normal inspection - Respiratory Respiratory exam: Present: CTAB - Cardiovascular Cardiovascular exam: Present: RRR - GI/Abdominal GI/Abdominal exam: Present: normal bowel sounds, soft - Extremities Exam Extremities exam: Present: normal inspection - Neurological Exam Neurological exam: Present: alert, CN II-XII intact, oriented X3, no focal deficits Oncology: Obj Data - Labs CBC & Chem 7: 07/21/18 06:17 07/21/18 04:20 Labs: Laboratory Results - last 24 hr 07/20/18 07/21/18 07/21/18 18:20 04:20 06:17 WBC 1.1 L 0.9 L* RBC 2.85 L 2.24 L Hgb 8.9 L 7.0 L D Hct 27.5 L 22.1 L MCV 96.5 98.7 MCH 31.2 31.3 MCHC 32.4 31.7 RDW 20.3 H 20.5 H Plt Count 27 L* 19 L* MPV TNP TNP Immature Gran % 0.0 0.0 Seg Neutrophils % 19.6 20.9 Lymphocytes % 25.9 34.9 Monocytes % 51.8 40.7 Eosinophils % 0.9 2.3 Basophils % 1.8 1.2 Neutrophils # 0.2 L 0.2 L Lymphocytes # 0.3 L 0.3 L Monocytes # 0.6 0.4 Eosinophils # 0.0 0.0 Basophils # 0.0 0.0 Reactive Lymphocytes Present A Platelet Estimate Marked Decrease L Decreased L Large Platelets Present A Anisocytosis 1+ A 1+ A Sodium 137 Potassium 4.0 Chloride 109 H Carbon Dioxide 25 BUN 10 Creatinine 0.49 L Est GFR ( Amer) > 60 Est GFR (Non-Af Amer) > 60 BUN/Creatinine Ratio 20 Glucose 131 H Calculated Osmolality 285 Calcium 7.4 L Total Bilirubin 3.0 H AST 70 H ALT 43 Alkaline Phosphatase 235 H Serum Total Protein 5.4 L Albumin 2.1 L Globulin 3.3 Albumin/Globulin Ratio 0.6 L - ABG Interpretation ABG results: PT/INR, D-dimer PT 15.6 Seconds (9.4-12.1) H 07/16/18 19:31 Consult Discharge Plan - Plan Referrals: Sukumar Wilkins Jr, MD [Primary Care Provider] - 07/29/18 3:00 pm
[2018-07-21] MEDS ORDERED: 0.9 % Sodium Chloride 250 ML ONE ×3 (10:23→18:23)
--- NOTE | 2018-07-21 12:01 | Internal Med Progress Note ---
Hospitalist Progress Note - Encounter Date of Encounter: 07/21/18 Time of Encounter: 09:16 - Subjective Interval History: Patient seen and examined this morning. No acute overnight events. Had 1 episode of blood tingue vomiting yesterday. Denies any bloody or tarry BM. Denies cp, shortness of breath or palpitation. Wants to go home as soon as possible. - Exam Vitals: Temp Pulse Resp BP Pulse Ox 98.3 F 96 17 135/90 96 07/21/18 11:28 07/21/18 11:28 07/21/18 11:28 07/21/18 11:28 07/21/18 06:53 Exam: General: pleasant, In no distressed. HEENT: moist Mucous Membranes, mild pale conjunctiva CVS: RRR, no MRG. S1,S2 normal. RS: AEBE, no adventitious lung sound Abdomen: Soft nontender, mildly distended. positive bowel sounds, absent hepatomegaly Skin: warm and dry, absent rash, absent open wounds and nodules MSK: absent clubbing, cyanosis, joints without swelling. Neuro: No focal deficits, alert oriented 3. - Assessment and Plan (1) Myelodysplastic syndrome Current Visit: Yes Status: Chronic (2) Pancreatic cancer Current Visit: No Status: Chronic (3) Acute blood loss anemia Current Visit: No Status: Resolved (4) GI bleed Current Visit: Yes Status: Acute (5) Transaminitis Current Visit: Yes Status: Acute (6) Colitis Current Visit: Yes Status: Acute (7) Liver mass, right lobe Current Visit: Yes Status: Acute - Summary of Assessment and Plan Summary of Assessment and Plan: GI bleed - Patient's hemoglobin 6.8 on presentation. s/p 2 prbc 1 unit of FFP and 1 unit of platelets with appropriate response. - history of MDS and requires recurrent blood transfusions. - endoscopy was 05/01/2018 which showed bleeding AVMs treated with APC and colonoscopy showed diverticulosis and blood in the colon. - No interventions per surgery based on patient and family requests. - Will transfuse 2 PRBC and 1 platelet today to optimize to discharge to home. - Started on Sandostatin per Onc. Myelodysplastic syndrome and Primary adenocarcinoma of head of pancreas - s/p Whipple surgery on May 2017 followed by adjuvant chemotherapy and chemoradiation - Requiring multiple tranfusion before - Now with metastatic Pancreatic cancer. Not candidate for chemo - Patient and family decided to opt for hospice care Transaminitis - Patient's AST is 104 and ALT is 80 - CT abdomen pelvis does not show signs of obstruction, diffuse fatty infiltration of the liver with calcified granulomas, with focal fatty infiltration around the ori hepatis. - Is chronic possibly related to fatty infiltration vs metastasis. - hepatitis panel with HCB ab positive. f/u HCV RNA. - No further testing given patient will be hospice. Colitis - CT abdomen pelvis shows acute colitis of the hepatic flexure and proximal transverse segments of the colon. - Finished course of Cipro and flagyl. Will DC today. - No diarrhea currently. Liver mass, right lobe - MRI abdomen with 4 enhancing lesion suspicious of metastatis. - Possible pancreatic metastasis - Poor prognosis. Patient and family agreed to hospice on discharge tomorrow. DVT Prophylaxis: - SCD Plan for hospice discussion tomorrow and discharge home. - Time Spent with Patient Total time spent is greater than 50% in coordination of care (as documented) at patient's floor/unit and/or counseling patient: Internal Medicine: Result - Labs CBC & Chem 7: 07/21/18 06:17 07/21/18 04:20 Labs: Short CBC 07/20/18 07/21/18 Range/Units 18:20 06:17 WBC 1.1 L 0.9 L* (4.3-11.1) K/mcL Hgb 8.9 L 7.0 L D (11.5-15.4) g/dL Hct 27.5 L 22.1 L (35.3-44.9) % Plt Count 27 L* 19 L* (140-400) K/mcL Neutrophils # 0.2 L 0.2 L (1.6-8.9) K/mcL BMP 07/21/18 04:20 Sodium 137 Potassium 4.0 Chloride 109 H Carbon Dioxide 25 BUN 10 Creatinine 0.49 L Glucose 131 H Calcium 7.4 L Liver Function 07/21/18 Range/Units 04:20 Total Bilirubin 3.0 H (0.3-1.0) mg/dL AST 70 H (13-39) Units/L ALT 43 (7-52) Units/L Alkaline Phosphatase 235 H (34-104) Units/L Albumin 2.1 L (3.5-5.7) g/dL - ABG Interpretation ABG results: PT/INR, D-dimer PT 15.6 Seconds (9.4-12.1) H 07/16/18 19:31 Consult Discharge Plan - Plan Referrals: Sukumar Wilkins Jr, MD [Primary Care Provider] - 07/29/18 3:00 pm (2) Pancreatic cancer Qualifiers: Pancreatic malignancy location: head of pancreas Qualified Code(s): C25.0 - Malignant neoplasm of head of pancreas (4) GI bleed Qualifiers: GI bleed type/associated pathology: unspecified gastrointestinal hemorrhage type Qualified Code(s): K92.2 - Gastrointestinal hemorrhage, unspecified
[2018-07-21 15:54] LABS: Alpha 2 Globulin (PEP) 0.42 g/dL (0.48-1.05); Beta Globulin (PEP) 0.66 g/dL (0.48-1.10)
[2018-07-21] MEDS: *HR* OxyCODONE/APAP 5/325 TABLET PO PRN (21:22)
[2018-07-22 03:10] LABS: Lambda Qnt Free Light Chains 5.68 mg/dL (0.57-2.63)
[2018-07-22 04:40] LABS: Basophils % 2.9 %; Eosinophils % 1.5 %; Hematocrit 33.6 % (35.3-44.9); Hemoglobin 10.8 g/dL (11.5-15.4); Lymphocytes # 0.4 K/mcL (0.6-4.6); Lymphocytes % 28.5 %; Mean Corpuscular HGB Conc 32.1 g/dL (31.6-35.5); Mean Corpuscular Hemoglobin 30.1 pg (28.0-33.3); Mean Corpuscular Volume 93.6 fL (83.0-100.0); Mean Platelet Volume 12.3 fL (9.4-12.4); Monocytes # 0.6 K/mcL (0.0-1.3); Monocytes % 43.8 %; Neutrophils # 0.3 K/mcL (1.6-8.9); Red Blood Count 3.59 M/mcL (3.82-4.97); Red Cell Distribution Width 19.4 % (11.5-14.5); Segmented Neutrophils % 23.3 %
[2018-07-22 05:21] LABS: Platelet Count 48 K/mcL (140-400)
[2018-07-22] MEDS: Octreotide 50 MCG/ML SYRINGE SQ SCH (05:22)
[2018-07-22] MEDS: *HR* OxyCODONE/APAP 5/325 TABLET PO PRN (05:22)
[2018-07-22] MEDS: Pantoprazole 40 MG VIAL IVP SCH (05:22)
[2018-07-22 06:07] LABS: Anisocytosis 2+ (Not Present); Large Platelets Present (Not Present); Macrocytosis Present (Not Present); Platelet Estimate Decreased (Normal)
[2018-07-22 06:08] LABS: Microcytosis Present (Not Present)
[2018-07-22 06:38] VITALS: BP 148/89
[2018-07-22 08:00] LABS: IFE Reflexed NOT DONE
[2018-07-22 08:14] LABS: HCV Quant Interpretation NOT DETECTED (Not Detected); HCV Quant Log NOT DETECTED log IU/mL
--- NOTE | 2018-07-22 11:52 | Discharge Summary ---
- NOTES TO OUTPATIENT PROVIDER Notes to Outpatient Provider: Patient now made hospice to be discharged to home with home hospice at [facility]. Patient was given 15 Percocet for pain management. Sandostatin injection to be arranged. Orders not resulted at time of discharge: Pending orders 07/18/18 11:00 Occult Blood,Stool [BF] Stat 07/19/18 16:00 Hepatitis C Qnt Reflx Genotype Routine Date of Encounter: 07/22/18 Time of Encounter: 11:46 - Discharge Diagnosis (1) Myelodysplastic syndrome Priority: Secondary Status: Chronic (2) Pancreatic cancer Priority: Primary Status: Chronic Qualifiers: Pancreatic malignancy location: head of pancreas Qualified Code(s): C25.0 - Malignant neoplasm of head of pancreas (3) Acute blood loss anemia Priority: Primary Status: Resolved (4) GI bleed Priority: Primary Status: Acute Qualifiers: GI bleed type/associated pathology: unspecified gastrointestinal hemorrhage type Qualified Code(s): K92.2 - Gastrointestinal hemorrhage, unspecified (5) Transaminitis Priority: Primary Status: Acute (6) Colitis Priority: Secondary Status: Acute (7) Liver mass, right lobe Priority: Primary Status: Acute Hospital course: Ms. Brady is a 78 year old female with past medical history of MDS, pancreatic cancer status post Whipple's procedure in 2017, history of GI bleed status post endoscopy on 05/01/18 showing AVM came in with complain of weakness was found to have anemia likely secondary to GI bleed as well as transaminitis. Oncology and surgery were consulted. Patient initially hemoglobin was 6.8 and received 2 units of transfusion as well as one unit of FFP and platelets. Patient CT scan showed colitis as well as liver mass which were evaluated with MRI which showed 4 new likely metastasis at the lesions. Her pancreatic cancer resection was with positive margins. Patient and family did not want endoscopy is or colonoscopy. Patient's transaminitis is likely due to the testicle lesions. Given patient's poor prognosis after discussion family decided to opt for hospice at home. Patient received another 2 units of PRBC and 1 unit of platelets to optimize to discharge to allow her to go home. Patient received a few doses of short acting sandostatin. Will be arranged on discharge for Depo preparation by hospice. Discharge discussed with: patient, family, nurse, social work, case management, lending consultant - Time Spent with Patient Total time spent providing and/or coordinating discharge services: Greater than 30 minutes (50) - Discharge Medications Prescriptions: OxyCODONE/APAP 5/325 [Percocet 5/325 MG] 1 each PO Q8HR PRN 5 Days #15 tablet PRN Reason: Pain Home Medications: Oxazepam [Serax] 10 mg PO BID 04/27/17 [History] Amitriptyline HCl 75 mg PO HS 06/07/17 [History] Prochlorperazine Maleate [Compazine] 10 mg PO Q6HR PRN #120 tablet 07/13/17 [Rx] Lidocaine/Prilocaine [Emla] 1 appl TP AD PRN #30 gm 08/03/17 [Rx] Cholecalciferol (Vitamin D3) [Vitamin D3] 400 unit PO DAILY #30 capsule 02/14/18 [Rx] Docusate [Colace] 100 mg PO BID #60 capsule 03/27/18 [Rx] Lipase/Protease/Amylase [Celena Singh 12,000 Units Capsule] 1 cap PO TIDWM 04/29/18 [History] Omeprazole [PriLOSEC] 40 mg PO DAILY@0630 30 Days #30 capsule. 05/02/18 [Rx] Ondansetron ODT [Zofran ODT] 4 mg PO Q4H PRN #120 tab.rapdis 06/18/18 [Rx] Metoclopramide [Reglan] 10 mg PO TID PRN #90 tablet 06/21/18 [Rx] Furosemide [Lasix] 20 mg PO DAILY 07/02/18 [History] Lipase/Protease/Amylase [Celena Singh 12,000 Units Capsule] 1 each PO AD 07/02/18 [History] Sucralfate [Carafate] 1 gm PO BID 07/17/18 [History] OxyCODONE/APAP 5/325 [Percocet 5/325 MG] 1 each PO Q8HR PRN 5 Days #15 tablet 07/22/18 [Rx] Allergies/Adverse Reactions: Allergy/AdvReac Type Severity Reaction Status Date / Time lorazepam [From Ativan] AdvReac Intermediate Confusion Verified 05/10/18 10:09 Sulfa (Sulfonamide AdvReac Mild Weakness Verified 05/10/18 10:09 Antibiotics) Zolpidem [From Ambien] AdvReac Confusion Verified 05/10/18 10:09 Date of admission: 07/17/18 04:43 Primary care physician: Sukumar Wilkins Jr, MD Consults: 07/16/18 20:16 Consult to Physician [CONS] Stat Consulting Provider: Adalberto Torrez Reason for Consult: GI bleed Time Notified: 20:16 Call Completed: Yes 07/17/18 16:30 Consult to Oncology [CONS] Routine Consulting Provider: Oncology [facility] Reason for Consult: Liver mass likely mets Call Completed: Yes 07/19/18 16:43 Consult to Hospice Svc [CONS] Routine Comment: 07/22/18 10:48 Consult to Palliative Care [CONS] Stat Comment: Consulting Provider: Palliative Care [facility] Reason for Consult: MDS, GI bleed, Metastatic pancreatic Ca, Discuss home hospice and other options. Plan of discharge after. Call Completed: Yes Discharging clinician: Audrey Pritchett - Constitutional Vitals: Temp Pulse Resp BP Pulse Ox 98.3 F 94 18 148/89 93 07/22/18 06:32 07/22/18 06:32 07/22/18 06:32 07/22/18 06:32 07/22/18 06:32 General appearance: Present: A&O X 3, pleasant Exam: General: pleasant, In no distressed. Thinly build. HEENT: moist Mucous Membranes, mild pale conjunctiva CVS: RRR, no MRG. S1,S2 normal. RS: AEBE, no adventitious lung sound Abdomen: Soft nontender, mildly distended. positive bowel sounds, absent hepatomegaly Skin: warm and dry, absent rash, absent open wounds and nodules MSK: absent clubbing, cyanosis, joints without swelling. Neuro: No focal deficits, alert oriented 3. - Patient Status Disposition: Hospice - Home Condition: Serious - Discharge Instructions Follow Up With: Sukumar Wilkins Jr, MD [Primary Care Provider] - 07/29/18 3:00 pm - Diet and Activity Activity: increase activity as tolerated
--- NOTE | 2018-07-22 11:58 | Physician Discharge Referral ---
Home Health/Hosp Referral Info Transfer to: Hospice - Diagnosis (1) Myelodysplastic syndrome Status: Chronic (2) Pancreatic cancer Status: Chronic (3) Acute blood loss anemia Status: Resolved (4) GI bleed Status: Acute (5) Transaminitis Status: Acute (6) Colitis Status: Acute (7) Liver mass, right lobe Status: Acute - Respiratory Orders Smoking Cessation: Smoking cessation has been advised. For more information, call the [place] Tobacco Quit Line at 7-586-KVNV-NOW. - Diet/Nutrition Diet/Nutrition Orders: Regular - Activity Activity Orders: Up ad jaspal - Services Needed Following services are medically necessary services: Nursing - Transfer Medications Prescriptions: OxyCODONE/APAP 5/325 [Percocet 5/325 MG] 1 each PO Q8HR PRN 5 Days #15 tablet PRN Reason: Pain Home Medications: Oxazepam [Serax] 10 mg PO BID 04/27/17 [History] Amitriptyline HCl 75 mg PO HS 06/07/17 [History] Prochlorperazine Maleate [Compazine] 10 mg PO Q6HR PRN #120 tablet 07/13/17 [Rx] Lidocaine/Prilocaine [Emla] 1 appl TP AD PRN #30 gm 08/03/17 [Rx] Cholecalciferol (Vitamin D3) [Vitamin D3] 400 unit PO DAILY #30 capsule 02/14/18 [Rx] Docusate [Colace] 100 mg PO BID #60 capsule 03/27/18 [Rx] Lipase/Protease/Amylase [Celena Singh 12,000 Units Capsule] 1 cap PO TIDWM 04/29/18 [History] Omeprazole [PriLOSEC] 40 mg PO DAILY@0630 30 Days #30 bharti. 05/02/18 [Rx] Ondansetron ODT [Zofran ODT] 4 mg PO Q4H PRN #120 tab.rapdis 06/18/18 [Rx] Metoclopramide [Reglan] 10 mg PO TID PRN #90 tablet 06/21/18 [Rx] Furosemide [Lasix] 20 mg PO DAILY 07/02/18 [History] Lipase/Protease/Amylase [Celena Singh 12,000 Units Capsule] 1 each PO AD 07/02/18 [History] Sucralfate [Carafate] 1 gm PO BID 07/17/18 [History] OxyCODONE/APAP 5/325 [Percocet 5/325 MG] 1 each PO Q8HR PRN 5 Days #15 tablet 07/22/18 [Rx] Allergies/Adverse Reactions: Allergy/AdvReac Type Severity Reaction Status Date / Time lorazepam [From Ativan] AdvReac Intermediate Confusion Verified 05/10/18 10:09 Sulfa (Sulfonamide AdvReac Mild Weakness Verified 05/10/18 10:09 Antibiotics) Zolpidem [From Ambien] AdvReac Confusion Verified 05/10/18 10:09 Certification: Further, I certify that my clinical findings support that this patient is homebound (i.e. absences from home require considerable and taxing effort and are for medical reasons or protestant services or infrequently or short duration when for other reasons) because: Homebound Reason: Patient requires assistance of a person or device to safely leave home Attestation: My signature below is to certify that this patient is under my care and that I, or nurse practitioner, or a physician's photographer's assistant working with me, has a [id number] encounter with this patient.
--- NOTE | 2018-07-22 12:57 | Event Note ---
Date of Encounter: 07/22/18 Time of Encounter: 11:45 Arrived to meet with family for discharge planning. Daughter had already called and arranged [facility]. Dr. Pritchett completed discharge prescriptions. Patient desires to go home. DME in place. Daughters only inquiry was if Sandastatin Injections could be covered; Nikole notified and will notify Nyasia with results of inquiry. Palliative care signing off.
== END 2018-07-22 12:15 | disposition hospice, home (50) | DRG 435 ==
LOC: ICNU 18:38 → EMEROOARM 18:38 → ICNU 23:30 → SUATTDRO 07-17 04:43 → 3ANU 07-17 17:59
PROVIDERS: ADMIT Pediatrics; ATTEND Internal Medicine